=== PATIENT | female | born 1935 | race Caucasian/White ===

== ENCOUNTER 2021-11-09 12:19 | Inpatient (IN) | payer MEDICARE, BC ==
[~2021-11-09] VITALS: Ht 170.2 cm; Wt 67.4 kg
--- NOTE | 2021-11-09 12:10 | PM&R Post Admission Assessment ---
PM&R HP Date of Visit: November 09, 2021 Time of Visit: 13:00 History of Present Illness CC: Debility HPI: This is a clinic pt of Dr. Malhotra with a past medical history of CLL and pneumonia. She presented to [facility] with SOB. She was found to have multifocal pneumonia. Failed outpatient antibiotic treatment who presents with debility, SOB, and cough. She is currently holding her chemotherapy medication that is prescribed by Dr. Whitt. She has completed antibiotics and currently has some residual cough. She is very debilitated and frail. Her daughters at the bedside. She is currently wearing oxygen and is currently otherwise having no new concerns. Past Iwffdrc-Yjmtah-Pddorm Hx Past Med/Social Hx: Reviewed Nursing Past Med/Soc Hx, Reviewed and Corrections made Patient Social History Marrital Status: single Employed/Student: retired Alcohol Use: Denies Use Smoking Status: Never a Smoker Past Medical History Respiratory: Pneumonia Did You Recieve Any Treatments: Yes What Type of Treatment Did You: Chemotherapy Cancer: CLL PM&R Allergy/Meds/Data Review Allergies Coded Allergies: No Known Drug Allergies (Unverified , 11/09/21) Home Medications Scheduled Acalabrutinib (Calquence), 100 MG PO DAILY, (Reported) Acetaminophen (Tylenol Extra Strength), 1,000 MG PO HS, (Reported) Acyclovir (Acyclovir), 400 MG PO DAILY, (Reported) Cholecalciferol (Vitamin D3) (Vitamin D3), 125 MCG PO DAILY, (Reported) Docusate Sodium (Docusate Sodium), 100 MG PO DAILY, (Reported) Furosemide (Furosemide), 40 MG PO 0700,1700, (Reported) Levocetirizine Dihydrochloride (Levocetirizine Dihydrochloride), 5 MG PO DAILY, (Reported) Melatonin (Melatonin), 6 MG PO HS, (Reported) Metoprolol Tartrate (Metoprolol Tartrate), 12.5 MG PO Q12H, (Reported) Mometasone Furoate (Mometasone Furoate), 1 SPRAY NSEACH DAILY, (Reported) Potassium Chloride (Potassium Chloride), 20 MEQ PO DAILY, (Reported) Saccharomyces Boulardii (Florastor), 500 MG PO DAILY, (Reported) Scheduled PRN Bisacodyl (Bisacodyl), 10 MG RC DAILY PRN for CONSTIPATION-4TH LINE, (Reported) Diphenhydramine HCl (Benadryl), 25 MG PO Q6H PRN for ALLERGY SYMPTOMS, (Reported) Current Medications Current Medications Reviewed Review of Systems Constitutional: see HPI, dizziness, malaise, weakness EENTM: no symptoms reported Respiratory: cough, dyspnea on exertion Cardiovascular: no symptoms reported Gastrointestinal: no symptoms reported Genitourinary: no symptoms reported Musculoskeletal: back pain, joint pain Skin: no symptoms reported Psychiatric/Neurological: Anxiety, Depressed, Headache All Other Systems Reviewed Negative Unless Noted: Yes Physical Exam Physical Exam Vital Signs Capillary Refill : Height, Weight, BMI Height: '" Weight: lbs. oz. kg; BMI Method: General Appearance: No Apparent Distress, WD/WN, Chronically ill, Thin Eyes: Bilateral Eye Normal Inspection, Bilateral Eye PERRL HEENT: PERRL/EOMI, Normal ENT Inspection, Pharynx Normal Neck: Full Range of Motion, Normal Inspection, Non Tender, Supple, Carotid Bruit Respiratory: Chest Non Tender, No Accessory Muscle Use, No Respiratory Distress, Decreased Breath Sounds, Rales (Left lower lobe) Cardiovascular: Regular Rate, Rhythm, No Edema, No Gallop, No JVD, No Murmur, Normal Peripheral Pulses Gastrointestinal: Normal Bowel Sounds, No Organomegaly, No Pulsatile Mass, Non Tender, Soft Back: Normal Inspection, No CVA Tenderness, No Vertebral Tenderness Extremity: Normal Capillary Refill, Normal Inspection, Normal Range of Motion, Non Tender, No Calf Tenderness, No Pedal Edema Neurologic/Psychiatric: Alert, Oriented x3, 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 Norm as Tested, Abnormal Gait, Depressed Affect, Motor Weakness (Severe weakness generalized) Skin: Normal Color, Warm/Dry Lymphatic: No Adenopathy PM&R Medical Assessment & Plan REHAB/MEDICAL ASSESSMENT AND PLAN: REHAB IMPAIRMENT GROUP: Debility ETIOLOGIC DIAGNOSIS: Debility The comorbidities that impact the patients function and/or functional outcome by: CLL on immunosuppression, hypoxia, severe debility, advanced age REHAB PLAN: The patient is being admitted to our comprehensive inpatient rehabilitation facility and can tolerate the intensity of service consisting of at least: 180 minutes of therapy a day, 5 out of 7 days a week Rehab treatment will consist of: PT and OT will focus on regaining enough function with use of assistive devices in order to return back to independent living The patient/family has a good understanding of our discharge process and will benefit from an interdisciplinary inpatient rehabilitation program. The patient has potential to make improvement and is in need of at least two of the following multidisciplinary therapies including but not limited to physical, occupational, speech, and prosthetics and orthotics. Additionally the patient will need services from respiratory, nutritional services, wound care, psychology, etc. (Customize this to each patient). Given the patients complex condition and risk of further medical complications, rehabilitation services cannot be safely or effectively provided at a lower level of care such as a retirement facility. BARRIERS TO DISCHARGE: Severe weakness with advanced age ESTIMATED LOS: 7 days DISPOSITION: Home RELEVANT CHANGES SINCE PREADMISSION SCREENING: I have compared the patients medical and functional status at the time of the preadmission screening and there are: no changes PROGNOSIS: Fair REHABILITATION GOALS: 1. [PT and OT will focus on regaining enough function with use of assistive devices in order to return back to independent living All the above goals were reviewed with the patient and he/she is in agreement. By signing this document, I acknowledge that I have personally performed a full physical examination on this patient within 24 hours of admission to this inpatient rehabilitation facility and have determined the patient to be able to tolerate the above course of treatment at an intensive level for a reasonable period of time. I will be completing a detailed individualized Plan of Care for this patient by day #4 of the patients stay based upon the Preadmission Screen, the Post-Admission Evaluation, and the therapy evaluations. Admission Dx/Comorbidities: (1) Debility ICD Codes: R53.81 - Other malaise (2) CLL (chronic lymphocytic leukemia) ICD Codes: C91.10 - Chronic lymphocytic leukemia of B-cell type not having achieved remission (3) Immunosuppression ICD Codes: D84.9 - Immunodeficiency, unspecified (4) Hypoxia ICD Codes: R09.02 - Hypoxemia (5) Oxygen dependent ICD Codes: Z99.81 - Dependence on supplemental oxygen (6) Pneumonia ICD Codes: J18.9 - Pneumonia, unspecified organism Assessment/Plan Assessment and Plan Assess & Plan/Chief Complaint Assessment: Critical illness myopathy Status post pneumonia 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 Whitt his oncologist Diabetes Hypertension Colon polyps Insomnia Advanced age Hyponatremia Anemia Volume overload Hypoxia requiring supplemental oxygen since pneumonia Diastolic congestive heart failure Valvular heart disease Immunosuppression Plan: Inpatient rehab protocol Oxygen supplementation Home meds Supportive care TEENA BUNDY DO November 09, 2021 12:10
[2021-11-09] MEDS ORDERED: MOME17SP11 NSEACH (12:29)
[2021-11-09] MEDS ORDERED: DOCU100C37 PO (12:29)
[2021-11-09] MEDS ORDERED: ACET-2267 PO (12:29)
[2021-11-09] MEDS ORDERED: BISA10SU8 RC (12:29)
[2021-11-09] MEDS ORDERED: DIPH25CA79 PO (12:29)
[2021-11-09] MEDS ORDERED: FURO40TA4 PO (12:29)
[2021-11-09] MEDS ORDERED: MELA3TAB39 PO (12:29)
[2021-11-09] MEDS ORDERED: POTA-51 PO (12:29)
[2021-11-09] MEDS ORDERED: ACYC400T21 PO (12:29)
[2021-11-09] MEDS ORDERED: METO-333 PO (12:29)
[2021-11-09] MEDS ORDERED: SACC250C PO (12:29)
[2021-11-09] MEDS ORDERED: ACAL100C PO (12:29)
[2021-11-09] MEDS ORDERED: CHOL500050 PO (12:29)
[2021-11-09] MEDS ORDERED: LEVO5TAB12 PO (12:29)
[2021-11-09 12:30] VITALS: BP 125/76
[2021-11-09] MEDS ORDERED: guaiFENesin/DM (ROBITUSSIN DM) 10 ML UDC PO PRN (12:30)
[2021-11-09] MEDS ORDERED: LACTULOSE SYRUP 10GM/15ML (ENULOSE) 30ML UDC PO PRN (12:30)
[2021-11-09] MEDS ORDERED: guaiFENesin/CODEINE (ROBITUSSIN AC) 10ML UDC PO PRN (12:30)
[2021-11-09] MEDS ORDERED: CALCIUM CARBONATE 500 MG (TUMS) TAB.CHEW PO PRN (12:30)
[2021-11-09] MEDS ORDERED: FLEET ENEMA ADULT 1 EA BTL PR PRN (12:30)
[2021-11-09] MEDS ORDERED: DOCUSATE SODIUM 100 MG (COLACE) CAP PO PRN (12:30)
[2021-11-09] MEDS ORDERED: ENOXAPARIN 40 MG/0.4 ML (LOVENOX) SYR SC SCH (12:30)
[2021-11-09] MEDS ORDERED: BISACODYL 10 MG SUPP (DULCOLAX) PR PRN (12:30)
[2021-11-09] MEDS ORDERED: MELATONIN 3 MG TABLET PO PRN (12:30)
[2021-11-09] MEDS ORDERED: LOPERAMIDE 2 MG (IMODIUM) TABLET PO PRN (12:30)
--- NOTE | 2021-11-09 13:04 | Occupational Therapy Eval ---
OT Evaluation-General/PLF Medical Diagnosis Admission Date November 09, 2021 at 12:19 Medical Diagnosis: B/L multifocal PNA Onset Date: November 09, 2021 Therapy Diagnosis Therapy Diagnosis: decreased ADL status Precautions Precautions/Isolations: Fall Prevention, Standard Precautions, Pressure Ulcer Referral Physician: Xu Ahumada Reason: Evaluation/Treatment Medical History Additional Medical History a/c diastolic HF, hypoxia, anemia Current History admit with b/l multifocal PNA due to AE HFpEF Reviewed History: Yes Social History Home: Multilevel Current Living Status: Alone Steps Into Home: 1 (small step into home) Pt lives in multilevel house but does not use the upstairs. ADL-Prior Level of Function SCALE: Activities may be completed with or without assistive devices. 6-Gaulifvber-ostcovg completes the activity by him/herself with no assistance from a helper. 5-Set-up or Clean-up Assistance-helper sets up or cleans up; patient completes activity. [place] assists only prior to or following the activity. 4-Supervision or Touching Assistance-helper provides verbal cues and/or touching/steadying and/or contact guard assistance as patient completes activity. Assistance may be provided throughout the activity or intermittently. 3-Partial/Moderate Assistance-helper does LESS THAN HALF the effort. [place] lifts, holds or supports trunk or limbs, but provides less than half the effort. 2-Substantial/Maximal Assistance-helper does MORE THAN HALF the effort. [place] lifts or holds trunk or limbs and provides more than half the effort. 5-Enekqxzki-cbvwfg does ALL the effort. Patient does none of the effort to complete the activity. Or, the assistance of 2 or more helpers is required for the patient to complete the activity. If activity was not attempted, code reason: 7-Patient Refused. 9-Not Applicable-not attempted and the patient did not perform the activity before the current illness, exacerbation or injury. 10-Not Attempted due to Environmental Limitations-(lack of equipment, weather restraints, etc.). 88-Not Attempted due to Medical Conditions or Safety Concerns. ADL PLOF Comments Pt reports IND with ADLs and functional mobility at [facility], using 4WW. She has a walk in shower with a SC (didn't use SC prior). She also has a toilet riser. Self Care: Independent Functional Cognition: Independent OT Current Status Subjective Pt arrived to ARU via private vehicle. Pt agreeable to OT evaluation. Pt tired from ride over/transfer from [place], [place]. Mental Status/Objective Patient Orientation: Person, Place, Situation Attachments: Oxygen (2L NC) Current Hearing Aids: Yes Hand Dominance: Right Upper Extremity ROM WFL, BUE shoulder flexion to approx 150 degrees Upper Extremity Coordination WFL Upper Extremity Strength grossly 3+/5 ADL-Treatment Eating (QC): 5 (Per pt report) Oral Hygiene (QC): 7 Shower/Bathe Self (QC): 7 Upper Body Dressing (QC): 7 Lower Body Dressing (QC): 7 On/Off Footwear (QC): 4 (SBA) Toileting Hygiene (QC): 3 (Per nursing staff) Other Treatments [id number] OT evaluation. Pt assisted from car to w/c using FWW, assistance maneuvering walker over uneven surface. Pt taken to ARU to her room, used FWW to transfer to recliner, [facility]. Pt provided information about PLOF and home set up and participated in UE screen. Pt and family educated on ARU expectations, they verbalize understanding. Post tx, pt in recliner, call light in reach and all needs met. [id number] OT tx: Pt seated upright in recliner, family present. Pt declines ADLs at this time, but agreeable to shower tomorrow. Pt declines need to toilet, as she just toileted with nursing staff. Pt able to doff gripper socks, then don slip on shoes, SBA. Pt took rest breaks during task reporting fatigue. Pt reports enjoying cross stitch, word puzzles and watching TV. Pt and family provide further history on pt, indicating she has some compression fractures in her back that cause pain, and allergies/sinus issues. Family questioning if pt could have toe nails cut during visit, OT informed nurse of family request. Education OT Patient Education: Correct positioning, Energy conservation, Exercise program, Modified ADL techniques, Progress toward Goal/Update tx plan, Purpose of tx/functional activities Teaching Recipient: Patient Teaching Methods: Discussion Response to Teaching: Unable to Return Demonstration OT Short Term Goals Short Term Goals Time Frame: November 22, 2021 Toileting hygiene: 4 Shower/bathe self: 4 Lower body dressin Putting on/taking off footwear: 4 OT State Auditor Goals State Auditor Goals Time Frame: Dec 08, 2021 Eating (QC): 6 Oral Hygiene (QC): 6 Toileting Hygiene (QC): 6 Shower/Bathe Self (QC): 6 Upper Body Dressing (QC): 6 Lower Body Dressing (QC): 6 On/Off Footwear (QC): 6 Additional Goals: 1-Demonstrate ADL Tasks, 2-Verbalize Understanding, 3- ImproveStrength/[place] 1=Demonstrate adherence to instructed precautions during ADL tasks. 2=Patient will verbalize/demonstrate understanding of assistive d evices/modifications for ADL. 3=Patient will improve strength/tolerance for activity to enable patient to perform ADL's. OT Education/Plan Problem List/Assessment Assessment: Decreased Activ Tolerance, Decreased UE Strength, Impaired Funct Balance, Impaired I ADL's, Impaired Self-Care Skills Discharge Recommendations Plan/Recommendations: Continue POC Treatment Plan/Plan of Care Patient would benefit from OT for education, treatment and training to promote independence in ADL's, mobility, safety and/or upper extremity function for A DL's. Plan of Care: ADL Retraining, Functional Mobility, Group Exercise/Act as Ind, UE Funct Exercise/Act Treatment Duration: Dec 08, 2021 Frequency: At least 5 of 7 days/Wk (IRF) Estimated Hrs Per Day: 1.5 hours per day Agreement: Yes Rehab Potential: Good Time/GCodes Start Time: 12:05 ([id number]) Stop Time: 13:30 ([id number]) Total Time Billed (hr/min): 40 Billed Treatment Time 1, 1, EVM (20'), ADL (20') LAYTON BENITEZ OT November 09, 2021 13:04
--- NOTE | 2021-11-09 13:32 | ST Cognitive Linguistic Eval ---
Speech Evaluation-General Medical Diagnosis B/L Multifocal PNA Onset Date: November 09, 2021 Therapy Diagnosis Therapy Diagnosis: Intact Neurocognitive Skills Precautions Precautions: Fall Precautions/Isolations: Fall Prevention, Standard Precautions Referral Referring Physician: Dr. Tatiana Mcnair Reason for Referral: Evaluation/Treatment Medical History Current History The patient is an 86 year old female with a past medical history of a/c diastolic HF, hypoxia, and anemia, who presented to the acute rehabilitation unit following b/l multifocal PNA due to AE HFpEF. Reviewed History: Yes Social History Current Living Status: Alone Speech PLF-Current Status Prior Level of Function The patient denied prior challenges with her speech, language or cognition. Per patient's daughter, the patient's cognition is at baseline. One daughter stated, "You're speech may seemed a little slurred at times but it is always when you are so tired." The patient denied the presence of s/s of suspected aspiration with P.O. intake, however, does report her throat feels swollen from all the mucus and coughing. The clinician encouraged the patient to consumed soft, slick consistencies and alternate solids and liquids on a 1:1 ratio. If difficulties arise, the patient was encouraged to discuss her swallow with the RN for contact of the speech pathologist. Subjective The patient was seated upright in her recliner, awake and alert upon entrance to her room by the clinician. The patient greeted the clinician appropriately and was agreeable to participation in the cognitive linguistic assessment. The patient has two daughters present at bedside. The patient is receiving 2L supplemental oxygen via NC. Language Eval: Auditory Comprehends Simple Yes/No Ques: Functional Indent/Objects Multiple Lane: Functional Ident/Pics in Multiple Lane: Functional Follows 1-Step Commands: Functional Follows Complex Directions: Mild Follows General Conversations: Functional Language Eval: Verbal Language Completes Spontaneous Greeting: Functional Produces Auto, Serial Info: Functional Imitates Simple Words/Phrases: Functional Word Finding: Functional Requests Basic Needs: Functional States Basic Personal Info: Functional Language Evaluation: Reading Follows Simple Written Direct: Functional Language Evaluation: Writing Writes to Simple Dictation: Functional Cognitive Patient Orientation The patient was independently oriented to self, location, month, day of week, date, and year. Objective Cognitive Domain Attention: WNL Memory: WNL Problem Solving: Functional Executive Functions: WNL Composite Severity Rating: WNL Clock Drawing Severity Rating: WNL Objective Formal/Standardized Tests [facility] Status Exam (UMS) Results The patient demonstrated a result of +28/30 correlating to neurocognitive skills within normal limits. Oral Motor/Speech Production The patient did not demonstrate dysarthria or apraxia of speech throughout the evaluation. The patient remained 100% intelligible in known and unknown contexts. Impression The patient demonstrated neurocognitive skills within normal limits. Speech Patient Assess Expression of Ideas/Wants: Expression (4) Understanding Verbal Content: Understands (4) Brief Interview-Mental Status: Yes Repetition of Three Words: Three (3) Temporal Orientation: Year: Correct (3) Temporal Orientation: Month: Accurate within 5 days(2) Temporal Orientation: Day: Correct (1) Recall : Wear to say "Sock": Yes, no cue required (2) Recall : Color: Yes, no cue required (2) Recall : Bed: Yes, no cue required (2) Memory/Recall Ability: Current season, Location of own room, That he or she is in a hsp/hsp unit Speech-Plan Treatment Plan Speech Therapy Treatment Plan: Discontinue ST Treatment Duration: November 09, 2021 Frequency: 1 time per week Estimated Hrs Per Day: .5 hour per day Rehab Potential: Good Pt/Family Agrees to Plan: Yes Safety Risks/Education Teaching Recipient: Patient, Family Teaching Methods: Discussion Response to Teaching: Verbalize Understanding Education Topics Provided: Results of SLUMS, Speech Pathology Plan of Care Time Speech Therapy Time In: 12:40 Speech Therapy Time Out: 13:10 Total Billed Time: 30 Billed Treatment Time 1, LIZETH YANCEY ELIZABETH ST November 09, 2021 13:32
[2021-11-09] MEDS: BENZONATATE 100 MG (TESSALON) CAPSULE PO SCH ×2 (13:38→20:23)
--- NOTE | 2021-11-09 14:18 | Occupational Ther Daily Note ---
OT Current Status-Daily Note Subjective Pt alert, sitting in recliner. Took over care from OTR. Co-treat with [phone]), skills of 2 clinicians required due to increased pain, decreased activity tolerance and to decrease fall risk. PT focusing on ambulation, transfers and mobility while OT focusing on B UE placement, functional mobility and B UE fine/gross motor task. Mental Status/Objective Patient Orientation: Person, Place, Time, Situation Attachments: Oxygen (2L) ADL-Treatment Therapy Code Descriptions/Definitions Functional [place] Measure: 0=Not Assessed/NA 4=Minimal Assistance 1=Total Assistance 5=Supervision or Setup 2=Maximal Assistance 6=Modified [place] 3=Moderate Assistance 7=Complete IndependenceSCALE: Activities may be completed with or without assistive devices. 5-Oryybxlkyh-vnkpgot completes the activity by him/herself with no assistance from a helper. 5-Set-up or Clean-up Assistance-helper sets up or cleans up; patient completes activity. [place] assists only prior to or following the activity. 4-Supervision or Touching Assistance-helper provides verbal cues and/or touching/steadying and/or contact guard assistance as patient completes activity. Assistance may be provided throughout the activity or intermittently. 3-Partial/Moderate Assistance-helper does LESS THAN HALF the effort. [place] lifts, holds or supports trunk or limbs, but provides less than half the effort. 2-Substantial/Maximal Assistance-helper does MORE THAN HALF the effort. [place] lifts or holds trunk or limbs and provides more than half the effort. 0-Wcgghberm-zclfxy does ALL the effort. Patient does none of the effort to complete the activity. Or, the assistance of 2 or more helpers is required for the patient to complete the activity. If activity was not attempted, code reason: 7-Patient Refused. 9-Not Applicable-not attempted and the patient did not perform the activity before the current illness, exacerbation or injury. 10-Not Attempted due to Environmental Limitations-(lack of equipment, weather restraints, etc.). 88-Not Attempted due to Medical Conditions or Safety Concerns. Other Treatment See PT notes for ambulation progress. Pt able to ambulate using FWW though fatigues very quickly after short distance. Pt's B UE WFL for AROM though demonstrates weakness and fatigue with extended use. MAGAÑA wrapped B lower legs and feet due to swelling. After therapy, pt left in care of PT all needs met. OT Short Term Goals Short Term Goals Time Frame: November 22, 2021 Toileting hygiene: 4 Shower/bathe self: 4 Lower body dressin Putting on/taking off footwear: 4 OT Instructor Weaving Goals Halfway Goals Time Frame: Dec 08, 2021 Eating (QC): 6 Oral Hygiene (QC): 6 Toileting Hygiene (QC): 6 Shower/Bathe Self (QC): 6 Upper Body Dressing (QC): 6 Lower Body Dressing (QC): 6 On/Off Footwear (QC): 6 Additional Goals: 1-Demonstrate ADL Tasks, 2-Verbalize Understanding, 3- ImproveStrength/[place] 1=Demonstrate adherence to instructed precautions during ADL tasks. 2=Patient will verbalize/demonstrate understanding of assistive devices/modifications for ADL. 3=Patient will improve strength/tolerance for activity to enable patient to perform ADL's. OT Education/Plan Problem List/Assessment Assessment: Decreased Activ Tolerance, Decreased UE Strength, Impaired Self- Care Skills Discharge Recommendations Plan/Recommendations: Continue POC Treatment Plan/Plan of Care Patient would benefit from OT for education, treatment and training to promote independence in ADL's, mobility, safety and/or upper extremity function for ADL's. Plan of Care: ADL Retraining, Functional Mobility, Group Exercise/Act as Ind, UE Funct Exercise/Act Treatment Duration: Dec 08, 2021 Frequency: At least 5 of 7 days/Wk (IRF) Estimated Hrs Per Day: 1.5 hours per day Agreement: Yes Rehab Potential: Good Time/GCodes Start Time: 13:40 Stop Time: 14:15 Total Time Billed (hr/min): 35 Billed Treatment Time 1 visit-FA 2 (35 min) co-treat with PT 35 min OLINDA COULTER November 09, 2021 14:18
--- NOTE | 2021-11-09 14:32 | Physical Therapy Evaluation ---
PT Evaluation-General Medical Diagnosis Admission Date November 09, 2021 at 12:19 Medical Diagnosis: B/L Multifocal PNA Onset Date: November 09, 2021 Therapy Diagnosis Therapy Diagnosis: impaired mobility, strength, endurance Precautions Precautions/Isolations: Fall Prevention, Standard Precautions Referral Physician: Tatiana Mcnair DO Reason for Referral: Evaluation/Treatment Medical History Additional Medical History a/c diastolic HF, hypoxia, anemia Reviewed History: Yes Social History Home: Multilevel (patient doesn't have to go upstairs) Current Living Status: Alone PT Steps Into Home: 1 (small step into home) Prior Prior Level of Function SCALE: Activities may be completed with or without assistive devices. 2-Bmhbkeusno-erqoaih completes the activity by him/herself with no assistance from a helper. 5-Set-up or Clean-up Assistance-helper sets up or cleans up; patient completes activity. [place] assists only prior to or following the activity. 4-Supervision or Touching Assistance-helper provides verbal cues and/or touching/steadying and/or contact guard assistance as patient completes activity. Assistance may be provided throughout the activity or intermittently. 3-Partial/Moderate Assistance-helper does LESS THAN HALF the effort. [place] lifts, holds or supports trunk or limbs, but provides less than half the effort. 2-Substantial/Maximal Assistance-helper does MORE THAN HALF the effort. [place] lifts or holds trunk or limbs and provides more than half the effort. 8-Brkfmzyji-ztcfpf does ALL the effort. Patient does none of the effort to complete the activity. Or, the assistance of 2 or more helpers is required for the patient to complete the activity. If activity was not attempted, code reason: 7-Patient Refused. 9-Not Applicable-not attempted and the patient did not perform the activity before the current illness, exacerbation or injury. 10-Not Attempted due to Environmental Limitations-(lack of equipment, weather restraints, etc.). 88-Not Attempted due to Medical Conditions or Safety Concerns. Bed Mobility: 6 Transfers (B,C,W/C): 6 Gait: 6 Stairs: 6 PT Evaluation-Current Subjective Patient in recliner pre tx, agrees to PT, has unrated headache, nurse aware, states she also is very congested due to change in weather. Family states patient has had spinal compression fractures and has back pain, she also is very kyphotic. Will be co-treating with OT for part of tx due to poor patient mobility, strength, endurance, severe debility, coordinate UE and LE during activity, safety and reduce risk of falls. Pt/Family Goals to be independent at home. Objective Patient Orientation: Person, Place, Situation Attachments: Oxygen ROM/Strength ROM Lower Extremities WNL Strength Lower Extremities LLE (hip flexion 3+/5, knee flexion 4/5, knee extension 4/5, dorsiflexion 4/5), RLE (hip flexion 3+/5, knee flexion 4/5, knee extension 4/5, dorsiflexion 4/5) Integumentary/Posture Integumentary patient has increased edema in LLE, nursing aware Sensory Vision: Functional Hearing: Impaired Hand Dominance: Right Sensation Right Lower Extremit: Intact Sensation Left Lower Extremity: Intact Transfers Roll Left & Right (QC): 6 Sit to Lying (QC): 4 (SBA) Lying to Sitting/Side of Bed(Q: 3 (Ila) Sit to Stand (QC): 4 (CGA) Chair/Xyq-yf-Nlubn Xfer(QC): 4 (CGA) Toilet Transfer (QC): 4 (CGA) Car Transfer (QC): 4 (CGA) Patient performs rolling independently, supine to sit with min assist, sit to supine SBA, sit <-> stand and transfers CGA, car transfer CGA. Patient needs oc casional cues for positioning and safety. Gait Does the Patient Walk?: Yes Mode of Locomotion: Walk Anticipated Mode of Locomotion: Walk Walk 10 feet (QC): 4 Walk 50 ft with 2 Turns(QC): 88 Walk 150 ft (QC): 88 Walking 10ft/uneven surface-QC: 4 Distance: 20', 15'x2 Gait Assistive Device: FWW Comments/Gait Description Patient can ambulate 20' with a rolling walker with CGA (including 10' over an uneven surface). Patient ambulates very slowly, has poor endurance, poor foot clearance and short steps. Wheelchair Training Wheel 50 ft with 2 turns (QC): 1 Wheel 150 ft (QC): 1 Stairs #of Steps: 1 1 Step (curb) (QC): 4 4 Steps (QC): 88 12 Steps (QC): 88 Walking Assistive Device: Walker Patient can go up and down 1 step using a rolling walker with CGA, cues for foot placement and safety Balance Sitting Static: Normal Sitting Dynamic: Normal Standing Static: Fair Standing Dynamic: Fair Picking up an Object (QC): 4 (using supervisor labor gang) Treatment PT performed bed mobility and transfers, ambulation, NuStep level 2 for 6 min (patient had to stop due to back pain), OT performed UE positioning and safety, standing peg activity (working on standing balance and endurance with PT). Assessment/Needs Patient in recliner post tx with nurse call, phone, tray, all needs met. Patient has impaired mobility, strength, endurance, pain with activity. Patient was very tired and had a hard time tolerating much activity. Rehab Potential: Fair PT Short Term Goals Short Term Goals Time Frame: November 16, 2021 Roll Left & Right: 6 Sit to lyin Lying to sitting on side of be: 4 (SBA) Sit to stand: 4 (SBA) Chair/mfx-xk-wnual transfer: 4 (SBA) Walk 10 feet: 4 (SBA) Walk 50 feet with two turns: 4 (SBA) PT Jail Goals Jail Goals PT Manufacturing Test Engineer Goals Time Frame: November 30, 2021 Roll Left & Right (QC): 6 Sit to Lying (QC): 6 Lying-Sitting on Side/Bed(QC): 6 Sit to Stand (QC): 5 Chair/Ayz-xq-Cknlk Xfer(QC): 5 Toilet Transfer (QC): 5 Car Transfer (QC): 5 Does the Patient Walk: Yes Walk 10 feet (QC): 5 Walk 50ft with 2 Turns (QC): 5 Walk 150 ft (QC): 5 Walking 10ft on Uneven Surface: 5 1 Step (curb) (QC): 4 4 Steps (QC): 4 12 Steps (QC): 88 Picking up an Object (QC): 5 Wheel 50 feet with 2 turns (QC: 9 Wheel 150 feet: 9 PT Plan Problem List Problem List: Activity Tolerance, Functional Strength, Safety, Balance, Gait, Transfer, Bed Mobility, ROM Treatment/Plan Treatment Plan: Continue Plan of Care Treatment Plan: Bed Mobility, Education, Functional Activity [place], Functional Strength, Group Therapy, Gait, Safety, Therapeutic Exercise, Transfers Treatment Duration: November 30, 2021 Frequency: At least 5 of 7 days/Wk (IRF) Estimated Hrs Per Day: 1.5 hours per day Patient and/or Family Agrees t: Yes Safety Risks/Education Patient Education: Gait Training, Transfer Techniques, Steps, Correct Positioning, Safety Issues Teaching Recipient: Patient Teaching Methods: Demonstration, Discussion Response to Teaching: Reinforcement Needed Discharge Recommendations Plan Patient will perform bed mobility and transfer training, balance and endurance training, functional strengthening, stair training, gait training, and education, to improve functional mobility and independence at home. Therapy Discharge Recommendati: Scheduled Assistance, Home & Family, Post Acute PT Time/GCodes Time In: 1330 Time Out: 1440 Total Billed Treatment Time: 75 Total Billed Treatment 1 visit EVM 10' EX 15' FA 50' PT eval from [id number], co-treat from [id number], PT tx from [id number] NADIA SLOAN PT November 09, 2021 14:32
[2021-11-09] MEDS ORDERED: BISACODYL 10 MG SUPP (DULCOLAX) RC PRN (17:45)
[2021-11-09] MEDS ORDERED: NON-FORMULARY MEDICATION 1 EA EA (Diphenhydramine HCl (Benadryl) 25 MG) PO PRN (17:45)
[2021-11-09 19:54] VITALS: BP 99/49
[2021-11-09] MEDS ORDERED: APAP 300 MG/CODEINE 30 MG (TYLENOL #3) TAB PO PRN (20:00)
[2021-11-09] MEDS: meTOprolol TARTRATE 25 MG (LOPRESSOR) TABLET PO SCH (20:23)
[2021-11-09] MEDS: MELATONIN 3 MG TABLET PO SCH (20:23)
[2021-11-09] MEDS: polyethylene glycoL POWDER 17 GM (MIRALAX) PACK PO SCH (20:24)
[2021-11-09] MEDS: SENNA W/DOCUSATE (SENOKOT S) TABLET PO SCH (20:24)
[2021-11-09] MEDS: ACETAMINOPHEN 500 MG TAB (TYLENOL) PO SCH (20:25)
[2021-11-09] MEDS ORDERED: DOCUSATE SODIUM 100 MG (COLACE) CAP PO SCH (21:00)
[2021-11-09] MEDS: ALPRAZolam 0.25 MG (XANAX) TAB PO PRN (22:02)
[2021-11-09] MEDS: guaiFENesin/CODEINE (ROBITUSSIN AC) 10ML UDC PO PRN (22:03)
[2021-11-10 06:15] LABS: BASOPHILS % (AUTO) 1 % (0-10); EOSINOPHILS # (AUTO) 0.2 10^3/uL (0.0-0.3); EOSINOPHILS % (AUTO) 0 % (0-10); HEMOGLOBIN 8.1 g/dL (11.5-16.0)
[2021-11-10 06:18] LABS: BASOPHILS # (AUTO) 0.7 10^3/uL (0.0-0.1); HEMATOCRIT 27 % (35-52); LYMPHOCYTES # (AUTO) 85.9 10^3/uL (1.0-4.0); LYMPHOCYTES % (AUTO) 61 % (12-44); MEAN CORPUSCULAR HEMOGLOBIN 31 pg (25-34); MEAN CORPUSCULAR HGB CONC 30 g/dL (32-36); MEAN CORPUSCULAR VOLUME 101 fL (80-99); MEAN PLATELET VOLUME 9.9 fL (9.0-12.2); MONOCYTES # (AUTO) 50.3 10^3/uL (0.0-1.0); MONOCYTES % (AUTO) 36 % (0-12); NEUTROPHILS # (AUTO) 4.3 10^3/uL (1.8-7.8); NEUTROPHILS % (AUTO) 3 % (42-75)
[2021-11-10 06:31] LABS: POTASSIUM 6.3 MMOL/L (3.6-5.0)
[2021-11-10 06:32] LABS: CALCIUM 8.2 MG/DL (8.5-10.1)
[2021-11-10 06:33] LABS: TOTAL PROTEIN 4.5 GM/DL (6.4-8.2)
[2021-11-10] MEDS: FUROSEMIDE 40 MG (LASIX) TAB PO SCH ×2 (06:33→17:11)
[2021-11-10 06:35] LABS: BILIRUBIN,TOTAL 1.8 MG/DL (0.1-1.0)
[2021-11-10 06:37] LABS: CREATININE SERUM 0.83 MG/DL (0.60-1.30)
[2021-11-10 06:39] LABS: WHITE BLOOD COUNT 141.9 10^3/uL (4.3-11.0)
[2021-11-10 06:45] LABS: ATYPICAL LYMPHOCYTES 98 %; NEUTROPHILS % (MANUAL) 2 %
[2021-11-10 06:46] LABS: ANISOCYTOSIS SLIGHT; HYPOCHROMASIA SLIGHT; PLATELET COUNT 109 10^3/uL (130-400); POIKILOCYTOSIS SLIGHT
--- NOTE | 2021-11-10 06:55 | PM&R Progress Note ---
Subjective HPI/CC On Admission Date Seen by Provider: November 10, 2021 Time Seen by Provider: 11:45 Subjective/Events-last exam 11/10/2021: Pt settling in White count is 141,000 Hemoglobin is 8.1 Potassium is 6.3, so I did give Kayexalate to get that down She reports she took Ativan and Zoloft at home so we will evaluate the home dosing Will add procalcitonin to check to be sure that her pneumonia is resolving and I will repeat a chest x-ray, I will also do a sputum culture Review of Systems General: Fatigue, Malaise Pulmonary: Dyspnea, Cough Neurological: Weakness, Incoordination Objective Exam Vital Signs Vital Signs Date Time Temp Pulse Resp B/P (MAP) Pulse Ox O2 Delivery O2 Flow Rate FiO2 11/10/21 21:51 36.9 95 24 104/65 (78) 94 Nasal Cannula 2.00 Capillary Refill : General Appearance: No Apparent Distress, WD/WN, Chronically ill, Thin HEENT: PERRL/EOMI, Normal ENT Inspection, Pharynx Normal Neck: Full Range of Motion, Normal Inspection, Non Tender, Supple, Carotid Bruit Respiratory: Chest Non Tender, No Accessory Muscle Use, No Respiratory Distress, Decreased Breath Sounds, Rales (Left lower lobe) Cardiovascular: Regular Rate, Rhythm, No Edema, No Gallop, No JVD, No Murmur, Normal Peripheral Pulses Gastrointestinal: Normal Bowel Sounds, No Organomegaly, No Pulsatile Mass, Non Tender, Soft Back: Normal Inspection, No CVA Tenderness, No Vertebral Tenderness Extremity: Normal Capillary Refill, Normal Inspection, Normal Range of Motion, Non Tender, No Calf Tenderness, No Pedal Edema Neurologic/Psychiatric: Alert, Oriented x3, addictions counselor assistant II-XII Norm as Tested, Abnormal Gait, Depressed Affect, Motor Weakness (Severe weakness generalized) Skin: Normal Color, Warm/Dry Lymphatic: No Adenopathy Results/Procedures Lab Laboratory Tests 11/10/21 05:35 Patient resulted labs reviewed. FIM Transfers Therapy Code Descriptions/Definitions Functional [place] Measure: 0=Not Assessed/NA 4=Minimal Assistance 1=Total Assistance 5=Supervision or Setup 2=Maximal Assistance 6=Modified [place] 3=Moderate Assistance 7=Complete IndependenceSCALE: Activities may be completed with or without assistive devices. 1-Itrhesouzd-wmjplzd completes the activity by him/herself with no assistance from a helper. 5-Set-up or Clean-up Assistance-helper sets up or cleans up; patient completes activity. [place] assists only prior to or following the activity. 4-Supervision or Touching Assistance-helper provides verbal cues and/or touching/steadying and/or contact guard assistance as patient completes activity. Assistance may be provided throughout the activity or intermittently. 3-Partial/Moderate Assistance-helper does LESS THAN HALF the effort. [place] lifts, holds or supports trunk or limbs, but provides less than half the effort. 2-Substantial/Maximal Assistance-helper does MORE THAN HALF the effort. [place] lifts or holds trunk or limbs and provides more than half the effort. 7-Yfamkbsho-mrqtgr does ALL the effort. Patient does none of the effort to complete the activity. Or, the assistance of 2 or more helpers is required for the patient to complete the activity. If activity was not attempted, code reason: 7-Patient Refused. 9-Not Applicable-not attempted and the patient did not perform the activity before the current illness, exacerbation or injury. 10-Not Attempted due to Environmental Limitations-(lack of equipment, weather re straints, etc.). 88-Not Attempted due to Medical Conditions or Safety Concerns. Roll Left to Right (QC): 6 Sit to Lying (QC): 4 (SBA) Sit to Stand (QC): 4 (CGA) Chair/Nuq-hh-Hguay Xfer(QC): 4 (CGA) Car Transfer (QC): 4 (CGA) Gait Training Does the Patient Walk?: Yes Walk 10 feet (QC): 4 Walk 50 ft with 2 Turns(QC): 88 Walk 150 ft (QC): 88 Walking 10ft/uneven surface-QC: 4 Gait Assistive Device: FWW Wheelchair Training Wheel 50 ft with 2 turns (QC): 1 Wheel 150 ft (QC): 1 Stair Training #of Steps: 1 1 Step (curb) (QC): 4 4 Steps (QC): 88 12 Steps (QC): 88 Balance Picking up an Object (QC): 4 (using data entry manager) ADL-Treatment Eating (QC): 5 (Per pt report) Oral Hygiene (QC): 7 Shower/Bathe Self (QC): 7 Upper Body Dressing (QC): 7 Lower Body Dressing (QC): 7 On/Off Footwear (QC): 4 (SBA) Toileting Hygiene (QC): 3 (Per nursing staff) Assessment/Plan Assessment and Plan Assess & Plan/Chief Complaint Assessment: Critical illness myopathy Status post pneumonia 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 Whitt his oncologist Diabetes Hypertension Colon polyps Insomnia Advanced age Hyponatremia Anemia Volume overload Hypoxia requiring supplemental oxygen since pneumonia Diastolic congestive heart failure Valvular heart disease Immunosuppression Vitamin B12 deficiency Plan: Inpatient rehab protocol Oxygen supplementation Home meds Supportive care 11/10/2021: Check chest x-ray Sputum culture Add PCT to labs Supplement B12 (1) Debility (2) CLL (chronic lymphocytic leukemia) (3) Immunosuppression (4) Hypoxia (5) Oxygen dependent (6) Pneumonia TEENA BUNDY DO November 10, 2021 06:55
--- NOTE | 2021-11-10 06:57 | Individualized Plan of Care ---
Individualized Plan of Care Rehab Nursing IPOC Order Admission Date November 09, 2021 at 12:19 Current Orders Orders Admission Arrival Bed Request (11/09/21 12:12) Guaifenesin/Codeine Syrup (Robitussin Ac (11/09/21 12:30) Guaifenesin/Dm Syrup (Robitussin Dm Syru (11/09/21 12:30) Benzonatate Capsule (Tessalon Perles) (11/09/21 13:00) Admission Order(Inpt,Obs,Sdc) (11/09/21 12:21) Vital Signs: Per Unit Policy ( ,16,00 (11/09/21 12:21) Nicolás Hose (11/09/21 12:21) Sequential Compression Device (11/09/21:) Medical Historian-Inpt Rehab Con (11/09/21:21) Rehab Nursing Orders-Ipoc (11/09/21 12:21) Physical Therapy Rehab Orders (11/09/21 12:21) Occupational Therapy Rehab Ord (11/09/21 12:21) Speech Therapy Rehab Orders (11/09/21 12:21) Cbc With Automated Diff (11/10/21 06:00) Comprehensive Metabolic Panel (11/10/21 06:00) Precautions (Aru) (11/09/21:) Weekly Weight WEEK (11/09/21:) Rehab-Intensity Of Therapy (11/09/21 12:) Initiate Admission Nursing Pro .admission (11/09/21 12:21) Alprazolam Tablet (Xanax Tablet) (11/09/21 12:30) Calcium Carbonate Chew Tablet (Antacid C (11/09/21 12:30) Diphenhydramine Tablet (Benadryl Tablet) (11/09/21 12:30) Docusate Sodium Capsule (Colace Capsule) (11/09/21 21:00) Docusate Sodium Capsule (Colace Capsule) (11/09/21 12:30) Bisacodyl Suppository (Dulcolax Supposit (11/09/21 12:30) Lactulose Oral Solution (Enulose Oral So (11/09/21 12:30) Na Phos/Na Biphos Enema (Fleet Enema Wyatt (11/09/21 12:30) Guaifenesin/Codeine Syrup (Robitussin Ac (11/09/21 12:30) Loperamide Tablet (Imodium Tablet) (11/09/21 12:30) Enoxaparin Injection (Lovenox Injection) (11/09/21 12:30) Melatonin Tablet (Melatonin Tablet) (11/09/21 12:30) Polyethylene Glycol Powder Pkt (Miralax (11/09/21 21:00) Ondansetron Oral Dissolve Tab (Zofran (11/09/21 12:30) Senna S Tablet (Senokot S Tablet) (11/09/21 21:00) Acetaminophen Tablet/Caplet (Tylenol T (11/09/21 12:30) Initiate Admission Nursing Pro .admission (11/09/21 12:21) General/Regular (11/09/21 Lunch) Patient Visit (11/09/21 ) Speech Sound Lang Comp (11/09/21 ) Treat. Speech/Lang/Voice (11/09/21 ) Enoxaparin Injection (Lovenox Injection) (11/10/21 09:00) Acetaminophen Tablet (Tylenol Tablet) (11/09/21 21:00) Acyclovir Capsule/Tablet (Zovirax Caps (11/10/21 09:00) Bisacodyl Suppository (Dulcolax Supposit (11/09/21 17:45) Docusate Sodium Capsule (Colace Capsule) (11/10/21 09:00) Furosemide Tablet (Lasix Tablet) (11/10/21 07:00) Levocetirizine (Non-Formulary) (Xyzal (N (11/10/21 09:00) Melatonin Tablet (Melatonin Tablet) (11/09/21 21:00) Metoprolol Tartrate (Ir) Tab (Lopressor (11/09/21 21:00) (Nf) Acalabrutinib (Calquence) (11/10/21 09:00) (Nf) Cholecalciferol (Vitamin D3) (Vitam (11/10/21 09:00) (Nf) Diphenhydramine Hcl (Benadryl) (11/09/21 17:45) (Nf) Mometasone Furoate (11/10/21 09:00) (Nf) Potassium Chloride (11/10/21 09:00) (Nf) Saccharomyces Boulardii (Florastor) (11/10/21 09:00) Cholecalciferol Capsule/Tablet (Vitamin (11/10/21 09:00) Potassium Chloride (Tablet) (K Dur Table (11/10/21 07:00) Loratadine Tablet (Claritin Tablet) (11/10/21 09:00) Lactobacillus Acidophilus Cap (Acidophil (11/10/21 09:00) Fluticasone Nasal [place] (Flonase Nasal S (11/10/21 09:00) Oxygen Delivery Set Up (11/09/21 19:49) Oxygen-Administer 07,19 (11/09/21 19:49) Hydrocodone/Apap 5/325 Tablet (Lortab 5 (11/09/21 20:00) Oxycodone Immediate Rel Tablet (Oxyir Ta (11/09/21 20:00) Acetaminophen/Codeine Tablet (Tylenol W/ (11/09/21 20:00) Oxycodone Immediate Rel Tablet (Oxyir Ta (11/09/21 20:03) Manual Differential (11/10/21 05:35) Sodium Polystyrene Powder (Kayexalate P (11/10/21 07:00) Iron Tibc %Sat & Ferritin (11/10/21 06:56) Vitamin B 12 (11/10/21 06:56) Sodium Polystyrene Sulfonate (Kayexalate (11/10/21 07:30) Patient Visit (11/09/21 ) Pt Eval Moderate Complexity (11/09/21 ) Exercise Therap, Ea 15 Min (11/09/21 ) Functional Activities, Ea 15 (11/09/21 ) Chest 1 View, Ap/Pa Only (11/10/21 11:58) Montelukast Tablet (Singulair Tablet) (11/11/21 08:00) Montelukast Tablet (Singulair Tablet) (11/10/21 12:00) Loratadine Tablet (Claritin Tablet) (11/10/21 12:00) Loratadine Tablet (Claritin Tablet) (11/11/21 09:00) Procalcitonin (Pct) (11/10/21 11:58) Sputum Culture (11/10/21 11:58) Patient Visit (11/10/21 ) Patient Visit (11/10/21 ) Exercise Therap, Ea 15 Min (11/10/21 ) Functional Activities, Ea 15 (11/10/21 ) Enlive Variety (11/10/21 15:30) Cyanocobalamin Injection (Vitamin B-12 I (11/11/21 08:00) Cyanocobalamin Tablet (Vitamin B-12 Tabl (11/11/21 07:00) Rehab Nursing Orders: Ongoing Assess. of Cognitive Status, Ongoing Assess. of Function Status, Bladder Management, Bladder Scan, Bladder Training, Bowel Management, Bowel Training, Disease Management & Educaiton, DVT Prophylaxis, Fall Prevention, Fluid/Electrolyte/Nutrition Mgmt, Infection Prevention, Medication Management & Education, Management of Risks & Complications, Management of Skin Intergrity, Nutrition Management, Pain Management, Patient/Family Support, Safety Management Intensity of Therapy to be met Patient to be seen: Min.3h per day/5 of 7d PT IPOC Problem List: Activity Tolerance, Functional Strength, Safety, Balance, Gait, Transfer, Bed Mobility, ROM Treatment Plan: Continue Plan of Care Bed Mobility, Education, Functional Activity [place], Functional Strength, Group Therapy, Gait, Safety, Therapeutic Exercise, Transfers Treatment Duration: November 30, 2021 Frequency: At least 5 of 7 days/Wk (IRF) Estimated Hrs Per Day: 1.5 hours per day OT IPOC Problems: Decreased Activ Tolerance, Decreased UE Strength, Impaired Self-Care Skills OT Treatment, Training and Edu: Yes Plan of Care: ADL Retraining, Functional Mobility, Group Exercise/Act as Ind, UE Funct Exercise/Act Treatment Duration: Dec 08, 2021 Frequency: At least 5 of 7 days/Wk (IRF) Estimated Hrs Per Day: 1.[address] IPOC Speech Therapy Treatment Plan: Discontinue ST Treatment Duration: November 09, 2021 Frequency: 1 time per week Estimated Hrs Per Day: .5 hour per day Medical Historian/Case Mgmt Medical Historian/Case Managemen: Discharge Planning Dietitian/Paver Operator Dietitian/Paver Operator to monitor nutritional status and make changes and/or recommendations as needed and work with speech pathology on dietary upgrades as the occur. Physician IPOC Medical Issues being managed closely and that require the 24 hour availability of a physician: Recent multifocal pneumonia with acute respiratory failure with severe CLL with white count of 141,000 will require close monitoring of recurrent pneumonia and management of severe debility Medical Issues: Bowel/Bladder Function, DVT Prophylaxis, Falls Precautions, Fluid/Electrolyte/Nutrition Balance, Infection Protection, Pain Management Brief Synthesis of Preadmission Screen, Post-Admission Evaluation, and Therapy Evaluations: PT and OT will focus on regaining function with use of assistive devices to increase stamina while improving lung function and wean oxygen in order to return back to independent living Medical Prognosis: Fair Anticipated Length of Stay: 10 days TEENA BUNDY DO November 10, 2021 06:57
[2021-11-10] MEDS ORDERED: KCL 20 MEQ TAB (K-DUR) PO SCH (07:00)
[2021-11-10] MEDS ORDERED: SODIUM POLYSTYRENE POWDER 15 GM BOTTLE PO ONE (07:00)
[2021-11-10] MEDS ORDERED: SOD POLYSTERENE 15 GM/60 ML (KAYEXALATE) UNIT DOSE PO NR (07:30)
[2021-11-10] MEDS: ONDANSETRON 4 MG (ZOFRAN) ORAL DISSOLVE TAB PO PRN (07:33)
[2021-11-10 08:00] VITALS: BP 110/58
[2021-11-10] MEDS: BENZONATATE 100 MG (TESSALON) CAPSULE PO SCH ×3 (08:47→20:44)
[2021-11-10] MEDS: ENOXAPARIN 40 MG/0.4 ML (LOVENOX) SYR SC SCH (08:47)
[2021-11-10] MEDS: LORATADINE (CLARITIN) 10 MG TAB PO SCH (08:47)
[2021-11-10] MEDS: VITAMIN D3 125 MCG (5,000 UNITS) CAPSULE PO SCH (08:47)
[2021-11-10] MEDS: ACYCLOVIR 400 MG TABLET (ZOVIRAX) PO SCH (08:47)
[2021-11-10] MEDS: LACTOBACILLUS ACIDOPHILUS (PROBIOTIC) CAPSULE PO SCH (08:47)
[2021-11-10] MEDS ORDERED: NON-FORMULARY MEDICATION 1 EA EA (Potassium Chloride 20 MEQ) PO SCH (09:00)
[2021-11-10] MEDS ORDERED: NON-FORMULARY MEDICATION 1 EA EA (Cholecalciferol (Vitamin D3) (Vitamin D3) 125 MCG) PO SCH (09:00)
[2021-11-10] MEDS ORDERED: MOMETASONE FUROATE NSEACH SCH (09:00)
[2021-11-10] MEDS ORDERED: LEVOCETIRIZINE 5 MG TAB (XYZAL) NON-FORMULARY PO SCH (09:00)
[2021-11-10] MEDS ORDERED: ACALABRUTINIB 100 MG PO SCH (09:00)
[2021-11-10] MEDS ORDERED: SACCHAROMYCES BOULARDII 500 MG PO SCH (09:00)
[2021-11-10] MEDS: DOCUSATE SODIUM 100 MG (COLACE) CAP PO SCH (09:44)
[2021-11-10] MEDS: meTOprolol TARTRATE 25 MG (LOPRESSOR) TABLET PO SCH ×2 (09:44→19:48)
[2021-11-10] MEDS: SENNA W/DOCUSATE (SENOKOT S) TABLET PO SCH ×2 (09:45→20:44)
[2021-11-10] MEDS: polyethylene glycoL POWDER 17 GM (MIRALAX) PACK PO SCH ×2 (09:45→20:46)
--- NOTE | 2021-11-10 10:07 | Occupational Ther Daily Note ---
OT Current Status-Daily Note Subjective Pt alert, sitting in recliner. Pt reported that she felt dizzy and nauseous, nrsg aware. Pt agrees to therapy. Mental Status/Objective Patient Orientation: Person, Place, Time, Situation Attachments: IV, Oxygen (2L) ADL-Treatment Pt agrees to sponge bath, declines shower due to fatigue and dizziness. Sponge bath set up at recliner for pt. Pt able to complete sponge bath with SBA only when pt stood to cleanse buttocks/mayte area. After set up, pt able to don/doff upper body clothing by self then threaded lower body clothing over feet by self then SBA while pt stood to hike pants over hips. Pt able to doff socks by self then assist to don socks due to OLLIE wraps placed on feet/lower legs to decrease edema, assist to don. Pt sat at sink to complete oral care independently. After session, pt sitting in recliner with call light/phone in reach. All needs met in room. Therapy Code Descriptions/Definitions Functional [place] Measure: 0=Not Assessed/NA 4=Minimal Assistance 1=Total Assistance 5=Supervision or Setup 2=Maximal Assistance 6=Modified [place] 3=Moderate Assistance 7=Complete IndependenceSCALE: Activities may be completed with or without assistive devices. 4-Dgioajmjag-iigmfqb completes the activity by him/herself with no assistance from a helper. 5-Set-up or Clean-up Assistance-helper sets up or cleans up; patient completes activity. [place] assists only prior to or following the activity. 4-Supervision or Touching Assistance-helper provides verbal cues and/or touching/steadying and/or contact guard assistance as patient completes activity. Assistance may be provided throughout the activity or intermittently. 3-Partial/Moderate Assistance-helper does LESS THAN HALF the effort. [place] lifts, holds or supports trunk or limbs, but provides less than half the effort. 2-Substantial/Maximal Assistance-helper does MORE THAN HALF the effort. [place] lifts or holds trunk or limbs and provides more than half the effort. 0-Baftoonxz-lqfjgo does ALL the effort. Patient does none of the effort to comp lete the activity. Or, the assistance of 2 or more helpers is required for the patient to complete the activity. If activity was not attempted, code reason: 7-Patient Refused. 9-Not Applicable-not attempted and the patient did not perform the activity before the current illness, exacerbation or injury. 10-Not Attempted due to Environmental Limitations-(lack of equipment, weather restraints, etc.). 88-Not Attempted due to Medical Conditions or Safety Concerns. Eating (QC): 6 Oral Hygiene (QC): 6 Shower/Bathe Self (QC): 4 Upper Body Dressing (QC): 5 Lower Body Dressing (QC): 4 On/Off Footwear: 3 OT Short Term Goals Short Term Goals Time Frame: November 22, 2021 Toileting hygiene: 4 Shower/bathe self: 4 Lower body dressin Putting on/taking off footwear: 4 OT Assisted Goals Rn Clinician Goals Time Frame: Dec 08, 2021 Eating (QC): 6 Oral Hygiene (QC): 6 Toileting Hygiene (QC): 6 Shower/Bathe Self (QC): 6 Upper Body Dressing (QC): 6 Lower Body Dressing (QC): 6 On/Off Footwear (QC): 6 Additional Goals: 1-Demonstrate ADL Tasks, 2-Verbalize Understanding, 3- ImproveStrength/[place] 1=Demonstrate adherence to instructed precautions during ADL tasks. 2=Patient will verbalize/demonstrate understanding of assistive devices/modifications for ADL. 3=Patient will improve strength/tolerance for activity to enable patient to perform ADL's. OT Education/Plan Problem List/Assessment Assessment: Decreased Activ Tolerance, Decreased UE Strength, Impaired Self- Care Skills Discharge Recommendations Plan/Recommendations: Continue POC Treatment Plan/Plan of Care Patient would benefit from OT for education, treatment and training to promote independence in ADL's, mobility, safety and/or upper extremity function for ADL's. Plan of Care: ADL Retraining, Functional Mobility, Group Exercise/Act as Ind, UE Funct Exercise/Act Treatment Duration: Dec 08, 2021 Frequency: At least 5 of 7 days/Wk (IRF) Estimated Hrs Per Day: 1.5 hours per day Agreement: Yes Rehab Potential: Fair Time/GCodes Start Time: 08:00 Stop Time: 09:00 Total Time Billed (hr/min): 60 Billed Treatment Time 1 visit-ADL 4 (60 min) OLINDA COULTER November 10, 2021 10:07
--- NOTE | 2021-11-10 10:58 | Physical Therapy Daily Note ---
PT Daily Note-Current Subjective Patient was in chair upon entering. Patient complains of dizziness and lightheadedness. BP was taken and it cqs851/55 mmHg. Patient agreeable to PT. Pain Comment: No pain verbalized Mental Status Patient Orientation: Person, Place, Situation Attachments: Oxygen Transfers SCALE: Activities may be completed with or without assistive devices. 8-Xifemgoyxb-nsmrnha completes the activity by him/herself with no assistance from a helper. 5-Set-up or Clean-up Assistance-helper sets up or cleans up; patient completes activity. [place] assists only prior to or following the activity. 4-Supervision or Touching Assistance-helper provides verbal cues and/or touching/steadying and/or contact guard assistance as patient completes activity. Assistance may be provided throughout the activity or intermittently. 3-Partial/Moderate Assistance-helper does LESS THAN HALF the effort. [place] lifts, holds or supports trunk or limbs, but provides less than half the effort. 2-Substantial/Maximal Assistance-helper does MORE THAN HALF the effort. [place] lifts or holds trunk or limbs and provides more than half the effort. 0-Uyecfsryj-yqpiit does ALL the effort. Patient does none of the effort to complete the activity. Or, the assistance of 2 or more helpers is required for the patient to complete the activity. If activity was not attempted, code reason: 7-Patient Refused. 9-Not Applicable-not attempted and the patient did not perform the activity before the current illness, exacerbation or injury. 10-Not Attempted due to Environmental Limitations-(lack of equipment, weather restraints, etc.). 88-Not Attempted due to Medical Conditions or Safety Concerns. Sit to Stand (QC): 4 Weight Bearing Right Lower Extremity: Right Full Weight Bearing Left Lower Extremity: Left Full Weight Bearing Gait Training Distance: 50'x2, 20' Walk 10 feet (QC): 4 Walk 50 ft with 2 Turns(QC): 4 Gait Assistive Device: FWW slow speed, kyphotic posture. Wheelchair Training Does the Pt Use a Wheelchair?: Yes Exercises NuStep Minutes: 11 NuStep Workload: 3 Treatments ambulation, LE strengthening and endurance. Assessment Current Status: Fair Progress Patient needed long rest breaks (3-5min) after walking short distances, most likely due to the dizziness/lightheadedness. Patient had several episodes of coughing up sputum (no abnormalities with sputum noted). 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 Wood Boatbuilder Apprentice Goals PT [facility] Goals Time Frame: November 30, 2021 Roll Left & Right (QC): 6 Sit to Lying (QC): 6 Lying-Sitting on Side/Bed(QC): 6 Sit to Stand (QC): 5 Chair/Rud-cp-Pvxtm Xfer(QC): 5 Toilet Transfer (QC): 5 Car Transfer (QC): 5 Does the Patient Walk: Yes Walk 10 feet (QC): 5 Walk 50ft with 2 Turns (QC): 5 Walk 150 ft (QC): 5 Walking 10ft on Uneven Surface: 5 1 Step (curb) (QC): 4 4 Steps (QC): 4 12 Steps (QC): 88 Picking up an Object (QC): 5 Wheel 50 feet with 2 turns (QC: 9 Wheel 150 feet: 9 PT Plan Problem List Problem List: Activity Tolerance, Functional Strength, Safety, Balance, Gait, Transfer, Bed Mobility, ROM Treatment/Plan Treatment Plan: Continue Plan of Care Treatment Plan: Bed Mobility, Education, Functional Activity [place], Functional Strength, Group Therapy, Gait, Safety, Therapeutic Exercise, Transfers Treatment Duration: November 30, 2021 Frequency: At least 5 of 7 days/Wk (IRF) Estimated Hrs Per Day: 1.5 hours per day Patient and/or Family Agrees t: Yes Safety Risks/Education Patient Education: Gait Training, Transfer Techniques, Correct Positioning, Safety Issues Teaching Recipient: Patient Teaching Methods: Discussion Response to Teaching: Verbalize Understanding, Return Demonstration Time/GCodes Time In: 1000 Time Out: 1100 Total Billed Treatment Time: 60 Total Billed Treatment 1 visit FA 49min EX 11min NADIA SLOAN PT November 10, 2021 10:58
[2021-11-10] MEDS: FLUTICASONE NASAL SPRAY (FLONASE) 16 GM BTL NS SCH (11:06)
[2021-11-10] MEDS ORDERED: MONTELUKAST 10 MG (SINGULAIR) TAB PO NR (12:00)
[2021-11-10] MEDS ORDERED: LORATADINE (CLARITIN) 10 MG TAB PO NR (12:00)
[2021-11-10] MEDS: guaiFENesin/CODEINE (ROBITUSSIN AC) 10ML UDC PO PRN ×2 (12:23→22:15)
--- NOTE | 2021-11-10 14:15 | Therapy Group Daily Note ---
Therapy Daily Group Note Patient Education Topic Exercises, Other List Below (memory strategies) Exercises LE Seated Exercise, UE Exercise Session Ratio (pt:therapist): 3:1 Goal of Session: Memory Strategies, UE/LE Strengthing Goal Met for this Session: Yes Pt Benefit of Group: Contributions to Others, F/U Use of Strategies @Home, Increased Functional Safety, Increased Functional Strength, Improved Cognition, Recognition of Peers, Socialization Other/Notes Pt ambulated to PT/OT Group using FWW. Group consisted of Introduction (Name, Where from & Favorite Hobby in Free Time), Socialization, UE & LE Strengthening, Memory Strategies & Memory Activity. Pt actively participated in Group by completing EX, giving strategies used at home and finding 3/3 matches during Memory game. Pt returned to room at end of Group and rested in recliner. All needs met, call light in hand. Start Time: 13:00 Stop Time: 14:00 Total Billed Treatment Time: 60 Total Billed Treatment 1, Group Leidy See November 10, 2021 14:15
--- NOTE | 2021-11-10 14:16 | Diagnostic Imaging Report ---
Indication: Pneumonia. Time of Exam: 11:59 AM No prior studies are available for comparison. Right hemidiaphragm is elevated. There appear to be infiltrates in both bases. Mid and upper lung [place] are clear. There is no effusion or pneumothorax. IMPRESSION: Patchy bibasilar pulmonary infiltrates. Dictated by: Dictated on workstation # [id number]
[2021-11-10] MEDS ORDERED: ZALE10CA PO (15:48)
[2021-11-10 19:35] VITALS: BP 95/58
[2021-11-10] MEDS: MELATONIN 3 MG TABLET PO SCH (20:45)
[2021-11-10 20:46] VITALS: BP 93/57
[2021-11-10] MEDS: ACETAMINOPHEN 500 MG TAB (TYLENOL) PO SCH (20:46)
[2021-11-10 21:51] VITALS: BP 104/65
[2021-11-10] MEDS: ALPRAZolam 0.25 MG (XANAX) TAB PO PRN (22:15)
--- NOTE | 2021-11-11 06:40 | PM&R Progress Note ---
Subjective HPI/CC On Admission Date Seen by Provider: November 11, 2021 Time Seen by Provider: 11:00 Subjective/Events-last exam 11/11/2021: Patient doing a lot better Cough is less Potassium good Holding supplemental potassium Bowels moved No pain reported 11/10/2021: Pt settling in White count is 141,000 Hemoglobin is 8.1 Potassium is 6.3, so I did give Kayexalate to get that down She reports she took Ativan and Zoloft at home so we will evaluate the home dosing Will add procalcitonin to check to be sure that her pneumonia is resolving and I will repeat a chest x-ray, I will also do a sputum culture Review of Systems General: Fatigue, Malaise Neurological: Weakness Objective Exam Vital Signs Vital Signs Date Time Temp Pulse Resp B/P (MAP) Pulse Ox O2 Delivery O2 Flow Rate FiO2 11/11/21 20:15 92 Nasal Cannula 2.00 11/11/21 19:24 36.4 91 20 98/60 (73) Capillary Refill : General Appearance: No Apparent Distress, WD/WN, Chronically ill, Thin HEENT: PERRL/EOMI, Normal ENT Inspection, Pharynx Normal Neck: Full Range of Motion, Normal Inspection, Non Tender, Supple, Carotid Bruit Respiratory: Chest Non Tender, No Accessory Muscle Use, No Respiratory Distress, Decreased Breath Sounds, Rales (Left lower lobe) Cardiovascular: Regular Rate, Rhythm, No Edema, No Gallop, No JVD, No Murmur, Normal Peripheral Pulses Gastrointestinal: Normal Bowel Sounds, No Organomegaly, No Pulsatile Mass, Non Tender, Soft Back: Normal Inspection, No CVA Tenderness, No Vertebral Tenderness Extremity: Normal Capillary Refill, Normal Inspection, Normal Range of Motion, Non Tender, No Calf Tenderness, No Pedal Edema Neurologic/Psychiatric: Alert, Oriented x3, information resource consultant II-XII Norm as Tested, Abnormal Gait, Depressed Affect, Motor Weakness (Severe weakness generalized) Skin: Normal Color, Warm/Dry Lymphatic: No Adenopathy Results/Procedures Lab Laboratory Tests 11/11/21 07:16 Patient resulted labs reviewed. FIM Transfers Therapy Code Descriptions/Definitions Functional [place] Measure: 0=Not Assessed/NA 4=Minimal Assistance 1=Total Assistance 5=Supervision or Setup 2=Maximal Assistance 6=Modified [place] 3=Moderate Assistance 7=Complete IndependenceSCALE: Activities may be completed with or without assistive devices. 4-Wpbhetbksv-ovarjrm completes the activity by him/herself with no assistance from a helper. 5-Set-up or Clean-up Assistance-helper sets up or cleans up; patient completes activity. [place] assists only prior to or following the activity. 4-Supervision or Touching Assistance-helper provides verbal cues and/or touching/steadying and/or contact guard assistance as patient completes activity. Assistance may be provided throughout the activity or intermittently. 3-Partial/Moderate Assistance-helper does LESS THAN HALF the effort. [place] lifts, holds or supports trunk or limbs, but provides less than half the effort. 2-Substantial/Maximal Assistance-helper does MORE THAN HALF the effort. [place] lifts or holds trunk or limbs and provides more than half the effort. 9-Drfjftftu-hntflf does ALL the effort. Patient does none of the effort to complete the activity. Or, the assistance of 2 or more helpers is required for the patient to complete the activity. If activity was not attempted, code reason: 7-Patient Refused. 9-Not Applicable-not attempted and the patient did not perform the activity before the current illness, exacerbation or injury. 10-Not Attempted due to Environmental Limitations-(lack of equipment, weather restraints, etc.). 88-Not Attempted due to Medical Conditions or Safety Concerns. Roll Left to Right (QC): 6 Sit to Lying (QC): 4 (SBA) Sit to Stand (QC): 4 Chair/Zlg-io-Scdqc Xfer(QC): 4 (CGA) Car Transfer (QC): 4 (CGA) Gait Training Does the Patient Walk?: Yes Distance: 50'x2, 20' Walk 10 feet (QC): 4 Walk 50 ft with 2 Turns(QC): 4 Walk 150 ft (QC): 88 Walking 10ft/uneven surface-QC: 4 Gait Assistive Device: FWW Wheelchair Training Does the Pt Use a Wheelchair?: Yes Wheel 50 ft with 2 turns (QC): 1 Wheel 150 ft (QC): 1 Stair Training #of Steps: 1 1 Step (curb) (QC): 4 4 Steps (QC): 88 12 Steps (QC): 88 Balance Picking up an Object (QC): 4 (using supervisor sanding) ADL-Treatment Eating (QC): 6 Oral Hygiene (QC): 6 Shower/Bathe Self (QC): 4 Upper Body Dressing (QC): 5 Lower Body Dressing (QC): 4 On/Off Footwear (QC): 3 Toileting Hygiene (QC): 3 (Per nursing staff) Assessment/Plan Assessment and Plan Assess & Plan/Chief Complaint Assessment: Critical illness myopathy Status post pneumonia 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 Whitt his oncologist Diabetes Hypertension Colon polyps Insomnia Advanced age Hyponatremia Anemia Volume overload Hypoxia requiring supplemental oxygen since pneumonia Diastolic congestive heart failure Valvular heart disease Immunosuppression Vitamin B12 deficiency Plan: Inpatient rehab protocol Oxygen supplementation Home meds Supportive care 11/10/2021: Check chest x-ray Sputum culture Add PCT to labs Supplement B12 11/11/21: Monitor closely Checked meds and labs (1) Debility (2) CLL (chronic lymphocytic leukemia) (3) Immunosuppression (4) Hypoxia (5) Oxygen dependent (6) Pneumonia TEENA BUNDY DO November 11, 2021 06:40
[2021-11-11 07:15] VITALS: BP 117/71
[2021-11-11] MEDS: CYANOCOBALAMIN 1,000 MCG (VITAMIN B-12) TABLET PO SCH (07:29)
[2021-11-11] MEDS: FUROSEMIDE 40 MG (LASIX) TAB PO SCH ×2 (07:29→17:02)
[2021-11-11 07:43] LABS: POTASSIUM 3.7 MMOL/L (3.6-5.0)
[2021-11-11 07:44] LABS: CALCIUM 8.6 MG/DL (8.5-10.1)
[2021-11-11 07:48] LABS: CREATININE SERUM 0.91 MG/DL (0.60-1.30)
[2021-11-11] MEDS ORDERED: CYANOCOBALAMIN INJ 1000 MCG/ML IM ONE (08:00)
[2021-11-11] MEDS: VITAMIN D3 125 MCG (5,000 UNITS) CAPSULE PO SCH (08:04)
[2021-11-11] MEDS: LACTOBACILLUS ACIDOPHILUS (PROBIOTIC) CAPSULE PO SCH (08:04)
[2021-11-11] MEDS: BENZONATATE 100 MG (TESSALON) CAPSULE PO SCH ×3 (08:04→20:27)
[2021-11-11] MEDS: ACYCLOVIR 400 MG TABLET (ZOVIRAX) PO SCH (08:05)
[2021-11-11] MEDS: LORATADINE (CLARITIN) 10 MG TAB PO SCH ×2 (08:05→08:06)
[2021-11-11] MEDS: meTOprolol TARTRATE 25 MG (LOPRESSOR) TABLET PO SCH ×2 (08:05→20:27)
[2021-11-11] MEDS: ENOXAPARIN 40 MG/0.4 ML (LOVENOX) SYR SC SCH (08:05)
[2021-11-11] MEDS: MONTELUKAST 10 MG (SINGULAIR) TAB PO SCH (08:05)
[2021-11-11] MEDS: DOCUSATE SODIUM 100 MG (COLACE) CAP PO SCH (08:07)
[2021-11-11] MEDS: polyethylene glycoL POWDER 17 GM (MIRALAX) PACK PO SCH ×2 (08:07→20:29)
[2021-11-11] MEDS: SENNA W/DOCUSATE (SENOKOT S) TABLET PO SCH ×2 (08:07→20:26)
[2021-11-11] MEDS: FLUTICASONE NASAL SPRAY (FLONASE) 16 GM BTL NS SCH (08:07)
--- NOTE | 2021-11-11 13:09 | Physical Therapy Daily Note ---
PT Daily Note-Current Subjective Upon arrival pt was laying in bed, pt states she did not sleep well. Pt agrees to PT. Pts daughter arrives during session. Pain Comment: Pt reports no pain. Mental Status Patient Orientation: Person, Place, Time, Situation Attachments: Oxygen Transfers SCALE: Activities may be completed with or without assistive devices. 3-Wcyyfggwpu-royuymg completes the activity by him/herself with no assistance from a helper. 5-Set-up or Clean-up Assistance-helper sets up or cleans up; patient completes activity. [place] assists only prior to or following the activity. 4-Supervision or Touching Assistance-helper provides verbal cues and/or touching/steadying and/or contact guard assistance as patient completes activity. Assistance may be provided throughout the activity or intermittently. 3-Partial/Moderate Assistance-helper does LESS THAN HALF the effort. [place] lifts, holds or supports trunk or limbs, but provides less than half the effort. 2-Substantial/Maximal Assistance-helper does MORE THAN HALF the effort. [place] lifts or holds trunk or limbs and provides more than half the effort. 4-Ygeejlpuj-lnemnc does ALL the effort. Patient does none of the effort to complete the activity. Or, the assistance of 2 or more helpers is required for the patient to complete the activity. If activity was not attempted, code reason: 7-Patient Refused. 9-Not Applicable-not attempted and the patient did not perform the activity before the current illness, exacerbation or injury. 10-Not Attempted due to Environmental Limitations-(lack of equipment, weather restraints, etc.). 88-Not Attempted due to Medical Conditions or Safety Concerns. Lying to Sitting/Side of Bed(Q: 3 Sit to Stand (QC): 3 Chair/Zuq-kq-Ocjwz Xfer(QC): 3 Weight Bearing Right Lower Extremity: Right Full Weight Bearing Left Lower Extremity: Left Full Weight Bearing Gait Training Does the Patient Walk?: No and Walking Goal IS indicated Distance: 10' Walk 10 feet (QC): 3 Gait Assistive Device: FWW Pt ambulated from bed to recliner. Pt had slow, reciprocal GT pattern, and no LOB. Exercises Supine Ex: Ankle pumps, Heel Slides, Straight leg raise Supine Reps: 15 Treatments Pt performed and completed all Exs as listed above. Pt had incontinence in bed, PT changed pts brief and bed, and cleaned pts skin. Pt ambulated from bed to recliner. As PT concluded, pt was seated in recliner, with call light and tray in reach and all needs were met. As PT exits pts room, pts daughter was still present. Assessment Current Status: Good Progress Pt would benefit from continued PT to improve on strength, and activity tolerance. PT Short Term Goals Short Term Goals Time Frame: November 16, 2021 Roll Left & Right: 6 Sit to lyin Lying to sitting on side of be: 4 (SBA) Sit to stand: 4 (SBA) Chair/chx-mf-aucoj transfer: 4 (SBA) Walk 10 feet: 4 (SBA) Walk 50 feet with two turns: 4 (SBA) PT Longterm Goals Longterm Goals PT Radio Division Officer Goals Time Frame: November 30, 2021 Roll Left & Right (QC): 6 Sit to Lying (QC): 6 Lying-Sitting on Side/Bed(QC): 6 Sit to Stand (QC): 5 Chair/Xsk-tc-Htxyl Xfer(QC): 5 Toilet Transfer (QC): 5 Car Transfer (QC): 5 Does the Patient Walk: Yes Walk 10 feet (QC): 5 Walk 50ft with 2 Turns (QC): 5 Walk 150 ft (QC): 5 Walking 10ft on Uneven Surface: 5 1 Step (curb) (QC): 4 4 Steps (QC): 4 12 Steps (QC): 88 Picking up an Object (QC): 5 Wheel 50 feet with 2 turns (QC: 9 Wheel 150 feet: 9 PT Plan Problem List Problem List: Activity Tolerance, Functional Strength Treatment/Plan Treatment Plan: Continue Plan of Care Treatment Plan: Bed Mobility, Education, Functional Activity [place], Functional Strength, Group Therapy, Gait, Safety, Therapeutic Exercise, Transfers Treatment Duration: November 30, 2021 Frequency: At least 5 of 7 days/Wk (IRF) Estimated Hrs Per Day: 1.5 hours per day Patient and/or Family Agrees t: Yes Time/GCodes Time In: 1110 Time Out: 1141 Total Billed Treatment Time: 31 Total Billed Treatment 1, FA (31) KATHERINE ELDRIDGE PTA November 11, 2021 13:09
[2021-11-11 19:24] VITALS: BP 98/60
[2021-11-11] MEDS: MELATONIN 3 MG TABLET PO SCH (20:26)
[2021-11-11] MEDS: ACETAMINOPHEN 500 MG TAB (TYLENOL) PO SCH (20:29)
[2021-11-11] MEDS: guaiFENesin/CODEINE (ROBITUSSIN AC) 10ML UDC PO PRN (22:18)
[2021-11-11] MEDS: ALPRAZolam 0.25 MG (XANAX) TAB PO PRN (22:18)
[2021-11-12] MEDS: CYANOCOBALAMIN 1,000 MCG (VITAMIN B-12) TABLET PO SCH (06:36)
[2021-11-12] MEDS: FUROSEMIDE 40 MG (LASIX) TAB PO SCH ×2 (06:36→17:51)
--- NOTE | 2021-11-12 07:02 | PM&R Progress Note ---
Subjective HPI/CC On Admission Date Seen by Provider: November 12, 2021 Time Seen by Provider: 11:00 Subjective/Events-last exam 11/12/2021: Patient feels much better today Lungs are clear No other concerns reported Slept pretty well last night 11/11/2021: Patient doing a lot better Cough is less Potassium good Holding supplemental potassium Bowels moved No pain reported 11/10/2021: Pt settling in [place] count is 141,000 Hemoglobin is 8.1 Potassium is 6.3, so I did give Kayexalate to get that down She reports she took Ativan and Zoloft at home so we will evaluate the home dosing Will add procalcitonin to check to be sure that her pneumonia is resolving and I will repeat a chest x-ray, I will also do a sputum culture Review of Systems General: Fatigue, Malaise Objective Exam Vital Signs Vital Signs Date Time Temp Pulse Resp B/P (MAP) Pulse Ox O2 Delivery O2 Flow Rate FiO2 11/12/21 20:05 92 Nasal Cannula 2.00 11/12/21 19:29 37.1 98 20 95/46 (62) Capillary Refill : General Appearance: No Apparent Distress, WD/WN, Chronically ill, Thin HEENT: PERRL/EOMI, Normal ENT Inspection, Pharynx Normal Neck: Full Range of Motion, Normal Inspection, Non Tender, Supple, Carotid Bruit Respiratory: Chest Non Tender, No Accessory Muscle Use, No Respiratory Dist ress, Decreased Breath Sounds, Rales (Left lower lobe) Cardiovascular: Regular Rate, Rhythm, No Edema, No Gallop, No JVD, No Murmur, Normal Peripheral Pulses Gastrointestinal: Normal Bowel Sounds, No Organomegaly, No Pulsatile Mass, Non Tender, Soft Back: Normal Inspection, No CVA Tenderness, No Vertebral Tenderness Extremity: Normal Capillary Refill, Normal Inspection, Normal Range of Motion, Non Tender, No Calf Tenderness, No Pedal Edema Neurologic/Psychiatric: Alert, Oriented x3, credit risk associate II-XII Norm as Tested, Abnormal Gait, Depressed Affect, Motor Weakness (Severe weakness generalized) Skin: Normal Color, Warm/Dry Lymphatic: No Adenopathy Results/Procedures Lab Patient resulted labs reviewed. FIM Transfers Therapy Code Descriptions/Definitions Functional [place] Measure: 0=Not Assessed/NA 4=Minimal Assistance 1=Total Assistance 5=Supervision or Setup 2=Maximal Assistance 6=Modified [place] 3=Moderate Assistance 7=Complete IndependenceSCALE: Activities may be completed with or without assistive devices. 5-Rccjduvuvi-eqpjpig completes the activity by him/herself with no assistance from a helper. 5-Set-up or Clean-up Assistance-helper sets up or cleans up; patient completes activity. [place] assists only prior to or following the activity. 4-Supervision or Touching Assistance-helper provides verbal cues and/or touchin g/steadying and/or contact guard assistance as patient completes activity. Assistance may be provided throughout the activity or intermittently. 3-Partial/Moderate Assistance-helper does LESS THAN HALF the effort. [place] lifts, holds or supports trunk or limbs, but provides less than half the effort. 2-Substantial/Maximal Assistance-helper does MORE THAN HALF the effort. [place] lifts or holds trunk or limbs and provides more than half the effort. 9-Niewnkwmu-umohnr does ALL the effort. Patient does none of the effort to complete the activity. Or, the assistance of 2 or more helpers is required for the patient to complete the activity. If activity was not attempted, code reason: 7-Patient Refused. 9-Not Applicable-not attempted and the patient did not perform the activity before the current illness, exacerbation or injury. 10-Not Attempted due to Environmental Limitations-(lack of equipment, weather restraints, etc.). 88-Not Attempted due to Medical Conditions or Safety Concerns. Roll Left to Right (QC): 6 Sit to Lying (QC): 4 (SBA) Sit to Stand (QC): 3 Chair/Khf-gv-Ikfmg Xfer(QC): 3 Car Transfer (QC): 4 (CGA) Gait Training Does the Patient Walk?: No and Walking Goal IS indicated Distance: 10' Walk 10 feet (QC): 3 Walk 50 ft with 2 Turns(QC): 4 Walk 150 ft (QC): 88 Walking 10ft/uneven surface-QC: 4 Gait Assistive Device: FWW Wheelchair Training Does the Pt Use a Wheelchair?: Yes Wheel 50 ft with 2 turns (QC): 1 Wheel 150 ft (QC): 1 Stair Training #of Steps: 1 1 Step (curb) (QC): 4 4 Steps (QC): 88 12 Steps (QC): 88 Balance Picking up an Object (QC): 4 (using communications lead) ADL-Treatment Eating (QC): 6 Oral Hygiene (QC): 6 Shower/Bathe Self (QC): 4 Upper Body Dressing (QC): 5 Lower Body Dressing (QC): 4 On/Off Footwear (QC): 3 Toileting Hygiene (QC): 3 (Per nursing staff) Assessment/Plan Assessment and Plan Assess & Plan/Chief Complaint Assessment: Critical illness myopathy Status post pneumonia 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 Whitt his oncologist Diabetes Hypertension Colon polyps Insomnia Advanced age Hyponatremia Anemia Volume overload Hypoxia requiring supplemental oxygen since pneumonia Diastolic congestive heart failure Valvular heart disease Immunosuppression Vitamin B12 deficiency Plan: Inpatient rehab protocol Oxygen supplementation Home meds Supportive care 11/10/2021: Check chest x-ray Sputum culture Add PCT to labs Supplement B12 11/11/21: Monitor closely Checked meds and labs 11/12/2021 Supportive care Monitor closely (1) Debility (2) CLL (chronic lymphocytic leukemia) (3) Immunosuppression (4) Hypoxia (5) Oxygen dependent (6) Pneumonia TEENA BUNDY DO November 12, 2021 07:02
[2021-11-12 07:30] VITALS: BP 102/60
[2021-11-12] MEDS: LORATADINE (CLARITIN) 10 MG TAB PO SCH ×2 (08:58→09:05)
[2021-11-12] MEDS: MONTELUKAST 10 MG (SINGULAIR) TAB PO SCH (08:58)
[2021-11-12] MEDS: DOCUSATE SODIUM 100 MG (COLACE) CAP PO SCH (08:58)
[2021-11-12] MEDS: SENNA W/DOCUSATE (SENOKOT S) TABLET PO SCH ×2 (08:59→20:36)
[2021-11-12] MEDS: FLUTICASONE NASAL SPRAY (FLONASE) 16 GM BTL NS SCH (08:59)
[2021-11-12] MEDS: LACTOBACILLUS ACIDOPHILUS (PROBIOTIC) CAPSULE PO SCH (08:59)
[2021-11-12] MEDS: VITAMIN D3 125 MCG (5,000 UNITS) CAPSULE PO SCH (08:59)
[2021-11-12] MEDS: BENZONATATE 100 MG (TESSALON) CAPSULE PO SCH ×3 (08:59→22:15)
[2021-11-12] MEDS: ACYCLOVIR 400 MG TABLET (ZOVIRAX) PO SCH (09:00)
[2021-11-12] MEDS: meTOprolol TARTRATE 25 MG (LOPRESSOR) TABLET PO SCH ×2 (09:00→20:36)
[2021-11-12] MEDS: polyethylene glycoL POWDER 17 GM (MIRALAX) PACK PO SCH ×2 (09:05→20:36)
[2021-11-12] MEDS: ENOXAPARIN 40 MG/0.4 ML (LOVENOX) SYR SC SCH (09:05)
[2021-11-12] MEDS: guaiFENesin/CODEINE (ROBITUSSIN AC) 10ML UDC PO PRN ×2 (15:17→22:14)
[2021-11-12 19:29] VITALS: BP 95/46
[2021-11-12] MEDS: diphenhydrAMINE 25 MG TAB (BENADRYL) PO PRN (19:55)
[2021-11-12] MEDS: ACETAMINOPHEN 500 MG TAB (TYLENOL) PO SCH (20:36)
[2021-11-12] MEDS: ALPRAZolam 0.25 MG (XANAX) TAB PO PRN (22:14)
[2021-11-12] MEDS: MELATONIN 3 MG TABLET PO SCH (22:14)
--- NOTE | 2021-11-13 05:50 | PM&R Progress Note ---
Subjective HPI/CC On Admission Date Seen by Provider: November 13, 2021 Time Seen by Provider: 09:30 Subjective/Events-last exam 11/13/2021: Patient doing much better Reports ear pain MRSA in the sputum so we will start Zyvox 600 Mg p.o. twice daily Lungs remain clear though much improved from admission Patient tends to have somatic complaints Very frail status and if patient returns back to baseline then declines again will be a hospice candidate 11/12/2021: Patient feels much better today Lungs are clear No other concerns reported Slept pretty well last night 11/11/2021: Patient doing a lot better Cough is less Potassium good Holding supplemental potassium Bowels moved No pain reported 11/10/2021: Pt settling in White count is 141,000 Hemoglobin is 8.1 Potassium is 6.3, so I did give Kayexalate to get that down She reports she took Ativan and Zoloft at home so we will evaluate the home dosing Will add procalcitonin to check to be sure that her pneumonia is resolving and I will repeat a chest x-ray, I will also do a sputum culture Review of Systems General: Fatigue, Malaise HEENT: Ear Pain Objective Exam Vital Signs Vital Signs Date Time Temp Pulse Resp B/P (MAP) Pulse Ox O2 Delivery O2 Flow Rate FiO2 11/13/21 20:30 93 Nasal Cannula 2.00 11/13/21 19:38 36.8 95 20 96/59 (71) Capillary Refill : General Appearance: No Apparent Distress, WD/WN, Chronically ill, Thin HEENT: PERRL/EOMI, Normal ENT Inspection, Pharynx Normal Neck: Full Range of Motion, Normal Inspection, Non Tender, Supple, Carotid Bruit Respiratory: Chest Non Tender, No Accessory Muscle Use, No Respiratory Distress, Decreased Breath Sounds, Rales (Left lower lobe) Cardiovascular: Regular Rate, Rhythm, No Edema, No Gallop, No JVD, No Murmur, Normal Peripheral Pulses Gastrointestinal: Normal Bowel Sounds, No Organomegaly, No Pulsatile Mass, Non Tender, Soft Back: Normal Inspection, No CVA Tenderness, No Vertebral Tenderness Extremity: Normal Capillary Refill, Normal Inspection, Normal Range of Motion, Non Tender, No Calf Tenderness, No Pedal Edema Neurologic/Psychiatric: Alert, Oriented x3, buggy driver II-XII Norm as Tested, Abnormal Gait, Depressed Affect, Motor Weakness (Severe weakness generalized) Skin: Normal Color, Warm/Dry Lymphatic: No Adenopathy Results/Procedures Lab Patient resulted labs reviewed. FIM Transfers Therapy Code Descriptions/Definitions Functional [place] Measure: 0=Not Assessed/NA 4=Minimal Assistance 1=Total Assistance 5=Supervision or Setup 2=Maximal Assistance 6=Modified [place] 3=Moderate Assistance 7=Complete IndependenceSCALE: Activities may be completed with or without assistive devices. 2-Uafgvksjuc-ijlynqe completes the activity by him/herself with no assistance from a helper. 5-Set-up or Clean-up Assistance-helper sets up or cleans up; patient completes activity. [place] assists only prior to or following the activity. 4-Supervision or Touching Assistance-helper provides verbal cues and/or touching/steadying and/or contact guard assistance as patient completes activity. Assistance may be provided throughout the activity or intermittently. 3-Partial/Moderate Assistance-helper does LESS THAN HALF the effort. [place] lifts, holds or supports trunk or limbs, but provides less than half the effort. 2-Substantial/Maximal Assistance-helper does MORE THAN HALF the effort. [place] lifts or holds trunk or limbs and provides more than half the effort. 2-Binxsnfts-dzcmzo does ALL the effort. Patient does none of the effort to co mplete the activity. Or, the assistance of 2 or more helpers is required for the patient to complete the activity. If activity was not attempted, code reason: 7-Patient Refused. 9-Not Applicable-not attempted and the patient did not perform the activity before the current illness, exacerbation or injury. 10-Not Attempted due to Environmental Limitations-(lack of equipment, weather restraints, etc.). 88-Not Attempted due to Medical Conditions or Safety Concerns. Roll Left to Right (QC): 6 Sit to Lying (QC): 4 (SBA) Sit to Stand (QC): 3 Chair/Xuu-ja-Nzvob Xfer(QC): 3 Car Transfer (QC): 4 (CGA) Gait Training Does the Patient Walk?: No and Walking Goal IS indicated Distance: 10' Walk 10 feet (QC): 3 Walk 50 ft with 2 Turns(QC): 4 Walk 150 ft (QC): 88 Walking 10ft/uneven surface-QC: 4 Gait Assistive Device: FWW Wheelchair Training Does the Pt Use a Wheelchair?: Yes Wheel 50 ft with 2 turns (QC): 1 Wheel 150 ft (QC): 1 Stair Training #of Steps: 1 1 Step (curb) (QC): 4 4 Steps (QC): 88 12 Steps (QC): 88 Balance Picking up an Object (QC): 4 (using detective youth bureau) ADL-Treatment Eating (QC): 6 Oral Hygiene (QC): 6 Shower/Bathe Self (QC): 4 Upper Body Dressing (QC): 5 Lower Body Dressing (QC): 4 On/Off Footwear (QC): 3 Toileting Hygiene (QC): 3 (Per nursing staff) Assessment/Plan Assessment and Plan Assess & Plan/Chief Complaint Assessment: Critical illness myopathy Status post pneumonia MRSA pneumonitis on sputum started Zyvox 11/13/2021 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 Whitt his oncologist Diabetes Hypertension Colon polyps Insomnia Advanced age Hyponatremia Anemia Volume overload Hypoxia requiring supplemental oxygen since pneumonia Diastolic congestive heart failure Valvular heart disease Immunosuppression Vitamin B12 deficiency Plan: Inpatient rehab protocol Oxygen supplementation Home meds Supportive care 11/10/2021: Check chest x-ray Sputum culture Add PCT to labs Supplement B12 11/11/21: Monitor closely Checked meds and labs 11/12/2021 Supportive care Monitor closely 11/13/2021: Zyvox for MRSA pneumonitis (1) Debility (2) CLL (chronic lymphocytic leukemia) (3) Immunosuppression (4) Hypoxia (5) Oxygen dependent (6) Pneumonia TEENA BUNDY DO November 13, 2021 05:50
[2021-11-13] MEDS: CYANOCOBALAMIN 1,000 MCG (VITAMIN B-12) TABLET PO SCH (06:21)
[2021-11-13] MEDS: FUROSEMIDE 40 MG (LASIX) TAB PO SCH ×2 (06:21→16:48)
[2021-11-13 08:00] VITALS: BP 84/52
[2021-11-13] MEDS: ENOXAPARIN 40 MG/0.4 ML (LOVENOX) SYR SC SCH (08:48)
[2021-11-13] MEDS: LACTOBACILLUS ACIDOPHILUS (PROBIOTIC) CAPSULE PO SCH (08:48)
[2021-11-13] MEDS: BENZONATATE 100 MG (TESSALON) CAPSULE PO SCH ×3 (08:48→20:28)
[2021-11-13] MEDS: LORATADINE (CLARITIN) 10 MG TAB PO SCH ×2 (08:48→09:00)
[2021-11-13] MEDS: ACYCLOVIR 400 MG TABLET (ZOVIRAX) PO SCH (08:48)
[2021-11-13] MEDS: VITAMIN D3 125 MCG (5,000 UNITS) CAPSULE PO SCH (08:48)
[2021-11-13] MEDS: meTOprolol TARTRATE 25 MG (LOPRESSOR) TABLET PO SCH ×3 (08:49→20:26)
[2021-11-13] MEDS: FLUTICASONE NASAL SPRAY (FLONASE) 16 GM BTL NS SCH (08:49)
[2021-11-13] MEDS: MONTELUKAST 10 MG (SINGULAIR) TAB PO SCH (08:52)
[2021-11-13] MEDS: polyethylene glycoL POWDER 17 GM (MIRALAX) PACK PO SCH ×2 (10:19→20:26)
[2021-11-13] MEDS: SENNA W/DOCUSATE (SENOKOT S) TABLET PO SCH ×2 (10:19→20:28)
[2021-11-13] MEDS: DOCUSATE SODIUM 100 MG (COLACE) CAP PO SCH (10:19)
--- NOTE | 2021-11-13 11:05 | Physical Therapy Daily Note ---
PT Daily Note-Current Subjective Pt sitting in recliner upon arrival. Pt agrees to PT. Pt is on Droplet precautions. Mental Status Patient Orientation: Person, Place, Situation Attachments: Oxygen (2L ) Transfers SCALE: Activities may be completed with or without assistive devices. 6-Nwerhohmna-apevwdk completes the activity by him/herself with no assistance from a helper. 5-Set-up or Clean-up Assistance-helper sets up or cleans up; patient completes activity. [place] assists only prior to or following the activity. 4-Supervision or Touching Assistance-helper provides verbal cues and/or touching/steadying and/or contact guard assistance as patient completes activity. Assistance may be provided throughout the activity or intermittently. 3-Partial/Moderate Assistance-helper does LESS THAN HALF the effort. [place] lifts, holds or supports trunk or limbs, but provides less than half the effort. 2-Substantial/Maximal Assistance-helper does MORE THAN HALF the effort. [place] lifts or holds trunk or limbs and provides more than half the effort. 9-Vdgcefoaz-xlasyc does ALL the effort. Patient does none of the effort to complete the activity. Or, the assistance of 2 or more helpers is required for the patient to complete the activity. If activity was not attempted, code reason: 7-Patient Refused. 9-Not Applicable-not attempted and the patient did not perform the activity before the current illness, exacerbation or injury. 10-Not Attempted due to Environmental Limitations-(lack of equipment, weather restraints, etc.). 88-Not Attempted due to Medical Conditions or Safety Concerns. Sit to Stand (QC): 4 Weight Bearing Right Lower Extremity: Right Full Weight Bearing Left Lower Extremity: Left Full Weight Bearing Gait Training Does the Patient Walk?: Yes Distance: 20' x2 Walk 10 feet (QC): 4 Gait Persons Needed: 1 Gait Assistive Device: FWW Exercises Seated Therapy Exercises: Ankle pumps, Long arc quads, Hip flexion, Hip abd/add, Glut set Seated Reps: 10 Treatments Pt completes Seated Ex at recliner. Pt declines need for BR. TF to standing and amb. across room as pt is under precautions. Pt returns to recliner to rest as fatigue is demonstrated. CIRCUITRY NEGATIVE INSPECTOR issues and reviews written HEP for Seated & Supine Ex. Pt repositioned to comfort. All needs met, call light in hand. Assessment Current Status: Fair Progress Pt demonstrates increased fatigue. Pt reports continued coughing fatigues pt quicker. Nursing aware of coughing. PT Short Term Goals Short Term Goals Time Frame: November 16, 2021 Roll Left & Right: 6 Sit to lyin Lying to sitting on side of be: 4 (SBA) Sit to stand: 4 (SBA) Chair/gpz-om-ggvxf transfer: 4 (SBA) Walk 10 feet: 4 (SBA) Walk 50 feet with two turns: 4 (SBA) PT Lead Business Systems Analyst Goals Jail Goals PT Jail Goals Time Frame: November 30, 2021 Roll Left & Right (QC): 6 Sit to Lying (QC): 6 Lying-Sitting on Side/Bed(QC): 6 Sit to Stand (QC): 5 Chair/Wnu-gu-Gpxad Xfer(QC): 5 Toilet Transfer (QC): 5 Car Transfer (QC): 5 Does the Patient Walk: Yes Walk 10 feet (QC): 5 Walk 50ft with 2 Turns (QC): 5 Walk 150 ft (QC): 5 Walking 10ft on Uneven Surface: 5 1 Step (curb) (QC): 4 4 Steps (QC): 4 12 Steps (QC): 88 Picking up an Object (QC): 5 Wheel 50 feet with 2 turns (QC: 9 Wheel 150 feet: 9 PT Plan Problem List Problem List: Activity Tolerance, Functional Strength, Gait Treatment/Plan Treatment Plan: Continue Plan of Care Treatment Plan: Bed Mobility, Education, Functional Activity [place], Functional Strength, Group Therapy, Gait, Safety, Therapeutic Exercise, Transfers Treatment Duration: November 30, 2021 Frequency: At least 5 of 7 days/Wk (IRF) Estimated Hrs Per Day: 1.5 hours per day Patient and/or Family Agrees t: Yes Safety Risks/Education Patient Education: Gait Training, Correct Positioning Teaching Recipient: Patient Teaching Methods: Discussion Response to Teaching: Verbalize Understanding Time/GCodes Time In: 1000 Time Out: 1100 Total Billed Treatment Time: 60 Total Billed Treatment 1, EX x2 (30m), GT (15m) & FA (15m) PARVEEN RODRÍGUEZ CIRCUITRY NEGATIVE INSPECTOR November 13, 2021 11:05
--- NOTE | 2021-11-13 11:39 | Occupational Ther Daily Note ---
OT Current Status-Daily Note Subjective Pt alert, sitting in recliner. Pt states that she feels dizzy and not right. MAGAÑA talked with pt and go items around for a shower and pt began to feel better. Pt agrees to therapy. Mental Status/Objective Patient Orientation: Person, Place, Time, Situation Attachments: Oxygen (2L) ADL-Treatment Pt agrees to shower. Pt c/o pushing up from lower surface and stated that she has higher chairs and toilet riser at home. Pt was able to push up to stand from each surface with CGA for safety. Pt able to complete toilet transfer and toileting with CGA for safety. Pt requires set up for shower then SBA for safety, pt sat for 90% of the shower then SBA in standing while pt stood to cleanse buttocks/mayte area. After setup, pt able to don/doff upper body clothing by self. Pt able to doff lower body clothing by self then due to time constraints assist given to don lower body clothing and footwear. Sitting at sink, pt able to complete oral care and grooming independently. After therapy, pt sitting in recliner with call light/phone in reach. Increased time taken throughout session for recovery breaks. Therapy Code Descriptions/Definitions Functional [place] Measure: 0=Not Assessed/NA 4=Minimal Assistance 1=Total Assistance 5=Supervision or Setup 2=Maximal Assistance 6=Modified [place] 3=Moderate Assistance 7=Complete IndependenceSCALE: Activities may be completed with or without assistive devices. 4-Egjufiiyul-kpzffon completes the activity by him/herself with no assistance from a helper. 5-Set-up or Clean-up Assistance-helper sets up or cleans up; patient completes activity. [place] assists only prior to or following the activity. 4-Supervision or Touching Assistance-helper provides verbal cues and/or touching/steadying and/or contact guard assistance as patient completes activity. Assistance may be provided throughout the activity or intermittently. 3-Partial/Moderate Assistance-helper does LESS THAN HALF the effort. [place] lifts, holds or supports trunk or limbs, but provides less than half the effort. 2-Substantial/Maximal Assistance-helper does MORE THAN HALF the effort. [place] lifts or holds trunk or limbs and provides more than half the effort. 7-Bhchawpoq-ziimvt does ALL the effort. Patient does none of the effort to complete the activity. Or, the assistance of 2 or more helpers is required for the patient to complete the activity. If activity was not attempted, code reason: 7-Patient Refused. 9-Not Applicable-not attempted and the patient did not perform the activity before the current illness, exacerbation or injury. 10-Not Attempted due to Environmental Limitations-(lack of equipment, weather restraints, etc.). 88-Not Attempted due to Medical Conditions or Safety Concerns. Oral Hygiene (QC): 6 Shower/Bathe Self (QC): 4 Upper Body Dressing (QC): 5 Toileting Hygiene (QC): 4 Toilet Transfer (QC): 4 OT Short Term Goals Short Term Goals Time Frame: November 22, 2021 Toileting hygiene: 4 Shower/bathe self: 4 Lower body dressin Putting on/taking off footwear: 4 OT Long-Term Goals Long-Term Goals Time Frame: Dec 08, 2021 Eating (QC): 6 Oral Hygiene (QC): 6 Toileting Hygiene (QC): 6 Shower/Bathe Self (QC): 6 Upper Body Dressing (QC): 6 Lower Body Dressing (QC): 6 On/Off Footwear (QC): 6 Additional Goals: 1-Demonstrate ADL Tasks, 2-Verbalize Understanding, 3- ImproveStrength/[place] 1=Demonstrate adherence to instructed precautions during ADL tasks. 2=Patient will verbalize/demonstrate understanding of assistive devices/shaq fications for ADL. 3=Patient will improve strength/tolerance for activity to enable patient to perform ADL's. OT Education/Plan Problem List/Assessment Assessment: Decreased Activ Tolerance, Decreased UE Strength, Impaired Self- Care Skills Discharge Recommendations Plan/Recommendations: Continue POC Treatment Plan/Plan of Care Patient would benefit from OT for education, treatment and training to promote independence in ADL's, mobility, safety and/or upper extremity function for ADL's. Plan of Care: ADL Retraining, Functional Mobility, Group Exercise/Act as Ind, UE Funct Exercise/Act Treatment Duration: Dec 08, 2021 Frequency: At least 5 of 7 days/Wk (IRF) Estimated Hrs Per Day: 1.5 hours per day Agreement: Yes Rehab Potential: Fair Time/GCodes Start Time: 08:00 Stop Time: 09:00 Total Time Billed (hr/min): 60 Billed Treatment Time 1 visit-ADL 4 (60 min) OLINDA COULTER November 13, 2021 11:39
[2021-11-13] MEDS: LINEZOLID (ZYVOX) 600 MG TAB PO SCH ×2 (12:26→20:28)
[2021-11-13] MEDS: guaiFENesin/CODEINE (ROBITUSSIN AC) 10ML UDC PO PRN ×2 (12:35→22:15)
[2021-11-13] MEDS ORDERED: ONDA-105 PO (13:09)
--- NOTE | 2021-11-13 13:22 | Occupational Ther Daily Note ---
OT Current Status-Daily Note Subjective Pt alert, lying in bed. Pt agrees to therapy. No c/o pain during treatment. Mental Status/Objective Patient Orientation: Person, Place, Time, Situation Attachments: Oxygen ADL-Treatment Therapy Code Descriptions/Definitions Functional [place] Measure: 0=Not Assessed/NA 4=Minimal Assistance 1=Total Assistance 5=Supervision or Setup 2=Maximal Assistance 6=Modified [place] 3=Moderate Assistance 7=Complete IndependenceSCALE: Activities may be completed with or without assistive devices. 7-Rqirhbzmom-wiogeeo completes the activity by him/herself with no assistance from a helper. 5-Set-up or Clean-up Assistance-helper sets up or cleans up; patient completes activity. [place] assists only prior to or following the activity. 4-Supervision or Touching Assistance-helper provides verbal cues and/or touching/steadying and/or contact guard assistance as patient completes activity. Assistance may be provided throughout the activity or intermittently. 3-Partial/Moderate Assistance-helper does LESS THAN HALF the effort. [place] lifts, holds or supports trunk or limbs, but provides less than half the effort. 2-Substantial/Maximal Assistance-helper does MORE THAN HALF the effort. [place] lifts or holds trunk or limbs and provides more than half the effort. 0-Ztafdzszr-gksakp does ALL the effort. Patient does none of the effort to complete the activity. Or, the assistance of 2 or more helpers is required for the patient to complete the activity. If activity was not attempted, code reason: 7-Patient Refused. 9-Not Applicable-not attempted and the patient did not perform the activity before the current illness, exacerbation or injury. 10-Not Attempted due to Environmental Limitations-(lack of equipment, weather restraints, etc.). 88-Not Attempted due to Medical Conditions or Safety Concerns. Other Treatment Pt required assist to position self in bed for comfort. Light resistance theraband given to pt for use in room/home with skilled instruction for correct technique and modifications when required. Pt required verbal/physical cues to complete exercises with correct technique. Pt able to complete 2 sets 10 reps of horizontal abd/add, bicep curls and tricep extensions. After therapy, pt lying in bed with call light/phone in reach. All needs met in room. OT Short Term Goals Short Term Goals Time Frame: November 22, 2021 Toileting hygiene: 4 Shower/bathe self: 4 Lower body dressin Putting on/taking off footwear: 4 OT Instrument Technologist Goals Instrument Technologist Goals Time Frame: Dec 08, 2021 Eating (QC): 6 Oral Hygiene (QC): 6 Toileting Hygiene (QC): 6 Shower/Bathe Self (QC): 6 Upper Body Dressing (QC): 6 Lower Body Dressing (QC): 6 On/Off Footwear (QC): 6 Additional Goals: 1-Demonstrate ADL Tasks, 2-Verbalize Understanding, 3- ImproveStrength/[place] 1=Demonstrate adherence to instructed precautions during ADL tasks. 2=Patient will verbalize/demonstrate understanding of assistive devices/modifications for ADL. 3=Patient will improve strength/tolerance for activity to enable patient to perform ADL's. OT Education/Plan Problem List/Assessment Assessment: Decreased Activ Tolerance, Decreased UE Strength, Impaired Bed Mobility Discharge Recommendations Plan/Recommendations: Continue POC Treatment Plan/Plan of Care Patient would benefit from OT for education, treatment and training to promote independence in ADL's, mobility, safety and/or upper extremity function for ADL's. Plan of Care: ADL Retraining, Functional Mobility, Group Exercise/Act as Ind, UE Funct Exercise/Act Treatment Duration: Dec 08, 2021 Frequency: At least 5 of 7 days/Wk (IRF) Estimated Hrs Per Day: 1.5 hours per day Agreement: Yes Rehab Potential: Fair Time/GCodes Start Time: 12:50 Stop Time: 13:20 Total Time Billed (hr/min): 30 Billed Treatment Time 1 visit-FA 1 (10 min) EX 1 (20 min) OLINDA COULTER November 13, 2021 13:22
--- NOTE | 2021-11-13 15:28 | Physical Therapy Daily Note ---
PT Daily Note-Current Subjective Pt asleep in bed upon arrival. Pt agrees to PT for EX but still cannot leave pt's room. Mental Status Patient Orientation: Person, Place, Situation Attachments: Oxygen (2L) Transfers SCALE: Activities may be completed with or without assistive devices. 1-Dtjhgnvoxr-wpejqfe completes the activity by him/herself with no assistance from a helper. 5-Set-up or Clean-up Assistance-helper sets up or cleans up; patient completes activity. [place] assists only prior to or following the activity. 4-Supervision or Touching Assistance-helper provides verbal cues and/or touching/steadying and/or contact guard assistance as patient completes activity. Assistance may be provided throughout the activity or intermittently. 3-Partial/Moderate Assistance-helper does LESS THAN HALF the effort. [place] lifts, holds or supports trunk or limbs, but provides less than half the effort. 2-Substantial/Maximal Assistance-helper does MORE THAN HALF the effort. [place] lifts or holds trunk or limbs and provides more than half the effort. 4-Tygagcjzv-cwzsjo does ALL the effort. Patient does none of the effort to complete the activity. Or, the assistance of 2 or more helpers is required for the patient to complete the activity. If activity was not attempted, code reason: 7-Patient Refused. 9-Not Applicable-not attempted and the patient did not perform the activity before the current illness, exacerbation or injury. 10-Not Attempted due to Environmental Limitations-(lack of equipment, weather restraints, etc.). 88-Not Attempted due to Medical Conditions or Safety Concerns. Weight Bearing Right Lower Extremity: Right Full Weight Bearing Left Lower Extremity: Left Full Weight Bearing Exercises Supine Ex: Ankle pumps, Quad Set, Glut sets, Heel Slides, Short Arc Quads, Straight leg raise, Hip abd/add Supine Reps: 10 Treatments Pt completes Supine Ex in bed with several RB. Pt resting in bed asking to return to sleep after tx. All needs met, call light in hand. Assessment Current Status: Fair Progress Fatigue and coughing limit tx. Nursing has given cough medicine but pt reports abdominal weakness from overuse. PT Short Term Goals Short Term Goals Time Frame: November 16, 2021 Roll Left & Right: 6 Sit to lyin Lying to sitting on side of be: 4 (SBA) Sit to stand: 4 (SBA) Chair/bsp-ho-xrszg transfer: 4 (SBA) Walk 10 feet: 4 (SBA) Walk 50 feet with two turns: 4 (SBA) PT [place] Goals [place] Goals PT [place] Goals Time Frame: November 30, 2021 Roll Left & Right (QC): 6 Sit to Lying (QC): 6 Lying-Sitting on Side/Bed(QC): 6 Sit to Stand (QC): 5 Chair/Cbb-vp-Sumxp Xfer(QC): 5 Toilet Transfer (QC): 5 Car Transfer (QC): 5 Does the Patient Walk: Yes Walk 10 feet (QC): 5 Walk 50ft with 2 Turns (QC): 5 Walk 150 ft (QC): 5 Walking 10ft on Uneven Surface: 5 1 Step (curb) (QC): 4 4 Steps (QC): 4 12 Steps (QC): 88 Picking up an Object (QC): 5 Wheel 50 feet with 2 turns (QC: 9 Wheel 150 feet: 9 PT Plan Problem List Problem List: Activity Tolerance, Functional Strength Treatment/Plan Treatment Plan: Continue Plan of Care Treatment Plan: Bed Mobility, Education, Functional Activity [place], Functional Strength, Group Therapy, Gait, Safety, Therapeutic Exercise, Transfers Treatment Duration: November 30, 2021 Frequency: At least 5 of 7 days/Wk (IRF) Estimated Hrs Per Day: 1.5 hours per day Patient and/or Family Agrees t: Yes Safety Risks/Education Patient Education: Correct Positioning Teaching Recipient: Patient Teaching Methods: Discussion Response to Teaching: Verbalize Understanding Time/GCodes Time In: 1400 Time Out: 1430 Total Billed Treatment Time: 30 Total Billed Treatment 1, EX x2 (30m) PARVEEN RODRÍGUEZ PTA November 13, 2021 15:28
[2021-11-13 19:38] VITALS: BP 96/59
[2021-11-13] MEDS: MELATONIN 3 MG TABLET PO SCH (20:27)
[2021-11-13] MEDS: ACETAMINOPHEN 500 MG TAB (TYLENOL) PO SCH (20:27)
[2021-11-13] MEDS: ALPRAZolam 0.25 MG (XANAX) TAB PO PRN (22:15)
[2021-11-13] MEDS: diphenhydrAMINE 25 MG TAB (BENADRYL) PO PRN (23:06)
--- NOTE | 2021-11-14 06:05 | PM&R Progress Note ---
Subjective HPI/CC On Admission Date Seen by Provider: November 14, 2021 Time Seen by Provider: 09:30 Subjective/Events-last exam 11/14/2021: Patient improving slowly Minimal somatic complaints today Zyvox tolerated After recovery patient really meets criteria for hospice No falls 11/13/2021: Patient doing much better Reports ear pain MRSA in the sputum so we will start Zyvox 600 Mg p.o. twice daily Lungs remain clear though much improved from admission Patient tends to have somatic complaints Very frail status and if patient returns back to baseline then declines again will be a hospice candidate 11/12/2021: Patient feels much better today Lungs are clear No other concerns reported Slept pretty well last night 11/11/2021: Patient doing a lot better Cough is less Potassium good Holding supplemental potassium Bowels moved No pain reported 11/10/2021: Pt settling in White count is 141,000 Hemoglobin is 8.1 Potassium is 6.3, so I did give Kayexalate to get that down She reports she took Ativan and Zoloft at home so we will evaluate the home dosing Will add procalcitonin to check to be sure that her pneumonia is resolving and I will repeat a chest x-ray, I will also do a sputum culture Review of Systems General: Fatigue, Malaise Objective Exam Vital Signs Vital Signs Date Time Temp Pulse Resp B/P (MAP) Pulse Ox O2 Delivery O2 Flow Rate FiO2 11/14/21 21:28 95 Nasal Cannula 2.00 11/14/21 19:20 36.5 92 24 100/63 (75) Capillary Refill : General Appearance: No Apparent Distress, WD/WN, Chronically ill, Thin HEENT: PERRL/EOMI, Normal ENT Inspection, Pharynx Normal Neck: Full Range of Motion, Normal Inspection, Non Tender, Supple, Carotid Bruit Respiratory: Chest Non Tender, No Accessory Muscle Use, No Respiratory Distress, Decreased Breath Sounds, Rales (Left lower lobe) Cardiovascular: Regular Rate, Rhythm, No Edema, No Gallop, No JVD, No Murmur, Normal Peripheral Pulses Gastrointestinal: Normal Bowel Sounds, No Organomegaly, No Pulsatile Mass, Non Tender, Soft Back: Normal Inspection, No CVA Tenderness, No Vertebral Tenderness Extremity: Normal Capillary Refill, Normal Inspection, Normal Range of Motion, Non Tender, No Calf Tenderness, No Pedal Edema Neurologic/Psychiatric: Alert, Oriented x3, cinder pitman II-XII Norm as Tested, Abnormal Gait, Depressed Affect, Motor Weakness (Severe weakness generalized) Skin: Normal Color, Warm/Dry Lymphatic: No Adenopathy Results/Procedures Lab Patient resulted labs reviewed. FIM Transfers Therapy Code Descriptions/Definitions Functional [place] Measure: 0=Not Assessed/NA 4=Minimal Assistance 1=Total Assistance 5=Supervision or Setup 2=Maximal Assistance 6=Modified [place] 3=Moderate Assistance 7=Complete IndependenceSCALE: Activities may be completed with or without assistive devices. 5-Lbqmhjtvyk-fusjlma completes the activity by him/herself with no assistance from a helper. 5-Set-up or Clean-up Assistance-helper sets up or cleans up; patient completes activity. [place] assists only prior to or following the activity. 4-Supervision or Touching Assistance-helper provides verbal cues and/or touching/steadying and/or contact guard assistance as patient completes activity. Assistance may be provided throughout the activity or intermittently. 3-Partial/Moderate Assistance-helper does LESS THAN HALF the effort. [place] lifts, holds or supports trunk or limbs, but provides less than half the effort. 2-Substantial/Maximal Assistance-helper does MORE THAN HALF the effort. [place] lifts or holds trunk or limbs and provides more than half the effort. 7-Xpnzhltvw-uwaxlv does ALL the effort. Patient does none of the effort to complete the activity. Or, the assistance of 2 or more helpers is required for the patient to complete the activity. If activity was not attempted, code reason: 7-Patient Refused. 9-Not Applicable-not attempted and the patient did not perform the activity before the current illness, exacerbation or injury. 10-Not Attempted due to Environmental Limitations-(lack of equipment, weather restraints, etc.). 88-Not Attempted due to Medical Conditions or Safety Concerns. Roll Left to Right (QC): 6 Sit to Lying (QC): 4 (SBA) Sit to Stand (QC): 4 Chair/Szo-ba-Hyzep Xfer(QC): 3 Car Transfer (QC): 4 (CGA) Gait Training Does the Patient Walk?: Yes Distance: 20' x2 Walk 10 feet (QC): 4 Walk 50 ft with 2 Turns(QC): 4 Walk 150 ft (QC): 88 Walking 10ft/uneven surface-QC: 4 Gait Persons Needed: 1 Gait Assistive Device: FWW Wheelchair Training Does the Pt Use a Wheelchair?: Yes Wheel 50 ft with 2 turns (QC): 1 Wheel 150 ft (QC): 1 Stair Training #of Steps: 1 1 Step (curb) (QC): 4 4 Steps (QC): 88 12 Steps (QC): 88 Balance Picking up an Object (QC): 4 (using stretching machine tender frame) ADL-Treatment Eating (QC): 6 Oral Hygiene (QC): 6 Shower/Bathe Self (QC): 4 Upper Body Dressing (QC): 5 Lower Body Dressing (QC): 4 On/Off Footwear (QC): 3 Toileting Hygiene (QC): 4 Toilet Transfer (QC): 4 Assessment/Plan Assessment and Plan Assess & Plan/Chief Complaint Assessment: Critical illness myopathy Status post pneumonia MRSA pneumonitis on sputum started Zyvox 11/13/2021 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 Whitt his oncologist Diabetes Hypertension Colon polyps Insomnia Advanced age Hyponatremia Anemia Volume overload Hypoxia requiring supplemental oxygen since pneumonia Diastolic congestive heart failure Valvular heart disease Immunosuppression Vitamin B12 deficiency Plan: Inpatient rehab protocol Oxygen supplementation Home meds Supportive care 11/10/2021: Check chest x-ray Sputum culture Add PCT to labs Supplement B12 11/11/21: Monitor closely Checked meds and labs 11/12/2021 Supportive care Monitor closely 11/13/2021: Zyvox for MRSA pneumonitis 11/14/2021: Supportive care Zyvox (1) Debility (2) CLL (chronic lymphocytic leukemia) (3) Immunosuppression (4) Hypoxia (5) Oxygen dependent (6) Pneumonia TEENA BUNDY DO November 14, 2021 06:05
[2021-11-14] MEDS: FUROSEMIDE 40 MG (LASIX) TAB PO SCH ×2 (06:53→17:06)
[2021-11-14] MEDS: CYANOCOBALAMIN 1,000 MCG (VITAMIN B-12) TABLET PO SCH (06:54)
[2021-11-14 07:30] VITALS: BP 92/46
[2021-11-14] MEDS: LINEZOLID (ZYVOX) 600 MG TAB PO SCH ×2 (08:33→21:26)
[2021-11-14] MEDS: LORATADINE (CLARITIN) 10 MG TAB PO SCH ×2 (08:33)
[2021-11-14] MEDS: meTOprolol TARTRATE 25 MG (LOPRESSOR) TABLET PO SCH ×2 (08:33→21:24)
[2021-11-14] MEDS: MONTELUKAST 10 MG (SINGULAIR) TAB PO SCH (08:34)
[2021-11-14] MEDS: FLUTICASONE NASAL SPRAY (FLONASE) 16 GM BTL NS SCH (08:34)
[2021-11-14] MEDS: BENZONATATE 100 MG (TESSALON) CAPSULE PO SCH ×3 (08:34→21:25)
[2021-11-14] MEDS: SENNA W/DOCUSATE (SENOKOT S) TABLET PO SCH ×2 (08:34→21:29)
[2021-11-14] MEDS: polyethylene glycoL POWDER 17 GM (MIRALAX) PACK PO SCH ×2 (08:34→21:28)
[2021-11-14] MEDS: LACTOBACILLUS ACIDOPHILUS (PROBIOTIC) CAPSULE PO SCH (08:34)
[2021-11-14] MEDS: ACYCLOVIR 400 MG TABLET (ZOVIRAX) PO SCH (08:34)
[2021-11-14] MEDS: VITAMIN D3 125 MCG (5,000 UNITS) CAPSULE PO SCH (08:34)
[2021-11-14] MEDS: DOCUSATE SODIUM 100 MG (COLACE) CAP PO SCH (08:34)
[2021-11-14] MEDS: ENOXAPARIN 40 MG/0.4 ML (LOVENOX) SYR SC SCH (08:34)
--- NOTE | 2021-11-14 09:57 | Occupational Ther Daily Note ---
OT Current Status-Daily Note Subjective Pt alert, lying in bed. Pt agrees to therapy though states that her BP was low. Discussed with nrsg and nrsg stated it was okay to get pt up but watch for any signs of BP dropping. Pt did need frequent recovery breaks due to fatigue, did not c/o dizziness after getting OOB. Mental Status/Objective Patient Orientation: Person, Place, Time, Situation Attachments: IV, Oxygen (2L) ADL-Treatment Pt declined any bathing or dressing stating that she was to tired. Supine to EOB independent. Pt requests higher surfaces to stand/sit with. Pt donned slippers sitting EOB by self after set up.Pt transferred using FWW from EOB to w/c with supervision. Supervision with toilet transfer using FWW, BSC and grabbars. Pt has demonstrated ability to manipulate clothing over hips with SBA for safety. In sitting, pt cleansed self after urination. Sitting at sink, pt completed grooming, hand washing and oral care independently. Due to increased edema in B feet, OLLIE wraps applied. Pt required extended time to complete all tasks due to decreased activity tolerance and frequent recovery breaks. After session, pt sitting in recliner with call light/phone in reach. All needs met in room. Therapy Code Descriptions/Definitions Functional [place] Measure: 0=Not Assessed/NA 4=Minimal Assistance 1=Total Assistance 5=Supervision or Setup 2=Maximal Assistance 6=Modified [place] 3=Moderate Assistance 7=Complete IndependenceSCALE: Activities may be completed with or without assistive devices. 2-Dkpryzebgc-vpcmtzy completes the activity by him/herself with no assistance from a helper. 5-Set-up or Clean-up Assistance-helper sets up or cleans up; patient completes activity. [place] assists only prior to or following the activity. 4-Supervision or Touching Assistance-helper provides verbal cues and/or touching/steadying and/or contact guard assistance as patient completes activity. Assistance may be provided throughout the activity or intermittently. 3-Partial/Moderate Assistance-helper does LESS THAN HALF the effort. [place] lifts, holds or supports trunk or limbs, but provides less than half the effort. 2-Substantial/Maximal Assistance-helper does MORE THAN HALF the effort. [place] lifts or holds trunk or limbs and provides more than half the effort. 4-Vtcbfbudv-qalkfc does ALL the effort. Patient does none of the effort to complete the activity. Or, the assistance of 2 or more helpers is required for the patient to complete the activity. If activity was not attempted, code reason: 7-Patient Refused. 9-Not Applicable-not attempted and the patient did not perform the activity before the current illness, exacerbation or injury. 10-Not Attempted due to Environmental Limitations-(lack of equipment, weather restraints, etc.). 88-Not Attempted due to Medical Conditions or Safety Concerns. Oral Hygiene (QC): 6 Toileting Hygiene (QC): 4 Toilet Transfer (QC): 4 OT Short Term Goals Short Term Goals Time Frame: November 22, 2021 Toileting hygiene: 4 Shower/bathe self: 4 Lower body dressin Putting on/taking off footwear: 4 OT Flame Channeler Goals Flame Channeler Goals Time Frame: Dec 08, 2021 Eating (QC): 6 Oral Hygiene (QC): 6 Toileting Hygiene (QC): 6 Shower/Bathe Self (QC): 6 Upper Body Dressing (QC): 6 Lower Body Dressing (QC): 6 On/Off Footwear (QC): 6 Additional Goals: 1-Demonstrate ADL Tasks, 2-Verbalize Understanding, 3- ImproveStrength/[place] 1=Demonstrate adherence to instructed precautions during ADL tasks. 2=Patient will verbalize/demonstrate understanding of assistive devices/modifications for ADL. 3=Patient will improve strength/tolerance for activity to enable patient to perform ADL's. OT Education/Plan Problem List/Assessment Assessment: Decreased Activ Tolerance, Decreased UE Strength, Impaired Self-Ca re Skills Discharge Recommendations Plan/Recommendations: Continue POC Treatment Plan/Plan of Care Patient would benefit from OT for education, treatment and training to promote independence in ADL's, mobility, safety and/or upper extremity function for ADL's. Plan of Care: ADL Retraining, Functional Mobility, Group Exercise/Act as Ind, UE Funct Exercise/Act Treatment Duration: Dec 08, 2021 Frequency: At least 5 of 7 days/Wk (IRF) Estimated Hrs Per Day: 1.5 hours per day Agreement: Yes Rehab Potential: Fair Time/GCodes Start Time: 09:00 Stop Time: 10:00 Total Time Billed (hr/min): 60 Billed Treatment Time 1 visit-ADL 3 (50 min) FA 1 (10 min) OLINDA COULTER November 14, 2021 09:57
--- NOTE | 2021-11-14 11:00 | Physical Therapy Daily Note ---
PT Daily Note-Current Subjective Pt reclined in recliner upon arrival. Pt agrees to PT. Pain Location: Incisional Location Body Site: Back Pain Description: Ache Mental Status Patient Orientation: Person, Place, Situation Attachments: Oxygen (2L) Transfers SCALE: Activities may be completed with or without assistive devices. 7-Cxpbrqiehf-cackoux completes the activity by him/herself with no assistance from a helper. 5-Set-up or Clean-up Assistance-helper sets up or cleans up; patient completes activity. [place] assists only prior to or following the activity. 4-Supervision or Touching Assistance-helper provides verbal cues and/or touching/steadying and/or contact guard assistance as patient completes activity. Assistance may be provided throughout the activity or intermittently. 3-Partial/Moderate Assistance-helper does LESS THAN HALF the effort. [place] lifts, holds or supports trunk or limbs, but provides less than half the effort. 2-Substantial/Maximal Assistance-helper does MORE THAN HALF the effort. [place] lifts or holds trunk or limbs and provides more than half the effort. 5-Bxubazrny-aqyvfm does ALL the effort. Patient does none of the effort to comp lete the activity. Or, the assistance of 2 or more helpers is required for the patient to complete the activity. If activity was not attempted, code reason: 7-Patient Refused. 9-Not Applicable-not attempted and the patient did not perform the activity before the current illness, exacerbation or injury. 10-Not Attempted due to Environmental Limitations-(lack of equipment, weather restraints, etc.). 88-Not Attempted due to Medical Conditions or Safety Concerns. Sit to Stand (QC): 4 Weight Bearing Right Lower Extremity: Right Full Weight Bearing Left Lower Extremity: Left Full Weight Bearing Gait Training Does the Patient Walk?: Yes Distance: 10' x2 Walk 10 feet (QC): 4 Gait Persons Needed: 1 Gait Assistive Device: FWW Dizziness when up limits walking. Exercises Supine Ex: Ankle pumps, Quad Set, Glut sets, Heel Slides, Straight leg raise, Hip abd/add Supine Reps: 15 Seated Therapy Exercises: Ankle pumps, Long arc quads, Hip flexion Seated Reps: 15 Treatments Pt completes Supine & Seated Ex at recliner. Pt stands and reports dizziness, standing RB then amb. before having to return to recliner. Pt repositioned to comfort and applied anti-itch cream. All needs met, call light in hand. Assessment Current Status: Fair Progress Pt is limited by feeling dizzy today as well as coughing like previous tx. PT Short Term Goals Short Term Goals Time Frame: November 16, 2021 Roll Left & Right: 6 Sit to lyin Lying to sitting on side of be: 4 (SBA) Sit to stand: 4 (SBA) Chair/fib-ar-mtitp transfer: 4 (SBA) Walk 10 feet: 4 (SBA) Walk 50 feet with two turns: 4 (SBA) PT Glove Maker Goals Skilled Nursing Goals PT Glove Maker Goals Time Frame: November 30, 2021 Roll Left & Right (QC): 6 Sit to Lying (QC): 6 Lying-Sitting on Side/Bed(QC): 6 Sit to Stand (QC): 5 Chair/Hbf-iq-Bmqco Xfer(QC): 5 Toilet Transfer (QC): 5 Car Transfer (QC): 5 Does the Patient Walk: Yes Walk 10 feet (QC): 5 Walk 50ft with 2 Turns (QC): 5 Walk 150 ft (QC): 5 Walking 10ft on Uneven Surface: 5 1 Step (curb) (QC): 4 4 Steps (QC): 4 12 Steps (QC): 88 Picking up an Object (QC): 5 Wheel 50 feet with 2 turns (QC: 9 Wheel 150 feet: 9 PT Plan Problem List Problem List: Activity Tolerance, Functional Strength Treatment/Plan Treatment Plan: Continue Plan of Care Treatment Plan: Bed Mobility, Education, Functional Activity [place], Functional Strength, Group Therapy, Gait, Safety, Therapeutic Exercise, Transfers Treatment Duration: November 30, 2021 Frequency: At least 5 of 7 days/Wk (IRF) Estimated Hrs Per Day: 1.5 hours per day Patient and/or Family Agrees t: Yes Safety Risks/Education Patient Education: Gait Training, Transfer Techniques Teaching Recipient: Patient Teaching Methods: Discussion Response to Teaching: Verbalize Understanding Time/GCodes Time In: 1000 Time Out: 1100 Total Billed Treatment 1, EX x2 (30m) & FA x2 (30m) PARVEEN RODRÍGUEZ ALMOND CUTTING MACHINE TENDER November 14, 2021 10:59
[2021-11-14] MEDS: diphenhydrAMINE 25 MG TAB (BENADRYL) PO PRN (11:22)
--- NOTE | 2021-11-14 13:12 | Occupational Ther Daily Note ---
OT Current Status-Daily Note Subjective Pt alert, sitting in recliner. Pt states that she is uncomfortable but is able to change position to help the discomfort. Pt agrees to therapy. Mental Status/Objective Patient Orientation: Person, Place, Time, Situation Attachments: Oxygen (2L) ADL-Treatment Therapy Code Descriptions/Definitions Functional [place] Measure: 0=Not Assessed/NA 4=Minimal Assistance 1=Total Assistance 5=Supervision or Setup 2=Maximal Assistance 6=Modified [place] 3=Moderate Assistance 7=Complete IndependenceSCALE: Activities may be completed with or without assistive devices. 9-Ghuiffndkv-vhjykit completes the activity by him/herself with no assistance from a helper. 5-Set-up or Clean-up Assistance-helper sets up or cleans up; patient completes activity. [place] assists only prior to or following the activity. 4-Supervision or Touching Assistance-helper provides verbal cues and/or touching/steadying and/or contact guard assistance as patient completes activity. Assistance may be provided throughout the activity or intermittently. 3-Partial/Moderate Assistance-helper does LESS THAN HALF the effort. [place] lifts, holds or supports trunk or limbs, but provides less than half the effort. 2-Substantial/Maximal Assistance-helper does MORE THAN HALF the effort. [place] lifts or holds trunk or limbs and provides more than half the effort. 2-Navtzrhmy-cvyqjq does ALL the effort. Patient does none of the effort to complete the activity. Or, the assistance of 2 or more helpers is required for the patient to complete the activity. If activity was not attempted, code reason: 7-Patient Refused. 9-Not Applicable-not attempted and the patient did not perform the activity before the current illness, exacerbation or injury. 10-Not Attempted due to Environmental Limitations-(lack of equipment, weather restraints, etc.). 88-Not Attempted due to Medical Conditions or Safety Concerns. Eating (QC): 6 Other Treatment Pt able to reposition self by use arm chair pushups to readjust sitting position without difficulty 4x's during session. Pt then completed B UE exercises against gravity with skilled instruction for correct technique. Tricep, modified B shldr abd/add, shldr flex in 90* then bicep curls-3 sets 10 reps. Pt stated that arms where tired, but was able to complete with recovery breaks between each set. Pt able to set up own meal and use regular utensils to eat. After session, pt sitting in recliner with call light/phone in reach. All needs met in room. OT Short Term Goals Short Term Goals Time Frame: November 22, 2021 Toileting hygiene: 4 Shower/bathe self: 4 Lower body dressin Putting on/taking off footwear: 4 OT Automotive Sales Professional Goals Automotive Sales Professional Goals Time Frame: Dec 08, 2021 Eating (QC): 6 Oral Hygiene (QC): 6 Toileting Hygiene (QC): 6 Shower/Bathe Self (QC): 6 Upper Body Dressing (QC): 6 Lower Body Dressing (QC): 6 On/Off Footwear (QC): 6 Additional Goals: 1-Demonstrate ADL Tasks, 2-Verbalize Understanding, 3- ImproveStrength/[place] 1=Demonstrate adherence to instructed precautions during ADL tasks. 2=Patient will verbalize/demonstrate understanding of assistive devices/modifications for ADL. 3=Patient will improve strength/tolerance for activity to enable patient to perform ADL's. OT Education/Plan Problem List/Assessment Assessment: Decreased Activ Tolerance, Decreased UE Strength Discharge Recommendations Plan/Recommendations: Continue POC Treatment Plan/Plan of Care Patient would benefit from OT for education, treatment and training to promote independence in ADL's, mobility, safety and/or upper extremity function for ADL's. Plan of Care: ADL Retraining, Functional Mobility, Group Exercise/Act as Ind, UE Funct Exercise/Act Treatment Duration: Dec 08, 2021 Frequency: At least 5 of 7 days/Wk (IRF) Estimated Hrs Per Day: 1.5 hours per day Agreement: Yes Rehab Potential: Fair Time/GCodes Start Time: 11:30 Stop Time: 12:00 Total Time Billed (hr/min): 30 Billed Treatment Time 1 visit-FA 1 (10 min) EX 1 (20 min) OLINDA COULTER November 14, 2021 13:12
[2021-11-14 14:30] VITALS: BP 104/52
--- NOTE | 2021-11-14 15:43 | Physical Therapy Daily Note ---
PT Daily Note-Current Subjective Pt laying Supine in bed fast asleep upon arrival. Pt agrees to PT but reports still not feeling great so would like to work on Supine Ex. Mental Status Patient Orientation: Person, Place, Situation Attachments: Oxygen Transfers SCALE: Activities may be completed with or without assistive devices. 7-Jzqqdwjcev-nihvfqk completes the activity by him/herself with no assistance from a helper. 5-Set-up or Clean-up Assistance-helper sets up or cleans up; patient completes activity. [place] assists only prior to or following the activity. 4-Supervision or Touching Assistance-helper provides verbal cues and/or touching/steadying and/or contact guard assistance as patient completes activity. Assistance may be provided throughout the activity or intermittently. 3-Partial/Moderate Assistance-helper does LESS THAN HALF the effort. [place] lifts, holds or supports trunk or limbs, but provides less than half the effort. 2-Substantial/Maximal Assistance-helper does MORE THAN HALF the effort. [place] lifts or holds trunk or limbs and provides more than half the effort. 3-Uaqouaqep-trdumx does ALL the effort. Patient does none of the effort to complete the activity. Or, the assistance of 2 or more helpers is required for the patient to complete the activity. If activity was not attempted, code reason: 7-Patient Refused. 9-Not Applicable-not attempted and the patient did not perform the activity before the current illness, exacerbation or injury. 10-Not Attempted due to Environmental Limitations-(lack of equipment, weather restraints, etc.). 88-Not Attempted due to Medical Conditions or Safety Concerns. Weight Bearing Right Lower Extremity: Right Full Weight Bearing Left Lower Extremity: Left Full Weight Bearing Exercises Supine Ex: Ankle pumps, Quad Set, Glut sets, Heel Slides, Straight leg raise, Hip abd/add Supine Reps: 15 Treatments Pt reports dizziness with standing so BP is monitored during tx. Supine EX are completed. Pt repositioned to comfort and all needs met, call light in hand. Assessment Current Status: Fair Progress BP during tx was 104/52, Pulse was 86 & O2 was 92%. Nurse was advised. PT Short Term Goals Short Term Goals Time Frame: November 16, 2021 Roll Left & Right: 6 Sit to lyin Lying to sitting on side of be: 4 (SBA) Sit to stand: 4 (SBA) Chair/eie-ml-asxbr transfer: 4 (SBA) Walk 10 feet: 4 (SBA) Walk 50 feet with two turns: 4 (SBA) PT Edge Inker Heels Goals Mcc Goals PT Mcc Goals Time Frame: November 30, 2021 Roll Left & Right (QC): 6 Sit to Lying (QC): 6 Lying-Sitting on Side/Bed(QC): 6 Sit to Stand (QC): 5 Chair/Asb-op-Jvsck Xfer(QC): 5 Toilet Transfer (QC): 5 Car Transfer (QC): 5 Does the Patient Walk: Yes Walk 10 feet (QC): 5 Walk 50ft with 2 Turns (QC): 5 Walk 150 ft (QC): 5 Walking 10ft on Uneven Surface: 5 1 Step (curb) (QC): 4 4 Steps (QC): 4 12 Steps (QC): 88 Picking up an Object (QC): 5 Wheel 50 feet with 2 turns (QC: 9 Wheel 150 feet: 9 PT Plan Problem List Problem List: Activity Tolerance, Functional Strength Treatment/Plan Treatment Plan: Continue Plan of Care Treatment Plan: Bed Mobility, Education, Functional Activity [place], Functional Strength, Group Therapy, Gait, Safety, Therapeutic Exercise, Transfers Treatment Duration: November 30, 2021 Frequency: At least 5 of 7 days/Wk (IRF) Estimated Hrs Per Day: 1.5 hours per day Patient and/or Family Agrees t: Yes Time/GCodes Time In: 1400 Time Out: 1430 Total Billed Treatment Time: 30 Total Billed Treatment 1, FA (15m) & EX (15m) PARVEEN RODRÍGUEZ DOCTOR OF RADIOLOGY November 14, 2021 15:43
--- NOTE | 2021-11-14 17:39 | Podiatry Progress Note ---
Standard Progress Note Progress Notes/Assess & Plan Date Seen by a Provider: November 14, 2021 Time Seen by a Provider: 17:38 Progress/Assessment & Plan Consultation dictated. Foot care given. Final Diagnosis Onychomycosis Peripheral Neuropathy Edema CRISTY DIALLO DPAlonso November 14, 2021 17:39
[2021-11-14 19:20] VITALS: BP 100/63
[2021-11-14] MEDS: MELATONIN 3 MG TABLET PO SCH (21:26)
[2021-11-14] MEDS: HYDROcodone/APAP 5 MG/325 MG (LORTAB) TAB PO PRN (21:27)
[2021-11-14] MEDS: ACETAMINOPHEN 500 MG TAB (TYLENOL) PO SCH (21:29)
[2021-11-14] MEDS: guaiFENesin/CODEINE (ROBITUSSIN AC) 10ML UDC PO PRN (22:21)
[2021-11-14] MEDS: ALPRAZolam 0.25 MG (XANAX) TAB PO PRN (22:21)
--- NOTE | 2021-11-15 02:43 | CONSULTATION REPORT ---
DATE OF SERVICE: 11/14/2021 REASON FOR CONSULTATION: Foot care. HISTORY OF PRESENT ILLNESS: This 86-year-old female was admitted for rehabilitation on the second floor of [facility] for recovery of multifocal pneumonia. She still complains of some shortness of breath and coughing. She has also been diagnosed with a droplet positive MRSA. She has difficulty reaching for and caring for her feet. She is complaining of elongated toenails that are painful for her at this time. The patient has a past medical history of pneumonia, cancerous CLL, she is paused with her chemotherapy apparently at this time. SOCIAL HISTORY: The patient is currently single, retired and is not a current smoker. She denies any foot problems besides the nails at this time with the exception of excessive amount of swelling. CURRENT MEDICATIONS: Listed on the patient's chart. PHYSICAL EXAMINATION: LOWER EXTREMITY: The patient has 1/4 dorsalis pedis pulse on the right, 0/4 on the left; 0/4 posterior tibial pulse bilaterally with pitting edema bilateral, left worse than right. NEUROLOGIC: The patient has slightly diminished protective sensation with 10 gram monofilament wire examination bilaterally. Diminished vibratory sensation to the forefoot bilaterally. INTEGUMENTARY: The patient has thick yellow dystrophic toenails with subungual debris to multiple digits. There are no open wounds, no ecchymosis identified. MUSCULOSKELETAL FINDINGS: She has contracted toes 2 through 5 bilaterally. She has 5/5 muscle strength to the four major quadrants of the foot. ASSESSMENT: 1. Edema. 2. Idiopathic neuropathy, onychomycosis and hammer digit syndrome. PLAN: Various options were discussed with the patient today in regard to treatment of her fungal toenails. Her toenails were debrided to all fungal nails, R1, L1. We discussed oral and topical antifungal medications. She continued to take this into consideration and follow up with my office as necessary. In regard to the edema, I recommend that she continue with compression therapy on a daily basis as well as elevation and limited salt intake at this time. I will see the patient as necessary upon discharge. Job ID: [id number] DocumentID: [id number] Dictated Date: 11/14/2021 17:38:14 Service Writer Date: 11/14/2021 21:14:10 Dictated By: CORINNA KENT
--- NOTE | 2021-11-15 06:09 | PM&R Progress Note ---
Subjective HPI/CC On Admission Date Seen by Provider: November 15, 2021 Time Seen by Provider: 09:00 Subjective/Events-last exam 11/15/21: Pt is doing a lot better Zyvox 600 mg BID tolerated Skin tear wound care management OLLIE wraps to lower extremities Bowels moved Saturday and she is doing a lot better Less nauseated given Zofran 11/14/2021: Patient improving slowly Minimal somatic complaints today Zyvox tolerated After recovery patient really meets criteria for hospice No falls 11/13/2021: Patient doing much better Reports ear pain MRSA in the sputum so we will start Zyvox 600 Mg p.o. twice daily Lungs remain clear though much improved from admission Patient tends to have somatic complaints Very frail status and if patient returns back to baseline then declines again will be a hospice candidate 11/12/2021: Patient feels much better today Lungs are clear No other concerns reported Slept pretty well last night 11/11/2021: Patient doing a lot better Cough is less Potassium good Holding supplemental potassium Bowels moved No pain reported 11/10/2021: Pt settling in White count is 141,000 Hemoglobin is 8.1 Potassium is 6.3, so I did give Kayexalate to get that down She reports she took Ativan and Zoloft at home so we will evaluate the home dosing Will add procalcitonin to check to be sure that her pneumonia is resolving and I will repeat a chest x-ray, I will also do a sputum culture Review of Systems General: Fatigue, Malaise Objective Exam Vital Signs Vital Signs Date Time Temp Pulse Resp B/P (MAP) Pulse Ox O2 Delivery O2 Flow Rate FiO2 11/15/21 21:00 Nasal Cannula 1.50 11/15/21 20:00 37.4 90 16 122/60 (80) 90 Capillary Refill : General Appearance: No Apparent Distress, WD/WN, Chronically ill, Thin HEENT: PERRL/EOMI, Normal ENT Inspection, Pharynx Normal Neck: Full Range of Motion, Normal Inspection, Non Tender, Supple, Carotid Bruit Respiratory: Chest Non Tender, No Accessory Muscle Use, No Respiratory Distress, Decreased Breath Sounds, Rales (Left lower lobe) Cardiovascular: Regular Rate, Rhythm, No Edema, No Gallop, No JVD, No Murmur, Normal Peripheral Pulses Gastrointestinal: Normal Bowel Sounds, No Organomegaly, No Pulsatile Mass, Non Tender, Soft Back: Normal Inspection, No CVA Tenderness, No Vertebral Tenderness Extremity: Normal Capillary Refill, Normal Inspection, Normal Range of Motion, Non Tender, No Calf Tenderness, No Pedal Edema Neurologic/Psychiatric: Alert, Oriented x3, amf mechanic II-XII Norm as Tested, Abnormal Gait, Depressed Affect, Motor Weakness (Severe weakness generalized) Skin: Normal Color, Warm/Dry Lymphatic: No Adenopathy Results/Procedures Lab Patient resulted labs reviewed. FIM Transfers Therapy Code Descriptions/Definitions Functional [place] Measure: 0=Not Assessed/NA 4=Minimal Assistance 1=Total Assistance 5=Supervision or Setup 2=Maximal Assistance 6=Modified [place] 3=Moderate Assistance 7=Complete IndependenceSCALE: Activities may be completed with or without assistive devices. 5-Edoowfupqh-nzzmaya completes the activity by him/herself with no assistance from a helper. 5-Set-up or Clean-up Assistance-helper sets up or cleans up; patient completes activity. [place] assists only prior to or following the activity. 4-Supervision or Touching Assistance-helper provides verbal cues and/or touching/steadying and/or contact guard assistance as patient completes activity. Assistance may be provided throughout the activity or intermittently. 3-Partial/Moderate Assistance-helper does LESS THAN HALF the effort. [place] lifts, holds or supports trunk or limbs, but provides less than half the effort. 2-Substantial/Maximal Assistance-helper does MORE THAN HALF the effort. [place] lifts or holds trunk or limbs and provides more than half the effort. 0-Kvioareer-eboywv does ALL the effort. Patient does none of the effort to complete the activity. Or, the assistance of 2 or more helpers is required for the patient to complete the activity. If activity was not attempted, code reason: 7-Patient Refused. 9-Not Applicable-not attempted and the patient did not perform the activity before the current illness, exacerbation or injury. 10-Not Attempted due to Environmental Limitations-(lack of equipment, weather restraints, etc.). 88-Not Attempted due to Medical Conditions or Safety Concerns. Roll Left to Right (QC): 6 Sit to Lying (QC): 4 (SBA) Sit to Stand (QC): 4 Chair/Ybr-if-Satmf Xfer(QC): 3 Car Transfer (QC): 4 (CGA) Gait Training Does the Patient Walk?: Yes Distance: 10' x2 Walk 10 feet (QC): 4 Walk 50 ft with 2 Turns(QC): 4 Walk 150 ft (QC): 88 Walking 10ft/uneven surface-QC: 4 Gait Persons Needed: 1 Gait Assistive Device: FWW Wheelchair Training Does the Pt Use a Wheelchair?: Yes Wheel 50 ft with 2 turns (QC): 1 Wheel 150 ft (QC): 1 Type of Wheelchair: Manual Stair Training #of Steps: 1 1 Step (curb) (QC): 4 4 Steps (QC): 88 12 Steps (QC): 88 Balance Picking up an Object (QC): 4 (using museum host/hostess) ADL-Treatment Eating (QC): 6 Oral Hygiene (QC): 6 Shower/Bathe Self (QC): 4 Upper Body Dressing (QC): 5 Lower Body Dressing (QC): 4 On/Off Footwear (QC): 3 Toileting Hygiene (QC): 4 Toilet Transfer (QC): 4 Assessment/Plan Assessment and Plan Assess & Plan/Chief Complaint Assessment: Critical illness myopathy Status post pneumonia MRSA pneumonitis on sputum started Zyvox 11/13/2021 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 Whitt his oncologist Diabetes Hypertension Colon polyps Insomnia Advanced age Hyponatremia Anemia Volume overload Hypoxia requiring supplemental oxygen since pneumonia Diastolic congestive heart failure Valvular heart disease Immunosuppression Vitamin B12 deficiency Plan: Inpatient rehab protocol Oxygen supplementation Home meds Supportive care 11/10/2021: Check chest x-ray Sputum culture Add PCT to labs Supplement B12 11/11/21: Monitor closely Checked meds and labs 11/12/2021 Supportive care Monitor closely 11/13/2021: Zyvox for MRSA pneumonitis 11/14/2021: Supportive care Zyvox 11/15/21: Zyvox Monitor closely (1) Debility (2) CLL (chronic lymphocytic leukemia) (3) Immunosuppression (4) Hypoxia (5) Oxygen dependent (6) Pneumonia TEENA BUNDY DO November 15, 2021 06:09
[2021-11-15] MEDS: CYANOCOBALAMIN 1,000 MCG (VITAMIN B-12) TABLET PO SCH (06:53)
[2021-11-15] MEDS: FUROSEMIDE 40 MG (LASIX) TAB PO SCH ×2 (06:54→16:27)
[2021-11-15 07:32] VITALS: BP 122/60
[2021-11-15] MEDS: LINEZOLID (ZYVOX) 600 MG TAB PO SCH ×2 (08:18→22:01)
[2021-11-15] MEDS: LORATADINE (CLARITIN) 10 MG TAB PO SCH (08:18)
[2021-11-15] MEDS: ACYCLOVIR 400 MG TABLET (ZOVIRAX) PO SCH (08:18)
[2021-11-15] MEDS: meTOprolol TARTRATE 25 MG (LOPRESSOR) TABLET PO SCH ×2 (08:19→22:01)
[2021-11-15] MEDS: SENNA W/DOCUSATE (SENOKOT S) TABLET PO SCH ×2 (08:19→22:00)
[2021-11-15] MEDS: MONTELUKAST 10 MG (SINGULAIR) TAB PO SCH (08:19)
[2021-11-15] MEDS: DOCUSATE SODIUM 100 MG (COLACE) CAP PO SCH (08:19)
[2021-11-15] MEDS: polyethylene glycoL POWDER 17 GM (MIRALAX) PACK PO SCH ×2 (08:20→22:05)
[2021-11-15] MEDS: BENZONATATE 100 MG (TESSALON) CAPSULE PO SCH ×3 (08:20→22:01)
[2021-11-15] MEDS: LACTOBACILLUS ACIDOPHILUS (PROBIOTIC) CAPSULE PO SCH (08:20)
[2021-11-15] MEDS: FLUTICASONE NASAL SPRAY (FLONASE) 16 GM BTL NS SCH (08:20)
[2021-11-15] MEDS: ENOXAPARIN 40 MG/0.4 ML (LOVENOX) SYR SC SCH (08:21)
[2021-11-15] MEDS: VITAMIN D3 125 MCG (5,000 UNITS) CAPSULE PO SCH (08:21)
[2021-11-15] MEDS: ONDANSETRON 4 MG (ZOFRAN) ORAL DISSOLVE TAB PO PRN (08:31)
--- NOTE | 2021-11-15 09:43 | Occupational Ther Daily Note ---
OT Current Status-Daily Note Subjective Pt alert, lying in bed. Pt incontinent of urine while lying in bed. Pt states that she sleeps hard and does not know when she has gone. MAGAÑA educated pt on using call light when she gets up to call for staff to assist with clean up. Pt agrees to therapy. Mental Status/Objective Patient Orientation: Person, Place, Time, Situation Attachments: IV, Oxygen (2L) ADL-Treatment 1st session ([id number])Supine to EOB independent. Ambulated using FWW with SBA to bathroom. SBA to complete toilet transfer from elevated surface and toileting. Pt then sat at sink to complete sponge bath (declined shower) with supervision for safety. Independent with oral care. After set up, pt able to complete upper/lower body dressing. Assist given to wrap B lower legs with OLLIE wrap then assist to don socks. After therapy, pt sitting in recliner with call light/phone in reach. All needs met. Therapy Code Descriptions/Definitions Functional [place] Measure: 0=Not Assessed/NA 4=Minimal Assistance 1=Total Assistance 5=Supervision or Setup 2=Maximal Assistance 6=Modified [place] 3=Moderate Assistance 7=Complete IndependenceSCALE: Activities may be completed with or without assistive devices. 0-Oywwjqjzdt-ubagjhl completes the activity by him/herself with no assistance from a helper. 5-Set-up or Clean-up Assistance-helper sets up or cleans up; patient completes activity. [place] assists only prior to or following the activity. 4-Supervision or Touching Assistance-helper provides verbal cues and/or touching/steadying and/or contact guard assistance as patient completes activity. Assistance may be provided throughout the activity or intermittently. 3-Partial/Moderate Assistance-helper does LESS THAN HALF the effort. [place] lifts, holds or supports trunk or limbs, but provides less than half the effort. 2-Substantial/Maximal Assistance-helper does MORE THAN HALF the effort. [place] lifts or holds trunk or limbs and provides more than half the effort. 3-Soxcoubqc-qleifr does ALL the effort. Patient does none of the effort to complete the activity. Or, the assistance of 2 or more helpers is required for the patient to complete the activity. If activity was not attempted, code reason: 7-Patient Refused. 9-Not Applicable-not attempted and the patient did not perform the activity before the current illness, exacerbation or injury. 10-Not Attempted due to Environmental Limitations-(lack of equipment, weather restraints, etc.). 88-Not Attempted due to Medical Conditions or Safety Concerns. Eating (QC): 6 Oral Hygiene (QC): 6 Shower/Bathe Self (QC): 4 Upper Body Dressing (QC): 5 Lower Body Dressing (QC): 5 On/Off Footwear: 3 Toileting Hygiene (QC): 4 Toilet Transfer (QC): 4 Other Treatment 2nd session([id number]): Skilled instruction for B UE exercises to increase strength and activity tolerance for daily functional tasks. Theraputty given to pt to use in room. Assembler [employer] Spider, pinch, wrist and forearm exercises completed for 2 min each. B UE gross motor exercises with hitting balloon back and forth at different levels. After therapy, pt sitting in recliner with call light/phone in reach. All needs met in room. OT Short Term Goals Short Term Goals Time Frame: November 22, 2021 Toileting hygiene: 4 Shower/bathe self: 4 Lower body dressin Putting on/taking off footwear: 4 OT Jail Goals Jail Goals Time Frame: Dec 08, 2021 Eating (QC): 6 Oral Hygiene (QC): 6 Toileting Hygiene (QC): 6 Shower/Bathe Self (QC): 6 Upper Body Dressing (QC): 6 Lower Body Dressing (QC): 6 On/Off Footwear (QC): 6 Additional Goals: 1-Demonstrate ADL Tasks, 2-Verbalize Understanding, 3- ImproveStrength/[place] 1=Demonstrate adherence to instructed precautions during ADL tasks. 2=Patient will verbalize/demonstrate understanding of assistive devices/modifications for ADL. 3=Patient will improve strength/tolerance for activity to enable patient to perform ADL's. OT Education/Plan Problem List/Assessment Assessment: Decreased Activ Tolerance, Decreased UE Strength, Impaired Self-Care Skills Discharge Recommendations Plan/Recommendations: Continue POC Treatment Plan/Plan of Care Patient would benefit from OT for education, treatment and training to promote independence in ADL's, mobility, safety and/or upper extremity function for ADL's. Plan of Care: ADL Retraining, Functional Mobility, Group Exercise/Act as Ind, UE Funct Exercise/Act Treatment Duration: Dec 08, 2021 Frequency: At least 5 of 7 days/Wk (IRF) Estimated Hrs Per Day: 1.5 hours per day Agreement: Yes Rehab Potential: Fair Time/GCodes Start Time: 09:00 (1130) Stop Time: 10:00 (1200) Total Time Billed (hr/min): 90 Billed Treatment Time 1 visit-([id number]) ADL 4 (60 min) 1 visit([id number]) EX 2 (30 min) OLINDA COULTER November 15, 2021 09:43
--- NOTE | 2021-11-15 10:59 | Physical Therapy Daily Note ---
PT Daily Note-Current Subjective Pt. agrees to Rx. States she has dizziness once in awhile from old ear issues. Pt. also c/o residual weakness from an old fractured femur on right Pain Location: No Pain Reported Mental Status Patient Orientation: Normal For Age Attachments: Oxygen (3L) Transfers SCALE: Activities may be completed with or without assistive devices. 8-Spokuuwthz-udxqjkq completes the activity by him/herself with no assistance from a helper. 5-Set-up or Clean-up Assistance-helper sets up or cleans up; patient completes activity. [place] assists only prior to or following the activity. 4-Supervision or Touching Assistance-helper provides verbal cues and/or touching/steadying and/or contact guard assistance as patient completes activity. Assistance may be provided throughout the activity or intermittently. 3-Partial/Moderate Assistance-helper does LESS THAN HALF the effort. [place] lifts, holds or supports trunk or limbs, but provides less than half the effort. 2-Substantial/Maximal Assistance-helper does MORE THAN HALF the effort. [place] lifts or holds trunk or limbs and provides more than half the effort. 0-Ufpaotvsw-fbfiwy does ALL the effort. Patient does none of the effort to complete the activity. Or, the assistance of 2 or more helpers is required for the patient to complete the activity. If activity was not attempted, code reason: 7-Patient Refused. 9-Not Applicable-not attempted and the patient did not perform the activity before the current illness, exacerbation or injury. 10-Not Attempted due to Environmental Limitations-(lack of equipment, weather restraints, etc.). 88-Not Attempted due to Medical Conditions or Safety Concerns. Roll Left & Right (QC): 6 Sit to Lying (QC): 6 Lying to Sitting/Side of Bed(Q: 6 Sit to Stand (QC): 6 Chair/Wgh-ke-Yoaqi Xfer(QC): 6 Weight Bearing Right Lower Extremity: Right Full Weight Bearing Left Lower Extremity: Left Full Weight Bearing Gait Training Does the Patient Walk?: Yes Walk 10 feet (QC): 4 Walk 50 ft with 2 Turns(QC): 4 Gait Persons Needed: 1 Gait Assistive Device: FWW pts walker was switched for walker with smoother movement with new tennis balls etc.gait slow but no LOB Exercises Supine Ex: Bridging, Ankle pumps, Quad Set, Rolling, Glut sets, Heel Slides, Short Arc Quads, Scooting, Straight leg raise, Hip abd/add Supine Reps: 15 Seated Therapy Exercises: Ankle pumps, Sit to stand, Long arc quads, Hip flexion, Hip abd/add Seated Reps: 15 Assessment Current Status: Good Progress no SOB noted, progressing well PT Short Term Goals Short Term Goals Time Frame: November 16, 2021 Roll Left & Right: 6 Sit to lyin Lying to sitting on side of be: 4 (SBA) Sit to stand: 4 (SBA) Chair/tbz-pn-qggsb transfer: 4 (SBA) Walk 10 feet: 4 (SBA) Walk 50 feet with two turns: 4 (SBA) PT Instrument Maker Goals Skilled Nursing Goals PT Instrument Maker Goals Time Frame: November 30, 2021 Roll Left & Right (QC): 6 Sit to Lying (QC): 6 Lying-Sitting on Side/Bed(QC): 6 Sit to Stand (QC): 5 Chair/Bcc-pu-Hoynl Xfer(QC): 5 Toilet Transfer (QC): 5 Car Transfer (QC): 5 Does the Patient Walk: Yes Walk 10 feet (QC): 5 Walk 50ft with 2 Turns (QC): 5 Walk 150 ft (QC): 5 Walking 10ft on Uneven Surface: 5 1 Step (curb) (QC): 4 4 Steps (QC): 4 12 Steps (QC): 88 Picking up an Object (QC): 5 Wheel 50 feet with 2 turns (QC: 9 Wheel 150 feet: 9 PT Plan Treatment/Plan Treatment Plan: Continue Plan of Care Treatment Plan: Bed Mobility, Education, Functional Activity [place], Functional Strength, Group Therapy, Gait, Safety, Therapeutic Exercise, Transfers Treatment Duration: November 30, 2021 Frequency: At least 5 of 7 days/Wk (IRF) Estimated Hrs Per Day: 1.5 hours per day Patient and/or Family Agrees t: Yes Safety Risks/Education Patient Education: Gait Training, Transfer Techniques, Correct Positioning, Disease Process, Safety Issues Teaching Recipient: Patient Teaching Methods: Demonstration, Discussion Response to Teaching: Verbalize Understanding, Return Demonstration, Reinforcement Needed Time/GCodes Time In: 1000 Time Out: 1100 Total Billed Treatment Time: 60 Total Billed Treatment 1,GT20m,FA10m,EX30m SHAREE MARTEL SEISMOGRAPH CHIEF November 15, 2021 10:59
--- NOTE | 2021-11-15 14:05 | Physical Therapy Daily Note ---
PT Daily Note-Current Subjective Pt. and daughter present. Dtr strongly advocating that her mother cannot be expected to leave on Tu. Dtr explains all the things obt her Mothers condition she is concerned about. pt. agrees to Rx Pain Numeric Pain Scale: 0-No Pain Location: No Pain Reported Mental Status Patient Orientation: Normal For Age Attachments: Oxygen Transfers SCALE: Activities may be completed with or without assistive devices. 9-Gokdbzeqkm-uzpjtsg completes the activity by him/herself with no assistance from a helper. 5-Set-up or Clean-up Assistance-helper sets up or cleans up; patient completes activity. [place] assists only prior to or following the activity. 4-Supervision or Touching Assistance-helper provides verbal cues and/or touching/steadying and/or contact guard assistance as patient completes activity. Assistance may be provided throughout the activity or intermittently. 3-Partial/Moderate Assistance-helper does LESS THAN HALF the effort. [place] lifts, holds or supports trunk or limbs, but provides less than half the effort. 2-Substantial/Maximal Assistance-helper does MORE THAN HALF the effort. [place] lifts or holds trunk or limbs and provides more than half the effort. 8-Ufptaosuo-kukpan does ALL the effort. Patient does none of the effort to complete the activity. Or, the assistance of 2 or more helpers is required for the patient to complete the activity. If activity was not attempted, code reason: 7-Patient Refused. 9-Not Applicable-not attempted and the patient did not perform the activity before the current illness, exacerbation or injury. 10-Not Attempted due to Environmental Limitations-(lack of equipment, weather restraints, etc.). 88-Not Attempted due to Medical Conditions or Safety Concerns. all sit to stand TRFs Mod I Weight Bearing Right Lower Extremity: Right Full Weight Bearing Left Lower Extremity: Left Full Weight Bearing Gait Training Does the Patient Walk?: Yes Gait Assistive Device: FWW 50ft x 5 FWW assist for O2 tubing. no LOB , many tight turns Exercises Seated Therapy Exercises: Ankle pumps, Sit to stand, Long arc quads, Hip flexion, Hip abd/add Seated Reps: 15 Assessment Current Status: Good Progress pt. is fatigued with each gait trial and needs rest break PT Short Term Goals Short Term Goals Time Frame: November 16, 2021 Roll Left & Right: 6 Sit to lyin Lying to sitting on side of be: 4 (SBA) Sit to stand: 4 (SBA) Chair/pqf-ou-elwan transfer: 4 (SBA) Walk 10 feet: 4 (SBA) Walk 50 feet with two turns: 4 (SBA) PT Mcc Goals Mcc Goals PT Software Release Manager Goals Time Frame: November 30, 2021 Roll Left & Right (QC): 6 Sit to Lying (QC): 6 Lying-Sitting on Side/Bed(QC): 6 Sit to Stand (QC): 5 Chair/Ghf-ku-Kshpm Xfer(QC): 5 Toilet Transfer (QC): 5 Car Transfer (QC): 5 Does the Patient Walk: Yes Walk 10 feet (QC): 5 Walk 50ft with 2 Turns (QC): 5 Walk 150 ft (QC): 5 Walking 10ft on Uneven Surface: 5 1 Step (curb) (QC): 4 4 Steps (QC): 4 12 Steps (QC): 88 Picking up an Object (QC): 5 Wheel 50 feet with 2 turns (QC: 9 Wheel 150 feet: 9 PT Plan Treatment/Plan Treatment Plan: Continue Plan of Care Treatment Plan: Bed Mobility, Education, Functional Activity [place], Functional Strength, Group Therapy, Gait, Safety, Therapeutic Exercise, Transfers Treatment Duration: November 30, 2021 Frequency: At least 5 of 7 days/Wk (IRF) Estimated Hrs Per Day: 1.5 hours per day Patient and/or Family Agrees t: Yes Safety Risks/Education Patient Education: Gait Training, Transfer Techniques, Correct Positioning, Disease Process, Safety Issues Teaching Recipient: Patient Teaching Methods: Demonstration, Discussion Response to Teaching: Verbalize Understanding, Return Demonstration, Reinfor cement Needed Time/GCodes Time In: 1330 Time Out: 1400 Total Billed Treatment Time: 30 Total Billed Treatment 1,GT30m SHAREE MARTEL CULINARY DIRECTOR November 15, 2021 14:05
[2021-11-15 20:00] VITALS: BP 122/60
[2021-11-15] MEDS: ACETAMINOPHEN 500 MG TAB (TYLENOL) PO SCH (21:59)
[2021-11-15] MEDS: diphenhydrAMINE 25 MG TAB (BENADRYL) PO PRN (22:00)
[2021-11-15] MEDS: HYDROcodone/APAP 5 MG/325 MG (LORTAB) TAB PO PRN (22:00)
[2021-11-15] MEDS: MELATONIN 3 MG TABLET PO SCH (22:00)
[2021-11-15] MEDS: guaiFENesin/CODEINE (ROBITUSSIN AC) 10ML UDC PO PRN (23:03)
[2021-11-15] MEDS: ALPRAZolam 0.25 MG (XANAX) TAB PO PRN (23:03)
--- NOTE | 2021-11-16 06:35 | PM&R Progress Note ---
Subjective HPI/CC On Admission Date Seen by Provider: November 16, 2021 Time Seen by Provider: 11:00 Subjective/Events-last exam 11/16/2021: Patient doing about the same Zyvox tolerated I spoke with Dr. Whitt and he recommended going back on her chemotherapy since her white count is 242,000 Hemoglobin 7.2 Creatinine 1.45 Nurse will update daughter Cough is improved 11/15/21: Pt is doing a lot better Zyvox 600 mg BID tolerated Skin tear wound care management OLLIE wraps to lower extremities Bowels moved Saturday and she is doing a lot better Less nauseated given Zofran 11/14/2021: Patient improving slowly Minimal somatic complaints today Zyvox tolerated After recovery patient really meets criteria for hospice No falls 11/13/2021: Patient doing much better Reports ear pain MRSA in the sputum so we will start Zyvox 600 Mg p.o. twice daily Lungs remain clear though much improved from admission Patient tends to have somatic complaints Very frail status and if patient returns back to baseline then declines again will be a hospice candidate 11/12/2021: Patient feels much better today Lungs are clear No other concerns reported Slept pretty well last night 11/11/2021: Patient doing a lot better Cough is less Potassium good Holding supplemental potassium Bowels moved No pain reported 11/10/2021: Pt settling in White count is 141,000 Hemoglobin is 8.1 Potassium is 6.3, so I did give Kayexalate to get that down She reports she took Ativan and Zoloft at home so we will evaluate the home dosing Will add procalcitonin to check to be sure that her pneumonia is resolving and I will repeat a chest x-ray, I will also do a sputum culture Review of Systems General: Fatigue, Malaise Pulmonary: Dyspnea, Cough Objective Exam Vital Signs Vital Signs Date Time Temp Pulse Resp B/P (MAP) Pulse Ox O2 Delivery O2 Flow Rate FiO2 11/16/21 20:45 Nasal Cannula 2.00 11/16/21 19:51 36.2 82 24 101/62 (75) 93 Capillary Refill : General Appearance: No Apparent Distress, WD/WN, Chronically ill, Thin HEENT: PERRL/EOMI, Normal ENT Inspection, Pharynx Normal Neck: Full Range of Motion, Normal Inspection, Non Tender, Supple, Carotid Bruit Respiratory: Chest Non Tender, No Accessory Muscle Use, No Respiratory Distress, Decreased Breath Sounds, Rales (Left lower lobe) Cardiovascular: Regular Rate, Rhythm, No Edema, No Gallop, No JVD, No Murmur, Normal Peripheral Pulses Gastrointestinal: Normal Bowel Sounds, No Organomegaly, No Pulsatile Mass, Non Tender, Soft Back: Normal Inspection, No CVA Tenderness, No Vertebral Tenderness Extremity: Normal Capillary Refill, Normal Inspection, Normal Range of Motion, Non Tender, No Calf Tenderness, No Pedal Edema Neurologic/Psychiatric: Alert, Oriented x3, mincing machine operator II-XII Norm as Tested, Abnormal Gait, Depressed Affect, Motor Weakness (Severe weakness generalized) Skin: Normal Color, Warm/Dry Lymphatic: No Adenopathy Results/Procedures Lab Laboratory Tests 11/16/21 07:23 Patient resulted labs reviewed. FIM Transfers Therapy Code Descriptions/Definitions Functional [place] Measure: 0=Not Assessed/NA 4=Minimal Assistance 1=Total Assistance 5=Supervision or Setup 2=Maximal Assistance 6=Modified [place] 3=Moderate Assistance 7=Complete IndependenceSCALE: Activities may be completed with or without assistive devices. 7-Bsrregonji-rwrhdto completes the activity by him/herself with no assistance from a helper. 5-Set-up or Clean-up Assistance-helper sets up or cleans up; patient completes activity. [place] assists only prior to or following the activity. 4-Supervision or Touching Assistance-helper provides verbal cues and/or t ouching/steadying and/or contact guard assistance as patient completes activity. Assistance may be provided throughout the activity or intermittently. 3-Partial/Moderate Assistance-helper does LESS THAN HALF the effort. [place] lifts, holds or supports trunk or limbs, but provides less than half the effort. 2-Substantial/Maximal Assistance-helper does MORE THAN HALF the effort. [place] lifts or holds trunk or limbs and provides more than half the effort. 1-Weauznaep-vbgrba does ALL the effort. Patient does none of the effort to complete the activity. Or, the assistance of 2 or more helpers is required for the patient to complete the activity. If activity was not attempted, code reason: 7-Patient Refused. 9-Not Applicable-not attempted and the patient did not perform the activity before the current illness, exacerbation or injury. 10-Not Attempted due to Environmental Limitations-(lack of equipment, weather restraints, etc.). 88-Not Attempted due to Medical Conditions or Safety Concerns. Roll Left to Right (QC): 6 Sit to Lying (QC): 6 Sit to Stand (QC): 6 Chair/Mtt-cg-Cypqk Xfer(QC): 6 Car Transfer (QC): 4 (CGA) Gait Training Does the Patient Walk?: Yes Distance: 10' x2 Walk 10 feet (QC): 4 Walk 50 ft with 2 Turns(QC): 4 Walk 150 ft (QC): 88 Walking 10ft/uneven surface-QC: 4 Gait Persons Needed: 1 Gait Assistive Device: FWW Wheelchair Training Does the Pt Use a Wheelchair?: Yes Wheel 50 ft with 2 turns (QC): 1 Wheel 150 ft (QC): 1 Type of Wheelchair: Manual Stair Training #of Steps: 1 1 Step (curb) (QC): 4 4 Steps (QC): 88 12 Steps (QC): 88 Balance Picking up an Object (QC): 4 (using energy efficient site manager) ADL-Treatment Eating (QC): 6 Oral Hygiene (QC): 6 Shower/Bathe Self (QC): 4 Upper Body Dressing (QC): 5 Lower Body Dressing (QC): 5 On/Off Footwear (QC): 3 Toileting Hygiene (QC): 4 Toilet Transfer (QC): 4 Assessment/Plan Assessment and Plan Assess & Plan/Chief Complaint Assessment: Critical illness myopathy Status post pneumonia MRSA pneumonitis on sputum started Zyvox 11/13/2021 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 Whitt his oncologist Diabetes Hypertension Colon polyps Insomnia Advanced age Hyponatremia Anemia Volume overload Hypoxia requiring supplemental oxygen since pneumonia Diastolic congestive heart failure Valvular heart disease Immunosuppression Vitamin B12 deficiency Plan: Inpatient rehab protocol Oxygen supplementation Home meds Supportive care 11/10/2021: Check chest x-ray Sputum culture Add PCT to labs Supplement B12 11/11/21: Monitor closely Checked meds and labs 11/12/2021 Supportive care Monitor closely 11/13/2021: Zyvox for MRSA pneumonitis 11/14/2021: Supportive care Zyvox 11/15/21: Zyvox Monitor closely 11/16/2021: Restart chemotherapy (1) Debility (2) CLL (chronic lymphocytic leukemia) (3) Immunosuppression (4) Hypoxia (5) Oxygen dependent (6) Pneumonia TEENA BUNDY DO November 16, 2021 06:35
[2021-11-16 07:23] VITALS: BP 104/50
[2021-11-16] MEDS: CYANOCOBALAMIN 1,000 MCG (VITAMIN B-12) TABLET PO SCH (07:23)
[2021-11-16 07:46] LABS: ALBUMIN 3.3 GM/DL (3.2-4.5)
[2021-11-16 07:47] LABS: BASOPHILS % (AUTO) 0 % (0-10); POTASSIUM 4.2 MMOL/L (3.6-5.0)
[2021-11-16 07:48] LABS: CALCIUM 8.8 MG/DL (8.5-10.1)
[2021-11-16] MEDS: ENOXAPARIN 40 MG/0.4 ML (LOVENOX) SYR SC SCH (07:48)
[2021-11-16] MEDS: meTOprolol TARTRATE 25 MG (LOPRESSOR) TABLET PO SCH ×2 (07:48→20:43)
[2021-11-16 07:49] LABS: BASOPHILS # (AUTO) 0.7 10^3/uL (0.0-0.1); EOSINOPHILS # (AUTO) 0.3 10^3/uL (0.0-0.3); EOSINOPHILS % (AUTO) 0 % (0-10); HEMATOCRIT 25 % (35-52); HEMOGLOBIN 7.2 g/dL (11.5-16.0); LYMPHOCYTES # (AUTO) 141.8 10^3/uL (1.0-4.0); LYMPHOCYTES % (AUTO) 59 % (12-44); MEAN CORPUSCULAR HEMOGLOBIN 31 pg (25-34); MEAN CORPUSCULAR HGB CONC 29 g/dL (32-36); MEAN CORPUSCULAR VOLUME 106 fL (80-99); MONOCYTES # (AUTO) 95.2 10^3/uL (0.0-1.0); MONOCYTES % (AUTO) 39 % (0-12); NEUTROPHILS # (AUTO) 3.7 10^3/uL (1.8-7.8); NEUTROPHILS % (AUTO) 2 % (42-75); PLATELET COUNT 107 10^3/uL (130-400); TOTAL PROTEIN 4.9 GM/DL (6.4-8.2)
[2021-11-16] MEDS: LORATADINE (CLARITIN) 10 MG TAB PO SCH (07:49)
[2021-11-16] MEDS: SENNA W/DOCUSATE (SENOKOT S) TABLET PO SCH ×2 (07:49→20:48)
[2021-11-16] MEDS: MONTELUKAST 10 MG (SINGULAIR) TAB PO SCH (07:49)
[2021-11-16] MEDS: LINEZOLID (ZYVOX) 600 MG TAB PO SCH ×2 (07:49→20:48)
[2021-11-16] MEDS: VITAMIN D3 125 MCG (5,000 UNITS) CAPSULE PO SCH (07:49)
[2021-11-16] MEDS: BENZONATATE 100 MG (TESSALON) CAPSULE PO SCH ×3 (07:49→20:44)
[2021-11-16] MEDS: ACYCLOVIR 400 MG TABLET (ZOVIRAX) PO SCH (07:49)
[2021-11-16] MEDS: DOCUSATE SODIUM 100 MG (COLACE) CAP PO SCH (07:49)
[2021-11-16 07:53] LABS: CREATININE SERUM 1.46 MG/DL (0.60-1.30)
[2021-11-16] MEDS: FUROSEMIDE 40 MG (LASIX) TAB PO SCH ×2 (07:57→17:01)
[2021-11-16] MEDS: LACTOBACILLUS ACIDOPHILUS (PROBIOTIC) CAPSULE PO SCH (07:57)
[2021-11-16] MEDS: FLUTICASONE NASAL SPRAY (FLONASE) 16 GM BTL NS SCH (07:58)
[2021-11-16 08:02] LABS: WHITE BLOOD COUNT 242.2 10^3/uL (4.3-11.0)
--- NOTE | 2021-11-16 09:01 | Physical Therapy Daily Note ---
PT Daily Note-Current Subjective Pt in bed , agrees to Rx. States she is still so very weak . "Im soaked with urine too" Pain Location: No Pain Reported Mental Status Patient Orientation: Normal For Age Attachments: Oxygen (1 to 2.5L) Transfers SCALE: Activities may be completed with or without assistive devices. 9-Tlkaqjozqu-trkgxcq completes the activity by him/herself with no assistance from a helper. 5-Set-up or Clean-up Assistance-helper sets up or cleans up; patient completes activity. [place] assists only prior to or following the activity. 4-Supervision or Touching Assistance-helper provides verbal cues and/or touching/steadying and/or contact guard assistance as patient completes activity. Assistance may be provided throughout the activity or intermittently. 3-Partial/Moderate Assistance-helper does LESS THAN HALF the effort. [place] lifts, holds or supports trunk or limbs, but provides less than half the effort. 2-Substantial/Maximal Assistance-helper does MORE THAN HALF the effort. [place] lifts or holds trunk or limbs and provides more than half the effort. 3-Kqiurjnda-nfiozm does ALL the effort. Patient does none of the effort to complete the activity. Or, the assistance of 2 or more helpers is required for the patient to complete the activity. If activity was not attempted, code reason: 7-Patient Refused. 9-Not Applicable-not attempted and the patient did not perform the activity before the current illness, exacerbation or injury. 10-Not Attempted due to Environmental Limitations-(lack of equipment, weather restraints, etc.). 88-Not Attempted due to Medical Conditions or Safety Concerns. Roll Left & Right (QC): 6 Sit to Lying (QC): 6 Lying to Sitting/Side of Bed(Q: 6 Sit to Stand (QC): 6 Chair/Ohr-od-Iedaa Xfer(QC): 6 Weight Bearing Right Lower Extremity: Right Full Weight Bearing Left Lower Extremity: Left Full Weight Bearing Gait Training Does the Patient Walk?: Yes Walk 10 feet (QC): 4 Walk 50 ft with 2 Turns(QC): 4 Gait Persons Needed: 1 Gait Assistive Device: FWW gait focusing on O2 sats as well as intro pt to possible need to manage O2 tubing in home situation Exercises Supine Ex: Ankle pumps, Quad Set, Rolling, Glut sets, Heel Slides, Short Arc Quads, Straight leg raise (assisted on right), Hip abd/add Supine Reps: 15 Seated Therapy Exercises: Ankle pumps, Sit to stand, Long arc quads Seated Reps: 12 Treatments pt. on 1.5 L O2 upon entering with sats 96% , with TRF OOB and short gait to chair pt. was dyspneic and sats at 86%, O2 was turned to 2.5 L with fast recovery to 92%, Gait again 50 ft, 30 ft with intro to using ext O2 tubing , sa ts all >90% with 2L O2. Pt fatigues. brief doffed, pt cleaned and clean pads and brief max asst Assessment Current Status: Fair Progress conts weak and requires O2 for sats >90% PT Short Term Goals Short Term Goals Time Frame: November 16, 2021 Roll Left & Right: 6 Sit to lyin Lying to sitting on side of be: 4 (SBA) Sit to stand: 4 (SBA) Chair/srw-zu-hxrzg transfer: 4 (SBA) Walk 10 feet: 4 (SBA) Walk 50 feet with two turns: 4 (SBA) PT English As A Second Language Instructor Goals Fpc Goals PT English As A Second Language Instructor Goals Time Frame: November 30, 2021 Roll Left & Right (QC): 6 Sit to Lying (QC): 6 Lying-Sitting on Side/Bed(QC): 6 Sit to Stand (QC): 5 Chair/Kbz-dr-Ziser Xfer(QC): 5 Toilet Transfer (QC): 5 Car Transfer (QC): 5 Does the Patient Walk: Yes Walk 10 feet (QC): 5 Walk 50ft with 2 Turns (QC): 5 Walk 150 ft (QC): 5 Walking 10ft on Uneven Surface: 5 1 Step (curb) (QC): 4 4 Steps (QC): 4 12 Steps (QC): 88 Picking up an Object (QC): 5 Wheel 50 feet with 2 turns (QC: 9 Wheel 150 feet: 9 PT Plan Treatment/Plan Treatment Plan: Continue Plan of Care Treatment Plan: Bed Mobility, Education, Functional Activity [place], Functional Strength, Group Therapy, Gait, Safety, Therapeutic Exercise, Transfers Treatment Duration: November 30, 2021 Frequency: At least 5 of 7 days/Wk (IRF) Estimated Hrs Per Day: 1.5 hours per day Patient and/or Family Agrees t: Yes Safety Risks/Education Patient Education: Gait Training, Transfer Techniques, Correct Positioning, Disease Process, Safety Issues Teaching Recipient: Patient Teaching Methods: Demonstration, Discussion Response to Teaching: Verbalize Understanding, Return Demonstration, Reinforcement Needed Time/GCodes Time In: 800 Time Out: 900 Total Billed Treatment Time: 69 Total Billed Treatment 1,EX15m,FA25m,GT20m SHAREE MARTEL SENIOR DEVELOPER November 16, 2021 09:01
[2021-11-16] MEDS: polyethylene glycoL POWDER 17 GM (MIRALAX) PACK PO SCH ×2 (09:30→20:43)
--- NOTE | 2021-11-16 09:44 | Diagnostic Imaging Report ---
INDICATION: History of pneumonia. COMPARISON: 11/10/2021 FINDINGS: Single frontal radiographic view of the chest was obtained and demonstrates low lung volumes with persistent patchy bibasilar airspace opacities. Overall, aeration is unchanged. There is no large effusion or pneumothorax. Cardiac silhouette and pulmonary vasculature are stable. Osseous structures show no acute adverse interval changes. IMPRESSION: 1. Stable exam of the chest showing low lung volumes with patchy bibasilar atelectasis and/or infiltrate. Dictated by: Dictated on workstation # [id number]
[2021-11-16] MEDS: ONDANSETRON 4 MG (ZOFRAN) ORAL DISSOLVE TAB PO PRN (10:37)
--- NOTE | 2021-11-16 11:46 | Occupational Ther Daily Note ---
OT Current Status-Daily Note Subjective Pt alert, sitting in recliner. Pt c/o dizziness and fatigue, requests to have BP taken. BP104/50, P 70, O2% 93%, reported to nrsg. Pt c/o nausea, reported to nrsg and nrsg brought meds. Mental Status/Objective Patient Orientation: Person, Place, Time, Situation Attachments: IV, NG Tube (2L) ADL-Treatment Ambulated using FWW with SBA to bathroom. SBA to complete toilet transfer from elevated surface and toileting. Pt then sat at sink to complete sponge bath (declined shower) with supervision for safety. Independent with oral care. After set up, pt able to complete upper/lower body dressing. Assist given to wrap B lower legs with OLLIE wrap then assist to don socks, doffs by self. Increased time for all tasks due to fatigue, dizziness and nausea which requires multiple lengthy recovery breaks. Edema massage to B lower legs and feet. Pt then ambulated 20 ft using FWW and SBA for safety 2x's with lengthy recovery break between each walk. No LOB throughout session. After therapy, pt sitting in recliner with call light/phone in reach. All needs met. Therapy Code Descriptions/Definitions Functional [place] Measure: 0=Not Assessed/NA 4=Minimal Assistance 1=Total Assistance 5=Supervision or Setup 2=Maximal Assistance 6=Modified [place] 3=Moderate Assistance 7=Complete IndependenceSCALE: Activities may be completed with or without assistive devices. 9-Edztgeyebz-huefxwj completes the activity by him/herself with no assistance from a helper. 5-Set-up or Clean-up Assistance-helper sets up or cleans up; patient completes activity. [place] assists only prior to or following the activity. 4-Supervision or Touching Assistance-helper provides verbal cues and/or touching/steadying and/or contact guard assistance as patient completes activity. Assistance may be provided throughout the activity or intermittently. 3-Partial/Moderate Assistance-helper does LESS THAN HALF the effort. [place] lifts, holds or supports trunk or limbs, but provides less than half the effort. 2-Substantial/Maximal Assistance-helper does MORE THAN HALF the effort. [place] lifts or holds trunk or limbs and provides more than half the effort. 6-Ztjabhdto-zsqvbd does ALL the effort. Patient does none of the effort to complete the activity. Or, the assistance of 2 or more helpers is required for the patient to complete the activity. If activity was not attempted, code reason: 7-Patient Refused. 9-Not Applicable-not attempted and the patient did not perform the activity before the current illness, exacerbation or injury. 10-Not Attempted due to Environmental Limitations-(lack of equipment, weather restraints, etc.). 88-Not Attempted due to Medical Conditions or Safety Concerns. Eating (QC): 6 Oral Hygiene (QC): 6 Shower/Bathe Self (QC): 4 Upper Body Dressing (QC): 5 Lower Body Dressing (QC): 5 On/Off Footwear: 3 Toileting Hygiene (QC): 4 Toilet Transfer (QC): 4 OT Short Term Goals Short Term Goals Time Frame: November 22, 2021 Toileting hygiene: 4 Shower/bathe self: 4 Lower body dressin Putting on/taking off footwear: 4 OT Core Inserter Goals Core Inserter Goals Time Frame: Dec 08, 2021 Eating (QC): 6 Oral Hygiene (QC): 6 Toileting Hygiene (QC): 6 Shower/Bathe Self (QC): 6 Upper Body Dressing (QC): 6 Lower Body Dressing (QC): 6 On/Off Footwear (QC): 6 Additional Goals: 1-Demonstrate ADL Tasks, 2-Verbalize Understanding, 3- ImproveStrength/[place] 1=Demonstrate adherence to instructed precautions during ADL tasks. 2=Patient will verbalize/demonstrate understanding of assistive devices/modifications for ADL. 3=Patient will improve strength/tolerance for activity to enable patient to perform ADL's. OT Education/Plan Problem List/Assessment Assessment: Decreased Activ Tolerance, Impaired Funct Balance, Impaired Self- Care Skills Discharge Recommendations Plan/Recommendations: Continue POC Treatment Plan/Plan of Care Patient would benefit from OT for education, treatment and training to promote independence in ADL's, mobility, safety and/or upper extremity function for ADL's. Plan of Care: ADL Retraining, Functional Mobility, Group Exercise/Act as Ind, UE Funct Exercise/Act Treatment Duration: Dec 08, 2021 Frequency: At least 5 of 7 days/Wk (IRF) Estimated Hrs Per Day: 1.5 hours per day Agreement: Yes Rehab Potential: Fair Time/GCodes Start Time: 10:10 Stop Time: 11:40 Total Time Billed (hr/min): 90 Billed Treatment Time 1 visit-ADL 6 (90 min) OLINDA COULTER November 16, 2021 11:46
--- NOTE | 2021-11-16 15:04 | Physical Therapy Daily Note ---
PT Daily Note-Current Subjective Pt. approached x 2 for Rx . 1st attempt pt. stated she is feeling so poorly she cannot eat or move around. Pt states she does not feel right in her head, dizzier and "outside my body". 2nd attempt pt. agreed to bed ex. Pt. declined getting up or going to btm. Pain Comment: no drew c/o as such but did c/o dizziness etc as described above Mental Status Patient Orientation: Normal For Age Transfers SCALE: Activities may be completed with or without assistive devices. 8-Ydjbmwvcak-fmstnje completes the activity by him/herself with no assistance from a helper. 5-Set-up or Clean-up Assistance-helper sets up or cleans up; patient completes activity. [place] assists only prior to or following the activity. 4-Supervision or Touching Assistance-helper provides verbal cues and/or touching/steadying and/or contact guard assistance as patient completes activity. Assistance may be provided throughout the activity or intermittently. 3-Partial/Moderate Assistance-helper does LESS THAN HALF the effort. [place] lifts, holds or supports trunk or limbs, but provides less than half the effort. 2-Substantial/Maximal Assistance-helper does MORE THAN HALF the effort. [place] lifts or holds trunk or limbs and provides more than half the effort. 9-Vxlscnysm-bkewsj does ALL the effort. Patient does none of the effort to complete the activity. Or, the assistance of 2 or more helpers is required for the patient to complete the activity. If activity was not attempted, code reason: 7-Patient Refused. 9-Not Applicable-not attempted and the patient did not perform the activity before the current illness, exacerbation or injury. 10-Not Attempted due to Environmental Limitations-(lack of equipment, weather restraints, etc.). 88-Not Attempted due to Medical Conditions or Safety Concerns. rolling in bed mod I Weight Bearing Right Lower Extremity: Right Full Weight Bearing Left Lower Extremity: Left Full Weight Bearing Exercises Supine Ex: Ankle pumps, Quad Set, Rolling, Glut sets, Heel Slides, Scooting, Hip abd/add, Bicep Curls Supine Reps: 15 Treatments above described ex . Assessment Current Status: Fair Progress poor daniel for Rx, limited participation PT Short Term Goals Short Term Goals Time Frame: November 16, 2021 Roll Left & Right: 6 Sit to lyin Lying to sitting on side of be: 4 (SBA) Sit to stand: 4 (SBA) Chair/xkz-ve-ezxjq transfer: 4 (SBA) Walk 10 feet: 4 (SBA) Walk 50 feet with two turns: 4 (SBA) PT Family Preservation Worker Goals Longterm Goals PT Longterm Goals Time Frame: November 30, 2021 Roll Left & Right (QC): 6 Sit to Lying (QC): 6 Lying-Sitting on Side/Bed(QC): 6 Sit to Stand (QC): 5 Chair/Euf-mn-Mconm Xfer(QC): 5 Toilet Transfer (QC): 5 Car Transfer (QC): 5 Does the Patient Walk: Yes Walk 10 feet (QC): 5 Walk 50ft with 2 Turns (QC): 5 Walk 150 ft (QC): 5 Walking 10ft on Uneven Surface: 5 1 Step (curb) (QC): 4 4 Steps (QC): 4 12 Steps (QC): 88 Picking up an Object (QC): 5 Wheel 50 feet with 2 turns (QC: 9 Wheel 150 feet: 9 PT Plan Treatment/Plan Treatment Plan: Continue Plan of Care Treatment Plan: Bed Mobility, Education, Functional Activity [place], Functional Strength, Group Therapy, Gait, Safety, Therapeutic Exercise, Transfers Treatment Duration: November 30, 2021 Frequency: At least 5 of 7 days/Wk (IRF) Estimated Hrs Per Day: 1.5 hours per day Patient and/or Family Agrees t: Yes Safety Risks/Education Patient Education: Correct Positioning Time/GCodes Time In: 1430 Time Out: 1500 Total Billed Treatment Time: 30 Total Billed Treatment 1,EX30m SHAREE MARTEL PRACTICE ASSISTANT November 16, 2021 15:04
[2021-11-16] MEDS ORDERED: PATIENT MAY USE OWN MEDS, ALL MC SCH (16:00)
[2021-11-16] MEDS: CALQUENCE 100 MG PO SCH (17:02)
[2021-11-16] MEDS: SIMETHICONE 80 MG (MYLICON) CHEW PO PRN ×2 (17:26→22:29)
[2021-11-16 19:51] VITALS: BP 101/62
[2021-11-16] MEDS: ACETAMINOPHEN 500 MG TAB (TYLENOL) PO SCH (20:43)
[2021-11-16] MEDS ORDERED: ZALEPLON 10 MG CAPSULE PO PRN (21:00)
[2021-11-16] MEDS: ZALEPLON 10 MG CAPSULE PO SCH (22:31)
--- NOTE | 2021-11-17 05:57 | PM&R Progress Note ---
Subjective HPI/CC On Admission Date Seen by Provider: November 17, 2021 Time Seen by Provider: 10:00 Subjective/Events-last exam 11/17/2021: Pt has complicated somatic complaints Complained of congestion and sinus congestion Zyvox maintained Pt is so very complicated that she may very well need a prison at discharge unfortunately Maintain on oxygen 11/16/2021: Patient doing about the same Zyvox tolerated I spoke with Dr. Whitt and he recommended going back on her chemotherapy since her white count is 242,000 Hemoglobin 7.2 Creatinine 1.45 Nurse will update daughter Cough is improved 11/15/21: Pt is doing a lot better Zyvox 600 mg BID tolerated Skin tear wound care management OLLIE wraps to lower extremities Bowels moved Saturday and she is doing a lot better Less nauseated given Zofran 11/14/2021: Patient improving slowly Minimal somatic complaints today Zyvox tolerated After recovery patient really meets criteria for hospice No falls 11/13/2021: Patient doing much better Reports ear pain MRSA in the sputum so we will start Zyvox 600 Mg p.o. twice daily Lungs remain clear though much improved from admission Patient tends to have somatic complaints Very frail status and if patient returns back to baseline then declines again will be a hospice candidate 11/12/2021: Patient feels much better today Lungs are clear No other concerns reported Slept pretty well last night 11/11/2021: Patient doing a lot better Cough is less Potassium good Holding supplemental potassium Bowels moved No pain reported 11/10/2021: Pt settling in White count is 141,000 Hemoglobin is 8.1 Potassium is 6.3, so I did give Kayexalate to get that down She reports she took Ativan and Zoloft at home so we will evaluate the home dosing Will add procalcitonin to check to be sure that her pneumonia is resolving and I will repeat a chest x-ray, I will also do a sputum culture Review of Systems General: Fatigue, Malaise HEENT: Sinus Congestion Pulmonary: Dyspnea Objective Exam Vital Signs Vital Signs Date Time Temp Pulse Resp B/P (MAP) Pulse Ox O2 Delivery O2 Flow Rate FiO2 11/17/21 08:38 Nasal Cannula 2.00 11/17/21 08:00 35.6 89 16 111/52 (71) 90 Capillary Refill : General Appearance: No Apparent Distress, WD/WN, Chronically ill, Thin HEENT: PERRL/EOMI, Normal ENT Inspection, Pharynx Normal Neck: Full Range of Motion, Normal Inspection, Non Tender, Supple, Carotid Bruit Respiratory: Chest Non Tender, No Accessory Muscle Use, No Respiratory Distress, Decreased Breath Sounds, Rales (Left lower lobe) Cardiovascular: Regular Rate, Rhythm, No Edema, No Gallop, No JVD, No Murmur, Normal Peripheral Pulses Gastrointestinal: Normal Bowel Sounds, No Organomegaly, No Pulsatile Mass, Non Tender, Soft Back: Normal Inspection, No CVA Tenderness, No Vertebral Tenderness Extremity: Normal Capillary Refill, Normal Inspection, Normal Range of Motion, Non Tender, No Calf Tenderness, No Pedal Edema Neurologic/Psychiatric: Alert, Oriented x3, metalworking instructor II-XII Norm as Tested, Abnormal Gait, Depressed Affect, Motor Weakness (Severe weakness generalized) Skin: Normal Color, Warm/Dry Lymphatic: No Adenopathy Results/Procedures Lab Patient resulted labs reviewed. FIM Transfers Therapy Code Descriptions/Definitions Functional [place] Measure: 0=Not Assessed/NA 4=Minimal Assistance 1=Total Assistance 5=Supervision or Setup 2=Maximal Assistance 6=Modified [place] 3=Moderate Assistance 7=Complete IndependenceSCALE: Activities may be completed with or without assistive devices. 6-Hlaishrydo-ijspnmj completes the activity by him/herself with no assistance from a helper. 5-Set-up or Clean-up Assistance-helper sets up or cleans up; patient completes activity. [place] assists only prior to or following the activity. 4-Supervision or Touching Assistance-helper provides verbal cues and/or touching/steadying and/or contact guard assistance as patient completes activity. Assistance may be provided throughout the activity or intermittently. 3-Partial/Moderate Assistance-helper does LESS THAN HALF the effort. [place] lifts, holds or supports trunk or limbs, but provides less than half the effort. 2-Substantial/Maximal Assistance-helper does MORE THAN HALF the effort. [place] lifts or holds trunk or limbs and provides more than half the effort. 1-Cscsesnvn-exmjfn does ALL the effort. Patient does none of the effort to complete the activity. Or, the assistance of 2 or more helpers is required for the patient to complete the activity. If activity was not attempted, code reason: 7-Patient Refused. 9-Not Applicable-not attempted and the patient did not perform the activity before the current illness, exacerbation or injury. 10-Not Attempted due to Environmental Limitations-(lack of equipment, weather restraints, etc.). 88-Not Attempted due to Medical Conditions or Safety Concerns. Roll Left to Right (QC): 6 Sit to Lying (QC): 6 Sit to Stand (QC): 6 Chair/Mhe-cn-Vvczx Xfer(QC): 6 Car Transfer (QC): 4 (CGA) Gait Training Does the Patient Walk?: Yes Distance: 10' x2 Walk 10 feet (QC): 4 Walk 50 ft with 2 Turns(QC): 4 Walk 150 ft (QC): 88 Walking 10ft/uneven surface-QC: 4 Gait Persons Needed: 1 Gait Assistive Device: FWW Wheelchair Training Does the Pt Use a Wheelchair?: Yes Wheel 50 ft with 2 turns (QC): 1 Wheel 150 ft (QC): 1 Type of Wheelchair: Manual Stair Training #of Steps: 1 1 Step (curb) (QC): 4 4 Steps (QC): 88 12 Steps (QC): 88 Balance Picking up an Object (QC): 4 (using process safety engineering technologist) ADL-Treatment Eating (QC): 6 Oral Hygiene (QC): 6 Shower/Bathe Self (QC): 4 Upper Body Dressing (QC): 5 Lower Body Dressing (QC): 5 On/Off Footwear (QC): 3 Toileting Hygiene (QC): 4 Toilet Transfer (QC): 4 Assessment/Plan Assessment and Plan Assess & Plan/Chief Complaint Assessment: Critical illness myopathy Status post pneumonia MRSA pneumonitis on sputum started Zyvox 11/13/2021 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 Whitt his oncologist Diabetes Hypertension Colon polyps Insomnia Advanced age Hyponatremia Anemia Volume overload Hypoxia requiring supplemental oxygen since pneumonia Diastolic congestive heart failure Valvular heart disease Immunosuppression Vitamin B12 deficiency Plan: Inpatient rehab protocol Oxygen supplementation Home meds Supportive care 11/10/2021: Check chest x-ray Sputum culture Add PCT to labs Supplement B12 11/11/21: Monitor closely Checked meds and labs 11/12/2021 Supportive care Monitor closely 11/13/2021: Zyvox for MRSA pneumonitis 11/14/2021: Supportive care Zyvox 11/15/21: Zyvox Monitor closely 11/16/2021: Restart chemotherapy 11/17/2021: Patient may need prison at discharge due to complexities of her medical issues (1) Debility (2) CLL (chronic lymphocytic leukemia) (3) Immunosuppression (4) Hypoxia (5) Oxygen dependent (6) Pneumonia TEENA BUNDY DO November 17, 2021 05:57
[2021-11-17] MEDS: FUROSEMIDE 40 MG (LASIX) TAB PO SCH ×2 (06:54→17:47)
[2021-11-17] MEDS: CYANOCOBALAMIN 1,000 MCG (VITAMIN B-12) TABLET PO SCH (06:54)
[2021-11-17 08:00] VITALS: BP 111/52
[2021-11-17] MEDS: ONDANSETRON 4 MG (ZOFRAN) ORAL DISSOLVE TAB PO PRN (08:18)
[2021-11-17] MEDS: HYDROcodone/APAP 5 MG/325 MG (LORTAB) TAB PO PRN (08:29)
[2021-11-17] MEDS: ALPRAZolam 0.25 MG (XANAX) TAB PO PRN (08:31)
[2021-11-17] MEDS: SIMETHICONE 80 MG (MYLICON) CHEW PO PRN ×2 (08:32→19:32)
[2021-11-17] MEDS: VITAMIN D3 125 MCG (5,000 UNITS) CAPSULE PO SCH (08:33)
[2021-11-17] MEDS: LACTOBACILLUS ACIDOPHILUS (PROBIOTIC) CAPSULE PO SCH (08:33)
[2021-11-17] MEDS: BENZONATATE 100 MG (TESSALON) CAPSULE PO SCH ×4 (08:33→20:50)
[2021-11-17] MEDS: SENNA W/DOCUSATE (SENOKOT S) TABLET PO SCH ×2 (08:34→20:49)
[2021-11-17] MEDS: MONTELUKAST 10 MG (SINGULAIR) TAB PO SCH (08:34)
[2021-11-17] MEDS: LINEZOLID (ZYVOX) 600 MG TAB PO SCH ×2 (08:34→20:49)
[2021-11-17] MEDS: ACYCLOVIR 400 MG TABLET (ZOVIRAX) PO SCH (08:34)
[2021-11-17] MEDS: LORATADINE (CLARITIN) 10 MG TAB PO SCH (08:34)
[2021-11-17] MEDS: DOCUSATE SODIUM 100 MG (COLACE) CAP PO SCH (08:35)
[2021-11-17] MEDS: FLUTICASONE NASAL SPRAY (FLONASE) 16 GM BTL NS SCH (08:35)
[2021-11-17] MEDS: meTOprolol TARTRATE 25 MG (LOPRESSOR) TABLET PO SCH ×2 (08:36→20:45)
[2021-11-17] MEDS: polyethylene glycoL POWDER 17 GM (MIRALAX) PACK PO SCH ×2 (08:40→20:45)
[2021-11-17] MEDS: CALQUENCE 100 MG PO SCH ×2 (08:41→11:53)
[2021-11-17] MEDS: ENOXAPARIN 40 MG/0.4 ML (LOVENOX) SYR SC SCH (08:41)
--- NOTE | 2021-11-17 09:58 | Physical Therapy Daily Note ---
PT Daily Note-Current Subjective Pt. states she did not sleep well last night but is grateful she does not feel dizzy like she did yesterday. Pt. agrees to Rx. Pain Location: No Pain Reported Mental Status Patient Orientation: Normal For Age Attachments: Oxygen (3L) Transfers SCALE: Activities may be completed with or without assistive devices. 7-Rqazqdtsnn-wzaxthj completes the activity by him/herself with no assistance from a helper. 5-Set-up or Clean-up Assistance-helper sets up or cleans up; patient completes activity. [place] assists only prior to or following the activity. 4-Supervision or Touching Assistance-helper provides verbal cues and/or touching/steadying and/or contact guard assistance as patient completes activity. Assistance may be provided throughout the activity or intermittently. 3-Partial/Moderate Assistance-helper does LESS THAN HALF the effort. [place] lifts, holds or supports trunk or limbs, but provides less than half the effort. 2-Substantial/Maximal Assistance-helper does MORE THAN HALF the effort. [place] lifts or holds trunk or limbs and provides more than half the effort. 4-Xbdsgaxgg-onpthu does ALL the effort. Patient does none of the effort to complete the activity. Or, the assistance of 2 or more helpers is required for the patient to complete the activity. If activity was not attempted, code reason: 7-Patient Refused. 9-Not Applicable-not attempted and the patient did not perform the activity before the current illness, exacerbation or injury. 10-Not Attempted due to Environmental Limitations-(lack of equipment, weather restraints, etc.). 88-Not Attempted due to Medical Conditions or Safety Concerns. Roll Left & Right (QC): 6 Sit to Lying (QC): 6 Lying to Sitting/Side of Bed(Q: 6 Sit to Stand (QC): 6 Chair/Bvv-mv-Gywee Xfer(QC): 4 Toilet Transfer (QC): 4 Weight Bearing Right Lower Extremity: Right Full Weight Bearing Left Lower Extremity: Left Full Weight Bearing Gait Training Does the Patient Walk?: Yes Walk 10 feet (QC): 4 Walk 50 ft with 2 Turns(QC): 4 Gait Persons Needed: 1 Gait Assistive Device: FWW gait 25ft, 30ft in room with assist O2 tubing etc. no LOB, good use of FWW, turns well in tight areas Exercises Supine Ex: Ankle pumps, Quad Set, Rolling, Glut sets, Heel Slides, Short Arc Quads, Scooting, Straight leg raise, Hip abd/add Supine Reps: 15 Seated Therapy Exercises: Ankle pumps, Sit to stand, Long arc quads, Hip flexion, Hip abd/add Seated Reps: 12 Treatments pt. with urine saturated bed diaper,agreed to get up on edge of bed , SPT to BSC , cleaning and brief donned, lg BM Pt. states she has no sensation while urinating or having BM Assessment Current Status: Fair Progress no SOB on 3 L O2 with all activity PT Short Term Goals Short Term Goals Time Frame: November 16, 2021 Roll Left & Right: 6 Sit to lyin Lying to sitting on side of be: 4 (SBA) Sit to stand: 4 (SBA) Chair/bxg-gm-cskpa transfer: 4 (SBA) Walk 10 feet: 4 (SBA) Walk 50 feet with two turns: 4 (SBA) PT Application Support Analyst Goals Application Support Analyst Goals PT Application Support Analyst Goals Time Frame: November 30, 2021 Roll Left & Right (QC): 6 Sit to Lying (QC): 6 Lying-Sitting on Side/Bed(QC): 6 Sit to Stand (QC): 5 Chair/Wkv-re-Ctgnp Xfer(QC): 5 Toilet Transfer (QC): 5 Car Transfer (QC): 5 Does the Patient Walk: Yes Walk 10 feet (QC): 5 Walk 50ft with 2 Turns (QC): 5 Walk 150 ft (QC): 5 Walking 10ft on Uneven Surface: 5 1 Step (curb) (QC): 4 4 Steps (QC): 4 12 Steps (QC): 88 Picking up an Object (QC): 5 Wheel 50 feet with 2 turns (QC: 9 Wheel 150 feet: 9 PT Plan Treatment/Plan Treatment Plan: Continue Plan of Care Treatment Plan: Bed Mobility, Education, Functional Activity [place], Functional Strength, Group Therapy, Gait, Safety, Therapeutic Exercise, Transfers Treatment Duration: November 30, 2021 Frequency: At least 5 of 7 days/Wk (IRF) Estimated Hrs Per Day: 1.5 hours per day Patient and/or Family Agrees t: Yes Safety Risks/Education Patient Education: Gait Training, Transfer Techniques, Correct Positioning, Disease Process, Safety Issues Teaching Recipient: Patient Teaching Methods: Demonstration, Discussion Response to Teaching: Verbalize Understanding, Return Demonstration, Reinforcement Needed Time/GCodes Time In: 900 Time Out: 1000 Total Billed Treatment Time: 60 Total Billed Treatment 1,FA35m,GT10m,EX15m SHAREE MARTEL PRINTING MANAGER November 17, 2021 09:58
--- NOTE | 2021-11-17 12:00 | Occupational Ther Daily Note ---
OT Current Status-Daily Note Subjective Pt alert, sitting in recliner. Pt agrees to therapy. No c/o pain only fatigue. Mental Status/Objective Patient Orientation: Person, Place, Time, Situation Attachments: Oxygen (2L) ADL-Treatment Pt agrees to shower. Pt ambulates to shower using FWW and transfers with supervision. Sitting on shower bench, pt completes 90% of shower sitting then standing to cleanse buttocks with supervision. After set up pt able to don/doff upper body clothing by self. Supervision for lower body clothing. Pt able to OLLIE wrap R foot/lower legs by self then became dizzy and MAGAÑA wrapped L foot/lower leg and donned socks, pt doffs socks by self. Standing at sink, pt completes oral care with supervision then fatigues and sits for rest of oral care independently. Pt able to ambulate using FWW with supervision 3x's from recliner to/from closet, ~48'. Pt required frequent lengthy recovery breaks due to fatigue. After session, pt sitting in recliner with call light/phone in reach. All needs met in room. Therapy Code Descriptions/Definitions Functional [place] Measure: 0=Not Assessed/NA 4=Minimal Assistance 1=Total Assistance 5=Supervision or Setup 2=Maximal Assistance 6=Modified [place] 3=Moderate Assistance 7=Complete IndependenceSCALE: Activities may be completed with or without assistive devices. 7-Elewcymyps-dnxbqmg completes the activity by him/herself with no assistance from a helper. 5-Set-up or Clean-up Assistance-helper sets up or cleans up; patient completes activity. [place] assists only prior to or following the activity. 4-Supervision or Touching Assistance-helper provides verbal cues and/or touching/steadying and/or contact guard assistance as patient completes activity. Assistance may be provided throughout the activity or intermittently. 3-Partial/Moderate Assistance-helper does LESS THAN HALF the effort. [place] lifts, holds or supports trunk or limbs, but provides less than half the effort. 2-Substantial/Maximal Assistance-helper does MORE THAN HALF the effort. [place] lifts or holds trunk or limbs and provides more than half the effort. 1-Hauhlesxv-jrjcjy does ALL the effort. Patient does none of the effort to complete the activity. Or, the assistance of 2 or more helpers is required for the patient to complete the activity. If activity was not attempted, code reason: 7-Patient Refused. 9-Not Applicable-not attempted and the patient did not perform the activity befo re the current illness, exacerbation or injury. 10-Not Attempted due to Environmental Limitations-(lack of equipment, weather re straints, etc.). 88-Not Attempted due to Medical Conditions or Safety Concerns. Oral Hygiene (QC): 4 (in standing) Shower/Bathe Self (QC): 4 Upper Body Dressing (QC): 5 Lower Body Dressing (QC): 4 On/Off Footwear: 3 OT Short Term Goals Short Term Goals Time Frame: November 22, 2021 Toileting hygiene: 4 Shower/bathe self: 4 Lower body dressin Putting on/taking off footwear: 4 OT Stamp Clerk Goals Stamp Clerk Goals Time Frame: Dec 08, 2021 Eating (QC): 6 Oral Hygiene (QC): 6 Toileting Hygiene (QC): 6 Shower/Bathe Self (QC): 6 Upper Body Dressing (QC): 6 Lower Body Dressing (QC): 6 On/Off Footwear (QC): 6 Additional Goals: 1-Demonstrate ADL Tasks, 2-Verbalize Understanding, 3-ImproveStrength/[place] 1=Demonstrate adherence to instructed precautions during ADL tasks. 2=Patient will verbalize/demonstrate understanding of assistive devices/modifications for ADL. 3=Patient will improve strength/tolerance for activity to enable patient to perform ADL's. OT Education/Plan Problem List/Assessment Assessment: Decreased Activ Tolerance, Impaired Self-Care Skills Discharge Recommendations Plan/Recommendations: Continue POC Treatment Plan/Plan of Care Patient would benefit from OT for education, treatment and training to promote independence in ADL's, mobility, safety and/or upper extremity function for ADL's. Plan of Care: ADL Retraining, Functional Mobility, Group Exercise/Act as Ind, UE Funct Exercise/Act Treatment Duration: Dec 08, 2021 Frequency: At least 5 of 7 days/Wk (IRF) Estimated Hrs Per Day: 1.5 hours per day Agreement: Yes Rehab Potential: Fair Time/GCodes Start Time: 10:30 Stop Time: 12:00 Total Time Billed (hr/min): 90 Billed Treatment Time 1 visit-ADL 4 (60 min) FA 2 (30 min) OLINDA COULTER November 17, 2021 12:00
--- NOTE | 2021-11-17 13:30 | Physical Therapy Daily Note ---
PT Daily Note-Current Subjective Pt. agrees to Rx. Agrees to walk outside her room but hates wearing a mask , feels it inhibits her breathing even further Pain Location: No Pain Reported Mental Status Patient Orientation: Normal For Age Attachments: Oxygen (3L) Transfers SCALE: Activities may be completed with or without assistive devices. 2-Cebtqamxqr-llashxc completes the activity by him/herself with no assistance from a helper. 5-Set-up or Clean-up Assistance-helper sets up or cleans up; patient completes activity. [place] assists only prior to or following the activity. 4-Supervision or Touching Assistance-helper provides verbal cues and/or touching/steadying and/or contact guard assistance as patient completes activity. Assistance may be provided throughout the activity or intermittently. 3-Partial/Moderate Assistance-helper does LESS THAN HALF the effort. [place] lifts, holds or supports trunk or limbs, but provides less than half the effort. 2-Substantial/Maximal Assistance-helper does MORE THAN HALF the effort. [place] lifts or holds trunk or limbs and provides more than half the effort. 0-Cxatduzad-wzopkw does ALL the effort. Patient does none of the effort to complete the activity. Or, the assistance of 2 or more helpers is required for the patient to complete the activity. If activity was not attempted, code reason: 7-Patient Refused. 9-Not Applicable-not attempted and the patient did not perform the activity before the current illness, exacerbation or injury. 10-Not Attempted due to Environmental Limitations-(lack of equipment, weather restraints, etc.). 88-Not Attempted due to Medical Conditions or Safety Concerns. Sit to Stand (QC): 6 Weight Bearing Right Lower Extremity: Right Full Weight Bearing Left Lower Extremity: Left Full Weight Bearing Gait Training Does the Patient Walk?: Yes Gait Assistive Device: FWW 60ft x 2 FWW CGA and assist for port O2 at 3 L, no Dyspnea noted Exercises Seated Therapy Exercises: Ankle pumps, Sit to stand, Long arc quads, Hip flexion, Hip abd/add Seated Reps: 12 Treatments gait, ex as above, up in recliner after Rx with call pires at hand and O2 insitu Assessment Current Status: Fair Progress conts limited in funct mob, limited daniel for mask on for gait and Rx PT Short Term Goals Short Term Goals Time Frame: November 16, 2021 Roll Left & Right: 6 Sit to lyin Lying to sitting on side of be: 4 (SBA) Sit to stand: 4 (SBA) Chair/elr-ev-dpcnf transfer: 4 (SBA) Walk 10 feet: 4 (SBA) Walk 50 feet with two turns: 4 (SBA) PT Sales Correspondent Goals [facility] Goals PT Sales Correspondent Goals Time Frame: November 30, 2021 Roll Left & Right (QC): 6 Sit to Lying (QC): 6 Lying-Sitting on Side/Bed(QC): 6 Sit to Stand (QC): 5 Chair/Dfb-db-Vkpoe Xfer(QC): 5 Toilet Transfer (QC): 5 Car Transfer (QC): 5 Does the Patient Walk: Yes Walk 10 feet (QC): 5 Walk 50ft with 2 Turns (QC): 5 Walk 150 ft (QC): 5 Walking 10ft on Uneven Surface: 5 1 Step (curb) (QC): 4 4 Steps (QC): 4 12 Steps (QC): 88 Picking up an Object (QC): 5 Wheel 50 feet with 2 turns (QC: 9 Wheel 150 feet: 9 PT Plan Treatment/Plan Treatment Plan: Continue Plan of Care Treatment Plan: Bed Mobility, Education, Functional Activity [place], Functional Strength, Group Therapy, Gait, Safety, Therapeutic Exercise, Transfers Treatment Duration: November 30, 2021 Frequency: At least 5 of 7 days/Wk (IRF) Estimated Hrs Per Day: 1.5 hours per day Patient and/or Family Agrees t: Yes Safety Risks/Education Patient Education: Gait Training, Transfer Techniques, Correct Positioning, Disease Process, Safety Issues Teaching Recipient: Patient Teaching Methods: Demonstration, Discussion Response to Teaching: Verbalize Understanding, Return Demonstration, Marc nforcement Needed Time/GCodes Time In: 1300 Time Out: 1330 Total Billed Treatment Time: 30 Total Billed Treatment 1,GT15m,EX15m SHAREE MARTEL PACKAGE WINDER November 17, 2021 13:30
[2021-11-17 19:39] VITALS: BP 103/51
[2021-11-17] MEDS: ACETAMINOPHEN 500 MG TAB (TYLENOL) PO SCH (20:49)
[2021-11-17] MEDS: ZALEPLON 10 MG CAPSULE PO SCH (22:29)
--- NOTE | 2021-11-18 03:30 | PM&R Progress Note ---
Subjective HPI/CC On Admission Date Seen by Provider: November 18, 2021 Time Seen by Provider: 05:45 Subjective/Events-last exam 11/18/21: Pt didn't have any major issues overnight Very complicated Will need longterm with a licensed professional to manage her comorbidities at discharge Checked meds and labs 11/17/2021: Pt has complicated somatic complaints Complained of congestion and sinus congestion Zyvox maintained Pt is so very complicated that she may very well need a longterm at discharge unfortunately Maintain on oxygen 11/16/2021: Patient doing about the same Zyvox tolerated I spoke with Dr. Whitt and he recommended going back on her chemotherapy since her white count is 242,000 Hemoglobin 7.2 Creatinine 1.45 Nurse will update daughter Cough is improved 11/15/21: Pt is doing a lot better Zyvox 600 mg BID tolerated Skin tear wound care management OLLIE wraps to lower extremities Bowels moved Saturday and she is doing a lot better Less nauseated given Zofran 11/14/2021: Patient improving slowly Minimal somatic complaints today Zyvox tolerated After recovery patient really meets criteria for hospice No falls 11/13/2021: Patient doing much better Reports ear pain MRSA in the sputum so we will start Zyvox 600 Mg p.o. twice daily Lungs remain clear though much improved from admission Patient tends to have somatic complaints Very frail status and if patient returns back to baseline then declines again will be a hospice candidate 11/12/2021: Patient feels much better today Lungs are clear No other concerns reported Slept pretty well last night 11/11/2021: Patient doing a lot better Cough is less Potassium good Holding supplemental potassium Bowels moved No pain reported 11/10/2021: Pt settling in White count is 141,000 Hemoglobin is 8.1 Potassium is 6.3, so I did give Kayexalate to get that down She reports she took Ativan and Zoloft at home so we will evaluate the home dosing Will add procalcitonin to check to be sure that her pneumonia is resolving and I will repeat a chest x-ray, I will also do a sputum culture Objective Exam Vital Signs Vital Signs Date Time Temp Pulse Resp B/P (MAP) Pulse Ox O2 Delivery O2 Flow Rate FiO2 11/18/21 08:01 Nasal Cannula 2.00 11/18/21 07:30 37.0 96 18 112/55 (74) 96 Capillary Refill : General Appearance: No Apparent Distress, WD/WN, Chronically ill, Thin HEENT: PERRL/EOMI, Normal ENT Inspection, Pharynx Normal Neck: Full Range of Motion, Normal Inspection, Non Tender, Supple, Carotid Bruit Respiratory: Chest Non Tender, No Accessory Muscle Use, No Respiratory Distress, Decreased Breath Sounds, Rales (Left lower lobe) Cardiovascular: Regular Rate, Rhythm, No Edema, No Gallop, No JVD, No Murmur, Normal Peripheral Pulses Gastrointestinal: Normal Bowel Sounds, No Organomegaly, No Pulsatile Mass, Non Tender, Soft Back: Normal Inspection, No CVA Tenderness, No Vertebral Tenderness Extremity: Normal Capillary Refill, Normal Inspection, Normal Range of Motion, Non Tender, No Calf Tenderness, No Pedal Edema Neurologic/Psychiatric: Alert, Oriented x3, medical aides teacher II-XII Norm as Tested, Abnormal Gait, Depressed Affect, Motor Weakness (Severe weakness generalized) Skin: Normal Color, Warm/Dry Lymphatic: No Adenopathy Results/Procedures Lab Patient resulted labs reviewed. FIM Transfers Therapy Code Descriptions/Definitions Functional [place] Measure: 0=Not Assessed/NA 4=Minimal Assistance 1=Total Assistance 5=Supervision or Setup 2=Maximal Assistance 6=Modified [place] 3=Moderate Assistance 7=Complete IndependenceSCALE: Activities may be completed with or without assistive devices. 4-Tmacxsskhs-zvvbzba completes the activity by him/herself with no assistance from a helper. 5-Set-up or Clean-up Assistance-helper sets up or cleans up; patient completes activity. [place] assists only prior to or following the activity. 4-Supervision or Touching Assistance-helper provides verbal cues and/or touching/steadying and/or contact guard assistance as patient completes activity. Assistance may be provided throughout the activity or intermittently. 3-Partial/Moderate Assistance-helper does LESS THAN HALF the effort. [place] lifts, holds or supports trunk or limbs, but provides less than half the effort. 2-Substantial/Maximal Assistance-helper does MORE THAN HALF the effort. [place] lifts or holds trunk or limbs and provides more than half the effort. 6-[place] does ALL the effort. Patient does none of the effort to complete the activity. Or, the assistance of 2 or more helpers is required for the patient to complete the activity. If activity was not attempted, code reason: 7-Patient Refused. 9-Not Applicable-not attempted and the patient did not perform the activity before the current illness, exacerbation or injury. 10-Not Attempted due to Environmental Limitations-(lack of equipment, weather restraints, etc.). 88-Not Attempted due to Medical Conditions or Safety Concerns. Roll Left to Right (QC): 6 Sit to Lying (QC): 6 Sit to Stand (QC): 6 Chair/Lxc-dz-Vreiw Xfer(QC): 4 Car Transfer (QC): 4 (CGA) Gait Training Does the Patient Walk?: Yes Distance: 10' x2 Walk 10 feet (QC): 4 Walk 50 ft with 2 Turns(QC): 4 Walk 150 ft (QC): 88 Walking 10ft/uneven surface-QC: 4 Gait Persons Needed: 1 Gait Assistive Device: FWW Wheelchair Training Does the Pt Use a Wheelchair?: Yes Wheel 50 ft with 2 turns (QC): 1 Wheel 150 ft (QC): 1 Type of Wheelchair: Manual Stair Training #of Steps: 1 1 Step (curb) (QC): 4 4 Steps (QC): 88 12 Steps (QC): 88 Balance Picking up an Object (QC): 4 (using water purifier) ADL-Treatment Eating (QC): 6 Oral Hygiene (QC): 4 (in standing) Shower/Bathe Self (QC): 4 Upper Body Dressing (QC): 5 Lower Body Dressing (QC): 4 On/Off Footwear (QC): 3 Toileting Hygiene (QC): 4 Toilet Transfer (QC): 4 Assessment/Plan Assessment and Plan Assess & Plan/Chief Complaint Assessment: Critical illness myopathy Status post pneumonia MRSA pneumonitis on sputum started Zyvox 11/13/2021 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 Whitt his oncologist Diabetes Hypertension Colon polyps Insomnia Advanced age Hyponatremia Anemia Volume overload Hypoxia requiring supplemental oxygen since pneumonia Diastolic congestive heart failure Valvular heart disease Immunosuppression Vitamin B12 deficiency Plan: Inpatient rehab protocol Oxygen supplementation Home meds Supportive care 11/10/2021: Check chest x-ray Sputum culture Add PCT to labs Supplement B12 11/11/21: Monitor closely Checked meds and labs 11/12/2021 Supportive care Monitor closely 11/13/2021: Zyvox for MRSA pneumonitis 11/14/2021: Supportive care Zyvox 11/15/21: Zyvox Monitor closely 11/16/2021: Restart chemotherapy 11/17/2021: Patient may need longterm at discharge due to complexities of her medical issues 11/18/21: Monitor closely Mucinex Afrin (1) Debility (2) CLL (chronic lymphocytic leukemia) (3) Immunosuppression (4) Hypoxia (5) Oxygen dependent (6) Pneumonia TEENA BUNDY DO November 18, 2021 03:30
[2021-11-18] MEDS: CYANOCOBALAMIN 1,000 MCG (VITAMIN B-12) TABLET PO SCH (06:24)
[2021-11-18] MEDS: FUROSEMIDE 40 MG (LASIX) TAB PO SCH ×2 (06:24→17:42)
[2021-11-18 07:30] VITALS: BP 112/55
[2021-11-18] MEDS: VITAMIN D3 125 MCG (5,000 UNITS) CAPSULE PO SCH (09:07)
[2021-11-18] MEDS: SIMETHICONE 80 MG (MYLICON) CHEW PO PRN ×3 (09:07→18:04)
[2021-11-18] MEDS: CALQUENCE 100 MG PO SCH (09:08)
[2021-11-18] MEDS: ACYCLOVIR 400 MG TABLET (ZOVIRAX) PO SCH (09:08)
[2021-11-18] MEDS: MONTELUKAST 10 MG (SINGULAIR) TAB PO SCH (09:08)
[2021-11-18] MEDS: LINEZOLID (ZYVOX) 600 MG TAB PO SCH ×2 (09:08→20:49)
[2021-11-18] MEDS: LORATADINE (CLARITIN) 10 MG TAB PO SCH (09:08)
[2021-11-18] MEDS: LACTOBACILLUS ACIDOPHILUS (PROBIOTIC) CAPSULE PO SCH (09:08)
[2021-11-18] MEDS: meTOprolol TARTRATE 25 MG (LOPRESSOR) TABLET PO SCH ×3 (09:08→20:39)
[2021-11-18] MEDS: FLUTICASONE NASAL SPRAY (FLONASE) 16 GM BTL NS SCH (09:09)
[2021-11-18] MEDS: ENOXAPARIN 40 MG/0.4 ML (LOVENOX) SYR SC SCH (09:09)
[2021-11-18] MEDS: guaiFENesin/CODEINE (ROBITUSSIN AC) 10ML UDC PO PRN (09:22)
[2021-11-18] MEDS: ALPRAZolam 0.25 MG (XANAX) TAB PO PRN (09:30)
[2021-11-18] MEDS: polyethylene glycoL POWDER 17 GM (MIRALAX) PACK PO SCH ×2 (09:40→20:39)
[2021-11-18] MEDS: DOCUSATE SODIUM 100 MG (COLACE) CAP PO SCH (09:40)
[2021-11-18] MEDS: SENNA W/DOCUSATE (SENOKOT S) TABLET PO SCH ×2 (09:41→20:49)
[2021-11-18] MEDS: BENZONATATE 100 MG (TESSALON) CAPSULE PO SCH ×3 (09:41→20:55)
[2021-11-18] MEDS ORDERED: guaiFENesin (MUCINEX) 600 MG TAB PO ONE (11:15)
--- NOTE | 2021-11-18 11:49 | Physical Therapy Daily Note ---
PT Daily Note-Current Subjective Pt in BR with rehabilitation aide/scheduler in room. Pt agrees to PT but reports dizziness while sitting on toilet. Pt declines bearing down for induced dizziness. Mental Status Patient Orientation: Person, Place, Situation Attachments: Oxygen (2L) Transfers SCALE: Activities may be completed with or without assistive devices. 3-Dwahbmnndd-zxkrtav completes the activity by him/herself with no assistance from a helper. 5-Set-up or Clean-up Assistance-helper sets up or cleans up; patient completes activity. [place] assists only prior to or following the activity. 4-Supervision or Touching Assistance-helper provides verbal cues and/or touching/steadying and/or contact guard assistance as patient completes activity. Assistance may be provided throughout the activity or intermittently. 3-Partial/Moderate Assistance-helper does LESS THAN HALF the effort. [place] lif ts, holds or supports trunk or limbs, but provides less than half the effort. 2-Substantial/Maximal Assistance-helper does MORE THAN HALF the effort. [place] lifts or holds trunk or limbs and provides more than half the effort. 3-Yfnwwagig-ykxpjc does ALL the effort. Patient does none of the effort to complete the activity. Or, the assistance of 2 or more helpers is required for the patient to complete the activity. If activity was not attempted, code reason: 7-Patient Refused. 9-Not Applicable-not attempted and the patient did not perform the activity before the current illness, exacerbation or injury. 10-Not Attempted due to Environmental Limitations-(lack of equipment, weather restraints, etc.). 88-Not Attempted due to Medical Conditions or Safety Concerns. Sit to Stand (QC): 4 Toilet Transfer (QC): 4 Weight Bearing Right Lower Extremity: Right Full Weight Bearing Left Lower Extremity: Left Full Weight Bearing Gait Training Does the Patient Walk?: Yes Distance: 15' Walk 10 feet (QC): 4 Gait Persons Needed: 1 Gait Assistive Device: FWW Treatments Pt toilets then stands after extended RB for dizziness. Pt declines being able to complete anymore Therapy and wants to return to recliner. Pt repositioned to comfort with all needs met, call light in hand. Assessment Current Status: Poor Progress Pt reports dizziness and head feeling full. Nursing aware. PT Short Term Goals Short Term Goals Time Frame: November 16, 2021 Roll Left & Right: 6 Sit to lyin Lying to sitting on side of be: 4 (SBA) Sit to stand: 4 (SBA) Chair/plb-sr-sgona transfer: 4 (SBA) Walk 10 feet: 4 (SBA) Walk 50 feet with two turns: 4 (SBA) PT Supervisor [employer] Assembly Goals Supervisor [employer] Assembly Goals PT Supervisor [employer] Assembly Goals Time Frame: November 30, 2021 Roll Left & Right (QC): 6 Sit to Lying (QC): 6 Lying-Sitting on Side/Bed(QC): 6 Sit to Stand (QC): 5 Chair/Qpu-vn-Vsnhe Xfer(QC): 5 Toilet Transfer (QC): 5 Car Transfer (QC): 5 Does the Patient Walk: Yes Walk 10 feet (QC): 5 Walk 50ft with 2 Turns (QC): 5 Walk 150 ft (QC): 5 Walking 10ft on Uneven Surface: 5 1 Step (curb) (QC): 4 4 Steps (QC): 4 12 Steps (QC): 88 Picking up an Object (QC): 5 Wheel 50 feet with 2 turns (QC: 9 Wheel 150 feet: 9 PT Plan Problem List Problem List: Activity Tolerance, Functional Strength Treatment/Plan Treatment Plan: Continue Plan of Care Treatment Plan: Bed Mobility, Education, Functional Activity [place], Functional Strength, Group Therapy, Gait, Safety, Therapeutic Exercise, Transfers Treatment Duration: November 30, 2021 Frequency: At least 5 of 7 days/Wk (IRF) Estimated Hrs Per Day: 1.5 hours per day Patient and/or Family Agrees t: Yes Safety Risks/Education Patient Education: Gait Training, Safety Issues Teaching Recipient: Patient Teaching Methods: Discussion Response to Teaching: Verbalize Understanding Time/GCodes Time In: 1120 Time Out: 1140 Total Billed Treatment Time: 20 Total Billed Treatment 1, FA (20m) PARVEEN RODRÍGUEZ PTA November 18, 2021 11:48
[2021-11-18] MEDS ORDERED: guaiFENesin (MUCINEX) 600 MG TAB PO NR (14:02)
[2021-11-18] MEDS: OXYMETAZOLINE (AFRIN) 0.05% NA 30 ML BTL SCH ×2 (14:17→20:48)
[2021-11-18 20:00] VITALS: BP 129/58
[2021-11-18] MEDS: guaiFENesin (MUCINEX) 600 MG TAB PO SCH (20:49)
[2021-11-18] MEDS: ACETAMINOPHEN 500 MG TAB (TYLENOL) PO SCH (20:55)
[2021-11-18] MEDS: ZALEPLON 10 MG CAPSULE PO SCH (22:35)
[2021-11-18] MEDS: ONDANSETRON 4 MG (ZOFRAN) ORAL DISSOLVE TAB PO PRN (22:35)
--- NOTE | 2021-11-19 05:36 | PM&R Progress Note ---
Subjective HPI/CC On Admission Date Seen by Provider: November 19, 2021 Time Seen by Provider: 05:30 Subjective/Events-last exam 11/19/21: Pt doing well Somatic complaints Will check CT scan to see if there is anything we need to be concerned about because of her continued congestion Sleeping pill really helps her Will sign DNR form today Pt needs a half-way she can no longer live independently I had a long in-depth conversation with the daughter yesterday 11/18/21: Pt didn't have any major issues overnight Very complicated Will need half-way with a licensed professional to manage her comorbidities at discharge Checked meds and labs 11/17/2021: Pt has complicated somatic complaints Complained of congestion and sinus congestion Zyvox maintained Pt is so very complicated that she may very well need a half-way at discharge unfortunately Maintain on oxygen 11/16/2021: Patient doing about the same Zyvox tolerated I spoke with Dr. Whitt and he recommended going back on her chemotherapy since her white count is 242,000 Hemoglobin 7.2 Creatinine 1.45 Nurse will update daughter Cough is improved 11/15/21: Pt is doing a lot better Zyvox 600 mg BID tolerated Skin tear wound care management OLLIE wraps to lower extremities Bowels moved Saturday and she is doing a lot better Less nauseated given Zofran 11/14/2021: Patient improving slowly Minimal somatic complaints today Zyvox tolerated After recovery patient really meets criteria for hospice No falls 11/13/2021: Patient doing much better Reports ear pain MRSA in the sputum so we will start Zyvox 600 Mg p.o. twice daily Lungs remain clear though much improved from admission Patient tends to have somatic complaints Very frail status and if patient returns back to baseline then declines again will be a hospice candidate 11/12/2021: Patient feels much better today Lungs are clear No other concerns reported Slept pretty well last night 11/11/2021: Patient doing a lot better Cough is less Potassium good Holding supplemental potassium Bowels moved No pain reported 11/10/2021: Pt settling in White count is 141,000 Hemoglobin is 8.1 Potassium is 6.3, so I did give Kayexalate to get that down She reports she took Ativan and Zoloft at home so we will evaluate the home dosing Will add procalcitonin to check to be sure that her pneumonia is resolving and I will repeat a chest x-ray, I will also do a sputum culture Review of Systems General: Fatigue Pulmonary: Dyspnea, Cough Objective Exam Vital Signs Vital Signs Date Time Temp Pulse Resp B/P (MAP) Pulse Ox O2 Delivery O2 Flow Rate FiO2 11/19/21 10:36 Nasal Cannula 2.00 11/19/21 07:30 36.9 103 18 107/52 (70) 94 Capillary Refill : General Appearance: No Apparent Distress, WD/WN, Chronically ill, Thin HEENT: PERRL/EOMI, Normal ENT Inspection, Pharynx Normal Neck: Full Range of Motion, Normal Inspection, Non Tender, Supple, Carotid Bruit Respiratory: Chest Non Tender, No Accessory Muscle Use, No Respiratory Distress, Decreased Breath Sounds, Rales (Left lower lobe) Cardiovascular: Regular Rate, Rhythm, No Edema, No Gallop, No JVD, No Murmur, Normal Peripheral Pulses Gastrointestinal: Normal Bowel Sounds, No Organomegaly, No Pulsatile Mass, Non Tender, Soft Back: Normal Inspection, No CVA Tenderness, No Vertebral Tenderness Extremity: Normal Capillary Refill, Normal Inspection, Normal Range of Motion, Non Tender, No Calf Tenderness, No Pedal Edema Neurologic/Psychiatric: Alert, Oriented x3, poultry field service technician II-XII Norm as Tested, Abnormal Gait, Depressed Affect, Motor Weakness (Severe weakness generalized) Skin: Normal Color, Warm/Dry Lymphatic: No Adenopathy Results/Procedures Lab Patient resulted labs reviewed. FIM Transfers Therapy Code Descriptions/Definitions Functional [place] Measure: 0=Not Assessed/NA 4=Minimal Assistance 1=Total Assistance 5=Supervision or Setup 2=Maximal Assistance 6=Modified [place] 3=Moderate Assistance 7=Complete IndependenceSCALE: Activities may be completed with or without assistive devices. 8-Zvirgmuklv-fbhrosn completes the activity by him/herself with no assistance from a helper. 5-Set-up or Clean-up Assistance-helper sets up or cleans up; patient completes activity. [place] assists only prior to or following the activity. 4-Supervision or Touching Assistance-helper provides verbal cues and/or touching/steadying and/or contact guard assistance as patient completes activity. Assistance may be provided throughout the activity or intermittently. 3-Partial/Moderate Assistance-helper does LESS THAN HALF the effort. [place] lifts, holds or supports trunk or limbs, but provides less than half the effort. 2-Substantial/Maximal Assistance-helper does MORE THAN HALF the effort. [place] lifts or holds trunk or limbs and provides more than half the effort. 0-Avtefbllr-wzilhq does ALL the effort. Patient does none of the effort to complete the activity. Or, the assistance of 2 or more helpers is required for the patient to complete the activity. If activity was not attempted, code reason: 7-Patient Refused. 9-Not Applicable-not attempted and the patient did not perform the activity before the current illness, exacerbation or injury. 10-Not Attempted due to Environmental Limitations-(lack of equipment, weather restraints, etc.). 88-Not Attempted due to Medical Conditions or Safety Concerns. Roll Left to Right (QC): 6 Sit to Lying (QC): 6 Sit to Stand (QC): 4 Chair/Ejs-sj-Pcygq Xfer(QC): 4 Car Transfer (QC): 4 (CGA) Gait Training Does the Patient Walk?: Yes Distance: 15' Walk 10 feet (QC): 4 Walk 50 ft with 2 Turns(QC): 4 Walk 150 ft (QC): 88 Walking 10ft/uneven surface-QC: 4 Gait Persons Needed: 1 Gait Assistive Device: FWW Wheelchair Training Does the Pt Use a Wheelchair?: Yes Wheel 50 ft with 2 turns (QC): 1 Wheel 150 ft (QC): 1 Type of Wheelchair: Manual Stair Training #of Steps: 1 1 Step (curb) (QC): 4 4 Steps (QC): 88 12 Steps (QC): 88 Balance Picking up an Object (QC): 4 (using tax specialist) ADL-Treatment Eating (QC): 6 Oral Hygiene (QC): 4 (in standing) Shower/Bathe Self (QC): 4 Upper Body Dressing (QC): 5 Lower Body Dressing (QC): 4 On/Off Footwear (QC): 3 Toileting Hygiene (QC): 4 Toilet Transfer (QC): 4 Assessment/Plan Assessment and Plan Assess & Plan/Chief Complaint Assessment: Critical illness myopathy Status post pneumonia MRSA pneumonitis on sputum started Zyvox 11/13/2021 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 Whitt his oncologist Diabetes Hypertension Colon polyps Insomnia Advanced age Hyponatremia Anemia Volume overload Hypoxia requiring supplemental oxygen since pneumonia Diastolic congestive heart failure Valvular heart disease Immunosuppression Vitamin B12 deficiency Plan: Inpatient rehab protocol Oxygen supplementation Home meds Supportive care 11/10/2021: Check chest x-ray Sputum culture Add PCT to labs Supplement B12 11/11/21: Monitor closely Checked meds and labs 11/12/2021 Supportive care Monitor closely 11/13/2021: Zyvox for MRSA pneumonitis 11/14/2021: Supportive care Zyvox 11/15/21: Zyvox Monitor closely 11/16/2021: Restart chemotherapy 11/17/2021: Patient may need half-way at discharge due to complexities of her medical issues 11/18/21: Monitor closely Mucinex Afrin 11/19/2021: CT sinuses Supportive care (1) Debility (2) CLL (chronic lymphocytic leukemia) (3) Immunosuppression (4) Hypoxia (5) Oxygen dependent (6) Pneumonia TEENA BUNDY DO November 19, 2021 05:36
[2021-11-19] MEDS: FUROSEMIDE 40 MG (LASIX) TAB PO SCH ×2 (06:33→16:47)
[2021-11-19] MEDS: CYANOCOBALAMIN 1,000 MCG (VITAMIN B-12) TABLET PO SCH (06:33)
[2021-11-19] MEDS: ONDANSETRON 4 MG (ZOFRAN) ORAL DISSOLVE TAB PO PRN (07:14)
[2021-11-19 07:30] VITALS: BP 107/52
[2021-11-19] MEDS: SENNA W/DOCUSATE (SENOKOT S) TABLET PO SCH ×2 (08:39→20:59)
[2021-11-19] MEDS: DOCUSATE SODIUM 100 MG (COLACE) CAP PO SCH (08:39)
[2021-11-19] MEDS: polyethylene glycoL POWDER 17 GM (MIRALAX) PACK PO SCH ×2 (08:39→20:59)
[2021-11-19] MEDS: LORATADINE (CLARITIN) 10 MG TAB PO SCH (08:40)
[2021-11-19] MEDS: VITAMIN D3 125 MCG (5,000 UNITS) CAPSULE PO SCH (08:41)
[2021-11-19] MEDS: ACYCLOVIR 400 MG TABLET (ZOVIRAX) PO SCH (08:41)
[2021-11-19] MEDS: LACTOBACILLUS ACIDOPHILUS (PROBIOTIC) CAPSULE PO SCH (08:41)
[2021-11-19] MEDS: MONTELUKAST 10 MG (SINGULAIR) TAB PO SCH (08:41)
[2021-11-19] MEDS: LINEZOLID (ZYVOX) 600 MG TAB PO SCH ×2 (08:41→20:56)
[2021-11-19] MEDS: guaiFENesin (MUCINEX) 600 MG TAB PO SCH ×2 (08:41→20:56)
[2021-11-19] MEDS: BENZONATATE 100 MG (TESSALON) CAPSULE PO SCH ×3 (08:42→20:59)
[2021-11-19] MEDS: meTOprolol TARTRATE 25 MG (LOPRESSOR) TABLET PO SCH ×2 (08:42→20:59)
[2021-11-19] MEDS: ENOXAPARIN 40 MG/0.4 ML (LOVENOX) SYR SC SCH (08:43)
[2021-11-19] MEDS: OXYMETAZOLINE (AFRIN) 0.05% NA 30 ML BTL SCH ×2 (08:45→20:56)
[2021-11-19] MEDS: FLUTICASONE NASAL SPRAY (FLONASE) 16 GM BTL NS SCH (08:46)
[2021-11-19] MEDS: ALPRAZolam 0.25 MG (XANAX) TAB PO PRN (09:23)
[2021-11-19] MEDS: SIMETHICONE 80 MG (MYLICON) CHEW PO PRN ×2 (10:35→18:22)
--- NOTE | 2021-11-19 11:18 | Diagnostic Imaging Report ---
PROCEDURE: CT sinuses without contrast TECHNIQUE: Multiple contiguous axial images were obtained through the sinuses without the use of intravenous contrast. Coronal and sagittal reformations were then performed. Auto Exposure Controls were utilized during the CT exam to meet ALARA standards for radiation dose reduction. INDICATION: Sinus congestion. COMPARISON: No comparison is available. FINDINGS: There is complete opacification of the right maxillary sinus which demonstrates dense intrasinus contents. There is also dense partial opacification of the left maxillary sinus with an air-fluid level. There are dense intrasinus contents demonstrated throughout the left sphenoid sinus. There is multifocal ethmoid air cell opacification and near-complete opacification of the frontal sinuses. There do appear to be reactive osseous changes and sclerosis within the maxillary and sphenoid sinuses. Given the density of the intrasinus contents and these reactive bone changes, this would suggest longstanding chronic inspissated secretions. Fungal sinusitis is also considered but felt less likely given the lack of erosive bone changes. There is partial opacification of the mastoids bilaterally. The left middle ear appears to be opacified. There is no posterior nasopharyngeal mass evident. The intracranial contents appear unremarkable without mass effect or hydrocephalus. IMPRESSION: 1. Advanced sinusitis as described. Sinus contents are dense and there are reactive osseous changes. This favors longstanding chronic inspissated secretions with fungal sinusitis felt less likely given lack of aggressive bone changes. 2. Partial opacification of the mastoids as well as abnormal opacification of the left middle ear. Dictated by: Dictated on workstation # [id number]
[2021-11-19] MEDS: CALQUENCE 100 MG PO SCH (12:03)
[2021-11-19] MEDS: ACETAMINOPHEN 325 MG TABLET PO PRN ×2 (14:37→22:25)
[2021-11-19 19:39] VITALS: BP 106/53
[2021-11-19] MEDS: ACETAMINOPHEN 500 MG TAB (TYLENOL) PO SCH (21:00)
[2021-11-19] MEDS: ZALEPLON 10 MG CAPSULE PO SCH (22:24)
[2021-11-20 05:39] LABS: EOSINOPHILS % (AUTO) 0 % (0-10); NEUTROPHILS # (AUTO) 2.1 10^3/uL (1.8-7.8); NEUTROPHILS % (AUTO) 1 % (42-75)
[2021-11-20 05:41] LABS: BASOPHILS # (AUTO) 0.7 10^3/uL (0.0-0.1); BASOPHILS % (AUTO) 0 % (0-10); EOSINOPHILS # (AUTO) 0.3 10^3/uL (0.0-0.3); HEMATOCRIT 23 % (35-52); LYMPHOCYTES # (AUTO) 208.4 10^3/uL (1.0-4.0); LYMPHOCYTES % (AUTO) 75 % (12-44); MEAN CORPUSCULAR HEMOGLOBIN 30 pg (25-34); MEAN CORPUSCULAR HGB CONC 28 g/dL (32-36); MEAN CORPUSCULAR VOLUME 109 fL (80-99); MONOCYTES % (AUTO) 24 % (0-12); PLATELET COUNT 72 10^3/uL (130-400)
--- NOTE | 2021-11-20 05:47 | PM&R Progress Note ---
Subjective HPI/CC On Admission Date Seen by Provider: November 20, 2021 Time Seen by Provider: 10:00 Subjective/Events-last exam 11/20/2021: Pt extremely complex Dr. Alfonso saw her giving medication for chronic sinusitis Transfusing one unit due to hemoglobin of 6.9 WBC count was 249,000 Updated daughter outside the room after I spoke with pt and told her she needed to go to skilled. She had been in skilled care a couple of times with a bad experience. But she is so complex she requires physician management 28/01 with labs and everything in order to have any type of clinical stability. She meets criteria for hospice and I told the daughter that. 11/19/21: Pt doing well Somatic complaints Will check CT scan to see if there is anything we need to be concerned about because of her continued congestion Sleeping pill really helps her Will sign DNR form today Pt needs a prison she can no longer live independently I had a long in-depth conversation with the daughter yesterday 11/18/21: Pt didn't have any major issues overnight Very complicated Will need prison with a licensed professional to manage her comorbidities at discharge Checked meds and labs 11/17/2021: Pt has complicated somatic complaints Complained of congestion and sinus congestion Zyvox maintained Pt is so very complicated that she may very well need a prison at discharge unfortunately Maintain on oxygen 11/16/2021: Patient doing about the same Zyvox tolerated I spoke with Dr. Whitt and he recommended going back on her chemotherapy since her white count is 242,000 Hemoglobin 7.2 Creatinine 1.45 Nurse will update daughter Cough is improved 11/15/21: Pt is doing a lot better Zyvox 600 mg BID tolerated Skin tear wound care management OLLIE wraps to lower extremities Bowels moved Saturday and she is doing a lot better Less nauseated given Zofran 11/14/2021: Patient improving slowly Minimal somatic complaints today Zyvox tolerated After recovery patient really meets criteria for hospice No falls 11/13/2021: Patient doing much better Reports ear pain MRSA in the sputum so we will start Zyvox 600 Mg p.o. twice daily Lungs remain clear though much improved from admission Patient tends to have somatic complaints Very frail status and if patient returns back to baseline then declines again will be a hospice candidate 11/12/2021: Patient feels much better today Lungs are clear No other concerns reported Slept pretty well last night 11/11/2021: Patient doing a lot better Cough is less Potassium good Holding supplemental potassium Bowels moved No pain reported 11/10/2021: Pt settling in White count is 141,000 Hemoglobin is 8.1 Potassium is 6.3, so I did give Kayexalate to get that down She reports she took Ativan and Zoloft at home so we will evaluate the home dosing Will add procalcitonin to check to be sure that her pneumonia is resolving and I will repeat a chest x-ray, I will also do a sputum culture Review of Systems General: Malaise HEENT: Sinus Congestion Pulmonary: Dyspnea Neurological: Weakness Objective Exam Vital Signs Vital Signs Date Time Temp Pulse Resp B/P (MAP) Pulse Ox O2 Delivery O2 Flow Rate FiO2 11/20/21 21:07 37.0 94 24 110/54 (72) 97 Nasal Cannula 2.00 Capillary Refill : General Appearance: No Apparent Distress, WD/WN, Chronically ill, Thin HEENT: PERRL/EOMI, Normal ENT Inspection, Pharynx Normal Neck: Full Range of Motion, Normal Inspection, Non Tender, Supple, Carotid Bruit Respiratory: Chest Non Tender, No Accessory Muscle Use, No Respiratory Distre ss, Decreased Breath Sounds, Rales (Left lower lobe) Cardiovascular: Regular Rate, Rhythm, No Edema, No Gallop, No JVD, No Murmur, Normal Peripheral Pulses Gastrointestinal: Normal Bowel Sounds, No Organomegaly, No Pulsatile Mass, Non Tender, Soft Back: Normal Inspection, No CVA Tenderness, No Vertebral Tenderness Extremity: Normal Capillary Refill, Normal Inspection, Normal Range of Motion, Non Tender, No Calf Tenderness, No Pedal Edema Neurologic/Psychiatric: Alert, Oriented x3, barrel endshake adjuster II-XII Norm as Tested, Abnormal Gait, Depressed Affect, Motor Weakness (Severe weakness generalized) Skin: Normal Color, Warm/Dry Lymphatic: No Adenopathy Results/Procedures Lab Patient resulted labs reviewed. FIM Transfers Therapy Code Descriptions/Definitions Functional [place] Measure: 0=Not Assessed/NA 4=Minimal Assistance 1=Total Assistance 5=Supervision or Setup 2=Maximal Assistance 6=Modified [place] 3=Moderate Assistance 7=Complete IndependenceSCALE: Activities may be completed with or without assistive devices. 2-Pabhsjgfwt-mdhlpzs completes the activity by him/herself with no assistance from a helper. 5-Set-up or Clean-up Assistance-helper sets up or cleans up; patient completes activity. [place] assists only prior to or following the activity. 4-Supervision or Touching Assistance-helper provides verbal cues and/or touching/steadying and/or contact guard assistance as patient completes activity. Assistance may be provided throughout the activity or intermittently. 3-Partial/Moderate Assistance-helper does LESS THAN HALF the effort. [place] lifts, holds or supports trunk or limbs, but provides less than half the effort. 2-Substantial/Maximal Assistance-helper does MORE THAN HALF the effort. [place] lifts or holds trunk or limbs and provides more than half the effort. 4-Yjtsfpyue-ubwgmh does ALL the effort. Patient does none of the effort to complete the activity. Or, the assistance of 2 or more helpers is required for the patient to complete the activity. If activity was not attempted, code reason: 7-Patient Refused. 9-Not Applicable-not attempted and the patient did not perform the activity before the current illness, exacerbation or injury. 10-Not Attempted due to Environmental Limitations-(lack of equipment, weather restraints, etc.). 88-Not Attempted due to Medical Conditions or Safety Concerns. Roll Left to Right (QC): 6 Sit to Lying (QC): 6 Sit to Stand (QC): 4 Chair/Qrv-rg-Utqyj Xfer(QC): 4 Car Transfer (QC): 4 (CGA) Gait Training Does the Patient Walk?: Yes Distance: 15' Walk 10 feet (QC): 4 Walk 50 ft with 2 Turns(QC): 4 Walk 150 ft (QC): 88 Walking 10ft/uneven surface-QC: 4 Gait Persons Needed: 1 Gait Assistive Device: FWW Wheelchair Training Does the Pt Use a Wheelchair?: Yes Wheel 50 ft with 2 turns (QC): 1 Wheel 150 ft (QC): 1 Type of Wheelchair: Manual Stair Training #of Steps: 1 1 Step (curb) (QC): 4 4 Steps (QC): 88 12 Steps (QC): 88 Balance Picking up an Object (QC): 4 (using director alumni relations) ADL-Treatment Eating (QC): 6 Oral Hygiene (QC): 4 (in standing) Shower/Bathe Self (QC): 4 Upper Body Dressing (QC): 5 Lower Body Dressing (QC): 4 On/Off Footwear (QC): 3 Toileting Hygiene (QC): 4 Toilet Transfer (QC): 4 Assessment/Plan Assessment and Plan Assess & Plan/Chief Complaint Assessment: Critical illness myopathy Status post pneumonia MRSA pneumonitis on sputum started Zyvox 11/13/2021 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 Whitt his oncologist Diabetes Hypertension Colon polyps Insomnia Advanced age Hyponatremia Anemia Volume overload Hypoxia requiring supplemental oxygen since pneumonia Diastolic congestive heart failure Valvular heart disease Immunosuppression Vitamin B12 deficiency Chronic sinusitis on CT scan consulted Dr. Alfonso Severe hyperkalemia on 11/20/2021 prompting Kayexalate and IV fluid Severe anemia requiring transfusion of 1 unit of blood on 11/20/2021 Plan: Inpatient rehab protocol Oxygen supplementation Home meds Supportive care 11/10/2021: Check chest x-ray Sputum culture Add PCT to labs Supplement B12 11/11/21: Monitor closely Checked meds and labs 11/12/2021 Supportive care Monitor closely 11/13/2021: Zyvox for MRSA pneumonitis 11/14/2021: Supportive care Zyvox 11/15/21: Zyvox Monitor closely 11/16/2021: Restart chemotherapy 11/17/2021: Patient may need prison at discharge due to complexities of her medical issues 11/18/21: Monitor closely Mucinex Afrin 11/19/2021: CT sinuses Supportive care 11/20/2021: Appreciate Dr. ALFONSO Transfuse 1 unit Treated hyperkalemia Needs hospice Needs prison and updated patient (1) Debility (2) CLL (chronic lymphocytic leukemia) (3) Immunosuppression (4) Hypoxia (5) Oxygen dependent (6) Pneumonia TEENA BUNDY DO November 20, 2021 05:46
[2021-11-20 05:52] LABS: HEMOGLOBIN 6.3 g/dL (11.5-16.0); WHITE BLOOD COUNT 279.8 10^3/uL (4.3-11.0)
[2021-11-20 06:01] LABS: ALBUMIN 3.5 GM/DL (3.2-4.5)
[2021-11-20 06:03] LABS: TOTAL PROTEIN 4.9 GM/DL (6.4-8.2)
[2021-11-20 06:05] LABS: BILIRUBIN,TOTAL 1.1 MG/DL (0.1-1.0)
[2021-11-20 06:07] LABS: CREATININE SERUM 1.52 MG/DL (0.60-1.30)
[2021-11-20 06:13] LABS: POTASSIUM 6.9 MMOL/L (3.6-5.0)
[2021-11-20] MEDS ORDERED: NS IV 500 ML 500 ML IV SCH ×2 (06:15)
[2021-11-20] MEDS: CYANOCOBALAMIN 1,000 MCG (VITAMIN B-12) TABLET PO SCH (06:50)
[2021-11-20] MEDS: SOD POLYSTERENE 15 GM/60 ML (KAYEXALATE) UNIT DOSE PO SCH ×4 (06:50→20:50)
[2021-11-20] MEDS: NS IV 1000 ML 1,000 ML IV SCH ×2 (06:53→21:50)
[2021-11-20 07:18] VITALS: BP 118/58
[2021-11-20] MEDS: MONTELUKAST 10 MG (SINGULAIR) TAB PO SCH (08:34)
[2021-11-20] MEDS: LORATADINE (CLARITIN) 10 MG TAB PO SCH (08:34)
[2021-11-20] MEDS: LINEZOLID (ZYVOX) 600 MG TAB PO SCH ×2 (08:34→20:44)
[2021-11-20] MEDS: VITAMIN D3 125 MCG (5,000 UNITS) CAPSULE PO SCH (08:34)
[2021-11-20] MEDS: BENZONATATE 100 MG (TESSALON) CAPSULE PO SCH ×3 (08:34→20:51)
[2021-11-20] MEDS: guaiFENesin (MUCINEX) 600 MG TAB PO SCH ×2 (08:34→20:45)
[2021-11-20] MEDS: ACYCLOVIR 400 MG TABLET (ZOVIRAX) PO SCH (08:34)
[2021-11-20] MEDS: LACTOBACILLUS ACIDOPHILUS (PROBIOTIC) CAPSULE PO SCH (08:35)
[2021-11-20] MEDS: DOCUSATE SODIUM 100 MG (COLACE) CAP PO SCH (08:35)
[2021-11-20] MEDS: FLUTICASONE NASAL SPRAY (FLONASE) 16 GM BTL NS SCH (08:35)
[2021-11-20] MEDS: meTOprolol TARTRATE 25 MG (LOPRESSOR) TABLET PO SCH ×2 (08:35→20:48)
[2021-11-20] MEDS: OXYMETAZOLINE (AFRIN) 0.05% NA 30 ML BTL SCH ×2 (08:36→20:41)
[2021-11-20] MEDS: ENOXAPARIN 40 MG/0.4 ML (LOVENOX) SYR SC SCH (08:37)
[2021-11-20] MEDS: CALQUENCE 100 MG PO SCH (08:40)
[2021-11-20] MEDS: SENNA W/DOCUSATE (SENOKOT S) TABLET PO SCH ×2 (08:46→20:50)
[2021-11-20] MEDS: polyethylene glycoL POWDER 17 GM (MIRALAX) PACK PO SCH ×2 (08:46→20:50)
--- NOTE | 2021-11-20 09:18 | Progress Note ---
Standard Progress Note Progress Notes/Assess & Plan Date Seen by a Provider: November 20, 2021 Time Seen by a Provider: 09:30 Progress/Assessment & Plan ENT-Kaden Nunes seen/ Films reviewed CT-shows pansinusitis on antibiotics for MRSA in sputum potentially would add ceftin 250mg bid for 14 days if she can tolerate it tough situation=has symptoms of congestion but is not a good surgical candidate at all given her other issues could potentially benefit for ma short course of prednnisone but did not order it because of her other issues it would be prednisone 40mg orally for 4 days and then 20 for four days then off can follow up as an outpatient if needed as well Final Diagnosis Chronic Pansinusitis Multiple Medical problems KAYLEE RIVERA MD November 20, 2021 09:18
--- NOTE | 2021-11-20 10:07 | Physical Therapy Daily Note ---
PT Daily Note-Current Subjective Pt sitting up in bed upon arrival. Pt reluctantly agrees to PT as pt reports feeling very fatigued with everything she does and still c/o headache. Pain Location Body Site: Head Pain Description: Ache Comment: Reports but doesn't rate, nursing to give med Mental Status Patient Orientation: Person, Place, Situation Attachments: Oxygen (2L) Transfers SCALE: Activities may be completed with or without assistive devices. 9-Daecnxwmzi-gdknrcb completes the activity by him/herself with no assistance from a helper. 5-Set-up or Clean-up Assistance-helper sets up or cleans up; patient completes activity. [place] assists only prior to or following the activity. 4-Supervision or Touching Assistance-helper provides verbal cues and/or touching/steadying and/or contact guard assistance as patient completes activity. Assistance may be provided throughout the activity or intermittently. 3-Partial/Moderate Assistance-helper does LESS THAN HALF the effort. [place] lifts, holds or supports trunk or limbs, but provides less than half the effort. 2-Substantial/Maximal Assistance-helper does MORE THAN HALF the effort. [place] lifts or holds trunk or limbs and provides more than half the effort. 8-Pxnpzoiqv-eukwje does ALL the effort. Patient does none of the effort to comp lete the activity. Or, the assistance of 2 or more helpers is required for the patient to complete the activity. If activity was not attempted, code reason: 7-Patient Refused. 9-Not Applicable-not attempted and the patient did not perform the activity before the current illness, exacerbation or injury. 10-Not Attempted due to Environmental Limitations-(lack of equipment, weather restraints, etc.). 88-Not Attempted due to Medical Conditions or Safety Concerns. Roll Left & Right (QC): 6 Sit to Lying (QC): 6 Lying to Sitting/Side of Bed(Q: 6 Sit to Stand (QC): 4 Chair/Wmw-vq-Ouqvs Xfer(QC): 4 Weight Bearing Right Lower Extremity: Right Full Weight Bearing Left Lower Extremity: Left Full Weight Bearing Gait Training Does the Patient Walk?: Yes Distance: 60' x2 Walk 10 feet (QC): 4 Walk 50 ft with 2 Turns(QC): 4 Gait Persons Needed: 1 Gait Assistive Device: FWW Pt fatigues easily due to fatigue today from decreased Hgb. Pt will receive blood later this morning. Balance Picking up an Object (QC): 4 Special Test Comments Uses revenue agent from standing but pt states would prefer and feels safer sitting. Treatments Pt completes QC scoring items listed above although pt is limited by headache and fatigue from Hbg. Pt resting in recliner with feet elevated. All needs met, call light in hand. Will review w/SW if pt is d/c tomorrow and rest of QC will be obtained in afternoon session if d/c Saturday. Assessment Pt is very fatigued and reports headache during tx. PT Short Term Goals Short Term Goals Time Frame: November 16, 2021 Roll Left & Right: 6 Sit to lyin Lying to sitting on side of be: 4 (SBA) Sit to stand: 4 (SBA) Chair/dkx-xs-jjnem transfer: 4 (SBA) Walk 10 feet: 4 (SBA) Walk 50 feet with two turns: 4 (SBA) PT Pc Maintenance Technician Goals Senior Care Goals PT Senior Care Goals Time Frame: November 30, 2021 Roll Left & Right (QC): 6 Sit to Lying (QC): 6 Lying-Sitting on Side/Bed(QC): 6 Sit to Stand (QC): 5 Chair/Roz-mx-Cvttc Xfer(QC): 5 Toilet Transfer (QC): 5 Car Transfer (QC): 5 Does the Patient Walk: Yes Walk 10 feet (QC): 5 Walk 50ft with 2 Turns (QC): 5 Walk 150 ft (QC): 5 Walking 10ft on Uneven Surface: 5 1 Step (curb) (QC): 4 4 Steps (QC): 4 12 Steps (QC): 88 Picking up an Object (QC): 5 Wheel 50 feet with 2 turns (QC: 9 Wheel 150 feet: 9 PT Plan Problem List Problem List: Activity Tolerance, Functional Strength, Balance Treatment/Plan Treatment Plan: Continue Plan of Care Treatment Plan: Bed Mobility, Education, Functional Activity [place], Functional Strength, Group Therapy, Gait, Safety, Therapeutic Exercise, Transfers Treatment Duration: November 30, 2021 Frequency: At least 5 of 7 days/Wk (IRF) Estimated Hrs Per Day: 1.5 hours per day Patient and/or Family Agrees t: Yes Safety Risks/Education Patient Education: Transfer Techniques, Correct Positioning Teaching Recipient: Patient Teaching Methods: Discussion Response to Teaching: Verbalize Understanding Time/GCodes Time In: 900 Time Out: 1000 Total Billed Treatment Time: 60 Total Billed Treatment 1, FA x4 (60m) PARVEEN RODRÍGUEZ PROFESSIONAL PROGRAMMER ANALYST November 20, 2021 10:07
[2021-11-20 10:09] VITALS: BP 126/56
[2021-11-20 10:34] VITALS: BP 132/60
--- NOTE | 2021-11-20 11:32 | Occupational Ther Daily Note ---
OT Current Status-Daily Note Subjective Pt alert, sitting in recliner. Pt is getting blood today due to low hemoglobin. Pt required encouragement to participate in OT session. Pt c/o fatigue and headache, nrsg aware. Mental Status/Objective Patient Orientation: Person, Place, Time, Situation Attachments: IV, Oxygen ADL-Treatment Pt declined shower, agrees to sponge bath. Pt requires increased assistance due to fatigue, dizziness when bending over and headache. Pt able to bathe upper body, mayte area and buttocks, assist with lower body/feet due to headache/dizziness. Pt required assistance to don socks and apply OLLIE wraps, doffed socks by self. Pt completed BSC transfer from recliner with SBA and was able to manipulate clothing and cleanse self with SBA. Due to dizziness, pt required assist to thread feet into briefs then by self. After set up, pt able to complete oral care by self. After session, pt sitting in recliner with call light/phone in reach. Daughter present in room. All needs met. Therapy Code Descriptions/Definitions Functional [place] Measure: 0=Not Assessed/NA 4=Minimal Assistance 1=Total Assistance 5=Supervision or Setup 2=Maximal Assistance 6=Modified [place] 3=Moderate Assistance 7=Complete IndependenceSCALE: Activities may be completed with or without assistive devices. 6-Kemzbliwvb-lfxrifa completes the activity by him/herself with no assistance from a helper. 5-Set-up or Clean-up Assistance-helper sets up or cleans up; patient completes activity. [employer] assists only prior to or following the activity. 4-Supervision or Touching Assistance-helper provides verbal cues and/or touching/steadying and/or contact guard assistance as patient completes activity. Assistance may be provided throughout the activity or intermittently. 3-Partial/Moderate Assistance-helper does LESS THAN HALF the effort. [employer] lifts, holds or supports trunk or limbs, but provides less than half the effort. 2-Substantial/Maximal Assistance-helper does MORE THAN HALF the effort. [employer] lifts or holds trunk or limbs and provides more than half the effort. 4-Dnyhdblsn-qmuota does ALL the effort. Patient does none of the effort to complete the activity. Or, the assistance of 2 or more helpers is required for the patient to complete the activity. If activity was not attempted, code reason: 7-Patient Refused. 9-Not Applicable-not attempted and the patient did not perform the activity before the current illness, exacerbation or injury. 10-Not Attempted due to Environmental Limitations-(lack of equipment, weather restraints, etc.). 88-Not Attempted due to Medical Conditions or Safety Concerns. Eating (QC): 6 (per clinical judgment) Oral Hygiene (QC): 5 Bathing Location: L Arm, R Arm, Chest, Abdomen, Buttocks, Perineal Area Shower/Bathe Self (QC): 3 (Mod A) Upper Body Dressing (QC): 5 (per clinical judgment) Lower Body Dressing (QC): 3 (Mod A) On/Off Footwear: 2 Toileting Hygiene (QC): 4 Toilet Transfer (QC): 4 OT Short Term Goals Short Term Goals Time Frame: November 22, 2021 Toileting hygiene: 4 Shower/bathe self: 4 Lower body dressin Putting on/taking off footwear: 4 OT Nursing Home Goals Nursing Home Goals Time Frame: Dec 08, 2021 Eating (QC): 6 Oral Hygiene (QC): 6 Toileting Hygiene (QC): 6 Shower/Bathe Self (QC): 6 Upper Body Dressing (QC): 6 Lower Body Dressing (QC): 6 On/Off Footwear (QC): 6 Additional Goals: 1-Demonstrate ADL Tasks, 2-Verbalize Understanding, 3-ImproveStrength/[place] 1=Demonstrate adherence to instructed precautions during ADL tasks. 2=Patient will verbalize/demonstrate understanding of assistive devices/modifications for ADL. 3=Patient will improve strength/tolerance for activity to enable patient to perform ADL's. OT Education/Plan Problem List/Assessment Assessment: Decreased Activ Tolerance, Edema (L LE), Impaired Self-Care Skills Discharge Recommendations Plan/Recommendations: Continue POC Treatment Plan/Plan of Care Patient would benefit from OT for education, treatment and training to promote independence in ADL's, mobility, safety and/or upper extremity function for ADL's. Plan of Care: ADL Retraining, Functional Mobility, Group Exercise/Act as Ind, UE Funct Exercise/Act Treatment Duration: Dec 08, 2021 Frequency: At least 5 of 7 days/Wk (IRF) Estimated Hrs Per Day: 1.5 hours per day Agreement: Yes Rehab Potential: Fair Time/GCodes Start Time: 10:30 Stop Time: 11:30 Total Time Billed (hr/min): 60 Billed Treatment Time 1 visit-ADL 4(60 min) OLINDA COULTER November 20, 2021 11:32
--- NOTE | 2021-11-20 11:50 | CONSULTATION REPORT ---
DATE OF SERVICE: ENT CONSULT ROOM: 224. LOCATION: [facility]. REFERRING PHYSICIAN: Dr. Mcnair. REASON FOR CONSULTATION: Chronic sinus problems. HISTORY OF PRESENT ILLNESS: The patient is an 86-year-old female who is currently admitted to the inpatient rehabilitation unit. She has a long history of chronic sinus disease. She complains of headaches, especially with weather changes. She takes Mucinex and Claritin on a regular basis. More recently, she has been on Zyvox because of MRSA found in her sputum. She has a known past history significant for chronic lymphocytic leukemia. She is anemic and is going to be receiving units of blood and potentially will be going for at least a short-term stay in a nursing facility. Her past history was reviewed in the chart. MEDICATIONS: Include Zyvox for MRSA. CT scan of the sinuses was reviewed. It shows a pansinusitis, which appears to be chronic as there is thickening of the bone present. There is no erosion of the bone present. It does involve the frontal sphenoid, ethmoid and maxillary sinuses. The right maxillary sinuses much more involved than the left. She has congestion of the turbinates and some mild fluid seen in the left mastoid region. SYSTEM REVIEW: The patient does have a history of fluid in her ears. She is having no acute sinus symptoms today. PHYSICAL EXAMINATION: GENERAL: She is in no acute distress. She is alert and oriented x3. Communication, her speech and voice were normal. FACE: Facial movements were normal and symmetrical. There was no tenderness to percussion of the sinuses today. EYES: Vision grossly intact. Extraocular muscles were intact. EARS: Canals were normal. Tympanic membranes were intact and retracted. No acute infection seen. NOSE: Mucosa was dry. She is wearing oxygen currently. There is no mucopus seen in the nose. No polyps present. Oral cavity was clear. Mucosa was dry. Pharynx, no mass or ulceration was seen. NECK: No mass, adenopathy, thyromegaly palpable in the neck. NEUROLOGIC: Cranial nerves II-XII are intact. SKIN: Exposed skin surfaces were clear. IMPRESSION: 1. Chronic bilateral pansinusitis. 2. Dry nasal mucosa. ROOM NUMBER: [place] nasal spray 2 squirts in each side of the nose several times a day to keep the nose moist as long as she is having to wear oxygen was recommended. Potential treatment of the sinuses with Ceftin 200 mg twice a day for 14 days as tolerated would be recommended, consideration of a short 8-day prednisone taper if she can tolerate it with her other medical problems was discussed. We will leave that decision up to Dr. Mcnair, the hospitalist. I will need to see her back in about three weeks as an outpatient. Given all of her other medical problems, we are going to try to treat this symptomatically if she is not a good surgical candidate. Job ID: [id number] DocumentID: [id number] Dictated Date: 11/20/2021 09:37:25 Qual Research Manager Date: 11/20/2021 11:19:54 Dictated By: KAYLEE RIVERA MD
--- NOTE | 2021-11-20 12:30 | Progress Note ---
GASPER GALLARDO 11/20/21 1229: Progress Note Subjective: The patient was sitting in her chair this morning. She reports complaints of a headache. She received a unit of blood this morning due to her anemia with a hemoglobin of 6.3 secondary to her CLL. PT continues to be weak, and reports not feeling well overall. She has chronic sinusitis, and is being followed by Dr. Alfonso. Bowels moving well. ROS: Constitutional: malaise, weakness EENTM: no vision changes, chronic sinusitis Respiratory: dyspnea on exertion Cardiovascular: no chest pain, no palpitations Gastrointestinal: no constipation, no vomiting Genitourinary: no symptoms reported Psychiatric/Neurological: Anxiety, Depressed, Headache Objective: Vitals: T: 36.3, HR: 90, RR: 16, BP: 118/58, 94% on 2L nasal canula PE: General Appearance: No Apparent Distress, WD/WN, Chronically ill, Thin Eyes: Bilateral Eye Normal Inspection, Bilateral Eye PERRL HEENT: PERRL/EOMI, moist mucous membranes Neck: Full Range of Motion, Normal Inspection Respiratory: Chest Non Tender, No Accessory Muscle Use, No Respiratory Distress, Decreased Breath Sounds Cardiovascular: Regular Rate, Rhythm, No Edema, No Gallop, No JVD, No Murmur, Normal Peripheral Pulses Gastrointestinal: Normal Bowel Sounds, No Organomegaly, No Pulsatile Mass, Non Tender, Soft Extremity: Normal Capillary Refill, Normal Inspection, Normal Range of Motion, Non Tender, No Calf Tenderness, No Pedal Edema Neurologic/Psychiatric: Alert, Oriented x3, Motor Weakness (Severe weakness generalized) Skin: Normal Color, Warm/Dry Assessment: 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 Whitt is her oncologist Critical illness myopathy Immunosuppression Pneumonia with MRSA positive sputum Hypoxia requiring supplemental oxygen since pneumonia Hyperkalemia Hyponatremia Chronic sinusitis Diabetes Hypertension Colon polyps Insomnia Advanced age Valvular heart disease Anemia Diastolic congestive heart failure Volume overload Plan: 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 Whitt his oncologist Critical illness myopathy Immunosuppression PT's clinical status and weakness worsening secondary to her CLL. Nursing facility or hospice care is suggested. Continue with inpatient rehabilitation at this time. Pneumonia with MRSA positive sputum Hypoxia requiring supplemental oxygen since pneumonia Continue with Linezolid therapy. Hyperkalemia Monitor. Potassium was 6.8 this morning Hypernatremia Improved at this time Chronic sinusitis Dr. Alfonso following. Diabetes Monitor blood sugar Hypertension Colon polyps Insomnia Advanced age Valvular heart disease No acute mannagment. Continue home meds. Anemia Monitor hemoglobin. Transfuse if hemoglobin under 7. Diastolic congestive heart failure Volume overload Monitor for symptoms of edema, and respiratory complaints. Lasix as needed. DVT prophylaxis Lovenox injections TATIANA BUNDY DO 11/21/21 0521: Supervisory-Addendum Brief Verification & Attestation Participated in pt care: history, MDM, physical Personally performed: exam, history, MDM, supervision of care Care discussed with: Medical Student Procedures: n/a Results interpretation: Verified all documentation Verification and Attestation of Medical Student E/M Service A medical student performed and documented this service in my presence. I reviewed and verified all information documented by the medical student and made modifications to such information, when appropriate. I personally performed the physical exam and medical decision making. Tatiana Bundy, November 21, 2021,05:21 GASPER GALLARDO November 20, 2021 12:29 TATIANA BUNDY DO November 21, 2021 05:21
[2021-11-20 12:45] VITALS: BP 111/56
--- NOTE | 2021-11-20 13:15 | Occupational Ther Daily Note ---
OT Current Status-Daily Note Subjective Pt alert, sitting in recliner. Pt agrees to therapy. C/o headache and fatigue, nrsg aware. Mental Status/Objective Patient Orientation: Person, Place, Time, Situation ADL-Treatment Pt requests to use BSC. Due to fatigue and dizziness, BSC brought to pt instead of ambulating to toilet. SBA for toilet transfer and toileting. Therapy Code Descriptions/Definitions Functional [place] Measure: 0=Not Assessed/NA 4=Minimal Assistance 1=Total Assistance 5=Supervision or Setup 2=Maximal Assistance 6=Modified [place] 3=Moderate Assistance 7=Complete IndependenceSCALE: Activities may be completed with or without assistive devices. 7-Wirsxdjewc-fdxrpti completes the activity by him/herself with no assistance from a helper. 5-Set-up or Clean-up Assistance-helper sets up or cleans up; patient completes activity. [place] assists only prior to or following the activity. 4-Supervision or Touching Assistance-helper provides verbal cues and/or touching/steadying and/or contact guard assistance as patient completes activity. Assistance may be provided throughout the activity or intermittently. 3-Partial/Moderate Assistance-helper does LESS THAN HALF the effort. [place] lifts, holds or supports trunk or limbs, but provides less than half the effort. 2-Substantial/Maximal Assistance-helper does MORE THAN HALF the effort. [place] lifts or holds trunk or limbs and provides more than half the effort. 4-Gkipkbhkd-bfvjmu does ALL the effort. Patient does none of the effort to complete the activity. Or, the assistance of 2 or more helpers is required for the patient to complete the activity. If activity was not attempted, code reason: 7-Patient Refused. 9-Not Applicable-not attempted and the patient did not perform the activity before the current illness, exacerbation or injury. 10-Not Attempted due to Environmental Limitations-(lack of equipment, weather restraints, etc.). 88-Not Attempted due to Medical Conditions or Safety Concerns. Toileting Hygiene (QC): 4 (SBA) Toilet Transfer (QC): 4 (SBA) Other Treatment Pt completed B UE exercises against gravity with skilled instruction for correct technique and modifications when necessary. 5 B UE exercises completed-shldr flex 2 sets 15 reps, horizontal shldr abd/add 2 sets 10 reps, shldr int/ext rotation 2 sets 15 reps, bicep ext 2 set 20 reps, tricep with B shldr at 90* 2 sets 10 reps. After session, pt sitting in recliner with call light/phone in reach. All needs met in room. OT Short Term Goals Short Term Goals Time Frame: November 22, 2021 Toileting hygiene: 4 Shower/bathe self: 4 Lower body dressin Putting on/taking off footwear: 4 OT [place] Goals [facility] Goals Time Frame: Dec 08, 2021 Eating (QC): 6 Oral Hygiene (QC): 6 Toileting Hygiene (QC): 6 Shower/Bathe Self (QC): 6 Upper Body Dressing (QC): 6 Lower Body Dressing (QC): 6 On/Off Footwear (QC): 6 Additional Goals: 1-Demonstrate ADL Tasks, 2-Verbalize Understanding, 3- ImproveStrength/[place] 1=Demonstrate adherence to instructed precautions during ADL tasks. 2=Patient will verbalize/demonstrate understanding of assistive devices/modifications for ADL. 3=Patient will improve strength/tolerance for activity to enable patient to perform ADL's. OT Education/Plan Problem List/Assessment Assessment: Decreased Activ Tolerance, Decreased UE Strength, Impaired Self- Care Skills Discharge Recommendations Plan/Recommendations: Continue POC Treatment Plan/Plan of Care Patient would benefit from OT for education, treatment and training to promote independence in ADL's, mobility, safety and/or upper extremity function for ADL's. Plan of Care: ADL Retraining, Functional Mobility, Group Exercise/Act as Ind, UE Funct Exercise/Act Treatment Duration: Dec 08, 2021 Frequency: At least 5 of 7 days/Wk (IRF) Estimated Hrs Per Day: 1.5 hours per day Agreement: Yes Rehab Potential: Fair Time/GCodes Start Time: 12:45 Stop Time: 13:15 Total Time Billed (hr/min): 30 Billed Treatment Time 1 visit-ADL 1 (15 min) EX 1 (15 min) OLINDA COULTER November 20, 2021 13:15
--- NOTE | 2021-11-20 14:28 | Physical Therapy Daily Note ---
PT Daily Note-Current Subjective Pt sitting in recliner upon arrival. Pt agrees to PT. Pt still reporting fatigue and headache. Pain Location Body Site: Head Pain Description: Ache Comment: Reported but not rated Mental Status Patient Orientation: Person, Place, Time, Situation Attachments: Oxygen (2L), IV Transfers SCALE: Activities may be completed with or without assistive devices. 0-Hauqdbcehk-rxvjtne completes the activity by him/herself with no assistance from a helper. 5-Set-up or Clean-up Assistance-helper sets up or cleans up; patient completes activity. [place] assists only prior to or following the activity. 4-Supervision or Touching Assistance-helper provides verbal cues and/or touching/steadying and/or contact guard assistance as patient completes activity. Assistance may be provided throughout the activity or intermittently. 3-Partial/Moderate Assistance-helper does LESS THAN HALF the effort. [place] lifts, holds or supports trunk or limbs, but provides less than half the effort. 2-Substantial/Maximal Assistance-helper does MORE THAN HALF the effort. [place] lifts or holds trunk or limbs and provides more than half the effort. 6-Obukqeeyq-sztzbq does ALL the effort. Patient does none of the effort to complete the activity. Or, the assistance of 2 or more helpers is required for the patient to complete the activity. If activity was not attempted, code reason: 7-Patient Refused. 9-Not Applicable-not attempted and the patient did not perform the activity before the current illness, exacerbation or injury. 10-Not Attempted due to Environmental Limitations-(lack of equipment, weather restraints, etc.). 88-Not Attempted due to Medical Conditions or Safety Concerns. Sit to Stand (QC): 5 Weight Bearing Right Lower Extremity: Right Full Weight Bearing Left Lower Extremity: Left Full Weight Bearing Gait Training Does the Patient Walk?: Yes Distance: 5' Gait Persons Needed: 1 Gait Assistive Device: FWW Exercises Seated Therapy Exercises: Ankle pumps, Hip flexion, Kicking activity, Hip abd/add, Glut set Seated Reps: 15 Treatments Pt completes Seated Ex at recliner. Pt completes sit to stand, RETINAL ANGIOGRAPHER monitors BP during TF. Pt returns to recliner at end of tx with all needs met, call light in hand. Assessment Current Status: Fair Progress Pt's Hgb leads to easy fatigue during tx. BP sitting was 112/66, Pulse- 90 & O2 97% then standing BP 89/52 & Pulse 99. PT Short Term Goals Short Term Goals Time Frame: November 16, 2021 Roll Left & Right: 6 Sit to lyin Lying to sitting on side of be: 4 (SBA) Sit to stand: 4 (SBA) Chair/vhm-xx-wboee transfer: 4 (SBA) Walk 10 feet: 4 (SBA) Walk 50 feet with two turns: 4 (SBA) PT Duplicator Punch Set Up Operator Goals Duplicator Punch Set Up Operator Goals PT [facility] Goals Time Frame: November 30, 2021 Roll Left & Right (QC): 6 Sit to Lying (QC): 6 Lying-Sitting on Side/Bed(QC): 6 Sit to Stand (QC): 5 Chair/Vab-vd-Kaysi Xfer(QC): 5 Toilet Transfer (QC): 5 Car Transfer (QC): 5 Does the Patient Walk: Yes Walk 10 feet (QC): 5 Walk 50ft with 2 Turns (QC): 5 Walk 150 ft (QC): 5 Walking 10ft on Uneven Surface: 5 1 Step (curb) (QC): 4 4 Steps (QC): 4 12 Steps (QC): 88 Picking up an Object (QC): 5 Wheel 50 feet with 2 turns (QC: 9 Wheel 150 feet: 9 PT Plan Problem List Problem List: Activity Tolerance, Functional Strength, Balance Treatment/Plan Treatment Plan: Continue Plan of Care Treatment Plan: Bed Mobility, Education, Functional Activity [place], Functional Strength, Group Therapy, Gait, Safety, Therapeutic Exercise, Transfers Treatment Duration: November 30, 2021 Frequency: At least 5 of 7 days/Wk (IRF) Estimated Hrs Per Day: 1.5 hours per day Patient and/or Family Agrees t: Yes Time/GCodes Time In: 1330 Time Out: 1400 Total Billed Treatment Time: 30 Total Billed Treatment 1, EX (15m) & FA (15m) PARVEEN RODRÍGUEZ RETINAL ANGIOGRAPHER November 20, 2021 14:28
[2021-11-20] MEDS: ONDANSETRON 4 MG (ZOFRAN) ORAL DISSOLVE TAB PO PRN (15:24)
[2021-11-20 19:47] VITALS: BP 119/57
[2021-11-20] MEDS: HYDROcodone/APAP 5 MG/325 MG (LORTAB) TAB PO PRN (20:46)
[2021-11-20 21:07] VITALS: BP 110/54
[2021-11-20] MEDS: SIMETHICONE 80 MG (MYLICON) CHEW PO PRN (21:50)
[2021-11-20] MEDS: ZALEPLON 10 MG CAPSULE PO SCH (22:32)
[2021-11-20] MEDS: ACETAMINOPHEN 500 MG TAB (TYLENOL) PO SCH (22:32)
[2021-11-21 05:47] LABS: HEMOGLOBIN 6.9 g/dL (11.5-16.0)
[2021-11-21] MEDS: diphenhydrAMINE 25 MG TAB (BENADRYL) PO PRN ×2 (05:51→20:40)
[2021-11-21] MEDS: ALPRAZolam 0.25 MG (XANAX) TAB PO PRN ×2 (05:51→22:29)
--- NOTE | 2021-11-21 06:00 | PM&R Progress Note ---
Subjective HPI/CC On Admission Date Seen by Provider: November 21, 2021 Time Seen by Provider: 10:00 Subjective/Events-last exam 11/21/2021: Pt has multiple complaints Sinus pain Ears feel like they are pulsating Repeat hemoglobin from 6.3 yesterday is 6.9 after one unit of transfusion. I did initiate IV fluids for the acute kidney failure and Kayexalate for hyperkalemia, both are resolved. Awaiting senior living [facility] at [facility] 11/20/2021: Pt extremely complex Dr. Alfonso saw her giving medication for chronic sinusitis Transfusing one unit due to hemoglobin of 6.9 WBC count was 249,000 Updated daughter outside the room after I spoke with pt and told her she needed to go to skilled. She had been in skilled care a couple of times with a bad experience. But she is so complex she requires physician management 28/01 with labs and everything in order to have any type of clinical stability. She meets criteria for hospice and I told the daughter that. 11/19/21: Pt doing well Somatic complaints Will check CT scan to see if there is anything we need to be concerned about because of her continued congestion Sleeping pill really helps her Will sign DNR form today Pt needs a senior living she can no longer live independently I had a long in-depth conversation with the daughter yesterday 11/18/21: Pt didn't have any major issues overnight Very complicated Will need senior living with a licensed professional to manage her comorbidities at discharge Checked meds and labs 11/17/2021: Pt has complicated somatic complaints Complained of congestion and sinus congestion Zyvox maintained Pt is so very complicated that she may very well need a senior living at discharge unfortunately Maintain on oxygen 11/16/2021: Patient doing about the same Zyvox tolerated I spoke with Dr. Whitt and he recommended going back on her chemotherapy since her white count is 242,000 Hemoglobin 7.2 Creatinine 1.45 Nurse will update daughter Cough is improved 11/15/21: Pt is doing a lot better Zyvox 600 mg BID tolerated Skin tear wound care management OLLIE wraps to lower extremities Bowels moved Saturday and she is doing a lot better Less nauseated given Zofran 11/14/2021: Patient improving slowly Minimal somatic complaints today Zyvox tolerated After recovery patient really meets criteria for hospice No falls 11/13/2021: Patient doing much better Reports ear pain MRSA in the sputum so we will start Zyvox 600 Mg p.o. twice daily Lungs remain clear though much improved from admission Patient tends to have somatic complaints Very frail status and if patient returns back to baseline then declines again will be a hospice candidate 11/12/2021: Patient feels much better today Lungs are clear No other concerns reported Slept pretty well last night 11/11/2021: Patient doing a lot better Cough is less Potassium good Holding supplemental potassium Bowels moved No pain reported 11/10/2021: Pt settling in White count is 141,000 Hemoglobin is 8.1 Potassium is 6.3, so I did give Kayexalate to get that down She reports she took Ativan and Zoloft at home so we will evaluate the home dosing Will add procalcitonin to check to be sure that her pneumonia is resolving and I will repeat a chest x-ray, I will also do a sputum culture Review of Systems General: Fatigue, Malaise HEENT: Sinus Congestion Pulmonary: Dyspnea Objective Exam Vital Signs Vital Signs Date Time Temp Pulse Resp B/P (MAP) Pulse Ox O2 Delivery O2 Flow Rate FiO2 11/21/21 20:51 98 Nasal Cannula 2.00 11/21/21 19:45 36.7 95 20 113/67 (82) Capillary Refill : General Appearance: No Apparent Distress, WD/WN, Chronically ill, Thin HEENT: PERRL/EOMI, Normal ENT Inspection, Pharynx Normal Neck: Full Range of Motion, Normal Inspection, Non Tender, Supple, Carotid Bruit Respiratory: Chest Non Tender, No Accessory Muscle Use, No Respiratory Distress, Decreased Breath Sounds, Rales (Left lower lobe) Cardiovascular: Regular Rate, Rhythm, No Edema, No Gallop, No JVD, No Murmur, Normal Peripheral Pulses Gastrointestinal: Normal Bowel Sounds, No Organomegaly, No Pulsatile Mass, Non Tender, Soft Back: Normal Inspection, No CVA Tenderness, No Vertebral Tenderness Extremity: Normal Capillary Refill, Normal Inspection, Normal Range of Motion, Non Tender, No Calf Tenderness, No Pedal Edema Neurologic/Psychiatric: Alert, Oriented x3, cooker casing II-XII Norm as Tested, Abnormal Gait, Depressed Affect, Motor Weakness (Severe weakness generalized) Skin: Normal Color, Warm/Dry Lymphatic: No Adenopathy Results/Procedures Lab Patient resulted labs reviewed. FIM Transfers Therapy Code Descriptions/Definitions Functional [place] Measure: 0=Not Assessed/NA 4=Minimal Assistance 1=Total Assistance 5=Supervision or Setup 2=Maximal Assistance 6=Modified [place] 3=Moderate Assistance 7=Complete IndependenceSCALE: Activities may be completed with or without assistive devices. 2-Yfvlxuzjxv-rvkqkws completes the activity by him/herself with no assistance from a helper. 5-Set-up or Clean-up Assistance-helper sets up or cleans up; patient completes activity. [place] assists only prior to or following the activity. 4-Supervision or Touching Assistance-helper provides verbal cues and/or touching/steadying and/or contact guard assistance as patient completes activity. Assistance may be provided throughout the activity or intermittently. 3-Partial/Moderate Assistance-helper does LESS THAN HALF the effort. [place] lifts, holds or supports trunk or limbs, but provides less than half the effort. 2-Substantial/Maximal Assistance-helper does MORE THAN HALF the effort. [place] lifts or holds trunk or limbs and provides more than half the effort. 7-Ptrovjjcu-epnnnn does ALL the effort. Patient does none of the effort to complete the activity. Or, the assistance of 2 or more helpers is required for the patient to complete the activity. If activity was not attempted, code reason: 7-Patient Refused. 9-Not Applicable-not attempted and the patient did not perform the activity before the current illness, exacerbation or injury. 10-Not Attempted due to Environmental Limitations-(lack of equipment, weather restraints, etc.). 88-Not Attempted due to Medical Conditions or Safety Concerns. Roll Left to Right (QC): 6 Sit to Lying (QC): 6 Sit to Stand (QC): 5 Chair/Roc-zb-Rnvjg Xfer(QC): 4 Gait Training Does the Patient Walk?: Yes Distance: 5' Walk 10 feet (QC): 4 Walk 50 ft with 2 Turns(QC): 4 Gait Persons Needed: 1 Gait Assistive Device: FWW Wheelchair Training Does the Pt Use a Wheelchair?: Yes Wheel 50 ft with 2 turns (QC): 1 Wheel 150 ft (QC): 1 Type of Wheelchair: Manual Balance Picking up an Object (QC): 4 ADL-Treatment Eating (QC): 6 (per clinical judgment) Oral Hygiene (QC): 5 Bathing Location: L Arm, R Arm, Chest, Abdomen, Buttocks, Perineal Area Shower/Bathe Self (QC): 3 (Mod A) Upper Body Dressing (QC): 5 (per clinical judgment) Lower Body Dressing (QC): 3 (Mod A) On/Off Footwear (QC): 2 Toileting Hygiene (QC): 4 (SBA) Toilet Transfer (QC): 4 (SBA) Assessment/Plan Assessment and Plan Assess & Plan/Chief Complaint Assessment: Critical illness myopathy Status post pneumonia MRSA pneumonitis on sputum started Zyvox 11/13/2021 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 Whitt his oncologist Diabetes Hypertension Colon polyps Insomnia Advanced age Hyponatremia Anemia Volume overload Hypoxia requiring supplemental oxygen since pneumonia Diastolic congestive heart failure Valvular heart disease Immunosuppression Vitamin B12 deficiency Chronic sinusitis on CT scan consulted Dr. Alfonso Severe hyperkalemia on 11/20/2021 prompting Kayexalate and IV fluid Severe anemia requiring transfusion of 1 unit of blood on 11/20/2021 Plan: Inpatient rehab protocol Oxygen supplementation Home meds Supportive care 11/10/2021: Check chest x-ray Sputum culture Add PCT to labs Supplement B12 11/11/21: Monitor closely Checked meds and labs 11/12/2021 Supportive care Monitor closely 11/13/2021: Zyvox for MRSA pneumonitis 11/14/2021: Supportive care Zyvox 11/15/21: Zyvox Monitor closely 11/16/2021: Restart chemotherapy 11/17/2021: Patient may need senior living at discharge due to complexities of her medical issues 11/18/21: Monitor closely Mucinex Afrin 11/19/2021: CT sinuses Supportive care 11/20/2021: Appreciate Dr. ALFONSO Transfuse 1 unit Treated hyperkalemia Needs hospice Needs senior living and updated patient 11/21/2021: Multiple somatic complaints Needs senior living placement In my opinion she is hospice candidate (1) Debility (2) CLL (chronic lymphocytic leukemia) (3) Immunosuppression (4) Hypoxia (5) Oxygen dependent (6) Pneumonia TEENA BUNDY DO November 21, 2021 05:59
[2021-11-21 06:14] LABS: ALBUMIN 3.3 GM/DL (3.2-4.5); CREATININE SERUM 0.99 MG/DL (0.60-1.30); POTASSIUM 4.5 MMOL/L (3.6-5.0); TOTAL PROTEIN 4.6 GM/DL (6.4-8.2)
[2021-11-21] MEDS: CYANOCOBALAMIN 1,000 MCG (VITAMIN B-12) TABLET PO SCH (06:32)
[2021-11-21 07:33] VITALS: BP 112/55
[2021-11-21] MEDS: LACTOBACILLUS ACIDOPHILUS (PROBIOTIC) CAPSULE PO SCH (09:14)
[2021-11-21] MEDS: LORATADINE (CLARITIN) 10 MG TAB PO SCH (09:14)
[2021-11-21] MEDS: guaiFENesin (MUCINEX) 600 MG TAB PO SCH ×2 (09:14→20:32)
[2021-11-21] MEDS: ACYCLOVIR 400 MG TABLET (ZOVIRAX) PO SCH (09:15)
[2021-11-21] MEDS: LINEZOLID (ZYVOX) 600 MG TAB PO SCH ×2 (09:15→20:32)
[2021-11-21] MEDS: MONTELUKAST 10 MG (SINGULAIR) TAB PO SCH (09:15)
[2021-11-21] MEDS: VITAMIN D3 125 MCG (5,000 UNITS) CAPSULE PO SCH (09:15)
[2021-11-21] MEDS: SENNA W/DOCUSATE (SENOKOT S) TABLET PO SCH ×2 (09:16→20:44)
[2021-11-21] MEDS: DOCUSATE SODIUM 100 MG (COLACE) CAP PO SCH (09:16)
[2021-11-21] MEDS: ENOXAPARIN INJECTION 30 MG/0.3 ML SYR SC SCH (09:16)
[2021-11-21] MEDS: polyethylene glycoL POWDER 17 GM (MIRALAX) PACK PO SCH ×2 (09:16→20:44)
[2021-11-21] MEDS: FLUTICASONE NASAL SPRAY (FLONASE) 16 GM BTL NS SCH (09:18)
[2021-11-21] MEDS: OXYMETAZOLINE (AFRIN) 0.05% NA 30 ML BTL SCH ×2 (09:19→20:34)
[2021-11-21] MEDS: BENZONATATE 100 MG (TESSALON) CAPSULE PO SCH ×3 (09:27→20:44)
[2021-11-21] MEDS: meTOprolol TARTRATE 25 MG (LOPRESSOR) TABLET PO SCH ×2 (09:31→20:39)
--- NOTE | 2021-11-21 12:00 | Occupational Ther Daily Note ---
OT Current Status-Daily Note Subjective Pt alert, lying in bed. Pt agrees to therapy. No c/o pain. Blood noted on L labia, reported to nursing. Mental Status/Objective Patient Orientation: Person, Place, Time, Situation Attachments: IV, Oxygen (2L) ADL-Treatment Co-treat with PT ([id number]), skills of 2 clinicians required to decrease fall risk, increase activity tolerance and higher level balance during functional tasks. OT focusing on ADLs and PT focusing in transfers and ambulation. Pt went from supine to EOB. Pt transferred from bed to toilet using FWW, SBA for manipulating IV pole and O2 tubing. Pt completed toileting with supervision. Pt ambulated from toilet to sink with SBA. While standing, pt completed sponge bath by self. Once completed pt sat in chair placed behind her to rest. Completed oral care while sitting independently. Pt ambulated from chair to recliner. Able to doff/don shirt and pants by self after setup. Assisted with wrapping legs with OLLEI bandages and donning socks. Therapy Code Descriptions/Definitions Functional [place] Measure: 0=Not Assessed/NA 4=Minimal Assistance 1=Total Assistance 5=Supervision or Setup 2=Maximal Assistance 6=Modified [place] 3=Moderate Assistance 7=Complete IndependenceSCALE: Activities may be completed with or without assistive devices. 8-Thyztjajog-ozsxcds completes the activity by him/herself with no assistance from a helper. 5-Set-up or Clean-up Assistance-helper sets up or cleans up; patient completes activity. [place] assists only prior to or following the activity. 4-Supervision or Touching Assistance-helper provides verbal cues and/or touching/steadying and/or contact guard assistance as patient completes ac tivity. Assistance may be provided throughout the activity or intermittently. 3-Partial/Moderate Assistance-helper does LESS THAN HALF the effort. [place] lifts, holds or supports trunk or limbs, but provides less than half the effort. 2-Substantial/Maximal Assistance-helper does MORE THAN HALF the effort. [place] lifts or holds trunk or limbs and provides more than half the effort. 3-Tokkmufvw-cdpnsj does ALL the effort. Patient does none of the effort to complete the activity. Or, the assistance of 2 or more helpers is required for the patient to complete the activity. If activity was not attempted, code reason: 7-Patient Refused. 9-Not Applicable-not attempted and the patient did not perform the activity before the current illness, exacerbation or injury. 10-Not Attempted due to Environmental Limitations-(lack of equipment, weather restraints, etc.). 88-Not Attempted due to Medical Conditions or Safety Concerns. Oral Hygiene (QC): 6 Shower/Bathe Self (QC): 6 (Sponge bath at sink) Upper Body Dressing (QC): 5 Lower Body Dressing (QC): 5 On/Off Footwear: 2 Toileting Hygiene (QC): 4 Toilet Transfer (QC): 4 Other Treatment Pt ambulated around [facility] area 1x using FWW without break then back to room. After session, pt sitting in recliner with call light/phone in reach. All needs met in room. OT Short Term Goals Short Term Goals Time Frame: November 22, 2021 Toileting hygiene: 4 Shower/bathe self: 4 Lower body dressin Putting on/taking off footwear: 4 OT Crm Administrator Goals Shelter Goals Time Frame: Dec 08, 2021 Eating (QC): 6 Oral Hygiene (QC): 6 Toileting Hygiene (QC): 6 Shower/Bathe Self (QC): 6 Upper Body Dressing (QC): 6 Lower Body Dressing (QC): 6 On/Off Footwear (QC): 6 Additional Goals: 1-Demonstrate ADL Tasks, 2-Verbalize Understanding, 3- ImproveStrength/[place] 1=Demonstrate adherence to instructed precautions during ADL tasks. 2=Patient will verbalize/demonstrate understanding of assistive devices/modifications for ADL. 3=Patient will improve strength/tolerance for activity to enable patient to perform ADL's. OT Education/Plan Problem List/Assessment Assessment: Decreased Activ Tolerance, Impaired Self-Care Skills Discharge Recommendations Plan/Recommendations: Continue POC Treatment Plan/Plan of Care Patient would benefit from OT for education, treatment and training to promote independence in ADL's, mobility, safety and/or upper extremity function for ADL's. Plan of Care: ADL Retraining, Functional Mobility, Group Exercise/Act as Ind, UE Funct Exercise/Act Treatment Duration: Dec 08, 2021 Frequency: At least 5 of 7 days/Wk (IRF) Estimated Hrs Per Day: 1.5 hours per day Agreement: Yes Rehab Potential: Fair Time/GCodes Start Time: 11:00 Stop Time: 12:00 Total Time Billed (hr/min): 60 Billed Treatment Time 1 visit-ADL 3 (45 min) FA 1 (15 min) co-treat with PT 60 min OLINDA COULTER November 21, 2021 12:00
--- NOTE | 2021-11-21 12:08 | Physical Therapy Daily Note ---
PT Daily Note-Current Subjective Pt sitting up in bed upon arrival. Pt agrees to PT/OT co-treat. Pt's Hgb has improved but still low at 6.9 and pt reports not sleeping well. Pt has itched and scratched labia and its bleeding. Nurse notified. Mental Status Patient Orientation: Person, Place, Situation Attachments: Oxygen (2L) Transfers SCALE: Activities may be completed with or without assistive devices. 3-Puoolnpjis-kchauna completes the activity by him/herself with no assistance from a helper. 5-Set-up or Clean-up Assistance-helper sets up or cleans up; patient completes activity. [place] assists only prior to or following the activity. 4-Supervision or Touching Assistance-helper provides verbal cues and/or touching/steadying and/or contact guard assistance as patient completes activity. Assistance may be provided throughout the activity or intermittently. 3-Partial/Moderate Assistance-helper does LESS THAN HALF the effort. [place] lifts, holds or supports trunk or limbs, but provides less than half the effort. 2-Substantial/Maximal Assistance-helper does MORE THAN HALF the effort. [place] lifts or holds trunk or limbs and provides more than half the effort. 4-Vnfgovihb-tyffaq does ALL the effort. Patient does none of the effort to complete the activity. Or, the assistance of 2 or more helpers is required for the patient to complete the activity. If activity was not attempted, code reason: 7-Patient Refused. 9-Not Applicable-not attempted and the patient did not perform the activity before the current illness, exacerbation or injury. 10-Not Attempted due to Environmental Limitations-(lack of equipment, weather restraints, etc.). 88-Not Attempted due to Medical Conditions or Safety Concerns. Lying to Sitting/Side of Bed(Q: 5 Sit to Stand (QC): 5 Toilet Transfer (QC): 5 Weight Bearing Right Lower Extremity: Right Full Weight Bearing Left Lower Extremity: Left Full Weight Bearing Gait Training Does the Patient Walk?: Yes Distance: 20', 100' Walk 10 feet (QC): 5 Walk 50 ft with 2 Turns(QC): 5 Gait Persons Needed: 1 Gait Assistive Device: FWW Treatments Co-treat with PT ([id number]), skills of 2 clinicians required to decrease fall risk, increase activity tolerance and higher level balance during functional tasks. OT focusing on ADLs and PT focusing in transfers and ambulation. Pt went from supine to EOB. Pt transferred from bed to toilet using rolling walker, SBA. Pt completed toileting by self with supervision. Pt ambulated from toilet to sink with SBA. While standing, pt completed sponge bath by self. Once completed pt sat in chair placed behind her to rest. Pt ambulated from chair to recliner. Completed ambulation in [facility] before returning to room to rest in bed. All needs met, call light in hand. Assessment Current Status: Fair Progress Pt is able to tolerate more activity before fatiguing but still struggles with her ears as well as not sleeping well & low Hgb so pt fatigues. PT Short Term Goals Short Term Goals Time Frame: November 16, 2021 Roll Left & Right: 6 Sit to lyin Lying to sitting on side of be: 4 (SBA) Sit to stand: 4 (SBA) Chair/ncr-os-ogixy transfer: 4 (SBA) Walk 10 feet: 4 (SBA) Walk 50 feet with two turns: 4 (SBA) PT Shutdown Planner Goals Shutdown Planner Goals PT Jail Goals Time Frame: November 30, 2021 Roll Left & Right (QC): 6 Sit to Lying (QC): 6 Lying-Sitting on Side/Bed(QC): 6 Sit to Stand (QC): 5 Chair/Jfk-bw-[place] Xfer(QC): 5 Toilet Transfer (QC): 5 Car Transfer (QC): 5 Does the Patient Walk: Yes Walk 10 feet (QC): 5 Walk 50ft with 2 Turns (QC): 5 Walk 150 ft (QC): 5 Walking 10ft on Uneven Surface: 5 1 Step (curb) (QC): 4 4 Steps (QC): 4 12 Steps (QC): 88 Picking up an Object (QC): 5 Wheel 50 feet with 2 turns (QC: 9 Wheel 150 feet: 9 PT Plan Problem List Problem List: Activity Tolerance Treatment/Plan Treatment Plan: Continue Plan of Care Treatment Plan: Bed Mobility, Education, Functional Activity [place], Functional Strength, Group Therapy, Gait, Safety, Therapeutic Exercise, Transfers Treatment Duration: November 30, 2021 Frequency: At least 5 of 7 days/Wk (IRF) Estimated Hrs Per Day: 1.5 hours per day Patient and/or Family Agrees t: Yes Time/GCodes Time In: 1100 Time Out: 1200 Total Billed Treatment Time: 60 Total Billed Treatment 1, FA x3 (40m) & GT (20m) PARVEEN RODRÍGUEZ HYDRODYNAMICS PROFESSOR November 21, 2021 12:08
[2021-11-21] MEDS: CALQUENCE 100 MG PO SCH (12:15)
--- NOTE | 2021-11-21 14:16 | Occupational Ther Daily Note ---
OT Current Status-Daily Note Subjective Pt alert, sitting in recliner. Pt agrees to therapy. No c/o pain, only complaint is stuffy head and hearing heartbeat in ears constantly. Nrsg aware. Mental Status/Objective Patient Orientation: Person, Place, Time, Situation Attachments: IV, Oxygen (2L) ADL-Treatment Therapy Code Descriptions/Definitions Functional [place] Measure: 0=Not Assessed/NA 4=Minimal Assistance 1=Total Assistance 5=Supervision or Setup 2=Maximal Assistance 6=Modified [place] 3=Moderate Assistance 7=Complete IndependenceSCALE: Activities may be completed with or without assistive devices. 0-Vuoyloiivc-xtukaes completes the activity by him/herself with no assistance from a helper. 5-Set-up or Clean-up Assistance-helper sets up or cleans up; patient completes activity. [place] assists only prior to or following the activity. 4-Supervision or Touching Assistance-helper provides verbal cues and/or touching/steadying and/or contact guard assistance as patient completes activity. Assistance may be provided throughout the activity or intermittently. 3-Partial/Moderate Assistance-helper does LESS THAN HALF the effort. [place] lifts, holds or supports trunk or limbs, but provides less than half the effort. 2-Substantial/Maximal Assistance-helper does MORE THAN HALF the effort. [place] lifts or holds trunk or limbs and provides more than half the effort. 2-Nrrfcobej-gznqyb does ALL the effort. Patient does none of the effort to complete the activity. Or, the assistance of 2 or more helpers is required for the patient to complete the activity. If activity was not attempted, code reason: 7-Patient Refused. 9-Not Applicable-not attempted and the patient did not perform the activity before the current illness, exacerbation or injury. 10-Not Attempted due to Environmental Limitations-(lack of equipment, weather restraints, etc.). 88-Not Attempted due to Medical Conditions or Safety Concerns. Eating (QC): 6 Toileting Hygiene (QC): 6 Toilet Transfer (QC): 6 Other Treatment Pt working on sitting balance during w/c mobility tasks. Pt able to maintain static leg extension during w/c tasks with minimal recovery breaks. After therapy, pt sitting in recliner with call light/phone in reach. All needs met in room. OT Short Term Goals Short Term Goals Time Frame: November 22, 2021 Toileting hygiene: 4 Shower/bathe self: 4 Lower body dressin Putting on/taking off footwear: 4 OT Custodial Goals Cnc Mill Operator Goals Time Frame: Dec 08, 2021 Eating (QC): 6 Oral Hygiene (QC): 6 Toileting Hygiene (QC): 6 Shower/Bathe Self (QC): 6 Upper Body Dressing (QC): 6 Lower Body Dressing (QC): 6 On/Off Footwear (QC): 6 Additional Goals: 1-Demonstrate ADL Tasks, 2-Verbalize Understanding, 3- ImproveStrength/[place] 1=Demonstrate adherence to instructed precautions during ADL tasks. 2=Patient will verbalize/demonstrate understanding of assistive devices/modifications for ADL. 3=Patient will improve strength/tolerance for activity to enable patient to perform ADL's. OT Education/Plan Problem List/Assessment Assessment: Decreased Activ Tolerance, Impaired Self-Care Skills Discharge Recommendations Plan/Recommendations: Continue POC Treatment Plan/Plan of Care Patient would benefit from OT for education, treatment and training to promote independence in ADL's, mobility, safety and/or upper extremity function for ADL's. Plan of Care: ADL Retraining, Functional Mobility, Group Exercise/Act as Ind, UE Funct Exercise/Act Treatment Duration: Dec 08, 2021 Frequency: At least 5 of 7 days/Wk (IRF) Estimated Hrs Per Day: 1.5 hours per day Agreement: Yes Rehab Potential: Fair Time/GCodes Start Time: 13:30 Stop Time: 14:00 Total Time Billed (hr/min): 30 Billed Treatment Time 1 visit-ADL 1 (15 min) FA 1 (15 min) OLINDA COULTER November 21, 2021 14:16
--- NOTE | 2021-11-21 15:00 | Physical Therapy Daily Note ---
PT Daily Note-Current Subjective Pt sitting up in recliner upon arrival. Pt agrees to PT. Mental Status Patient Orientation: Person, Place, Situation Attachments: Oxygen Transfers SCALE: Activities may be completed with or without assistive devices. 8-Slucpxflin-trnetpv completes the activity by him/herself with no assistance from a helper. 5-Set-up or Clean-up Assistance-helper sets up or cleans up; patient completes activity. [place] assists only prior to or following the activity. 4-Supervision or Touching Assistance-helper provides verbal cues and/or touching/steadying and/or contact guard assistance as patient completes activi ty. Assistance may be provided throughout the activity or intermittently. 3-Partial/Moderate Assistance-helper does LESS THAN HALF the effort. [place] lifts, holds or supports trunk or limbs, but provides less than half the effort. 2-Substantial/Maximal Assistance-helper does MORE THAN HALF the effort. [place] lifts or holds trunk or limbs and provides more than half the effort. 3-Rvwjdtqxm-mcsbuv does ALL the effort. Patient does none of the effort to complete the activity. Or, the assistance of 2 or more helpers is required for the patient to complete the activity. If activity was not attempted, code reason: 7-Patient Refused. 9-Not Applicable-not attempted and the patient did not perform the activity before the current illness, exacerbation or injury. 10-Not Attempted due to Environmental Limitations-(lack of equipment, weather restraints, etc.). 88-Not Attempted due to Medical Conditions or Safety Concerns. Weight Bearing Right Lower Extremity: Right Full Weight Bearing Left Lower Extremity: Left Full Weight Bearing Exercises Seated Therapy Exercises: Ankle pumps, Long arc quads, Hip flexion, Glut set Seated Reps: 15 Treatments Pt completes Seated EX. Pt is also very preoccupied with her ear & hearing her heart beat. Pt wants to be advised when new antibiotic can be started which is after the current one is finished. Pt wants to have something else to help get rid of pounding in ears. PLUSH BRUSHER continues to try to keep pt focus during tx but needs increased redirection. PLUSH BRUSHER refereed questions to Nurse. All needs met, call light in hand. Assessment Pt continues to be preoccupied about medical concerns and difficulty staying focused. PT Short Term Goals Short Term Goals Time Frame: November 16, 2021 Roll Left & Right: 6 Sit to lyin Lying to sitting on side of be: 4 (SBA) Sit to stand: 4 (SBA) Chair/xle-rs-mmdjt transfer: 4 (SBA) Walk 10 feet: 4 (SBA) Walk 50 feet with two turns: 4 (SBA) PT Wafer Slicer Goals Wafer Slicer Goals PT Senior Care Goals Time Frame: November 30, 2021 Roll Left & Right (QC): 6 Sit to Lying (QC): 6 Lying-Sitting on Side/Bed(QC): 6 Sit to Stand (QC): 5 Chair/Ggx-hh-[place] Xfer(QC): 5 Toilet Transfer (QC): 5 Car Transfer (QC): 5 Does the Patient Walk: Yes Walk 10 feet (QC): 5 Walk 50ft with 2 Turns (QC): 5 Walk 150 ft (QC): 5 Walking 10ft on Uneven Surface: 5 1 Step (curb) (QC): 4 4 Steps (QC): 4 12 Steps (QC): 88 Picking up an Object (QC): 5 Wheel 50 feet with 2 turns (QC: 9 Wheel 150 feet: 9 PT Plan Problem List Problem List: Activity Tolerance, Functional Strength Treatment/Plan Treatment Plan: Continue Plan of Care Treatment Plan: Bed Mobility, Education, Functional Activity [place], Functional Strength, Group Therapy, Gait, Safety, Therapeutic Exercise, Transfers Treatment Duration: November 30, 2021 Frequency: At least 5 of 7 days/Wk (IRF) Estimated Hrs Per Day: 1.5 hours per day Patient and/or Family Agrees t: Yes Time/GCodes Time In: 1400 Time Out: 1430 Total Billed Treatment Time: 30 Total Billed Treatment 1, EX (20m) & FA (10m) PARVEEN RODRÍGUEZ PLUSH BRUSHER November 21, 2021 15:00
[2021-11-21] MEDS: SIMETHICONE 80 MG (MYLICON) CHEW PO PRN (19:31)
[2021-11-21 19:45] VITALS: BP 113/67
[2021-11-21] MEDS: ACETAMINOPHEN 500 MG TAB (TYLENOL) PO SCH (20:32)
[2021-11-21] MEDS: HYDROcodone/APAP 5 MG/325 MG (LORTAB) TAB PO PRN (20:34)
[2021-11-21] MEDS: ZALEPLON 10 MG CAPSULE PO SCH (22:29)
[2021-11-22] MEDS: CYANOCOBALAMIN 1,000 MCG (VITAMIN B-12) TABLET PO SCH (06:40)
--- NOTE | 2021-11-22 06:40 | PM&R Progress Note ---
Subjective HPI/CC On Admission Date Seen by Provider: November 22, 2021 Time Seen by Provider: 11:30 Subjective/Events-last exam 11/22/2021: Pt is doing a little better Ambulating around a lot better Had a shower today Having difficulty with placement for the skilled nursing because of her chemotherapy Ceftin 250 mg BID was recommended by Dr. Alfonso and we will substitute Cefdinir for that We will contemplate starting some Prednisone as he recommended Poor prognosis needs hospice 11/21/2021: Pt has multiple complaints Sinus pain Ears feel like they are pulsating Repeat hemoglobin from 6.3 yesterday is 6.9 after one unit of transfusion. I did initiate IV fluids for the acute kidney failure and Kayexalate for hyperkalemia, both are resolved. Awaiting skilled nursing placement at [facility] 11/20/2021: Pt extremely complex Dr. Alfonso saw her giving medication for chronic sinusitis Transfusing one unit due to hemoglobin of 6.9 WBC count was 249,000 Updated daughter outside the room after I spoke with pt and told her she needed to go to skilled. She had been in skilled care a couple of times with a bad experience. But she is so complex she requires physician management 28/01 with labs and everything in order to have any type of clinical stability. She meets criteria for hospice and I told the daughter that. 11/19/21: Pt doing well Somatic complaints Will check CT scan to see if there is anything we need to be concerned about because of her continued congestion Sleeping pill really helps her Will sign DNR form today Pt needs a skilled nursing she can no longer live independently I had a long in-depth conversation with the daughter yesterday 11/18/21: Pt didn't have any major issues overnight Very complicated Will need skilled nursing with a licensed professional to manage her comorbidities at discharge Checked meds and labs 11/17/2021: Pt has complicated somatic complaints Complained of congestion and sinus congestion Zyvox maintained Pt is so very complicated that she may very well need a skilled nursing at discharge unfortunately Maintain on oxygen 11/16/2021: Patient doing about the same Zyvox tolerated I spoke with Dr. Whitt and he recommended going back on her chemotherapy since her white count is 242,000 Hemoglobin 7.2 Creatinine 1.45 Nurse will update daughter Cough is improved 11/15/21: Pt is doing a lot better Zyvox 600 mg BID tolerated Skin tear wound care management OLLIE wraps to lower extremities Bowels moved Saturday and she is doing a lot better Less nauseated given Zofran 11/14/2021: Patient improving slowly Minimal somatic complaints today Zyvox tolerated After recovery patient really meets criteria for hospice No falls 11/13/2021: Patient doing much better Reports ear pain MRSA in the sputum so we will start Zyvox 600 Mg p.o. twice daily Lungs remain clear though much improved from admission Patient tends to have somatic complaints Very frail status and if patient returns back to baseline then declines again will be a hospice candidate 11/12/2021: Patient feels much better today Lungs are clear No other concerns reported Slept pretty well last night 11/11/2021: Patient doing a lot better Cough is less Potassium good Holding supplemental potassium Bowels moved No pain reported 11/10/2021: Pt settling in White count is 141,000 Hemoglobin is 8.1 Potassium is 6.3, so I did give Kayexalate to get that down She reports she took Ativan and Zoloft at home so we will evaluate the home dosing Will add procalcitonin to check to be sure that her pneumonia is resolving and I will repeat a chest x-ray, I will also do a sputum culture Review of Systems General: Fatigue, Malaise HEENT: Eye Pain, Sinus Congestion Objective Exam Vital Signs Vital Signs Date Time Temp Pulse Resp B/P (MAP) Pulse Ox O2 Delivery O2 Flow Rate FiO2 11/22/21 21:29 Nasal Cannula 2.00 11/22/21 19:42 37.0 105 22 154/69 (97) 94 Capillary Refill : General Appearance: No Apparent Distress, WD/WN, Chronically ill, Thin HEENT: PERRL/EOMI, Normal ENT Inspection, Pharynx Normal Neck: Full Range of Motion, Normal Inspection, Non Tender, Supple, Carotid Bruit Respiratory: Chest Non Tender, No Accessory Muscle Use, No Respiratory Distress, Decreased Breath Sounds, Rales (Left lower lobe) Cardiovascular: Regular Rate, Rhythm, No Edema, No Gallop, No JVD, No Murmur, Normal Peripheral Pulses Gastrointestinal: Normal Bowel Sounds, No Organomegaly, No Pulsatile Mass, Non Tender, Soft Back: Normal Inspection, No CVA Tenderness, No Vertebral Tenderness Extremity: Normal Capillary Refill, Normal Inspection, Normal Range of Motion, Non Tender, No Calf Tenderness, No Pedal Edema Neurologic/Psychiatric: Alert, Oriented x3, line driver II-XII Norm as Tested, Abnormal Gait, Depressed Affect, Motor Weakness (Severe weakness generalized) Skin: Normal Color, Warm/Dry Lymphatic: No Adenopathy Results/Procedures Lab Laboratory Tests 11/23/21 06:05 Patient resulted labs reviewed. FIM Transfers Therapy Code Descriptions/Definitions Functional [place] Measure: 0=Not Assessed/NA 4=Minimal Assistance 1=Total Assistance 5=Supervision or Setup 2=Maximal Assistance 6=Modified [place] 3=Moderate Assistance 7=Complete IndependenceSCALE: Activities may be completed with or without assistive devices. 8-Qmigfxzcgi-kbmrkxr completes the activity by him/herself with no assistance from a helper. 5-Set-up or Clean-up Assistance-helper sets up or cleans up; patient completes activity. [address] assists only prior to or following the activity. 4-Supervision or Touching Assistance-helper provides verbal cues and/or touching/steadying and/or contact guard assistance as patient completes activity. Assistance may be provided throughout the activity or intermittently. 3-Partial/Moderate Assistance-helper does LESS THAN HALF the effort. [address] l ifts, holds or supports trunk or limbs, but provides less than half the effort. 2-Substantial/Maximal Assistance-helper does MORE THAN HALF the effort. [address] lifts or holds trunk or limbs and provides more than half the effort. 9-Aocjgmdgt-svhgib does ALL the effort. Patient does none of the effort to complete the activity. Or, the assistance of 2 or more helpers is required for the patient to complete the activity. If activity was not attempted, code reason: 7-Patient Refused. 9-Not Applicable-not attempted and the patient did not perform the activity before the current illness, exacerbation or injury. 10-Not Attempted due to Environmental Limitations-(lack of equipment, weather restraints, etc.). 88-Not Attempted due to Medical Conditions or Safety Concerns. Roll Left to Right (QC): 6 Sit to Lying (QC): 6 Sit to Stand (QC): 5 Chair/Cpi-gn-Edsls Xfer(QC): 4 Gait Training Does the Patient Walk?: Yes Distance: 20', 100' Walk 10 feet (QC): 5 Walk 50 ft with 2 Turns(QC): 5 Gait Persons Needed: 1 Gait Assistive Device: FWW Wheelchair Training Does the Pt Use a Wheelchair?: Yes Wheel 50 ft with 2 turns (QC): 1 Wheel 150 ft (QC): 1 Type of Wheelchair: Manual Balance Picking up an Object (QC): 4 ADL-Treatment Eating (QC): 6 Oral Hygiene (QC): 6 Bathing Location: L Arm, R Arm, Chest, Abdomen, Buttocks, Perineal Area Shower/Bathe Self (QC): 6 (Sponge bath at sink) Upper Body Dressing (QC): 5 Lower Body Dressing (QC): 5 On/Off Footwear (QC): 2 Toileting Hygiene (QC): 6 Toilet Transfer (QC): 6 Assessment/Plan Assessment and Plan Assess & Plan/Chief Complaint Assessment: Critical illness myopathy Status post pneumonia MRSA pneumonitis on sputum started Zyvox 11/13/2021 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 Whitt his oncologist Diabetes Hypertension Colon polyps Insomnia Advanced age Hyponatremia Anemia Volume overload Hypoxia requiring supplemental oxygen since pneumonia Diastolic congestive heart failure Valvular heart disease Immunosuppression Vitamin B12 deficiency Chronic sinusitis on CT scan consulted Dr. Alfonso Severe hyperkalemia on 11/20/2021 prompting Kayexalate and IV fluid Severe anemia requiring transfusion of 1 unit of blood on 11/20/2021 Plan: Inpatient rehab protocol Oxygen supplementation Home meds Supportive care 11/10/2021: Check chest x-ray Sputum culture Add PCT to labs Supplement B12 11/11/21: Monitor closely Checked meds and labs 11/12/2021 Supportive care Monitor closely 11/13/2021: Zyvox for MRSA pneumonitis 11/14/2021: Supportive care Zyvox 11/15/21: Zyvox Monitor closely 11/16/2021: Restart chemotherapy 11/17/2021: Patient may need skilled nursing at discharge due to complexities of her medical issues 11/18/21: Monitor closely Mucinex Afrin 11/19/2021: CT sinuses Supportive care 11/20/2021: Appreciate Dr. ALFONSO Transfuse 1 unit Treated hyperkalemia Needs hospice Needs skilled nursing and updated patient 11/21/2021: Multiple somatic complaints Needs skilled nursing placement In my opinion she is hospice candidate 11/22/2021: Supportive care Reasonable option is to stop chemotherapy pill and place in skilled nursing (1) Debility (2) CLL (chronic lymphocytic leukemia) (3) Immunosuppression (4) Hypoxia (5) Oxygen dependent (6) Pneumonia TEENA BUNDY DO November 22, 2021 06:40
[2021-11-22 07:47] VITALS: BP 107/53
[2021-11-22] MEDS: guaiFENesin (MUCINEX) 600 MG TAB PO SCH ×2 (08:15→21:14)
[2021-11-22] MEDS: LACTOBACILLUS ACIDOPHILUS (PROBIOTIC) CAPSULE PO SCH (08:15)
[2021-11-22] MEDS: VITAMIN D3 125 MCG (5,000 UNITS) CAPSULE PO SCH (08:15)
[2021-11-22] MEDS: MONTELUKAST 10 MG (SINGULAIR) TAB PO SCH (08:15)
[2021-11-22] MEDS: ACYCLOVIR 400 MG TABLET (ZOVIRAX) PO SCH (08:15)
[2021-11-22] MEDS: ENOXAPARIN INJECTION 30 MG/0.3 ML SYR SC SCH (08:16)
[2021-11-22] MEDS: BENZONATATE 100 MG (TESSALON) CAPSULE PO SCH ×3 (08:16→19:32)
[2021-11-22] MEDS: meTOprolol TARTRATE 25 MG (LOPRESSOR) TABLET PO SCH ×2 (08:16→21:14)
[2021-11-22] MEDS: LINEZOLID (ZYVOX) 600 MG TAB PO SCH ×2 (08:16→21:15)
[2021-11-22] MEDS: LORATADINE (CLARITIN) 10 MG TAB PO SCH (08:16)
[2021-11-22] MEDS: diphenhydrAMINE 25 MG TAB (BENADRYL) PO PRN (08:16)
[2021-11-22] MEDS: SENNA W/DOCUSATE (SENOKOT S) TABLET PO SCH ×3 (08:17→21:18)
[2021-11-22] MEDS: DOCUSATE SODIUM 100 MG (COLACE) CAP PO SCH (08:17)
[2021-11-22] MEDS: polyethylene glycoL POWDER 17 GM (MIRALAX) PACK PO SCH ×2 (08:17→19:32)
[2021-11-22] MEDS: OXYMETAZOLINE (AFRIN) 0.05% NA 30 ML BTL SCH ×2 (08:19→21:18)
[2021-11-22] MEDS: FLUTICASONE NASAL SPRAY (FLONASE) 16 GM BTL NS SCH (08:19)
[2021-11-22] MEDS: CALQUENCE 100 MG PO SCH (10:00)
[2021-11-22] MEDS: SIMETHICONE 80 MG (MYLICON) CHEW PO PRN ×2 (11:54→18:16)
--- NOTE | 2021-11-22 11:59 | Occupational Ther Daily Note ---
OT Current Status-Daily Note Subjective Pt alert, sitting in recliner. Pt agrees to therapy. No c/o pain. [place] with PT ([id number]), skills of 2 clinicians required to decrease falls, increase activity tolerance and work on higher level balance skills during functional tasks. PT focusing on ambulation and transfers while OT focusing on ADLs. Mo nitoring O2 levels throughout session without O2, pt remained 95% and above. Mental Status/Objective Patient Orientation: Person, Place, Time, Situation Attachments: IV, Oxygen ADL-Treatment Pt ambulated from recliner to toilet with FWW, supervised. Completed toileting by self. Pt completed bathing on shower bench, using handheld shower and grabbars independently. Completed upper/lower body dressing with set up. Ambulated from chair to sink independent with FWW. Pt completed grooming and oral hygiene independent while standing at sink with support. Ambulated from sink to recliner with FWW to have legs wrapped with OLLIE bandages. Therapy Code Descriptions/Definitions Functional [place] Measure: 0=Not Assessed/NA 4=Minimal Assistance 1=Total Assistance 5=Supervision or Setup 2=Maximal Assistance 6=Modified [place] 3=Moderate Assistance 7=Complete IndependenceSCALE: Activities may be completed with or without assistive devices. 3-Lfbgotpamp-fdtpqdq completes the activity by him/herself with no assistance from a helper. 5-Set-up or Clean-up Assistance-helper sets up or cleans up; patient completes activity. [place] assists only prior to or following the activity. 4-Supervision or Touching Assistance-helper provides verbal cues and/or touching/steadying and/or contact guard assistance as patient completes activity. Assistance may be provided throughout the activity or intermittently. 3-Partial/Moderate Assistance-helper does LESS THAN HALF the effort. [place] lifts, holds or supports trunk or limbs, but provides less than half the effort. 2-Substantial/Maximal Assistance-helper does MORE THAN HALF the effort. [place] lifts or holds trunk or limbs and provides more than half the effort. 2-Qsmijrvfc-wzpzlt does ALL the effort. Patient does none of the effort to complete the activity. Or, the assistance of 2 or more helpers is required for the patient to complete the activity. If activity was not attempted, code reason: 7-Patient Refused. 9-Not Applicable-not attempted and the patient did not perform the activity before the current illness, exacerbation or injury. 10-Not Attempted due to Environmental Limitations-(lack of equipment, weather restraints, etc.). 88-Not Attempted due to Medical Conditions or Safety Concerns. Oral Hygiene (QC): 6 Shower/Bathe Self (QC): 6 Upper Body Dressing (QC): 5 Lower Body Dressing (QC): 5 Toileting Hygiene (QC): 6 Other Treatment See PT notes for progress on ambulation. After session, pt sitting in recliner with call light/phone in reach. All needs met in room. OT Short Term Goals Short Term Goals Time Frame: November 22, 2021 Toileting hygiene: 4 Shower/bathe self: 4 Lower body dressin Putting on/taking off footwear: 4 OT Treasury Representative Goals [facility] Goals Time Frame: Dec 08, 2021 Eating (QC): 6 Oral Hygiene (QC): 6 Toileting Hygiene (QC): 6 Shower/Bathe Self (QC): 6 Upper Body Dressing (QC): 6 Lower Body Dressing (QC): 6 On/Off Footwear (QC): 6 Additional Goals: 1-Demonstrate ADL Tasks, 2-Verbalize Understanding, 3- ImproveStrength/[place] 1=Demonstrate adherence to instructed precautions during ADL tasks. 2=Patient will verbalize/demonstrate understanding of assistive d evices/modifications for ADL. 3=Patient will improve strength/tolerance for activity to enable patient to perform ADL's. OT Education/Plan Problem List/Assessment Assessment: Decreased Activ Tolerance, Impaired Self-Care Skills Discharge Recommendations Plan/Recommendations: Continue POC Treatment Plan/Plan of Care Patient would benefit from OT for education, treatment and training to promote independence in ADL's, mobility, safety and/or upper extremity function for ADL's. Plan of Care: ADL Retraining, Functional Mobility, Group Exercise/Act as Ind, UE Funct Exercise/Act Treatment Duration: Dec 08, 2021 Frequency: At least 5 of 7 days/Wk (IRF) Estimated Hrs Per Day: 1.5 hours per day Agreement: Yes Rehab Potential: Fair Time/GCodes Start Time: 10:45 Stop Time: 12:00 Total Time Billed (hr/min): 75 Billed Treatment Time 1 visit-ADL 4 (60 min) FA 1 (15 min) co-treat with PT [id number], individual [id number] KUNCE,OLINDA OTA November 22, 2021 11:59
--- NOTE | 2021-11-22 12:10 | Physical Therapy Daily Note ---
PT Daily Note-Current Subjective Pt. agrees to PT OT co Rx for ADLs, bathing, dressing , TRFs and gait with FWW . Pt with limited but improving endurance and strength c/o this date of "full head feeling" and air on her stomach and need to belch frequently Pain Location: No Pain Reported Mental Status Patient Orientation: Normal For Age Transfers SCALE: Activities may be completed with or without assistive devices. 2-Nzojzdpvik-leogniq completes the activity by him/herself with no assistance from a helper. 5-Set-up or Clean-up Assistance-helper sets up or cleans up; patient completes activity. [place] assists only prior to or following the activity. 4-Supervision or Touching Assistance-helper provides verbal cues and/or touching/steadying and/or contact guard assistance as patient completes activity. Assistance may be provided throughout the activity or intermittently. 3-Partial/Moderate Assistance-helper does LESS THAN HALF the effort. [place] lifts, holds or supports trunk or limbs, but provides less than half the effort. 2-Substantial/Maximal Assistance-helper does MORE THAN HALF the effort. [place] lifts or holds trunk or limbs and provides more than half the effort. 8-Mtcfqotrd-kthcti does ALL the effort. Patient does none of the effort to complete the activity. Or, the assistance of 2 or more helpers is required for the patient to complete the activity. If activity was not attempted, code reason: 7-Patient Refused. 9-Not Applicable-not attempted and the patient did not perform the activity before the current illness, exacerbation or injury. 10-Not Attempted due to Environmental Limitations-(lack of equipment, weather restraints, etc.). 88-Not Attempted due to Medical Conditions or Safety Concerns. Sit to Stand (QC): 6 Chair/Xlh-nz-Vsbae Xfer(QC): 6 Toilet Transfer (QC): 6 Weight Bearing Right Lower Extremity: Right Full Weight Bearing Left Lower Extremity: Left Full Weight Bearing Gait Training Does the Patient Walk?: Yes Walk 10 feet (QC): 6 Walk 50 ft with 2 Turns(QC): 6 Walk 150 ft (QC): 6 Gait Persons Needed: 1 Gait Assistive Device: FWW pt. ambulated 150 ft x 2 30 ft x 3 no O2 with sats >90% each trial , good use of and no LOB Exercises Seated Therapy Exercises: Ankle pumps, Sit to stand, Long arc quads, Hip flexion Seated Reps: 12 Treatments pt. TRFd in out shower, bathed dressed with rest periods with OT and PT for balance , and direction of U&L coordinated activity for energy conservation and safety. Assessment Current Status: Good Progress pt. able to ambulate , toilet, shower and dress on room air with O2 sats consistently >90% and no c/o SOB PT Short Term Goals Short Term Goals Time Frame: November 16, 2021 Roll Left & Right: 6 Sit to lyin Lying to sitting on side of be: 4 (SBA) Sit to stand: 4 (SBA) Chair/sze-dx-omdot transfer: 4 (SBA) Walk 10 feet: 4 (SBA) Walk 50 feet with two turns: 4 (SBA) PT Superintendent Maintenance Goals Penitentiary Goals PT Penitentiary Goals Time Frame: November 30, 2021 Roll Left & Right (QC): 6 Sit to Lying (QC): 6 Lying-Sitting on Side/Bed(QC): 6 Sit to Stand (QC): 5 Chair/Mwl-gp-Mxbui Xfer(QC): 5 Toilet Transfer (QC): 5 Car Transfer (QC): 5 Does the Patient Walk: Yes Walk 10 feet (QC): 5 Walk 50ft with 2 Turns (QC): 5 Walk 150 ft (QC): 5 Walking 10ft on Uneven Surface: 5 1 Step (curb) (QC): 4 4 Steps (QC): 4 12 Steps (QC): 88 Picking up an Object (QC): 5 Wheel 50 feet with 2 turns (QC: 9 Wheel 150 feet: 9 PT Plan Treatment/Plan Treatment Plan: Continue Plan of Care Treatment Plan: Bed Mobility, Education, Functional Activity [place], Functional Strength, Group Therapy, Gait, Safety, Therapeutic Exercise, Transfers Treatment Duration: November 30, 2021 Frequency: At least 5 of 7 days/Wk (IRF) Estimated Hrs Per Day: 1.5 hours per day Patient and/or Family Agrees t: Yes Safety Risks/Education Patient Education: Gait Training, Transfer Techniques, Correct Positioning, Disease Process, Safety Issues Teaching Recipient: Patient Teaching Methods: Demonstration, Discussion Response to Teaching: Verbalize Understanding, Return Demonstration, Reinforcement Needed Time/GCodes Time In: 1110 Time Out: 1210 Total Billed Treatment Time: 60 Total Billed Treatment 1,FA35m,GT25m (PT OT co Rx 60m) SHAREE MARTEL MEDICAL OFFICE SPECIALIST November 22, 2021 12:10
[2021-11-22] MEDS ORDERED: CEFDINIR 300 MG (OMNICEF) CAP PO NR (12:45)
[2021-11-22] MEDS: HYDROcodone/APAP 5 MG/325 MG (LORTAB) TAB PO PRN (13:05)
--- NOTE | 2021-11-22 14:25 | Therapy Group Daily Note ---
Therapy Daily Group Note Patient Education Topic Home Safety, Other List Below (ARU practices and purposes) Exercises LE Seated Exercise, UE Exercise Session Ratio (pt:therapist): 4:1 Goal of Session: Education on ARU Expectations, Home Safety Strategies, UE/LE Strengthing, Use of Adaptive Equipment Goal Met for this Session: Yes Pt Benefit of Group: F/U Use of Strategies @Home, Increased Functional Safety, Increased Functional Strength, Socialization Other/Notes Pt. participated in group session this date. Pt. ambulated to from group with FWW, wearing mask with CGA to SBA. Pts introduced themselves sharing if they so desired their home town and favorite summertime activity. Pts were educated in ARU expectations and practices. Education also included Assistive device education mostly regarding front wheeled walkers, use and safety. Home safety was a topic and most pts shared their input and challenges . Seated U&L ext exercises were done , Pt. to room with needs met and pires at hand Start Time: 13:00 Stop Time: 14:10 Total Billed Treatment Time: 70 Total Billed Treatment 1,GRP SHAREE MARTEL SENIOR QUALITATIVE RESEARCHER November 22, 2021 14:25
[2021-11-22 19:42] VITALS: BP 154/69
[2021-11-22] MEDS: CEFDINIR 300 MG (OMNICEF) CAP PO SCH (21:14)
[2021-11-22] MEDS: ACETAMINOPHEN 500 MG TAB (TYLENOL) PO SCH (21:15)
[2021-11-22] MEDS: ALPRAZolam 0.25 MG (XANAX) TAB PO PRN (22:23)
[2021-11-22] MEDS: ZALEPLON 10 MG CAPSULE PO SCH (22:23)
[2021-11-23 06:07] LABS: EOSINOPHILS % (AUTO) 0 % (0-10); LYMPHOCYTES % (AUTO) 92 % (12-44); MEAN CORPUSCULAR VOLUME 107 fL (80-99); NEUTROPHILS % (AUTO) 1 % (42-75)
[2021-11-23 06:09] LABS: BASOPHILS # (AUTO) 0.2 10^3/uL (0.0-0.1); BASOPHILS % (AUTO) 0 % (0-10); EOSINOPHILS # (AUTO) 0.4 10^3/uL (0.0-0.3); HEMATOCRIT 24 % (35-52); LYMPHOCYTES # (AUTO) 196.4 10^3/uL (1.0-4.0); MEAN CORPUSCULAR HEMOGLOBIN 31 pg (25-34); MEAN CORPUSCULAR HGB CONC 29 g/dL (32-36); MEAN PLATELET VOLUME 9.6 fL (9.0-12.2); MONOCYTES # (AUTO) 14.2 10^3/uL (0.0-1.0); MONOCYTES % (AUTO) 7 % (0-12); NEUTROPHILS # (AUTO) 2.2 10^3/uL (1.8-7.8); PLATELET COUNT 55 10^3/uL (130-400)
[2021-11-23 06:11] LABS: WHITE BLOOD COUNT 213.6 10^3/uL (4.3-11.0)
[2021-11-23] MEDS: CYANOCOBALAMIN 1,000 MCG (VITAMIN B-12) TABLET PO SCH (06:15)
[2021-11-23 06:23] LABS: ALBUMIN 3.5 GM/DL (3.2-4.5); POTASSIUM 4.8 MMOL/L (3.6-5.0)
[2021-11-23 06:24] LABS: CALCIUM 8.7 MG/DL (8.5-10.1)
[2021-11-23 06:25] LABS: TOTAL PROTEIN 4.8 GM/DL (6.4-8.2)
[2021-11-23 06:27] LABS: BILIRUBIN,TOTAL 1.1 MG/DL (0.1-1.0)
[2021-11-23 06:29] LABS: CREATININE SERUM 0.79 MG/DL (0.60-1.30)
--- NOTE | 2021-11-23 06:49 | PM&R Progress Note ---
Subjective HPI/CC On Admission Date Seen by Provider: November 23, 2021 Time Seen by Provider: 09:00 Subjective/Events-last exam 11/23/21: Pt feeling a little better Lungs are clear today White count 213,000 Hemoglobin was 7 Platelet count of 55,000 Overall seems to be doing very well Likely will discharge to the jail soon 11/22/2021: Pt is doing a little better Ambulating around a lot better Had a shower today Having difficulty with placement for the jail because of her chemotherapy Ceftin 250 mg BID was recommended by Dr. Alfonso and we will substitute Cefdinir for that We will contemplate starting some Prednisone as he recommended Poor prognosis needs hospice 11/21/2021: Pt has multiple complaints Sinus pain Ears feel like they are pulsating Repeat hemoglobin from 6.3 yesterday is 6.9 after one unit of transfusion. I did initiate IV fluids for the acute kidney failure and Kayexalate for hyperkalemia, both are resolved. Awaiting jail placement at [facility] 11/20/2021: Pt extremely complex Dr. Alfonso saw her giving medication for chronic sinusitis Transfusing one unit due to hemoglobin of 6.9 WBC count was 249,000 Updated daughter outside the room after I spoke with pt and told her she needed to go to skilled. She had been in skilled care a couple of times with a bad experience. But she is so complex she requires physician management 28/01 with labs and everything in order to have any type of clinical stability. She meets criteria for hospice and I told the daughter that. 11/19/21: Pt doing well Somatic complaints Will check CT scan to see if there is anything we need to be concerned about because of her continued congestion Sleeping pill really helps her Will sign DNR form today Pt needs a jail she can no longer live independently I had a long in-depth conversation with the daughter yesterday 11/18/21: Pt didn't have any major issues overnight Very complicated Will need jail with a licensed professional to manage her comorbidities at discharge Checked meds and labs 11/17/2021: Pt has complicated somatic complaints Complained of congestion and sinus congestion Zyvox maintained Pt is so very complicated that she may very well need a jail at discharge unfortunately Maintain on oxygen 11/16/2021: Patient doing about the same Zyvox tolerated I spoke with Dr. Whitt and he recommended going back on her chemotherapy since her white count is 242,000 Hemoglobin 7.2 Creatinine 1.45 Nurse will update daughter Cough is improved 11/15/21: Pt is doing a lot better Zyvox 600 mg BID tolerated Skin tear wound care management OLLIE wraps to lower extremities Bowels moved Saturday and she is doing a lot better Less nauseated given Zofran 11/14/2021: Patient improving slowly Minimal somatic complaints today Zyvox tolerated After recovery patient really meets criteria for hospice No falls 11/13/2021: Patient doing much better Reports ear pain MRSA in the sputum so we will start Zyvox 600 Mg p.o. twice daily Lungs remain clear though much improved from admission Patient tends to have somatic complaints Very frail status and if patient returns back to baseline then declines again will be a hospice candidate 11/12/2021: Patient feels much better today Lungs are clear No other concerns reported Slept pretty well last night 11/11/2021: Patient doing a lot better Cough is less Potassium good Holding supplemental potassium Bowels moved No pain reported 11/10/2021: Pt settling in White count is 141,000 Hemoglobin is 8.1 Potassium is 6.3, so I did give Kayexalate to get that down She reports she took Ativan and Zoloft at home so we will evaluate the home dosing Will add procalcitonin to check to be sure that her pneumonia is resolving and I will repeat a chest x-ray, I will also do a sputum culture Review of Systems General: Fatigue, Malaise HEENT: Sinus Congestion Objective Exam Vital Signs Vital Signs Date Time Temp Pulse Resp B/P (MAP) Pulse Ox O2 Delivery O2 Flow Rate FiO2 11/23/21 20:44 Nasal Cannula 2.00 11/23/21 19:56 37.2 99 18 115/56 (75) 96 Capillary Refill : General Appearance: No Apparent Distress, WD/WN, Chronically ill, Thin HEENT: PERRL/EOMI, Normal ENT Inspection, Pharynx Normal Neck: Full Range of Motion, Normal Inspection, Non Tender, Supple, Carotid Bruit Respiratory: Chest Non Tender, No Accessory Muscle Use, No Respiratory Distress, Decreased Breath Sounds, Rales (Left lower lobe) Cardiovascular: Regular Rate, Rhythm, No Edema, No Gallop, No JVD, No Murmur, Normal Peripheral Pulses Gastrointestinal: Normal Bowel Sounds, No Organomegaly, No Pulsatile Mass, Non Tender, Soft Back: Normal Inspection, No CVA Tenderness, No Vertebral Tenderness Extremity: Normal Capillary Refill, Normal Inspection, Normal Range of Motion, Non Tender, No Calf Tenderness, No Pedal Edema Neurologic/Psychiatric: Alert, Oriented x3, math interventionist II-XII Norm as Tested, Abnormal Gait, Depressed Affect, Motor Weakness (Severe weakness generalized) Skin: Normal Color, Warm/Dry Lymphatic: No Adenopathy Results/Procedures Lab Laboratory Tests 11/23/21 06:05 Patient resulted labs reviewed. FIM Transfers Therapy Code Descriptions/Definitions Functional [place] Measure: 0=Not Assessed/NA 4=Minimal Assistance 1=Total Assistance 5=Supervision or Setup 2=Maximal Assistance 6=Modified [place] 3=Moderate Assistance 7=Complete IndependenceSCALE: Activities may be completed with or without assistive devices. 2-Ddbhrxxplr-wxcxetr completes the activity by him/herself with no assistance from a helper. 5-Set-up or Clean-up Assistance-helper sets up or cleans up; patient completes activity. [place] assists only prior to or following the activity. 4-Supervision or Touching Assistance-helper provides verbal cues and/or touching/steadying and/or contact guard assistance as patient completes activity. Assistance may be provided throughout the activity or intermittently. 3-Partial/Moderate Assistance-helper does LESS THAN HALF the effort. [place] lifts, holds or supports trunk or limbs, but provides less than half the effort. 2-Substantial/Maximal Assistance-helper does MORE THAN HALF the effort. [place] lifts or holds trunk or limbs and provides more than half the effort. 6-Tquwtpgbv-oiwfxi does ALL the effort. Patient does none of the effort to c omplete the activity. Or, the assistance of 2 or more helpers is required for the patient to complete the activity. If activity was not attempted, code reason: 7-Patient Refused. 9-Not Applicable-not attempted and the patient did not perform the activity before the current illness, exacerbation or injury. 10-Not Attempted due to Environmental Limitations-(lack of equipment, weather restraints, etc.). 88-Not Attempted due to Medical Conditions or Safety Concerns. Roll Left to Right (QC): 6 Sit to Lying (QC): 6 Sit to Stand (QC): 6 Chair/Bwm-hd-Yftjg Xfer(QC): 6 Gait Training Does the Patient Walk?: Yes Distance: 20', 100' Walk 10 feet (QC): 6 Walk 50 ft with 2 Turns(QC): 6 Walk 150 ft (QC): 6 Gait Persons Needed: 1 Gait Assistive Device: FWW Wheelchair Training Does the Pt Use a Wheelchair?: No Wheel 50 ft with 2 turns (QC): 1 Wheel 150 ft (QC): 1 Type of Wheelchair: N/A Balance Picking up an Object (QC): 4 ADL-Treatment Eating (QC): 6 Oral Hygiene (QC): 6 Bathing Location: L Arm, R Arm, Chest, Abdomen, Buttocks, Perineal Area Shower/Bathe Self (QC): 6 Upper Body Dressing (QC): 5 Lower Body Dressing (QC): 5 On/Off Footwear (QC): 2 Toileting Hygiene (QC): 6 Toilet Transfer (QC): 6 Assessment/Plan Assessment and Plan Assess & Plan/Chief Complaint Assessment: Critical illness myopathy Status post pneumonia MRSA pneumonitis on sputum started Zyvox 11/13/2021 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 Whitt his oncologist Diabetes Hypertension Colon polyps Insomnia Advanced age Hyponatremia Anemia Volume overload Hypoxia requiring supplemental oxygen since pneumonia Diastolic congestive heart failure Valvular heart disease Immunosuppression Vitamin B12 deficiency Chronic sinusitis on CT scan consulted Dr. Alfonso Severe hyperkalemia on 11/20/2021 prompting Kayexalate and IV fluid Severe anemia requiring transfusion of 1 unit of blood on 11/20/2021 Plan: Inpatient rehab protocol Oxygen supplementation Home meds Supportive care 11/10/2021: Check chest x-ray Sputum culture Add PCT to labs Supplement B12 11/11/21: Monitor closely Checked meds and labs 11/12/2021 Supportive care Monitor closely 11/13/2021: Zyvox for MRSA pneumonitis 11/14/2021: Supportive care Zyvox 11/15/21: Zyvox Monitor closely 11/16/2021: Restart chemotherapy 11/17/2021: Patient may need jail at discharge due to complexities of her medical issues 11/18/21: Monitor closely Mucinex Afrin 11/19/2021: CT sinuses Supportive care 11/20/2021: Appreciate Dr. ALFONSO Transfuse 1 unit Treated hyperkalemia Needs hospice Needs jail and updated patient 11/21/2021: Multiple somatic complaints Needs jail placement In my opinion she is hospice candidate 11/22/2021: Supportive care Reasonable option is to stop chemotherapy pill and place in jail 11/23/2021: Discharge to jail on my service tomorrow (1) Debility (2) CLL (chronic lymphocytic leukemia) (3) Immunosuppression (4) Hypoxia (5) Oxygen dependent (6) Pneumonia TEENA BUNDY DO November 23, 2021 06:49
[2021-11-23 07:44] VITALS: BP 117/55
[2021-11-23] MEDS: ONDANSETRON 4 MG (ZOFRAN) ORAL DISSOLVE TAB PO PRN (08:06)
[2021-11-23] MEDS: polyethylene glycoL POWDER 17 GM (MIRALAX) PACK PO SCH ×2 (08:11→19:10)
[2021-11-23] MEDS: MONTELUKAST 10 MG (SINGULAIR) TAB PO SCH (08:11)
[2021-11-23] MEDS: BENZONATATE 100 MG (TESSALON) CAPSULE PO SCH ×3 (08:12→19:10)
--- NOTE | 2021-11-23 08:50 | Occupational Ther Daily Note ---
OT Current Status-Daily Note Subjective Pt alert, sitting in recliner. Pt agreed to therapy. No c/o pain. Mental Status/Objective Patient Orientation: Person, Place, Time, Situation Attachments: IV ADL-Treatment Pt ambulated using a FWW from recliner to toilet with SBA. Pt completed toileting by self. Using a FWW, pt ambulated from toilet to sink independent. Grooming and oral hygiene were completed at sink without support independently, with no rest breaks. Upper/Lower body dressing completed with set up. Pt ambulated from sink to recliner using FWW independent. Pt wrapped R LE with set up, L LE was wrapped for pt with OLLIE bandages. Pt ambulated from recliner to rehab gym using FWW, SBA. Completed 10 min on arm bike with 15 perdomo resistance. Using R hand to place clothespin to increase pinch strength. Did not use L hand due to placement of IV causing pain. Completed 4 B UE exercises using 2 lb hand weights- bicep curls 1 set 10 reps, shoulder flexion 1 set 10 reps, wrist flexion 1 set 10 reps, wrist extension 1 set 10 reps. Ambulated back to room using FWW with SBA, no rest breaks needed. After session, pt sitting in recliner. Call light/phone in reach. All needs met in room. Therapy Code Descriptions/Definitions Functional [place] Measure: 0=Not Assessed/NA 4=Minimal Assistance 1=Total Assistance 5=Supervision or Setup 2=Maximal Assistance 6=Modified [place] 3=Moderate Assistance 7=Complete IndependenceSCALE: Activities may be completed with or without assistive devices. 4-Gosxzalayj-flgzbrf completes the activity by him/herself with no assistance from a helper. 5-Set-up or Clean-up Assistance-helper sets up or cleans up; patient completes activity. [place] assists only prior to or following the activity. 4-Supervision or Touching Assistance-helper provides verbal cues and/or touching/steadying and/or contact guard assistance as patient completes activity. Assistance may be provided throughout the activity or intermittently. 3-Partial/Moderate Assistance-helper does LESS THAN HALF the effort. [place] lifts, holds or supports trunk or limbs, but provides less than half the effort. 2-Substantial/Maximal Assistance-helper does MORE THAN HALF the effort. [place] lifts or holds trunk or limbs and provides more than half the effort. 1-Shpxocugw-oumthe does ALL the effort. Patient does none of the effort to complete the activity. Or, the assistance of 2 or more helpers is required for the patient to complete the activity. If activity was not attempted, code reason: 7-Patient Refused. 9-Not Applicable-not attempted and the patient did not perform the activity before the current illness, exacerbation or injury. 10-Not Attempted due to Environmental Limitations-(lack of equipment, weather restraints, etc.). 88-Not Attempted due to Medical Conditions or Safety Concerns. Eating (QC): 6 Oral Hygiene (QC): 6 Upper Body Dressing (QC): 5 Lower Body Dressing (QC): 5 On/Off Footwear: 3 (mod a) Toileting Hygiene (QC): 6 Toilet Transfer (QC): 6 OT Short Term Goals Short Term Goals Time Frame: November 22, 2021 Toileting hygiene: 4 Shower/bathe self: 4 Lower body dressin Putting on/taking off footwear: 4 OT Salon Sales Consultant Goals Group Home Goals Time Frame: Dec 08, 2021 Eating (QC): 6 (met) Oral Hygiene (QC): 6 (met) Toileting Hygiene (QC): 6 (met) Shower/Bathe Self (QC): 6 (met) Upper Body Dressing (QC): 6 (not met) Lower Body Dressing (QC): 6 (not met) On/Off Footwear (QC): 6 (not met) Additional Goals: 1-Demonstrate ADL Tasks, 2-Verbalize Understanding, 3- ImproveStrength/[place] 1=Demonstrate adherence to instructed precautions during ADL tasks. 2=Patient will verbalize/demonstrate understanding of assistive devices/modifications for ADL. 3=Patient will improve strength/tolerance for activity to enable patient to perform ADL's. OT Education/Plan Problem List/Assessment Assessment: Decreased Activ Tolerance, Decreased UE Strength, Impaired Self- Care Skills, Restricted Funct UE ROM Discharge Recommendations Plan/Recommendations: Continue POC Treatment Plan/Plan of Care Patient would benefit from OT for education, treatment and training to promote independence in ADL's, mobility, safety and/or upper extremity function for ADL's. Plan of Care: ADL Retraining, Functional Mobility, Group Exercise/Act as Ind, UE Funct Exercise/Act Treatment Duration: Dec 08, 2021 Frequency: At least 5 of 7 days/Wk (IRF) Estimated Hrs Per Day: 1.5 hours per day Agreement: Yes Rehab Potential: Fair Time/GCodes Start Time: 10:30 Stop Time: 12:00 Total Time Billed (hr/min): 90 Billed Treatment Time 1 visit ADL 4 (60 min) EX 2 (30 min) OLINDA COULTER November 23, 2021 08:50
--- NOTE | 2021-11-23 08:55 | Physical Therapy Daily Note ---
PT Daily Note-Current Subjective Pt. c/o a knot on her right trap area and soreness in this area. At observation this is a bruised area with a knot , closed skin, nursing called to assess. Pt. agrees to Rx and is happy to report she went all night without O2 and slept well and feels a little better except she is still having full head feeling , Pain Numeric Pain Scale: 4 Location: Right Location Body Site: Shoulder (trap) Pain Description: Cramping Appearance pt. belches many many times during Rx, Pt. coughs up clear looking phlegm many times during Rx into kleenex. Mental Status Patient Orientation: Normal For Age Transfers SCALE: Activities may be completed with or without assistive devices. 0-Jldxivixoz-zcvbzci completes the activity by him/herself with no assistance from a helper. 5-Set-up or Clean-up Assistance-helper sets up or cleans up; patient completes activity. [place] assists only prior to or following the activity. 4-Supervision or Touching Assistance-helper provides verbal cues and/or touching/steadying and/or contact guard assistance as patient completes activity. Assistance may be provided throughout the activity or intermittently. 3-Partial/Moderate Assistance-helper does LESS THAN HALF the effort. [place] lifts, holds or supports trunk or limbs, but provides less than half the effort. 2-Substantial/Maximal Assistance-helper does MORE THAN HALF the effort. [place] lifts or holds trunk or limbs and provides more than half the effort. 0-Hirhoffzi-oeajph does ALL the effort. Patient does none of the effort to complete the activity. Or, the assistance of 2 or more helpers is required for the patient to complete the activity. If activity was not attempted, code reason: 7-Patient Refused. 9-Not Applicable-not attempted and the patient did not perform the activity before the current illness, exacerbation or injury. 10-Not Attempted due to Environmental Limitations-(lack of equipment, weather restraints, etc.). 88-Not Attempted due to Medical Conditions or Safety Concerns. Sit to Stand (QC): 6 Chair/Gbw-ny-Lyqtl Xfer(QC): 6 Toilet Transfer (QC): 6 Car Transfer (QC): 6 Weight Bearing Right Lower Extremity: Right Full Weight Bearing Left Lower Extremity: Left Full Weight Bearing Gait Training Does the Patient Walk?: Yes Walk 10 feet (QC): 6 Walk 50 ft with 2 Turns(QC): 6 Walk 150 ft (QC): 6 Gait Persons Needed: 1 Gait Assistive Device: FWW kyphotic, even step length, no LOB, much improved endurance, O2 sats on rm air 96% consistently after walking 160 ft x 2 , 75ft x 3 Stair Training Stair Training: Handrails/: 2 handrails #of Steps: 4 4 Steps (QC): 4 Stairs: Pattern: Step to slow, c/o fatigue with steps, required instruction for sequence and use of hands as well as CGA Exercises Seated Therapy Exercises: Ankle pumps, Sit to stand, Long arc quads, Hip flexion, Hip abd/add Seated Reps: 15 Treatments toileted with assist for doffing diaper and doning brief with pad. pt. managed clean up indep. washed hands at sink SBA, gait as above, seated ex, car TRF and stairs all with O2 sats >95% on rm air Assessment Current Status: Good Progress PT Short Term Goals Short Term Goals Time Frame: November 16, 2021 Roll Left & Right: 6 Sit to lyin Lying to sitting on side of be: 4 (SBA) Sit to stand: 4 (SBA) Chair/zac-ku-utzum transfer: 4 (SBA) Walk 10 feet: 4 (SBA) Walk 50 feet with two turns: 4 (SBA) PT [place] Worker Goals Snf Goals PT Snf Goals Time Frame: November 30, 2021 Roll Left & Right (QC): 6 Sit to Lying (QC): 6 Lying-Sitting on Side/Bed(QC): 6 Sit to Stand (QC): 5 Chair/Bse-de-Szuir Xfer(QC): 5 Toilet Transfer (QC): 5 Car Transfer (QC): 5 Does the Patient Walk: Yes Walk 10 feet (QC): 5 Walk 50ft with 2 Turns (QC): 5 Walk 150 ft (QC): 5 Walking 10ft on Uneven Surface: 5 1 Step (curb) (QC): 4 4 Steps (QC): 4 12 Steps (QC): 88 Picking up an Object (QC): 5 Wheel 50 feet with 2 turns (QC: 9 Wheel 150 feet: 9 PT Plan Treatment/Plan Treatment Plan: Continue Plan of Care Treatment Plan: Bed Mobility, Education, Functional Activity [place], Functional Strength, Group Therapy, Gait, Safety, Therapeutic Exercise, Transfers Treatment Duration: November 30, 2021 Frequency: At least 5 of 7 days/Wk (IRF) Estimated Hrs Per Day: 1.5 hours per day Patient and/or Family Agrees t: Yes Safety Risks/Education Patient Education: Gait Training, Transfer Techniques, Steps, Correct Positioning, Disease Process, Safety Issues Teaching Recipient: Patient Teaching Methods: Demonstration, Discussion Response to Teaching: Verbalize Understanding, Return Demonstration, Reinforcement Needed Time/GCodes Time In: 745 Time Out: 900 Total Billed Treatment Time: 75 Total Billed Treatment 1,FA30m,GT25m,EX20m SHAREE MARTEL PCI SECURITY CONSULTANT November 23, 2021 08:55
[2021-11-23] MEDS: SENNA W/DOCUSATE (SENOKOT S) TABLET PO SCH ×2 (08:58→20:29)
[2021-11-23] MEDS: LORATADINE (CLARITIN) 10 MG TAB PO SCH (08:58)
[2021-11-23] MEDS: CEFDINIR 300 MG (OMNICEF) CAP PO SCH ×2 (08:59→20:29)
[2021-11-23] MEDS: VITAMIN D3 125 MCG (5,000 UNITS) CAPSULE PO SCH (08:59)
[2021-11-23] MEDS: meTOprolol TARTRATE 25 MG (LOPRESSOR) TABLET PO SCH ×2 (08:59→20:29)
[2021-11-23] MEDS: DOCUSATE SODIUM 100 MG (COLACE) CAP PO SCH (08:59)
[2021-11-23] MEDS: guaiFENesin (MUCINEX) 600 MG TAB PO SCH ×2 (09:00→20:29)
[2021-11-23] MEDS: LACTOBACILLUS ACIDOPHILUS (PROBIOTIC) CAPSULE PO SCH (09:00)
[2021-11-23] MEDS: ACYCLOVIR 400 MG TABLET (ZOVIRAX) PO SCH (09:00)
[2021-11-23] MEDS: ENOXAPARIN INJECTION 30 MG/0.3 ML SYR SC SCH (09:01)
[2021-11-23] MEDS: FLUTICASONE NASAL SPRAY (FLONASE) 16 GM BTL NS SCH (09:03)
[2021-11-23] MEDS: OXYMETAZOLINE (AFRIN) 0.05% NA 30 ML BTL SCH ×2 (09:03→20:33)
[2021-11-23] MEDS: CALQUENCE 100 MG PO SCH (10:21)
[2021-11-23] MEDS ORDERED: OX05NA15 (10:38)
[2021-11-23] MEDS ORDERED: ZALE10CA PO (10:38)
[2021-11-23] MEDS ORDERED: METO-333 PO (10:38)
[2021-11-23] MEDS ORDERED: CYAN-41 PO (10:38)
[2021-11-23] MEDS ORDERED: OXC5T PO (10:38)
[2021-11-23] MEDS ORDERED: POLY17PO54 PO (10:38)
[2021-11-23] MEDS ORDERED: ALPR.25T PO (10:38)
[2021-11-23] MEDS ORDERED: ONDA4TAB11 PO (10:38)
[2021-11-23] MEDS ORDERED: ACYC400T21 PO (10:38)
[2021-11-23] MEDS ORDERED: CEFD300C3 PO (10:38)
[2021-11-23] MEDS ORDERED: CALC-250 PO (10:38)
[2021-11-23] MEDS ORDERED: DIPH25CA79 PO (10:38)
[2021-11-23] MEDS ORDERED: BENZ100C18 PO (10:38)
[2021-11-23] MEDS ORDERED: FLUT16SP22 NS (10:38)
[2021-11-23] MEDS ORDERED: ACET325T49 PO (10:38)
[2021-11-23] MEDS ORDERED: GUAI600T43 PO (10:38)
[2021-11-23] MEDS ORDERED: ACET-93 PO (10:38)
[2021-11-23] MEDS ORDERED: DOCU100C37 PO (10:38)
[2021-11-23] MEDS ORDERED: LORA10TA7 PO (10:38)
[2021-11-23] MEDS ORDERED: MONT-40 PO (10:38)
[2021-11-23] MEDS ORDERED: LACT1CAP7 PO (10:38)
--- NOTE | 2021-11-23 10:40 | Discharge Summary ---
Diagnosis/Chief Complaint Date of Admission November 09, 2021 at 12:19 Date of Discharge Discharge Date: November 23, 2021 Discharge Summary Discharge Physical Examination Allergies: Coded Allergies: No Known Drug Allergies (Unverified , 11/09/21) Vitals & I&Os Vital Signs Date Time Temp Pulse Resp B/P (MAP) Pulse Ox O2 Delivery O2 Flow Rate FiO2 11/23/21 20:44 Nasal Cannula 2.00 11/23/21 19:56 37.2 99 18 115/56 (75) 96 Hospital Course Labs (last 24 hrs) Laboratory Tests 11/10/21 05:35: White Blood Count 141.9*H, Red Blood Count 2.66L, Hemoglobin 8.1L, Hematocrit 27L, Mean Corpuscular Volume 101H, Mean Corpuscular Hemoglobin 31, Mean Corpuscular Hemoglobin Concent 30L, Red Cell Distribution Width 17.5H, Platelet Count 109L, Mean Platelet Volume 9.9, Immature Granulocyte % (Auto) 0, Neutrophils (%) (Auto) 3L, Lymphocytes (%) (Auto) 61H, Monocytes (%) (Auto) 36H, Eosinophils (%) (Auto) 0, Basophils (%) (Auto) 1, Neutrophils # (Auto) 4.3, Lymphocytes # (Auto) 85.9H, Monocytes # (Auto) 50.3H, Eosinophils # (Auto) 0.2, Basophils # (Auto) 0.7H, Immature Granulocyte # (Auto) 0.5H, Neutrophils % (Manual) 2, Atypical Lymphocytes 98, Smudge Cells MARKED, Percent Immature Platelet Fraction 3.5, Hypochromasia SLIGHT, Poikilocytosis SLIGHT, Anisocytosis SLIGHT, Macrocytosis SLIGHT, Sodium Level 137, Potassium Level 6.3H, Chloride Level 93L, Carbon Dioxide Level 35H, Anion Gap 9, Blood Urea Nitrogen 17, Creatinine 0.83, Estimat Glomerular Filtration Rate 69, BUN/Creatinine Ratio 20, Glucose Level 72, Calcium Level 8.2L, Corrected Calcium 9.0, Total Bilirubin 1.8H, Aspartate Amino Transf (AST/SGOT) 41H, Alanine Aminotransferase (ALT/SGPT) 9, Alkaline Phosphatase 81, Total Protein 4.5L, Albumin 3.0L, Procalcitonin 0.16H 11/10/21 05:57: Iron Level 131, Total Iron Binding Capacity 239, Unsaturated Iron Binding Capacity 108, Transferrin % Saturation 55, Ferritin 124.5, Vitamin B12 Level 218 11/11/21 07:16: Sodium Level 137, Potassium Level 3.7, Chloride Level 91L, Carbon Dioxide Level 37H, Anion Gap 9, Blood Urea Nitrogen 17, Creatinine 0.91, Estimat Glomerular Filtration Rate 62, BUN/Creatinine Ratio 19, Glucose Level 79, Calcium Level 8.6 11/16/21 07:23: White Blood Count 242.2*H, Red Blood Count 2.32L, Hemoglobin 7.2L, Hematocrit 25L, Mean Corpuscular Volume 106H, Mean Corpuscular Hemoglobin 31, Mean Corpuscular Hemoglobin Concent 29L, Red Cell Distribution Width 19.2H, Platelet Count 107L, Mean Platelet Volume 10.0, Immature Granulocyte % (Auto) 0, Neutrophils (%) (Auto) 2L, Lymphocytes (%) (Auto) 59H, Monocytes (%) (Auto) 39H, Eosinophils (%) (Auto) 0, Basophils (%) (Auto) 0, Neutrophils # (Auto) 3.7, Lymphocytes # (Auto) 141.8H, Monocytes # (Auto) 95.2H, Eosinophils # (Auto) 0.3, Basophils # (Auto) 0.7H, Immature Granulocyte # (Auto) 0.5H, Percent Immature Platelet Fraction 3.8, Sodium Level 139, Potassium Level 4.2, Chloride Level 94L , Carbon Dioxide Level 34H, Anion Gap 11, Blood Urea Nitrogen 25H, Creatinine 1.46H, Estimat Glomerular Filtration Rate 35, BUN/Creatinine Ratio 17, Glucose Level 73, Calcium Level 8.8, Corrected Calcium 9.4, Total Bilirubin 2.0H, Aspartate Amino Transf (AST/SGOT) 42H, Alanine Aminotransferase (ALT/SGPT) 9, Alkaline Phosphatase 104, Total Protein 4.9L, Albumin 3.3, Procalcitonin 0.24H 11/20/21 05:08: White Blood Count 279.8*H, Red Blood Count 2.09L, Hemoglobin 6.3*L, Hematocrit 23L, Mean Corpuscular Volume 109H, Mean Corpuscular Hemoglobin 30, Mean Corpuscular Hemoglobin Concent 28L, Red Cell Distribution Width 19.9H, Platelet Count 72L, Mean Platelet Volume 10.0, Immature Granulocyte % (Auto) 0, Neutrophils (%) (Auto) 1L, Lymphocytes (%) (Auto) 75H, Monocytes (%) (Auto) 24H, Eosinophils (%) (Auto) 0, Basophils (%) (Auto) 0, Neutrophils # (Auto) 2.1, Lymphocytes # (Auto) 208.4H, Monocytes # (Auto) 68.0H, Eosinophils # (Auto) 0.3, Basophils # (Auto) 0.7H, Immature Granulocyte # (Auto) 0.3H, Percent Immature Platelet Fraction 5.4, Sodium Level 138, Potassium Level 6.9*H, Chloride Level 100, Carbon Dioxide Level 26, Anion Gap 12, Blood Urea Nitrogen 52H, Creatinine 1.52H, Estimat Glomerular Filtration Rate 34, BUN/Creatinine Ratio 34, Glucose Level 91, Calcium Level 8.0L, Corrected Calcium 8.4L, Total Bilirubin 1.1H, Aspartate Amino Transf (AST/SGOT) 37H, Alanine Aminotransferase (ALT/SGPT) 9, Alkaline Phosphatase 92, Total Protein 4.9L, Albumin 3.5 11/21/21 05:24: Hemoglobin 6.9*L, Hematocrit 24L, Sodium Level 143, Potassium Level 4.5, Chloride Level 108H, Carbon Dioxide Level 24, Anion Gap 11, Blood Urea Nitrogen 46H, Creatinine 0.99, Estimat Glomerular Filtration Rate 56, BUN/Creatinine Ratio 46, Glucose Level 85, Calcium Level 8.0L, Corrected Calcium 8.6, Total Bilirubin 1.0, Aspartate Amino Transf (AST/SGOT) 22, Alanine Aminotransferase (ALT/SGPT) 10, Alkaline Phosphatase 88, Total Protein 4.6L, Albumin 3.3 11/23/21 06:05: White Blood Count 213.6*H, Red Blood Count 2.28L, Hemoglobin 7.0L, Hematocrit 24L, Mean Corpuscular Volume 107H, Mean Corpuscular Hemoglobin 31, Mean Corpuscu lar Hemoglobin Concent 29L, Red Cell Distribution Width 20.7H, Platelet Count 55L, Mean Platelet Volume 9.6, Immature Granulocyte % (Auto) 0, Neutrophils (%) (Auto) 1L, Lymphocytes (%) (Auto) 92H, Monocytes (%) (Auto) 7, Eosinophils (%) (Auto) 0, Basophils (%) (Auto) 0, Neutrophils # (Auto) 2.2, Lymphocytes # (Auto) 196.4H, Monocytes # (Auto) 14.2H, Eosinophils # (Auto) 0.4H, Basophils # (Auto) 0.2H, Immature Granulocyte # (Auto) 0.3H, Percent Immature Platelet Fraction 4.6, Sodium Level 139, Potassium Level 4.8, Chloride Level 110H, Carbon Dioxide Level 20L, Anion Gap 9, Blood Urea Nitrogen 31H, Creatinine 0.79, Estimat Glome rular Filtration Rate 74, BUN/Creatinine Ratio 39, Glucose Level 85, Calcium Level 8.7, Corrected Calcium 9.1, Total Bilirubin 1.1H, Aspartate Amino Transf (AST/SGOT) 15, Alanine Aminotransferase (ALT/SGPT) 9, Alkaline Phosphatase 79, Total Protein 4.8L, Albumin 3.5 11/23/21 14:50: SARS-CoV-2 RNA (RT-PCR) Not Detected Microbiology 11/10/21 Gram Stain - Final, Complete 11/10/21 Sputum Culture - Final, Complete Staphylococcus aureus Usual upper respiratory darnell Pending Labs Microbiology Date/Time Source Procedure Growth Status 11/10/21 14:35 Sputum Induced Gram Stain - Final Complete 11/10/21 14:35 Sputum Culture - Final Staphylococcus aureus Usual upper respiratory darnell Complete Laboratory Tests 11/10/21 05:35: White Blood Count 141.9, Red Blood Count 2.66, Hemoglobin 8.1, Hematocrit 27, Mean Corpuscular Volume 101, Mean Corpuscular Hemoglobin 31, Mean Corpuscular Hemoglobin Concent 30, Red Cell Distribution Width 17.5, Platelet Count 109, Mean Platelet Volume 9.9, Immature Granulocyte % (Auto) 0, Neutrophils (%) (Auto) 3, Lymphocytes (%) (Auto) 61, Monocytes (%) (Auto) 36, Eosinophils (%) (Auto) 0, Basophils (%) (Auto) 1, Neutrophils # (Auto) 4.3, Lymphocytes # (Auto) 85.9, Monocytes # (Auto) 50.3, Eosinophils # (Auto) 0.2, Basophils # (Auto) 0.7, Immature Granulocyte # (Auto) 0.5, Neutrophils % (Manual) 2, Atypical Lymphocytes 98, Smudge Cells MARKED, Percent Immature Platelet Fraction 3.5, Hypochromasia SLIGHT, Poikilocytosis SLIGHT, Anisocytosis SLIGHT, Macrocytosis SLIGHT, Sodium Level 137, Potassium Level 6.3, Chloride Level 93, Carbon Dioxide Level 35, Anion Gap 9, Blood Urea Nitrogen 17, Creatinine 0.83, Estimat Glomerular Filtration Rate 69, BUN/Creatinine Ratio 20, Glucose Level 72, Calcium Level 8.2, Corrected Calcium 9.0, Total Bilirubin 1.8, Aspartate Amino Transf (AST/SGOT) 41, Alanine Aminotransferase (ALT/SGPT) 9, Alkaline Phosphatase 81, Total Protein 4.5, Albumin 3.0, Procalcitonin 0.16 11/10/21 05:57: Iron Level 131, Total Iron Binding Capacity 239, Unsaturated Iron Binding Capacity 108, Transferrin % Saturation 55, Ferritin 124.5, Vitamin B12 Level 218 11/11/21 07:16: Sodium Level 137, Potassium Level 3.7, Chloride Level 91, Carbon Dioxide Level 37, Anion Gap 9, Blood Urea Nitrogen 17, Creatinine 0.91, Estimat Glomerular Filtration Rate 62, BUN/Creatinine Ratio 19, Glucose Level 79, Calcium Level 8.6 11/16/21 07:23: White Blood Count 242.2, Red Blood Count 2.32, Hemoglobin 7.2, Hematocrit 25, Mean Corpuscular Volume 106, Mean Corpuscular Hemoglobin 31, Mean Corpuscular Hemoglobin Concent 29, Red Cell Distribution Width 19.2, Platelet Count 107, Mean Platelet Volume 10.0, Immature Granulocyte % (Auto) 0, Neutrophils (%) (Auto) 2, Lymphocytes (%) (Auto) 59, Monocytes (%) (Auto) 39, Eosinophils (%) (Auto) 0, Basophils (%) (Auto) 0, Neutrophils # (Auto) 3.7, Lymphocytes # (Auto) 141.8, Monocytes # (Auto) 95.2, Eosinophils # (Auto) 0.3, Basophils # (Auto) 0.7, Immature Granulocyte # (Auto) 0.5, Percent Immature Platelet Fraction 3.8, Sodium Level 139, Potassium Level 4.2, Chloride Level 94, Carbon Dioxide Level 34, Anion Gap 11, Blood Urea Nitrogen 25, Creatinine 1.46, Estimat Glomerular Filtration Rate 35, BUN/Creatinine Ratio 17, Glucose Level 73, Calcium Level 8.8, Corrected Calcium 9.4, Total Bilirubin 2.0, Aspartate Amino Transf (AST/SGOT) 42, Alanine Aminotransferase (ALT/SGPT) 9, Alkaline Phosphatase 104, Total Protein 4.9, Albumin 3.3, Procalcitonin 0.24 11/20/21 05:08: White Blood Count 279.8, Red Blood Count 2.09, Hemoglobin 6.3, Hematocrit 23, Mean Corpuscular Volume 109, Mean Corpuscular Hemoglobin 30, Mean Corpuscular Hemoglobin Concent 28, Red Cell Distribution Width 19.9, Platelet Count 72, Mean Platelet Volume 10.0, Immature Granulocyte % (Auto) 0, Neutrophils (%) (Auto) 1, Lymphocytes (%) (Auto) 75, Monocytes (%) (Auto) 24, Eosinophils (%) (Auto) 0, Basophils (%) (Auto) 0, Neutrophils # (Auto) 2.1, Lymphocytes # (Auto) 208.4, Monocytes # (Auto) 68.0, Eosinophils # (Auto) 0.3, Basophils # (Auto) 0.7, Immature Granulocyte # (Auto) 0.3, Percent Immature Platelet Fraction 5.4, Sodium Level 138, Potassium Level 6.9, Chloride Level 100, Carbon Dioxide Level 26, Anion Gap 12, Blood Urea Nitrogen 52, Creatinine 1.52, Estimat Glomerular Filtration Rate 34, BUN/Creatinine Ratio 34, Glucose Level 91, Calcium Level 8.0, Corrected Calcium 8.4, Total Bilirubin 1.1, Aspartate Amino Transf (AST/SGOT) 37, Alanine Aminotransferase (ALT/SGPT) 9, Alkaline Phosphatase 92, Total Protein 4.9, Albumin 3.5 11/21/21 05:24: Hemoglobin 6.9, Hematocrit 24, Sodium Level 143, Potassium Level 4.5, Chloride Level 108, Carbon Dioxide Level 24, Anion Gap 11, Blood Urea Nitrogen 46, Creatinine 0.99, Estimat Glomerular Filtration Rate 56, BUN/Creatinine Ratio 46, Glucose Level 85, Calcium Level 8.0, Corrected Calcium 8.6, Total Bilirubin 1.0, Aspartate Amino Transf (AST/SGOT) 22, Alanine Aminotransferase (ALT/SGPT) 10, Alkaline Phosphatase 88, Total Protein 4.6, Albumin 3.3 11/23/21 06:05: White Blood Count 213.6, Red Blood Count 2.28, Hemoglobin 7.0, Hematocrit 24, Mean Corpuscular Volume 107, Mean Corpuscular Hemoglobin 31, Mean Corpuscular Hemoglobin Concent 29, Red Cell Distribution Width 20.7, Platelet Count 55, Mean Platelet Volume 9.6, Immature Granulocyte % (Auto) 0, Neutrophils (%) (Auto) 1, Lymphocytes (%) (Auto) 92, Monocytes (%) (Auto) 7, Eosinophils (%) (Auto) 0, Basophils (%) (Auto) 0, Neutrophils # (Auto) 2.2, Lymphocytes # (Auto) 196.4, Monocytes # (Auto) 14.2, Eosinophils # (Auto) 0.4, Basophils # (Auto) 0.2, Immature Granulocyte # (Auto) 0.3, Percent Immature Platelet Fraction 4.6, Sodium Level 139, Potassium Level 4.8, Chloride Level 110, Carbon Dioxide Level 20, Anion Gap 9, Blood Urea Nitrogen 31, Creatinine 0.79, Estimat Glomerular Filtration Rate 74, BUN/Creatinine Ratio 39, Glucose Level 85, Calcium Level 8.7, Corrected Calcium 9.1, Total Bilirubin 1.1, Aspartate Amino Transf (AST/SGOT) 15, Alanine Aminotransferase (ALT/SGPT) 9, Alkaline Phosphatase 79, Total Protein 4.8, Albumin 3.5 11/23/21 14:50: SARS-CoV-2 RNA (RT-PCR) Not Detected Discharge Home Medications: Active Scripts Active Vitamin D3 (Cholecalciferol (Vitamin D3)) 125 Mcg (5000 Unit) Tablet 125 Mcg PO DAILY Vitamin B-12 (Cyanocobalamin (Vitamin B-12)) 1,000 Mcg Tablet 1,000 Mcg PO DAILY@0700 Acidophilus-Pectin Capsule (Lactobacillus Acidophilus/Pect) 75 Million Cell-100 Mg Capsule 1 Each PO DAILY Ondansetron Odt (Ondansetron) 4 Mg Tab.rapdis 4 Mg PO Q6H PRN Polyethylene Glycol 3350 17 Gram Powd.pack 17 Gm PO BID Docusate Sodium 100 Mg Capsule 100 Mg PO DAILY Nasal [place] (Oxymetazoline HCl) 0.05 % [place] 0 Ml NA Q12HR Fluticasone Propionate 50 Mcg/Actuation [place].susp 0 [place] NS DAILY Mucinex (Guaifenesin) 600 Mg Tab.er.12h 600 Mg PO BID Tessalon Perles (Benzonatate) 100 Mg Capsule 200 Mg PO TID Montelukast Sodium 10 Mg Tablet 10 Mg PO DAILY@0800 Xanax Tablet (Alprazolam) 0.25 Mg Tab 0.25 Mg PO Q8H PRN Acetaminophen 325 Mg Tablet 650 Mg PO Q6H PRN Acetaminophen 500 Mg Tablet 1,000 Mg PO HS Oxyir Tablet (Oxycodone HCl) 5 Mg Tab 5 Mg PO Q4H PRN Metoprolol Tartrate 25 Mg Tablet 12.5 Mg PO Q12HR Acyclovir 400 Mg Tablet 400 Mg PO DAILY Cefdinir 300 Mg Capsule 300 Mg PO BID Loratadine 10 Mg Tablet 10 Mg PO DAILY Zaleplon 10 Mg Capsule 10 Mg PO HS Benadryl (Diphenhydramine HCl) 25 Mg Capsule 25 Mg PO Q6H PRN Reported Ondansetron HCl 4 Mg Tablet 4 Mg PO Q6H PRN Calquence (Acalabrutinib) 100 Mg Capsule 100 Mg PO DAILY Instructions to patient/family Please see electronic discharge instructions given to patient. Diagnosis/Problems Diagnosis/Problems (1) Debility (2) CLL (chronic lymphocytic leukemia) (3) Immunosuppression (4) Hypoxia (5) Oxygen dependent (6) Pneumonia TEENA BUNDY DO November 23, 2021 10:40
--- NOTE | 2021-11-23 10:40 | Discharge Inst-Skilled Nursing ---
Discharge Inst-Skilled NF Reconcile Patient Problems Problems Reviewed?: Yes Patient Instructions Patient Problems: CLL s/p PNA sinus infection acute on chronic Debility Goal: Return to independence Consult/Follow Up/Orders Follow Up Appt.: MT rounds Skilled NF Admit to: [facility] ([facility]) I certify that SNF services are required to be given on an inpatient basis because of the above named patient's need for assisted care on a continuing basis for the conditions(s) for which he/she was receiving inpatient hospital services prior to his/her transfer to the [facility]. Senior Care Facility Order: Nursing Services, Direct Service Worker-Evaluate & Treat, Physical Therapy-Evaluate & Treat, Wound Care-Eval/Treat Oxygen Delivery Method: Room Air Discharge Diet: No Restrictions Daily Activity as Tolerated: Yes Resuscitation Status: Do Not Resuscitate New & Resume Previous Orders New Medications: Acetaminophen (Acetaminophen) 500 Mg Tablet 1000 MG PO HS, #30 TAB Acetaminophen (Acetaminophen) 325 Mg Tablet 650 MG PO Q6H PRN for PAIN-MILD (1-4), #30 TAB Acyclovir (Acyclovir) 400 Mg Tablet 400 MG PO DAILY, #30 TAB ALPRAZolam (Xanax Tablet) 0.25 Mg Tab 0.25 MG PO Q8H PRN for ANXIETY, #20 TAB Benzonatate (Tessalon Perles) 100 Mg Capsule 200 MG PO TID, #30 CAP Cefdinir (Cefdinir) 300 Mg Capsule 300 MG PO BID, #24 CAP Cholecalciferol (Vitamin D3) (Vitamin D3) 125 Mcg (5000 Unit) Tablet 125 MCG PO DAILY, #30 TAB Cyanocobalamin (Vitamin B-12) (Vitamin B-12) 1,000 Mcg Tablet 1000 MCG PO DAILY@0700, #30 TAB Docusate Sodium (Docusate Sodium) 100 Mg Capsule 100 MG PO DAILY, #30 CAP Fluticasone Propionate (Fluticasone Propionate) 50 Mcg/Actuation [place].susp 0 SPRAY NS DAILY, #1 EA Guaifenesin (Mucinex) 600 Mg Tab.er.12h 600 MG PO BID, #60 TAB Lactobacillus Acidophilus/Pect (Acidophilus-Pectin Capsule) 75 Million Cell-100 Mg Capsule 1 EACH PO DAILY, #30 CAP Loratadine (Loratadine) 10 Mg Tablet 10 MG PO DAILY, #30 TAB Metoprolol Tartrate (Metoprolol Tartrate) 25 Mg Tablet 12.5 MG PO Q12HR, #60 TAB Montelukast Sodium (Montelukast Sodium) 10 Mg Tablet 10 MG PO DAILY@0800, #30 TAB Ondansetron (Ondansetron Odt) 4 Mg Tab.rapdis 4 MG PO Q6H PRN for NAUSEA/VOMITING-1ST LINE, #20 TAB Oxycodone Hcl (Oxyir Tablet) 5 Mg Tab 5 MG PO Q4H PRN for PAIN-SEVERE (8-10), #20 TAB Oxymetazoline HCl (Nasal [place]) 0.05 % [place] 0 ML NA Q12HR, #1 EA Polyethylene Glycol 3350 (Polyethylene Glycol 3350) 17 Gram Powd.pack 17 GM PO BID, #1 EACH Continued Medications: Diphenhydramine HCl (Benadryl) 25 Mg Capsule 25 MG PO Q6H PRN for ALLERGY SYMPTOMS, #30 CAP (This prescription has been renewed) Zaleplon (Zaleplon) 10 Mg Capsule 10 MG PO HS, #30 CAP (This prescription has been renewed) Discontinued Medications: Acalabrutinib (Calquence) 100 Mg Capsule 100 MG PO DAILY, CAP Ondansetron HCl (Ondansetron HCl) 4 Mg Tablet 4 MG PO Q6H PRN for NAUSEA/VOMITING Tatiana Mcnair November 23, 2021 10:39 TATIANA MCNAIR DO November 23, 2021 10:40
[2021-11-23] MEDS: diphenhydrAMINE 25 MG TAB (BENADRYL) PO PRN ×2 (11:45→20:33)
--- NOTE | 2021-11-23 13:08 | Physical Therapy Daily Note ---
PT Daily Note-Current Subjective Pt. agrees to LE exercises, but does not like to completely recline Pain Location: No Pain Reported Mental Status Patient Orientation: Normal For Age Transfers SCALE: Activities may be completed with or without assistive devices. 1-[id number]-[id number] completes the activity by him/herself with no assistance from a helper. 5-Set-up or Clean-up Assistance-helper sets up or cleans up; patient completes activity. [place] assists only prior to or following the activity. 4-Supervision or Touching Assistance-helper provides verbal cues and/or touching/steadying and/or contact guard assistance as patient completes activity. Assistance may be provided throughout the activity or intermittently. 3-Partial/Moderate Assistance-helper does LESS THAN HALF the effort. [place] lifts, holds or supports trunk or limbs, but provides less than half the effort. 2-Substantial/Maximal Assistance-helper does MORE THAN HALF the effort. [place] lifts or holds trunk or limbs and provides more than half the effort. 0-[id number] does ALL the effort. Patient does none of the effort to complete the activity. Or, the assistance of 2 or more helpers is required for the patient to complete the activity. If activity was not attempted, code reason: 7-Patient Refused. 9-Not Applicable-not attempted and the patient did not perform the activity before the current illness, exacerbation or injury. 10-Not Attempted due to Environmental Limitations-(lack of equipment, weather restraints, etc.). 88-Not Attempted due to Medical Conditions or Safety Concerns. Weight Bearing Right Lower Extremity: Right Full Weight Bearing Left Lower Extremity: Left Full Weight Bearing Exercises Supine Ex: Ankle pumps, Quad Set, Glut sets, Heel Slides, Straight leg raise, Hip abd/add Supine Reps: 25 Treatments neck roll fabricated for behind pts neck while partially reclined. Pt. wanted to leave this in place as it was very comfortable to her after more upright Assessment Current Status: Good Progress PT Short Term Goals Short Term Goals Time Frame: November 16, 2021 Roll Left & Right: 6 Sit to lyin Lying to sitting on side of be: 4 (SBA) Sit to stand: 4 (SBA) Chair/[id number] transfer: 4 (SBA) Walk 10 feet: 4 (SBA) Walk 50 feet with two turns: 4 (SBA) PT Auto Painter Goals Auto Painter Goals PT Penit[facility]iary Goals Time Frame: November 30, 2021 Roll Left & Right (QC): 6 Sit to Lying (QC): 6 Lying-Sitting on Side/Bed(QC): 6 Sit to Stand (QC): 5 Chair/[id number] Xfer(QC): 5 Toilet Transfer (QC): 5 Car Transfer (QC): 5 Does the Patient Walk: Yes Walk 10 feet (QC): 5 Walk 50ft with 2 Turns (QC): 5 Walk 150 ft (QC): 5 Walking 10ft on Uneven Surface: 5 1 Step (curb) (QC): 4 4 Steps (QC): 4 12 Steps (QC): 88 Picking up an Object (QC): 5 Wheel 50 feet with 2 turns (QC: 9 Wheel 150 feet: 9 PT Plan Treatment/Plan Treatment Plan: Continue Plan of Care Treatment Plan: Bed Mobility, Education, Functional Activity [place], Functional Strength, Group Therapy, Gait, Safety, Therapeutic Exercise, Transfers Treatment Duration: November 30, 2021 Frequency: At least 5 of 7 days/Wk (IRF) Estimated Hrs Per Day: 1.5 hours per day Patient and/or Family Agrees t: Yes Safety Risks/Education Patient Education: Correct Positioning Time/GCodes Time In: 1245 Time Out: 1300 Total Billed Treatment Time: 15 Total Billed Treatment 1,EX15m [facility] November 23, 2021 13:08
[2021-11-23 19:56] VITALS: BP 115/56
[2021-11-23] MEDS: ACETAMINOPHEN 500 MG TAB (TYLENOL) PO SCH (20:29)
[2021-11-23] MEDS: ALPRAZolam 0.25 MG (XANAX) TAB PO PRN (22:27)
[2021-11-23] MEDS: ZALEPLON 10 MG CAPSULE PO SCH (22:27)
--- NOTE | 2021-11-24 06:05 | Discharge Summary ---
Diagnosis/Chief Complaint Date of Admission November 09, 2021 at 12:19 Date of Discharge Discharge Date: November 23, 2021 Discharge Diagnosis Assessment: Critical illness myopathy Status post pneumonia MRSA pneumonitis on sputum started Zyvox 11/13/2021 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 Whitt his oncologist Diabetes Hypertension Colon polyps Insomnia Advanced age Hyponatremia Anemia Volume overload Hypoxia requiring supplemental oxygen since pneumonia Diastolic congestive heart failure Valvular heart disease Immunosuppression Vitamin B12 deficiency Chronic sinusitis on CT scan consulted Dr. Alfonso Severe hyperkalemia on 11/20/2021 prompting Kayexalate and IV fluid Severe anemia requiring transfusion of 1 unit of blood on 11/20/2021 Plan: Inpatient rehab protocol Oxygen supplementation Home meds Supportive care 11/10/2021: Check chest x-ray Sputum culture Add PCT to labs Supplement B12 11/11/21: Monitor closely Checked meds and labs 11/12/2021 Supportive care Monitor closely 11/13/2021: Zyvox for MRSA pneumonitis 11/14/2021: Supportive care Zyvox 11/15/21: Zyvox Monitor closely 11/16/2021: Restart chemotherapy 11/17/2021: Patient may need halfway at discharge due to complexities of her medical issues 11/18/21: Monitor closely Mucinex Afrin 11/19/2021: CT sinuses Supportive care 11/20/2021: Appreciate Dr. ALFONSO Transfuse 1 unit Treated hyperkalemia Needs hospice Needs halfway and updated patient 11/21/2021: Multiple somatic complaints Needs halfway placement In my opinion she is hospice candidate 11/22/2021: Supportive care Reasonable option is to stop chemotherapy pill and place in halfway 11/23/2021: Discharge to halfway on my service tomorrow (1) Debility (2) CLL (chronic lymphocytic leukemia) (3) Immunosuppression (4) Hypoxia (5) Oxygen dependent (6) Pneumonia Discharge Summary Discharge Physical Examination Allergies: Coded Allergies: No Known Drug Allergies (Unverified , 11/09/21) Vitals & I&Os Vital Signs Date Time Temp Pulse Resp B/P (MAP) Pulse Ox O2 Delivery O2 Flow Rate FiO2 11/24/21 09:05 37.2 96 20 115/58 97 Room Air 11/23/21 20:44 2.00 Hospital Course Was the Problem List Reviewed?: Yes Hospital course: The patient is a 86 YO female who was admitted to inpatient rehab on 11/09/21 due to debility and weakness secondary to pneumonia and CLL. Before her inpatient rehab admission, the patient presented to [facility] with SOB complaints, and was Dx with multifocal pneumonia which failed outpatient ABX therapy. Throughout her inpatient rehab course she fully participated in physical therapy and occupational therapy. She specifically focussed on bed mobility, education, functional activity tolerance, functional strength, gait, safety and ADLs. She made good progress with improvements in strength, stamina, ambulation and endurance. Her medical status was closely monitored during the course of her stay. Due to her anemia she received a unit of blood on 11/20/21. Her WBC remained elevated due to her Hx of CLL. Blood chemistry was closely monitored throughout her stay. She had a Potassium of 6.9 on 11/20/21, that lowered to normal levels the next day, and throughout the rest of her stay. 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 Her chronic sinusitis complaints were managed by Dr. Alfonso. The patient was discharged home on 11/24/21. She was comfortable with this plan and was content with the progress she made throughout her inpatient rehab course. GASPER GALLARDO November 24, 2021 13:15 Labs (last 24 hrs) Laboratory Tests 11/10/21 05:35: White Blood Count 141.9*H, Red Blood Count 2.66L, Hemoglobin 8.1L, Hematocrit 27L, Mean Corpuscular Volume 101H, Mean Corpuscular Hemoglobin 31, Mean Corpuscular Hemoglobin Concent 30L, Red Cell Distribution Width 17.5H, Platelet Count 109L, Mean Platelet Volume 9.9, Immature Granulocyte % (Auto) 0, Neutrophils (%) (Auto) 3L, Lymphocytes (%) (Auto) 61H, Monocytes (%) (Auto) 36H, Eosinophils (%) (Auto) 0, Basophils (%) (Auto) 1, Neutrophils # (Auto) 4.3, Lymphocytes # (Auto) 85.9H, Monocytes # (Auto) 50.3H, Eosinophils # (Auto) 0.2, Basophils # (Auto) 0.7H, Immature Granulocyte # (Auto) 0.5H, Neutrophils % (Manual) 2, Atypical Lymphocytes 98, Smudge Cells MARKED, Percent Immature Platelet Fraction 3.5, Hypochromasia SLIGHT, Poikilocytosis SLIGHT, Anisocytosis SLIGHT, Macrocytosis SLIGHT, Sodium Level 137, Potassium Level 6.3H, Chloride Level 93L, Carbon Dioxide Level 35H, Anion Gap 9, Blood Urea Nitrogen 17, Creatinine 0.83, Estimat Glomerular Filtration Rate 69, BUN/Creatinine Ratio 20, Glucose Level 72, Calcium Level 8.2L, Corrected Calcium 9.0, Total Bilirubin 1.8H, Aspartate Amino Transf (AST/SGOT) 41H, Alanine Aminotransferase (ALT/SGPT) 9, Alkaline Phosphatase 81, Total Protein 4.5L, Albumin 3.0L, Procalcitonin 0.16H 11/10/21 05:57: Iron Level 131, Total Iron Binding Capacity 239, Unsaturated Iron Binding Capacity 108, Transferrin % Saturation 55, Ferritin 124.5, Vitamin B12 Level 218 11/11/21 07:16: Sodium Level 137, Potassium Level 3.7, Chloride Level 91L, Carbon Dioxide Level 37H, Anion Gap 9, Blood Urea Nitrogen 17, Creatinine 0.91, Estimat Glomerular Filtration Rate 62, BUN/Creatinine Ratio 19, Glucose Level 79, Calcium Level 8.6 11/16/21 07:23: White Blood Count 242.2*H, Red Blood Count 2.32L, Hemoglobin 7.2L, Hematocrit 25L, Mean Corpuscular Volume 106H, Mean Corpuscular Hemoglobin 31, Mean Corpuscular Hemoglobin Concent 29L, Red Cell Distribution Width 19.2H, Platelet Count 107L, Mean Platelet Volume 10.0, Immature Granulocyte % (Auto) 0, Neutroph ils (%) (Auto) 2L, Lymphocytes (%) (Auto) 59H, Monocytes (%) (Auto) 39H, Eos inophils (%) (Auto) 0, Basophils (%) (Auto) 0, Neutrophils # (Auto) 3.7, Lymphocytes # (Auto) 141.8H, Monocytes # (Auto) 95.2H, Eosinophils # (Auto) 0.3, Basophils # (Auto) 0.7H, Immature Granulocyte # (Auto) 0.5H, Percent Immature Platelet Fraction 3.8, Sodium Level 139, Potassium Level 4.2, Chloride Level 94L , Carbon Dioxide Level 34H, Anion Gap 11, Blood Urea Nitrogen 25H, Creatinine 1.46H, Estimat Glomerular Filtration Rate 35, BUN/Creatinine Ratio 17, Glucose Level 73, Calcium Level 8.8, Corrected Calcium 9.4, Total Bilirubin 2.0H, Aspartate Amino Transf (AST/SGOT) 42H, Alanine Aminotransferase (ALT/SGPT) 9, Alkaline Phosphatase 104, Total Protein 4.9L, Albumin 3.3, Procalcitonin 0.24H 11/20/21 05:08: White Blood Count 279.8*H, Red Blood Count 2.09L, Hemoglobin 6.3*L, Hematocrit 23L, Mean Corpuscular Volume 109H, Mean Corpuscular Hemoglobin 30, Mean Corpuscular Hemoglobin Concent 28L, Red Cell Distribution Width 19.9H, Platelet Count 72L, Mean Platelet Volume 10.0, Immature Granulocyte % (Auto) 0, Neutrophils (%) (Auto) 1L, Lymphocytes (%) (Auto) 75H, Monocytes (%) (Auto) 24H, Eosinophils (%) (Auto) 0, Basophils (%) (Auto) 0, Neutrophils # (Auto) 2.1, Lymphocytes # (Auto) 208.4H, Monocytes # (Auto) 68.0H, Eosinophils # (Auto) 0.3, Basophils # (Auto) 0.7H, Immature Granulocyte # (Auto) 0.3H, Percent Immature Platelet Fraction 5.4, Sodium Level 138, Potassium Level 6.9*H, Chloride Level 100, Carbon Dioxide Level 26, Anion Gap 12, Blood Urea Nitrogen 52H, Creatinine 1.52H, Estimat Glomerular Filtration Rate 34, BUN/Creatinine Ratio 34, Glucose Level 91, Calcium Level 8.0L, Corrected Calcium 8.4L, Total Bilirubin 1.1H, Aspartate Amino Transf (AST/SGOT) 37H, Alanine Aminotransferase (ALT/SGPT) 9, Alkaline Phosphatase 92, Total Protein 4.9L, Albumin 3.5 11/21/21 05:24: Hemoglobin 6.9*L, Hematocrit 24L, Sodium Level 143, Potassium Level 4.5, Chloride Level 108H, Carbon Dioxide Level 24, Anion Gap 11, Blood Urea Nitrogen 46H, Creatinine 0.99, Estimat Glomerular Filtration Rate 56, BUN/Creatinine Ratio 46, Glucose Level 85, Calcium Level 8.0L, Corrected Calcium 8.6, Total Bilirubin 1.0, Aspartate Amino Transf (AST/SGOT) 22, Alanine Aminotransferase (ALT/SGPT) 10, Alkaline Phosphatase 88, Total Protein 4.6L, Albumin 3.3 11/23/21 06:05: White Blood Count 213.6*H, Red Blood Count 2.28L, Hemoglobin 7.0L, Hematocrit 24L, Mean Corpuscular Volume 107H, Mean Corpuscular Hemoglobin 31, Mean Corpuscular Hemoglobin Concent 29L, Red Cell Distribution Width 20.7H, Platelet Count 55L, Mean Platelet Volume 9.6, Immature Granulocyte % (Auto) 0, Neutrophils (%) (Auto) 1L, Lymphocytes (%) (Auto) 92H, Monocytes (%) (Auto) 7, Eosinophils (%) (Auto) 0, Basophils (%) (Auto) 0, Neutrophils # (Auto) 2.2, Lymphocytes # (Auto) 196.4H, Monocytes # (Auto) 14.2H, Eosinophils # (Auto) 0.4H , Basophils # (Auto) 0.2H, Immature Granulocyte # (Auto) 0.3H, Percent Immature Platelet Fraction 4.6, Sodium Level 139, Potassium Level 4.8, Chloride Level 110H, Carbon Dioxide Level 20L, Anion Gap 9, Blood Urea Nitrogen 31H, Creatinine 0.79, Estimat Glomerular Filtration Rate 74, BUN/Creatinine Ratio 39, Glucose Level 85, Calcium Level 8.7, Corrected Calcium 9.1, Total Bilirubin 1.1H, Aspartate Amino Transf (AST/SGOT) 15, Alanine Aminotransferase (ALT/SGPT) 9, Alkaline Phosphatase 79, Total Protein 4.8L, Albumin 3.5 11/23/21 14:50: SARS-CoV-2 RNA (RT-PCR) Not Detected Microbiology 11/10/21 Gram Stain - Final, Complete 11/10/21 Sputum Culture - Final, Complete Staphylococcus aureus Usual upper respiratory darnell Pending Labs Microbiology Date/Time Source Procedure Growth Status 11/10/21 14:35 Sputum Induced Gram Stain - Final Complete 11/10/21 14:35 Sputum Culture - Final Staphylococcus aureus Usual upper respiratory darnell Complete Laboratory Tests 11/10/21 05:35: White Blood Count 141.9, Red Blood Count 2.66, Hemoglobin 8.1, Hematocrit 27, Mean Corpuscular Volume 101, Mean Corpuscular Hemoglobin 31, Mean Corpuscular Hemoglobin Concent 30, Red Cell Distribution Width 17.5, Platelet Count 109, Mean Platelet Volume 9.9, Immature Granulocyte % (Auto) 0, Neutrophils (%) (Auto) 3, Lymphocytes (%) (Auto) 61, Monocytes (%) (Auto) 36, Eosinophils (%) (Auto) 0, Basophils (%) (Auto) 1, Neutrophils # (Auto) 4.3, Lymphocytes # (Auto) 85.9, Monocytes # (Auto) 50.3, Eosinophils # (Auto) 0.2, Basophils # (Auto) 0.7, Immature Granulocyte # (Auto) 0.5, Neutrophils % (Manual) 2, Atypical Lymphocytes 98, Smudge Cells MARKED, Percent Immature Platelet Fraction 3.5, Hypochromasia SLIGHT, Poikilocytosis SLIGHT, Anisocytosis SLIGHT, Macrocytosis SLIGHT, Sodium Level 137, Potassium Level 6.3, Chloride Level 93, Carbon Dioxide Level 35, Anion Gap 9, Blood Urea Nitrogen 17, Creatinine 0.83, Estimat Glomerular Filtration Rate 69, BUN/Creatinine Ratio 20, Glucose Level 72, Calcium Level 8.2, Corrected Calcium 9.0, Total Bilirubin 1.8, Aspartate Amino Transf (AST/SGOT) 41, Alanine Aminotransferase (ALT/SGPT) 9, Alkaline Phosphatase 81, Total Protein 4.5, Albumin 3.0, Procalcitonin 0.16 11/10/21 05:57: Iron Level 131, Total Iron Binding Capacity 239, Unsaturated Iron Binding Capacity 108, Transferrin % Saturation 55, Ferritin 124.5, Vitamin B12 Level 218 11/11/21 07:16: Sodium Level 137, Potassium Level 3.7, Chloride Level 91, Carbon Dioxide Level 37, Anion Gap 9, Blood Urea Nitrogen 17, Creatinine 0.91, Estimat Glomerular Fi ltration Rate 62, BUN/Creatinine Ratio 19, Glucose Level 79, Calcium Level 8.6 11/16/21 07:23: White Blood Count 242.2, Red Blood Count 2.32, Hemoglobin 7.2, Hematocrit 25, Mean Corpuscular Volume 106, Mean Corpuscular Hemoglobin 31, Mean Corpuscular Hemoglobin Concent 29, Red Cell Distribution Width 19.2, Platelet Count 107, Mean Platelet Volume 10.0, Immature Granulocyte % (Auto) 0, Neutrophils (%) (Auto) 2, Lymphocytes (%) (Auto) 59, Monocytes (%) (Auto) 39, Eosinophils (%) (Auto) 0, Basophils (%) (Auto) 0, Neutrophils # (Auto) 3.7, Lymphocytes # (Auto) 141.8, Monocytes # (Auto) 95.2, Eosinophils # (Auto) 0.3, Basophils # (Auto) 0.7, Immature Granulocyte # (Auto) 0.5, Percent Immature Platelet Fraction 3.8, Sodium Level 139, Potassium Level 4.2, Chloride Level 94, Carbon Dioxide Level 34, Anion Gap 11, Blood Urea Nitrogen 25, Creatinine 1.46, Estimat Glomerular Filtration Rate 35, BUN/Creatinine Ratio 17, Glucose Level 73, Calcium Level 8.8, Corrected Calcium 9.4, Total Bilirubin 2.0, Aspartate Amino Transf (AST/SGOT) 42, Alanine Aminotransferase (ALT/SGPT) 9, Alkaline Phosphatase 104, Total Protein 4.9, Albumin 3.3, Procalcitonin 0.24 11/20/21 05:08: White Blood Count 279.8, Red Blood Count 2.09, Hemoglobin 6.3, Hematocrit 23, Mean Corpuscular Volume 109, Mean Corpuscular Hemoglobin 30, Mean Corpuscular Hemoglobin Concent 28, Red Cell Distribution Width 19.9, Platelet Count 72, Mean Platelet Volume 10.0, Immature Granulocyte % (Auto) 0, Neutrophils (%) (Auto) 1, Lymphocytes (%) (Auto) 75, Monocytes (%) (Auto) 24, Eosinophils (%) (Auto) 0, Basophils (%) (Auto) 0, Neutrophils # (Auto) 2.1, Lymphocytes # (Auto) 208.4, Monocytes # (Auto) 68.0, Eosinophils # (Auto) 0.3, Basophils # (Auto) 0.7, Immature Granulocyte # (Auto) 0.3, Percent Immature Platelet Fraction 5.4, Sodium Level 138, Potassium Level 6.9, Chloride Level 100, Carbon Dioxide Level 26, Anion Gap 12, Blood Urea Nitrogen 52, Creatinine 1.52, Estimat Glomerular Filtration Rate 34, BUN/Creatinine Ratio 34, Glucose Level 91, Calcium Level 8.0, Corrected Calcium 8.4, Total Bilirubin 1.1, Aspartate Amino Transf (AST/SGOT) 37, Alanine Aminotransferase (ALT/SGPT) 9, Alkaline Phosphatase 92, Total Protein 4.9, Albumin 3.5 11/21/21 05:24: Hemoglobin 6.9, Hematocrit 24, Sodium Level 143, Potassium Level 4.5, Chloride Level 108, Carbon Dioxide Level 24, Anion Gap 11, Blood Urea Nitrogen 46, Creatinine 0.99, Estimat Glomerular Filtration Rate 56, BUN/Creatinine Ratio 46, Glucose Level 85, Calcium Level 8.0, Corrected Calcium 8.6, Total Bilirubin 1.0, Aspartate Amino Transf (AST/SGOT) 22, Alanine Aminotransferase (ALT/SGPT) 10, Al kaline Phosphatase 88, Total Protein 4.6, Albumin 3.3 11/23/21 06:05: White Blood Count 213.6, Red Blood Count 2.28, Hemoglobin 7.0, Hematocrit 24, Mean Corpuscular Volume 107, Mean Corpuscular Hemoglobin 31, Mean Corpuscular Hemoglobin Concent 29, Red Cell Distribution Width 20.7, Platelet Count 55, Mean Platelet Volume 9.6, Immature Granulocyte % (Auto) 0, Neutrophils (%) (Auto) 1, Lymphocytes (%) (Auto) 92, Monocytes (%) (Auto) 7, Eosinophils (%) (Auto) 0, Basophils (%) (Auto) 0, Neutrophils # (Auto) 2.2, Lymphocytes # (Auto) 196.4, Monocytes # (Auto) 14.2, Eosinophils # (Auto) 0.4, Basophils # (Auto) 0.2, Im mature Granulocyte # (Auto) 0.3, Percent Immature Platelet Fraction 4.6, Sodium Level 139, Potassium Level 4.8, Chloride Level 110, Carbon Dioxide Level 20, Anion Gap 9, Blood Urea Nitrogen 31, Creatinine 0.79, Estimat Glomerular Filtration Rate 74, BUN/Creatinine Ratio 39, Glucose Level 85, Calcium Level 8.7, Corrected Calcium 9.1, Total Bilirubin 1.1, Aspartate Amino Transf (AST/ SGOT) 15, Alanine Aminotransferase (ALT/SGPT) 9, Alkaline Phosphatase 79, Total Protein 4.8, Albumin 3.5 11/23/21 14:50: SARS-CoV-2 RNA (RT-PCR) Not Detected Discharge Home Medications: Active Scripts Active Vitamin D3 (Cholecalciferol (Vitamin D3)) 125 Mcg (5000 Unit) Tablet 125 Mcg PO DAILY Vitamin B-12 (Cyanocobalamin (Vitamin B-12)) 1,000 Mcg Tablet 1,000 Mcg PO DAILY@0700 Acidophilus-Pectin Capsule (Lactobacillus Acidophilus/Pect) 75 Million Cell-100 Mg Capsule 1 Each PO DAILY Ondansetron Odt (Ondansetron) 4 Mg Tab.rapdis 4 Mg PO Q6H PRN Polyethylene Glycol 3350 17 Gram Powd.pack 17 Gm PO BID Docusate Sodium 100 Mg Capsule 100 Mg PO DAILY Nasal [place] (Oxymetazoline HCl) 0.05 % [place] 0 Ml NA Q12HR Fluticasone Propionate 50 Mcg/Actuation [place].susp 0 [place] NS DAILY Mucinex (Guaifenesin) 600 Mg Tab.er.12h 600 Mg PO BID Tessalon Perles (Benzonatate) 100 Mg Capsule 200 Mg PO TID Montelukast Sodium 10 Mg Tablet 10 Mg PO DAILY@0800 Xanax Tablet (Alprazolam) 0.25 Mg Tab 0.25 Mg PO Q8H PRN Acetaminophen 325 Mg Tablet 650 Mg PO Q6H PRN Acetaminophen 500 Mg Tablet 1,000 Mg PO HS Oxyir Tablet (Oxycodone HCl) 5 Mg Tab 5 Mg PO Q4H PRN Metoprolol Tartrate 25 Mg Tablet 12.5 Mg PO Q12HR Acyclovir 400 Mg Tablet 400 Mg PO DAILY Cefdinir 300 Mg Capsule 300 Mg PO BID Loratadine 10 Mg Tablet 10 Mg PO DAILY Zaleplon 10 Mg Capsule 10 Mg PO HS Benadryl (Diphenhydramine HCl) 25 Mg Capsule 25 Mg PO Q6H PRN Instructions to patient/family Please see electronic discharge instructions given to patient. Diagnosis/Problems Diagnosis/Problems (1) Debility (2) CLL (chronic lymphocytic leukemia) (3) Immunosuppression (4) Hypoxia (5) Oxygen dependent (6) Pneumonia TEENA BUNDY DO November 24, 2021 06:05
[2021-11-24] MEDS: CYANOCOBALAMIN 1,000 MCG (VITAMIN B-12) TABLET PO SCH (06:19)
[2021-11-24 07:23] VITALS: BP 115/58
[2021-11-24] MEDS: CEFDINIR 300 MG (OMNICEF) CAP PO SCH (07:27)
[2021-11-24] MEDS: MONTELUKAST 10 MG (SINGULAIR) TAB PO SCH (07:27)
[2021-11-24] MEDS: ENOXAPARIN INJECTION 30 MG/0.3 ML SYR SC SCH (07:27)
[2021-11-24] MEDS: LORATADINE (CLARITIN) 10 MG TAB PO SCH (07:27)
[2021-11-24] MEDS: guaiFENesin (MUCINEX) 600 MG TAB PO SCH (07:28)
[2021-11-24] MEDS: meTOprolol TARTRATE 25 MG (LOPRESSOR) TABLET PO SCH (07:28)
[2021-11-24] MEDS: ACYCLOVIR 400 MG TABLET (ZOVIRAX) PO SCH (07:28)
[2021-11-24] MEDS: VITAMIN D3 125 MCG (5,000 UNITS) CAPSULE PO SCH (07:28)
[2021-11-24] MEDS: LACTOBACILLUS ACIDOPHILUS (PROBIOTIC) CAPSULE PO SCH (07:28)
[2021-11-24] MEDS: OXYMETAZOLINE (AFRIN) 0.05% NA 30 ML BTL SCH (07:29)
[2021-11-24] MEDS: FLUTICASONE NASAL SPRAY (FLONASE) 16 GM BTL NS SCH (07:29)
[2021-11-24] MEDS: HYDROcodone/APAP 5 MG/325 MG (LORTAB) TAB PO PRN (07:37)
--- NOTE | 2021-11-24 08:15 | Physical Therapy Daily Note ---
PT Daily Note-Current Subjective Patient in recliner pre tx, agrees to PT, has no complaints of pain. Appearance Patient in recliner post tx with nurse call, phone, tray, all needs met. Mental Status Patient Orientation: Person, Place, Situation Transfers SCALE: Activities may be completed with or without assistive devices. 3-Gsrqoqqwoz-qcduqnt completes the activity by him/herself with no assistance from a helper. 5-Set-up or Clean-up Assistance-helper sets up or cleans up; patient completes activity. [place] assists only prior to or following the activity. 4-Supervision or Touching Assistance-helper provides verbal cues and/or chapito dorothy/steadying and/or contact guard assistance as patient completes activity. Assistance may be provided throughout the activity or intermittently. 3-Partial/Moderate Assistance-helper does LESS THAN HALF the effort. [place] lifts, holds or supports trunk or limbs, but provides less than half the effort. 2-Substantial/Maximal Assistance-helper does MORE THAN HALF the effort. [place] lifts or holds trunk or limbs and provides more than half the effort. 5-Vjohyvpfv-hmlwnf does ALL the effort. Patient does none of the effort to complete the activity. Or, the assistance of 2 or more helpers is required for the patient to complete the activity. If activity was not attempted, code reason: 7-Patient Refused. 9-Not Applicable-not attempted and the patient did not perform the activity before the current illness, exacerbation or injury. 10-Not Attempted due to Environmental Limitations-(lack of equipment, weather restraints, etc.). 88-Not Attempted due to Medical Conditions or Safety Concerns. Roll Left & Right (QC): 6 Sit to Lying (QC): 6 Lying to Sitting/Side of Bed(Q: 6 Sit to Stand (QC): 6 Chair/Cnx-bw-Dpwug Xfer(QC): 6 Weight Bearing Right Lower Extremity: Right Full Weight Bearing Left Lower Extremity: Left Full Weight Bearing Gait Training Distance: 250' Walk 10 feet (QC): 6 Walk 50 ft with 2 Turns(QC): 6 Walk 150 ft (QC): 6 Walking 10ft/uneven surface-QC: 6 Gait Assistive Device: FWW slow but steady ambulation Balance Picking up an Object (QC): 4 (SBA, no design agent used) Treatments bed mobility and transfers, ambulation Assessment Current Status: Fair Progress good overall progress PT Short Term Goals Short Term Goals Time Frame: November 16, 2021 Roll Left & Right: 6 Sit to lyin Lying to sitting on side of be: 4 (SBA) Sit to stand: 4 (SBA) Chair/ysv-ad-jmiui transfer: 4 (SBA) Walk 10 feet: 4 (SBA) Walk 50 feet with two turns: 4 (SBA) PT Emergency Room Clerk Goals Correction Goals PT Correction Goals Time Frame: November 30, 2021 Roll Left & Right (QC): 6 Sit to Lying (QC): 6 Lying-Sitting on Side/Bed(QC): 6 Sit to Stand (QC): 5 Chair/Aqp-fi-Fovcs Xfer(QC): 5 Toilet Transfer (QC): 5 Car Transfer (QC): 5 Does the Patient Walk: Yes Walk 10 feet (QC): 5 Walk 50ft with 2 Turns (QC): 5 Walk 150 ft (QC): 5 Walking 10ft on Uneven Surface: 5 1 Step (curb) (QC): 4 4 Steps (QC): 4 12 Steps (QC): 88 Picking up an Object (QC): 5 Wheel 50 feet with 2 turns (QC: 9 Wheel 150 feet: 9 PT Plan Problem List Problem List: Activity Tolerance, Functional Strength, Safety, Balance, Gait, Transfer, Bed Mobility, ROM Treatment/Plan Treatment Plan: Continue Plan of Care Treatment Plan: Bed Mobility, Education, Functional Activity [place], Functional Strength, Group Therapy, Gait, Safety, Therapeutic Exercise, Transfers Treatment Duration: November 30, 2021 Frequency: At least 5 of 7 days/Wk (IRF) Estimated Hrs Per Day: 1.5 hours per day Patient and/or Family Agrees t: Yes Safety Risks/Education Patient Education: Gait Training, Transfer Techniques, Correct Positioning, Safety Issues Teaching Recipient: Patient Teaching Methods: Demonstration, Discussion Response to Teaching: Reinforcement Needed Time/GCodes Time In: 0800 Time Out: 0810 Total Billed Treatment Time: 10 Total Billed Treatment 1 visit FA NADIA MONTOYA PT November 24, 2021 08:15
--- NOTE | 2021-11-24 08:20 | Therapy Team Discharge Summary ---
Therapy Discharge Summary Discharge Recommendations Date of Discharge Physical Therapy Patient came to rehab with B/L Multifocal PNA. Upon evaluation patient performs rolling independently, supine to sit with min assist, sit to supine SBA, sit <-> stand and transfers CGA, car transfer CGA, ambulate 20' with a rolling walker with CGA (including 10' over an uneven surface), can go up and down 1 step using a rolling walker with CGA, and can picker/puller an object from the floor using a event executive with CGA/SBA. Patient has been performing bed mobility and transfer training, balance and endurance training, functional strengthening, stair training, gait training, and education. 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 Now, patient performs rolling and supine <-> sit with independence, sit <-> stand and transfers with independence, car transfer independent, ambulates 250' with a rolling walker with independence (including 10' over an uneven surface), can go up and down 4 steps using 2 handrails with CGA, and can picker/puller an object from the floor without using a event executive with SBA. Patient is being discharged from this facility today and will be discharged from PT at this time. Roll Left to Right (QC): 6 Sit to Lying (QC): 6 Lying to Sitting/Side of Bed(Q: 6 Sit to Stand (QC): 6 Chair/Sfn-bq-Obmgh Xfer(QC): 6 Toilet Transfer (QC): 5 Car Transfer (QC): 6 Does the Patient Walk: Yes Mode of Locomotion: Walk Anticipated Mode of Locomotion: Walk Walk 10 feet (QC): 6 Walk 50 ft with 2 Turns(QC): 6 Walk 150 ft (QC): 6 Walking 10ft on uneven surface: 6 Distance: 20', 15'x2 Gait Assistive Device: FWW Does the Pt Use a Wheelchair: No Wheel 50 ft with 2 turns (QC): 1 Wheel 150 ft (QC): 1 Type of Wheelchair: N/A #of Steps: 4 4 Steps (QC): 4 Walking Assistive Device: Walker Balance Sitting Static: Normal Balance Sitting Dynamic: Normal Balance-Standing Static: Fair Picking up an Object (QC): 4 (SBA, no event executive used) Occupational Therapy Decreased Activ Tolerance, Decreased UE Strength, Impaired Self-Care Skills, Restricted Funct UE ROM Eating (QC): 6 Oral Hygiene (QC): 6 Shower/Bathe Self (QC): 6 Upper Body Dressing (QC): 5 Lower Body Dressing (QC): 5 On/Off Footwear (QC): 3 (mod a) Toileting Hygiene (QC): 6 PT Communications Department Chair Goals Prison Goals PT Prison Goals Time Frame: November 30, 2021 Roll Left to Right (QC): 6 Sit to Lying (QC): 6 Lying-Sitting on Side/Bed(QC): 6 Sit to Stand (QC): 5 Chair/Iah-nk-Prmke Xfer(QC): 5 Car Transfer (QC): 5 Does the Patient Walk: Yes Walk 10 feet (QC): 5 Walk 10ft-Uneven Surface(QC): 5 Walk 50ft with 2 Turns (QC): 5 Walk 150 ft (QC): 5 Wheel 50 feet with 2 turns (QC: 9 1 Step (curb) (QC): 4 4 Steps (QC): 4 12 Steps (QC): 88 Picking up an Object (QC): 5 OT Prison Goals Communications Department Chair Goals Time Frame: Dec 08, 2021 Eating (FIM): 6 Eating (QC): 6 (met) Oral Hygiene (QC): 6 (met) Shower/Bathe Self (QC): 6 (met) Upper Body Dressing (QC): 6 (not met) Lower Body Dressing (QC): 6 (not met) On/Off Footwear (QC): 6 (not met) Toileting(FIM): 6 Toileting Hygiene (QC): 6 (met) Toilet/Commode Transfer (QC): 5 Additional Goals: 1-Demonstrate ADL Tasks, 2-Verbalize Understanding, 3-ImproveStrength/[place] 1=Demonstrate adherence to instructed precautions during ADL tasks. 2=Patient will verbalize/demonstrate understanding of assistive devices/modifications for ADL. 3=Patient will improve strength/tolerance for activity to enable patient to perform ADL's. NADIA SLOAN PT November 24, 2021 08:20
[2021-11-24 09:05] VITALS: BP 115/58
[2021-11-24] MEDS: DOCUSATE SODIUM 100 MG (COLACE) CAP PO SCH (09:18)
[2021-11-24] MEDS: polyethylene glycoL POWDER 17 GM (MIRALAX) PACK PO SCH (09:18)
[2021-11-24] MEDS: BENZONATATE 100 MG (TESSALON) CAPSULE PO SCH (09:18)
[2021-11-24] MEDS: SENNA W/DOCUSATE (SENOKOT S) TABLET PO SCH (09:18)
--- NOTE | 2021-11-24 10:36 | Therapy Team Discharge Summary ---
Therapy Discharge Summary Discharge Recommendations Date of Discharge November 24, 2021 at 09:05 Physical Therapy Roll Left to Right (QC): 6 Sit to Lying (QC): 6 Lying to Sitting/Side of Bed(Q: 6 Sit to Stand (QC): 6 Chair/Zot-kt-Uhpqq Xfer(QC): 6 Toilet Transfer (QC): 5 Car Transfer (QC): 6 Does the Patient Walk: Yes Mode of Locomotion: Walk Anticipated Mode of Locomotion: Walk Walk 10 feet (QC): 6 Walk 50 ft with 2 Turns(QC): 6 Walk 150 ft (QC): 6 Walking 10ft on uneven surface: 6 Distance: 20', 15'x2 Gait Assistive Device: FWW Does the Pt Use a Wheelchair: No Wheel 50 ft with 2 turns (QC): 1 Wheel 150 ft (QC): 1 Type of Wheelchair: N/A #of Steps: 4 4 Steps (QC): 4 Walking Assistive Device: Walker Balance Sitting Static: Normal Balance Sitting Dynamic: Normal Balance-Standing Static: Fair Picking up an Object (QC): 4 (SBA, no data keyer used) Occupational Therapy Pt admitted to ARU with b/l multifocal PNA. At [facility], pt was independent with ADLs and functional mobility using 4WW. Upon initial evaluation, pt required set up assistance with eating and upper body dressing, independent oral care, min A toileting, and SBA showering, LBD, and footwear. OT txs focused on increasing BUE strength and activity tolerance, and increasing independence with ADLs and functional mobility. Pt made good functional progress towards goals. Pt discharged from facility, d/c from OT. Decreased Activ Tolerance, Decreased UE Strength, Impaired Self-Care Skills, Restricted Funct UE ROM Eating (QC): 6 Oral Hygiene (QC): 6 Shower/Bathe Self (QC): 6 Upper Body Dressing (QC): 5 Lower Body Dressing (QC): 5 On/Off Footwear (QC): 3 (mod a) Toileting Hygiene (QC): 6 PT Ticket Sorter Goals Half-Way Goals PT Half-Way Goals Time Frame: November 30, 2021 Roll Left to Right (QC): 6 Sit to Lying (QC): 6 Lying-Sitting on Side/Bed(QC): 6 Sit to Stand (QC): 5 Chair/Eje-hu-Lewpw Xfer(QC): 5 Car Transfer (QC): 5 Does the Patient Walk: Yes Walk 10 feet (QC): 5 Walk 10ft-Uneven Surface(QC): 5 Walk 50ft with 2 Turns (QC): 5 Walk 150 ft (QC): 5 Wheel 50 feet with 2 turns (QC: 9 1 Step (curb) (QC): 4 4 Steps (QC): 4 12 Steps (QC): 88 Picking up an Object (QC): 5 OT Half-Way Goals Half-Way Goals Time Frame: Dec 08, 2021 Eating (FIM): 6 Eating (QC): 6 (met) Oral Hygiene (QC): 6 (met) Shower/Bathe Self (QC): 6 (met) Upper Body Dressing (QC): 6 (not met) Lower Body Dressing (QC): 6 (not met) On/Off Footwear (QC): 6 (not met) Toileting(FIM): 6 Toileting Hygiene (QC): 6 (met) Toilet/Commode Transfer (QC): 5 Additional Goals: 1-Demonstrate ADL Tasks, 2-Verbalize Understanding, 3- ImproveStrength/[place] 1=Demonstrate adherence to instructed precautions during ADL tasks. 2=Patient will verbalize/demonstrate understanding of assistive dev ices/modifications for ADL. 3=Patient will improve strength/tolerance for activity to enable patient to perform ADL's. LAYTON BENITEZ OT November 24, 2021 10:36
--- NOTE | 2021-11-24 13:15 | Progress Note ---
GASPER GALLARDO 11/24/21 1315: Progress Note Hospital course: The patient is a 86 YO female who was admitted to inpatient rehab on 11/09/21 due to debility and weakness secondary to pneumonia and CLL. Before her inpatient rehab admission, the patient presented to [facility] with SOB complaints, and was Dx with multifocal pneumonia which failed outpatient ABX therapy. Throughout her inpatient rehab course she fully participated in physical therapy and occupational therapy. She specifically focussed on bed mobility, education, functional activity tolerance, functional strength, gait, safety and ADLs. She made good progress with improvements in strength, stamina, ambulation and endurance. Her medical status was closely monitored during the course of her stay. Due to her anemia she received a unit of blood on 11/20/21. Her WBC remained elevated due to her Hx of CLL. Blood chemistry was closely monitored throughout her stay. She had a Potassium of 6.9 on 11/20/21, that lowered to normal levels the next day, and throughout the rest of her stay. 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 Her chronic sinusitis complaints were managed by Dr. Alfonso. The patient was discharged home on 11/24/21. She was comfortable with this plan and was content with the progress she made throughout her inpatient rehab course. TATIANA MCNAIR DO 11/24/217: Supervisory-Addendum Brief Verification & Attestation Participated in pt care: history, MDM, physical Personally performed: exam, history, MDM, supervision of care Care discussed with: Medical Student Procedures: n/a Results interpretation: Verified all documentation Verification and Attestation of Medical Student E/M Service A medical student performed and documented this service in my presence. I reviewed and verified all information documented by the medical student and made modifications to such information, when appropriate. I personally performed the physical exam and medical decision making. Tatiana Mcnair November 24, 2021,21:07 GASPER GALLARDO November 24, 2021 13:15 TATIANA MCNAIR DO November 24, 2021 21:07
== END 2021-11-24 09:05 | DRG 91 ==
PROVIDERS: ADMIT Internal Medicine; ATTEND Internal Medicine
DX: G72.81 Critical illness myopathy (principal); J15.212 Pneumonia due to Methicillin resistant Staphylococcus aureus; C91.10 Chronic lymphocytic leukemia of B-cell type not having achieved remission; I50.32 Chronic diastolic (congestive) heart failure; N17.9 Acute kidney failure, unspecified; R05.9 Cough, unspecified; R09.02 Hypoxemia; Z66 Do not resuscitate; Z20.822 Contact with and (suspected) exposure to COVID-19; E11.9 Type 2 diabetes mellitus without complications; I11.0 Hypertensive heart disease with heart failure; G47.00 Insomnia, unspecified; D64.9 Anemia, unspecified; E53.8 Deficiency of other specified B group vitamins; B35.1 Tinea unguium; G60.9 Hereditary and idiopathic neuropathy, unspecified; M20.42 Other hammer toe(s) (acquired), left foot; M20.41 Other hammer toe(s) (acquired), right foot; J32.4 Chronic pansinusitis; E87.5 Hyperkalemia
CPT/HCPCS: 36415; 70486; 71045; 80048; 80053; 82607; 82728; 83540; 83550; 84145; 85007; 85014; 85018; 85025; 85027; 86850; 86900; 86901; 86920; 87070; 87077; 87186; 87205; 87636; 94760